=== PATIENT | male | born 1940 | race Caucasian/White ===

== ENCOUNTER → 2017-09-15 07:39 | Outpatient (CLI) | payer MEDICARE, SELFPAY ==
[2017-09-15 09:03] LABS: Hemoglobin A1C% w Est Avg Glu 8.9 % (4.0-6.0)
== END ==
PROVIDERS: PCP Internal Medicine; Visit Provider Internal Medicine
DX: E11.9 Type 2 diabetes mellitus without complications (principal)
CPT/HCPCS: 36415; 83036

== ENCOUNTER → 2017-09-29 10:28 | Outpatient (CLI) | payer MEDICARE, SELFPAY ==
[2017-10-02 12:39] LABS: Creatine Kinase 389 U/L (55-170)
== END ==
PROVIDERS: Family Provider Internal Medicine; PCP Internal Medicine; Visit Provider Internal Medicine Cardiovascular Disease
DX: R74.8 Abnormal levels of other serum enzymes (principal)
CPT/HCPCS: 36415; 82550; 82565

== ENCOUNTER → 2017-10-10 07:06 | Outpatient (CLI) | payer MEDICARE, SELFPAY ==
[2017-10-12 21:51] LABS: Aldolase 3.4 U/L (< 8.2)
== END ==
PROVIDERS: PCP Internal Medicine; Visit Provider Internal Medicine Cardiovascular Disease
DX: R74.8 Abnormal levels of other serum enzymes (principal)
CPT/HCPCS: 36415; 82085

== ENCOUNTER → 2018-02-14 09:01 | Outpatient (CLI) | payer MEDICARE, SELFPAY ==
[2018-02-14 10:05] LABS: Hemoglobin A1C% w Est Avg Glu 9.1 % (4.0-6.0)
[2018-02-14 10:16] LABS: Aspartate Aminotransferase 35 IU/L (17-59); Cholesterol 122 mg/dL (140-199); HDL Cholesterol 43 mg/dL (40-60); LDL Cholesterol Calculated 61 mg/dL (<100); Triglycerides 92 mg/dL (35-150)
== END ==
PROVIDERS: Family Provider Internal Medicine; PCP Internal Medicine; Visit Provider Internal Medicine
DX: E11.9 Type 2 diabetes mellitus without complications (principal); I10 Essential (primary) hypertension; E78.00 Pure hypercholesterolemia, unspecified
CPT/HCPCS: 36415; 80061; 83036; 83880; 84450

== ENCOUNTER → 2018-03-05 08:00 | Outpatient (CLI) | payer MEDICARE, SELFPAY ==
[2018-03-05 09:22] LABS: Alanine Aminotransferase 34 IU/L (21-72); Albumin 4.3 g/dL (3.5-5.0); Albumin Globulin Ratio 1.6 (1.0-2.8); Alkaline Phosphatase 65 U/L (38-126); Aspartate Aminotransferase 33 IU/L (17-59); BUN Creatinine Ratio 14.4 (6-22); Bilirubin Total 0.5 mg/dL (0.2-1.3); Blood Urea Nitrogen 13 mg/dL (9-20); Calcium 9.4 mg/dL (8.4-10.2); Carbon Dioxide 31 mmol/L (22-32); Chloride 95 mmol/L (98-107); Cholesterol 111 mg/dL (140-199); Estimated Glomerular Filt Rate > 60.0 mL/min (>60); Globulin 2.7 g/dL (1.7-4.1); Glucose 133 mg/dL (80-110); HDL Cholesterol 54 mg/dL (40-60); HEMOLYSIS < 15 (0-50); LDL Cholesterol Calculated 42 mg/dL (<100); Potassium 4.7 mmol/L (3.4-5.1); Sodium 137 mmol/L (137-145); Triglycerides 75 mg/dL (35-150)
== END ==
PROVIDERS: Family Provider Internal Medicine; PCP Internal Medicine; Visit Provider Internal Medicine Cardiovascular Disease
DX: E78.5 Hyperlipidemia, unspecified (principal)
CPT/HCPCS: 36415; 80053; 80061

== ENCOUNTER → 2018-03-14 12:07 | Outpatient (CLI) | payer MEDICARE, SELFPAY ==
[2018-03-14 13:06] LABS: Creatine Kinase 340 U/L (55-170)
[2018-03-16 14:07] LABS: Aldolase 4.4 U/L (< 8.2)
== END ==
PROVIDERS: Family Provider Internal Medicine; PCP Internal Medicine; Visit Provider Internal Medicine Cardiovascular Disease
DX: E78.5 Hyperlipidemia, unspecified (principal)
CPT/HCPCS: 36415; 82085; 82550

== ENCOUNTER → 2018-11-22 07:25 | Outpatient (CLI) | payer MEDICARE, SELFPAY ==
[2018-11-22 08:25] LABS: BUN Creatinine Ratio 14.5 (6-22); Blood Urea Nitrogen 16 mg/dL (9-20); Calcium 9.8 mg/dL (8.4-10.2); Carbon Dioxide 30 mmol/L (22-32); Chloride 97 mmol/L (98-107); Cholesterol 108 mg/dL (140-199); Estimated Glomerular Filt Rate > 60.0 mL/min (>60); Glucose 125 mg/dL (80-110); HDL Cholesterol 47 mg/dL (40-60); HEMOLYSIS < 15 (0-50); LDL Cholesterol Calculated 42 mg/dL (<100); Sodium 135 mmol/L (137-145); Triglycerides 96 mg/dL (35-150)
== END ==
PROVIDERS: Family Provider Internal Medicine; PCP Internal Medicine; Visit Provider Internal Medicine Cardiovascular Disease
DX: R60.0 Localized edema (principal); E78.5 Hyperlipidemia, unspecified
CPT/HCPCS: 36415; 80048; 80061

== ENCOUNTER → 2018-12-17 07:43 | Outpatient (CLI) | payer MEDICARE, SELFPAY ==
--- NOTE | 2018-12-17 | DI.ECHO.S_ITS ---
[facility] +---------+ : : [address] : : : : [id number] : : : : Phone: [phone]+ Echocardiogram Report + + :Name: RK ERNANDEZ Study Date: 12/17/2018 Height: 70 in : :[facility] Weight: 249 lb : : Gender: Male BSA: 2.3 m2 : :: 1940 Age: 78 yrs BP: 142/64 mmHg: :Reason For Study: Edema : : Performed By: Monika Stack : :Referring: ANTHONY CERVANTES : + + Interpretation Summary The left ventricle is mildly dilated. This is increased compared to the previous study. The ejection fraction is estimated to be 25-30%. Left ventricular function has mildly worsened compared to the previous exam. In comparison to previous study, worsening wall motion abnormalities in the anterolateral wall. Diastolic parameters suggest a pseudonormalization pattern, consistent with probable elevated filling pressures. The right ventricle is grossly normal size. Right ventricular systolic function is at the lower limits of normal. An annuloplasty ring is noted in the mitral position. There is mild to moderate mitral regurgitation. Compared to the prior echo study, there has been an increase in the severity of mitral regurgitation. There is mild tricuspid regurgitation. The right ventricular systolic pressure is estimated to be at least 33 mmHg based on an estimated right atrial pressure of 3 mm Hg. The ascending aorta is mildly enlarged. No significant change in ascending aorta diameter. Procedure: A two-dimensional transthoracic echocardiogram with color flow and Doppler was performed. The study quality was technically adequate. Comparison is made with the echocardiogram of 03-30-15. The patient was in normal sinus rhythm during the exam. The patient had frequent PACs during the exam. Left Ventricle: The left ventricle is mildly dilated. This is increased compared to the previous study. There is no thrombus. The ejection fraction is estimated to be 25-30%. Left ventricular function has mildly worsened compared to the previous exam. There is moderate to severe global hypokinesis of the left ventricle. In comparison to previous study, worsening wall motion abnormalities in the anterolateral wall. Diastolic parameters suggest a pseudonormalization pattern, consistent with probable elevated filling pressures. Right Ventricle: The right ventricle is grossly normal size. Right ventricular systolic function is at the lower limits of normal. Atria: The left atrium is severely dilated. The left atrium has remained unchanged in size since the prior echo exam. The right atrium grossly appears normal in size. The interatrial septum is intact with no evidence for an atrial septal defect. Mitral Valve: The mitral valve leaflets appear mildly thickened, but open well. An annuloplasty ring is noted in the mitral position. The posterior mitral leaflet is thickened and fixed consistent with prior mitral repair surgery. No significant mitral valve stenosis. There is mild to moderate mitral regurgitation. Compared to the prior echo study, there has been an increase in the severity of mitral regurgitation. Aortic Valve: The aortic valve is trileaflet. The aortic valve opens well. There is mild aortic valve sclerosis. There is no aortic valve stenosis. There is trace aortic regurgitation. Tricuspid Valve: The tricuspid valve leaflets are thin and pliable. There is mild tricuspid regurgitation. The right ventricular systolic pressure is estimated to be at least 33 mmHg based on an estimated right atrial pressure of 3 mm Hg. Pulmonic Valve: The pulmonic valve is normal in structure and function. There is trace pulmonic regurgitation. Great Vessels: The aortic root is mildly dilated. The aortic arch is mildly enlarged. The ascending aorta is mildly enlarged. The IVC is of normal diameter and collapses greater than 50% with a sniff. This suggests a low right atrial pressure of 3 mm Hg. Pericardium/ Pleura There is no pericardial effusion. There is no pleural effusion. MMode/2D Measurements & Calculations LVIDd: 6.1 cm Ao root diam: 4.4 cm LVIDs: 5.5 cm Aortic Jxn: 3.0 cm FS: 11.1 % asc Aorta Diam: 3.7 cm EPSS: 2.4 cm Ao Arch Diam (Prox Trans): 3.5 cm IVSd: 0.90 cm LVPWd: 1.00 cm LV roy. diameter/BSA (cm/m^2): 2.7 LV sys. diameter/BSA (cm/m^2): 2.4 LA dimension: 5.6 cm RA long axis: 5.9 cm LA A2 area: 37.8 cm2 RA area: 22.6 cm2 LA A4 area: 29.3 cm2 RA vol: 73.6 ml LA length (vol): 6.0 cm RA : 32.1 ml/m2 LA vol: 158.3 ml IVC diam: 1.9 cm LA vol index: 69.1 ml/m2 RVDd major: 6.2 cm RVD1 (basal): 3.7 cm RVD2 (mid): 2.4 cm Doppler Measurements & Calculations Ao V2 max: 133.9 cm/sec MV E max win: 145.0 cm/sec Ao V2 mean: 91.9 cm/sec MV A max win: 116.1 cm/sec Ao max P.2 mmHg MV E/A: 1.2 Ao mean P.9 mmHg Med Peak E' Win: 2.5 cm/sec Ao V2 VTI: 33.6 cm E/E' med: 57.4 Lat Peak E' Win: 7.9 cm/sec E/E' lat: 18.4 E/e' average: 37.9 MV dec time: 0.25 sec MV P1/2t: 76.7 msec TR max win: 275.5 cm/sec MV P1/2t max win: 145.0 cm/sec TR max P.4 mmHg MVA(P1/2t): 2.9 cm2 PA V2 max: 57.9 cm/sec PA V2 mean: 34.1 cm/sec PA mean P.59 mmHg PA Accel Time: 0.12 sec Reading Physician:12:37 PM
== END ==
PROVIDERS: PCP Internal Medicine; Visit Provider Internal Medicine Cardiovascular Disease
DX: R60.0 Localized edema (principal); I51.7 Cardiomegaly; I34.0 Nonrheumatic mitral (valve) insufficiency; I37.1 Nonrheumatic pulmonary valve insufficiency
CPT/HCPCS: 93306

== ENCOUNTER → 2019-01-29 13:48 | Outpatient (CLI) | payer MEDICARE, SELFPAY ==
--- NOTE | 2019-01-29 14:49 | P.PCN_ITS ---
Cardiac Stress Test Report Referral & Results Date Patient Seen: 01/29/19 Time Patient Seen: 14:30 Requesting provider: Timothy Hinton Indication: CAD, A-fib Rest ECG: Atrial fibrillation Procedure Note: Today following both written and verbal informed consent the patient was exercised on the first stage of a standard Edgardo protocol patient for a total of 3 minutes 52 seconds achieving a maximum heart rate of 120 maximum systolic blood pressure of 146. We had to pause progression of the protocol due to markedly reduced exercise capacity and heart rate interference from patient's beta-martir. This performance is approximately 4.6 METs. Exercise was terminated at this point because of fatigue, shortness of breath. Patient was also given Cardiolite through a previously started Hep-Lock IV by the nuclear security officer approximately 1 minute prior to the cessation of exercise. Markedly reduced exercise capacity. No change in rhythm during the exam. Minimal ST deviations in multiple leads. Impression: Intermediate probability for ischemia. Will await perfusion imaging. Please note: Actual ECG tracings can be found in the PACS system.
--- NOTE | 2019-01-30 15:51 | DI.NM.S_ITS ---
DATE OF SERVICE: 01/29/2019 PROCEDURE PERFORMED: Exercise treadmill stress and rest myocardial perfusion imaging study with gating to assess ejection fraction and regional wall motion. ORDERING PROVIDER: Timothy Hinton MD INDICATIONS: The patient is a 78-year-old male status post previous myocardial infarction and mitral valve repair who now presents with worsening lower extremity edema and an abnormal ECG. CARDIAC STRESS: The patient was able to exercise for only 3 minutes 52 seconds on a standard Edgardo protocol suggesting moderate-severely reduced exercise capacity with an EVANGELINA of +35%. He achieved a maximum heart rate of 120 bpm (85% of his predicted maximum) and had a normal blood pressure response. His resting ECG shows a nonspecific intraventricular conduction delay with associated ST- segment abnormalities but these remained unchanged with stress. He had occasional PACs at rest and with stress but no complex ectopy. He denied any chest discomfort. At 2 minutes 59 seconds of exercise, at heart rate of 118 bpm, 24.6 mCi of technetium-99 Myoview was injected, and the patient was imaged 15 minutes later using a gated SPECT acquisition protocol. The patient returned the following day and was reinjected with an additional 25.1 mCi of technetium-99 Myoview and was imaged 30 minutes later, again using a gated SPECT acquisition protocol. FINDINGS: 1. Raw Data: There is marginal image quality with mild motion noted on both the stress and resting images which could introduce artifact. The lung/heart ratio is normal at 0.31 and the TID ratio was normal at 1.03. 2. Quantitative Gated SPECT: Post stress ejection fraction is estimated at 46% with global hypokinesis without any clear focality. Specifically, the mid-to- distal anterior wall and apex appear to have similar contractility as the other segments. The resting images show an ejection fraction of 46% with a similar contraction pattern. The left ventricle is moderate-severely enlarged with a resting end-diastolic volume of 247 mL. 3. Myocardial Perfusion Imaging: Post stress supine images show a fairly normal perfusion pattern with the exception of a mild defect in the very distal apical segments, more notably in the distal inferior wall and inferoapex but the anterior wall and anteroapex appear to have fairly normal perfusion. The prone images show a similar perfusion pattern, again with a mild defect in the apex and more notable in the inferoapex. The resting images show an identical perfusion pattern without any clear areas of improvement. IMPRESSION: 1. Abnormal myocardial perfusion study. 2. Relatively small fixed mild perfusion defect in the distal inferoapex and slightly involving the apex itself. This would be consistent with a previous small nontransmural infarction. The anterior wall and anteroapex appear to have normal perfusion. There is no evidence for any significant myocardial ischemia. 3. Moderately reduced left ventricular systolic function in a global fashion without any obvious focal wall motion abnormality but left ventricular volumes are significantly increased. 4. Veysgnrt-ar-dvlotknm reduced exercise capacity but without any angina or significant ECG changes of ischemia. Frequent premature atrial contractions (PACs) are noted at rest and with stress but no complex ectopy. 5. This study is compared to the previous myocardial perfusion study at [facility] on 04/21/2015. The previous [id number]-[id number] anterior reversible defect is no longer evident. Left ventricular volumes and ejection fraction are grossly similar to the previous study. The patient was able to exercise for 5 minutes 6 seconds on the previous exam suggesting some decline in functional capacity. Praful Sawant - CAM/heidi/ab doc#: [id number]/job#: [id number] dd: 01/30/2019 12:52:00 dt: 01/30/2019 15:30:00 DICTATING MD/COPIES TO: Jake Dorsey MD; Timothy Hinton MD; Zaheer Baig MD COPIES MNE: GRETCHEN WEIR; TATIANA
== END ==
PROVIDERS: Family Provider Internal Medicine; PCP Internal Medicine; Visit Provider Internal Medicine Cardiovascular Disease
DX: R94.31 Abnormal electrocardiogram [ECG] [EKG] (principal); I25.119 Atherosclerotic heart disease of native coronary artery with unspecified angina pectoris; I48.91 Unspecified atrial fibrillation; I25.2 Old myocardial infarction; R60.0 Localized edema; Z95.2 Presence of prosthetic heart valve
CPT/HCPCS: 78452; 93016; 93017; 93018; A9502

== ENCOUNTER 2019-02-20 12:46 | Day surgery (SDC) | payer MEDICARE, SELFPAY ==
[2019-02-20] MEDS: SODIUM CHLORIDE 0.9% 1,000 ML 42 ML IV (13:04)
[2019-02-20 13:05] VITALS: BP 121/67; PULSE 68; RESP 18; TEMP 36.3; O2SAT 100; BMI 31.5
--- NOTE | 2019-02-20 14:12 | PM.HP.1 ---
History of Present Illness History of Present Illness Date Patient Seen: 02/20/19 Time Patient Seen: 14:13 Chief complaint: [id number] Narrative: History of adenomatous colon polyps Patient History Medical History (Updated 02/20/19 @ 14:14 by Jr Roy MD) FH: mitral valve repair (Acute) Family & Social History Social History: household members spouse Meds Home Medications and Allergies Home Medications Medication Instructions Recorded Confirmed Type Lantus U-100 Insulin 20 u SQ BID #0 12/13/16 02/20/19 History clopidogrel [Plavix] 75 mg PO QDAY #0 12/13/16 02/20/19 History insulin lispro [Humalog U-100 10 u SQ DAILY #0 12/13/16 02/20/19 History Insulin] metformin [Glucophage XR] 1,000 mg PO BID #0 12/13/16 02/20/19 History metoprolol succinate [Toprol XL] mg PO QDAY #0 12/13/16 History telmisartan [Micardis] 40 mg PO QDAY #0 12/13/16 02/20/19 History nitroglycerin [Nitrostat] 0.4 mg SUBLINGUAL Q5M PRN 02/20/19 02/20/19 History Allergies Allergy/AdvReac Type Severity Reaction Status Date / Time Qqcyenc-Kvh-Vzo Reductase AdvReac Intermediate lower body Unverified 02/19/19 13:15 Inhibitor muscle pain [[id number]-ERF REDUCTASE INHIBITOR] Exam Vital Signs (past 8 hours): - 02/20/19 13:05 Temperature 97.4 F L Pulse Rate 68 Respiratory Rate 18 Blood Pressure 121/67 Pulse Oximetry 100 Oxygen Delivery Method Room Air Narrative Exam Narrative: Oropharynx free of lesions Chest clear to auscultation percussion Cardiac exam reveals no S3 or murmur Assessment & Plan Assessment & Plan narrative: Need for screening colonoscopy. Using Plavix for history of cardiac stents. Now off Plavix this for 5 days. Risks, benefits, alternatives have been explained.
--- NOTE | 2019-02-20 14:14 | PM.OP.ENDO ---
Operative Date/Time/Diagnoses Date of procedure: 02/20/19 Time of procedure: 14:15 Pre-op diagnosis: See indication and findings Procedure & Clinicians Study performed: Colonoscopy Same procedure as scheduled: Yes Indications: History of adenomatous colon polyps Surgeon: Jr Roy Procedure Notes Procedure in detail: After informed consent was obtained the patient was placed in left lateral decubitus position. Video colonoscope was introduced the rectum slowly advanced to cecum/just at ICV. On slow withdrawal mucosa was carefully examined. The scope was removed. The patient tolerated procedure well. Blood loss none Complications none Sedation Total sedation time 32 minutes Versed 8 mg fentanyl 150 micro g IV titration Findings 1. Extensive left and sigmoid diverticulosis 2. Extensive the tortuosity of the colon. 3. Otherwise negative colonoscopy When can go back on his Plavix. I do not think he will need follow-up colonoscopy due to his age.
[2019-02-20] MEDS: MIDAZOLAM 5 MG/5 ML VIAL IV (14:42)
[2019-02-20] MEDS: fentaNYL 250 MCG/5 ML INJ IV (14:42)
[2019-02-20 14:49] VITALS: BP 122/49; PULSE 62; RESP 10; TEMP 36.6; O2SAT 98
[2019-02-20 14:58] VITALS: BP 107/53; PULSE 64; RESP 11; O2SAT 98
[2019-02-20 15:02] VITALS: BP 120/66; PULSE 65; RESP 15; TEMP 37; O2SAT 98
[2019-02-20 15:10] VITALS: BP 115/62; PULSE 62; RESP 16; TEMP 36.5; O2SAT 98
== END 2019-02-20 15:20 | disposition home or self-care (01) ==
PROVIDERS: PCP Internal Medicine; Visit Provider Internal Medicine Gastroenterology
PROC: 0DJD8ZZ Inspection of Lower Intestinal Tract, Via Natural or Artificial Opening Endoscopic (ICD-10-PCS; CPT 45378; principal; 2019-02-20 14:00)
DX: Z86.010 Personal history of colon polyps (principal); K57.30 Diverticulosis of large intestine without perforation or abscess without bleeding; E11.9 Type 2 diabetes mellitus without complications; Z79.4 Long term (current) use of insulin; I10 Essential (primary) hypertension
CPT/HCPCS: G0105; J2250; J3010

== ENCOUNTER → 2019-03-06 15:59 | Outpatient (ROUT) | payer MEDICARE, SELFPAY ==
[2019-03-06 16:20] LABS: Add Manual Diff / Slide Review NO; Basophils Absolute Auto 0 /uL (0-100); Basophils Percent Auto 0.6 % (0-2); Eosinophils Absolute Auto 400 /uL (0-450); Eosinophils Percent Auto 8.9 % (2-4); Hematocrit 35.5 % (41-53); Hemoglobin 12.1 g/dL (13.5-17.5); Lymphocytes Absolute Auto 1000 /uL (1100-4500); Lymphocytes Percent Auto 23.1 % (25-40); Mean Corpuscular HGB Conc 33.9 % (30-36); Mean Corpuscular Hemoglobin 29.9 PG (26-34); Monocytes Absolute Auto 600 /uL (0-900); Monocytes Percent Auto 13.2 % (3-14); Neutrophils Absolute Auto 2400 /uL (1500-7000); Neutrophils Percent Auto 54.2 % (50-75); Platelet Count 222 X10^3/uL (150-400); Red Blood Cell Count 4.04 X10^6/uL (4.5-5.9); Red Cell Distribution Width 14.1 % (11.6-14.8); White Blood Cell Count 4.4 X10^3/uL (4.5-11.0)
[2019-03-06 16:26] LABS: Hemoglobin A1C% w Est Avg Glu 8.7 % (4.0-6.0)
[2019-03-06 16:27] LABS: Alanine Aminotransferase 20 IU/L (<50); Albumin 4.3 g/dL (3.5-5.0); Albumin Globulin Ratio 1.7 (1.0-2.8); Alkaline Phosphatase 76 U/L (38-126); Aspartate Aminotransferase 33 IU/L (17-59); BUN Creatinine Ratio 14.5 (6-22); Bilirubin Total 0.6 mg/dL (0.2-1.3); Blood Urea Nitrogen 16 mg/dL (9-20); Calcium 9.7 mg/dL (8.4-10.2); Carbon Dioxide 30 mmol/L (22-32); Chloride 96 mmol/L (98-107); Cholesterol 129 mg/dL (140-199); Estimated Glomerular Filt Rate > 60.0 mL/min (>60); Globulin 2.6 g/dL (1.7-4.1); Glucose 204 mg/dL (80-110); HDL Cholesterol 48 mg/dL (40-60); HEMOLYSIS < 15 (0-50); LDL Cholesterol Calculated 51 mg/dL (<100); Potassium 4.6 mmol/L (3.4-5.1); Sodium 136 mmol/L (137-145); Total Protein 6.9 g/dL (6.3-8.2); Triglycerides 152 mg/dL (35-150)
== END ==
PROVIDERS: PCP Internal Medicine; Visit Provider Internal Medicine
DX: E11.9 Type 2 diabetes mellitus without complications (principal); E78.2 Mixed hyperlipidemia; I25.10 Atherosclerotic heart disease of native coronary artery without angina pectoris
CPT/HCPCS: 80053; 80061; 83036; 85025

== ENCOUNTER → 2019-08-22 08:03 | Outpatient (CLI) | payer MEDICARE, SELFPAY ==
[2019-08-22 11:01] LABS: Hemoglobin A1C% w Est Avg Glu 9.3 % (4.0-6.0)
[2019-08-22 11:31] LABS: BUN Creatinine Ratio 15.7 (6-22); Blood Urea Nitrogen 19 mg/dL (9-20); Calcium 9.6 mg/dL (8.4-10.2); Carbon Dioxide 28 mmol/L (22-32); Chloride 95 mmol/L (98-107); Glucose 239 mg/dL (80-110); HEMOLYSIS < 15 (0-50); Magnesium 1.7 mg/dL (1.6-2.3); Potassium 4.7 mmol/L (3.4-5.1); Sodium 132 mmol/L (137-145)
== END ==
PROVIDERS: PCP Internal Medicine; Referring Provider Internal Medicine; Visit Provider Internal Medicine
DX: E11.9 Type 2 diabetes mellitus without complications (principal)
CPT/HCPCS: 36415; 80048; 83036; 83735

== ENCOUNTER 2019-12-01 19:40 | Emergency (ER) | payer MEDICARE, SELFPAY ==
[2019-12-01] VITALS (13 sets, daily range): BP systolic 129–157; BP diastolic 59–88; PULSE 69–131; RESP 6–22; TEMP 36.7; O2SAT 97–100; BMI 33.7
[2019-12-01 20:07] LABS: Add Manual Diff / Slide Review NO; Basophils Absolute Auto 0 /uL (0-100); Basophils Percent Auto 0.5 % (0-2); Eosinophils Absolute Auto 500 /uL (0-450); Hematocrit 33.9 % (41-53); Hemoglobin 11.4 g/dL (13.5-17.5); Lymphocytes Absolute Auto 1500 /uL (1100-4500); Lymphocytes Percent Auto 26.7 % (25-40); Mean Corpuscular HGB Conc 33.6 % (30-36); Mean Corpuscular Volume 86.1 fL (80-100); Monocytes Absolute Auto 900 /uL (0-900); Monocytes Percent Auto 15.1 % (3-14); Neutrophils Absolute Auto 2800 /uL (1500-7000); Neutrophils Percent Auto 48.7 % (50-75); Platelet Count 216 X10^3/uL (150-400); Red Blood Cell Count 3.94 X10^6/uL (4.5-5.9); Red Cell Distribution Width 13.5 % (11.6-14.8); White Blood Cell Count 5.7 X10^3/uL (4.5-11.0)
[2019-12-01] MEDS: SODIUM CHLORIDE 0.9% 1,000 ML 150 ML IV (20:11)
[2019-12-01 20:13] LABS: INR 1.4 (0.9-1.3); Prothrombin Time 16.7 SECONDS (10.1-12.7)
[2019-12-01 20:16] LABS: PTT Partial Thromboplastin Tim 40 SECONDS (26.4-36.2)
[2019-12-01] MEDS: propofoL 200 MG/20 ML VIAL 40 MG IV (20:16)
[2019-12-01 20:19] LABS: BUN Creatinine Ratio 17.5 (6-22); Blood Urea Nitrogen 22 mg/dL (9-20); Carbon Dioxide 26 mmol/L (22-32); Chloride 97 mmol/L (98-107); Creatine Kinase 385 U/L (55-170); Estimated Glomerular Filt Rate 55.4 mL/min (>60); Glucose 230 mg/dL (80-110); HEMOLYSIS 24 (0-50); Magnesium 1.9 mg/dL (1.6-2.3); Potassium 3.9 mmol/L (3.4-5.1); Sodium 133 mmol/L (137-145)
[2019-12-01 20:29] LABS: Troponin I 0.017 ng/mL (0.01-0.034)
--- NOTE | 2019-12-01 20:40 | ED_ITS ---
HPI - Arrhythmia/Palpitations General Chief Complaint: Arrhythmia/Palpitations Stated Complaint: states tachy Time Seen by Provider: 12/01/19 19:45 Source: patient Mode of arrival: Family Vehicle Limitations: no limitations History of Present Illness HPI narrative: 78-year-old male never smoker with history of AFib, ablation, on Eliquis, diabetes presents with his in the chief complaint of a recurrence of his AFib. States it started roughly 30 minutes prior to his arrival and associated with some shortness of breath and pressure behind his right shoulder blade. He denies any nausea or vomiting. He denies missing any doses of his anticoagulation. He has been cardioverted on prior occasions and seemed to respond well to propofol 40 mg IV. He denies any change in his medications or diet. MD complaint: rapid heart beat and heart racing Onset (ago): minute(s) Duration: constant Severity: moderate Context: occurred during rest Arrhythmia history: atrial fibrillation Associated symptoms: chest pain Treatments prior to arrival: vagal maneuvers Related Data Home Medications Medication Instructions Recorded Confirmed Lantus U-100 Insulin 20 u SQ BID #0 12/13/16 02/20/19 clopidogrel [Plavix] 75 mg PO QDAY #0 12/13/16 02/20/19 insulin lispro [Humalog U-100 10 u SQ DAILY #0 12/13/16 02/20/19 Insulin] metformin [Glucophage XR] 1,000 mg PO BID #0 12/13/16 02/20/19 metoprolol succinate [Toprol XL] mg PO QDAY #0 12/13/16 telmisartan [Micardis] 40 mg PO QDAY #0 12/13/16 02/20/19 nitroglycerin [Nitrostat] 0.4 mg SUBLINGUAL Q5M PRN 02/20/19 02/20/19 Allergies Allergy/AdvReac Type Severity Reaction Status Date / Time Vicyihd-Jkh-Uow Reductase AdvReac Intermediate lower body Verified 12/01/19 19:59 Inhibitor muscle pain [UZDFBWO-IXQ-TUX REDUCTASE INHIBITOR] Review of Systems Constitutional Constitutional: Denies chills, Denies fatigue, Denies fever(s), Denies frequent falls, Denies lethargy and Denies weakness Eyes Eyes: Denies change in vision, Denies eye discharge, Denies irritation and Denies loss of vision ENT Ears, Nose, Mouth, and Throat: Denies change in voice, Denies dizziness, Denies neck pain, Denies sore throat and Denies throat swelling Cardiovascular Cardiovascular: Reports chest pain, Reports irregular heart rhythm, Denies lightheadedness, Reports palpitations, Denies dyspnea, Denies dyspnea on exertion and Denies orthopnea Respiratory Respiratory: Denies cough, Denies dyspnea, Denies dyspnea on exertion and Denies wheezing Gastrointestinal Gastrointestinal: Denies abdominal pain, Denies change in bowel habits, Denies diarrhea, Denies nausea and Denies vomiting Musculoskeletal Musculoskeletal: Denies neck pain and Denies numbness Integumentary/Breasts Skin/Breast: Denies pruritus, Denies erythema, Denies rash and Denies wounds Neurologic Neurologic: Denies behavioral changes, Denies confusion, Denies dizziness, Denies frequent falls, Denies loss of vision, Denies numbness and Denies weakness Psychiatric Psychiatric: Denies anxiety, Denies behavioral changes, Denies confusion, Denies depression, Denies homicidal ideation and Denies suicidal ideation Endocrine Endocrine: Denies fatigue, Denies flushing and Reports palpitations Hematologic/Lymphatic Hematologic/Lymphatic: Denies easy bruising Allergic/Immunologic Allergic/Immunologic: Denies urticaria, Denies throat swelling and Denies whe ezing Patient History Medical History FH: mitral valve repair (Acute) Social History household members: spouse Smoking Status: Never smoker Smoking Status: Never smoker alcohol intake frequency: holidays/special occasions only Substance Use Type: does not use Exam Narrative Exam Narrative: GENERAL: [78] year old patient appears stated age. Well- nourished, well-developed patient, in mild distress. HEAD: Atraumatic. Normocephalic. EYES: Pupils equal round and reactive. Extraocular motions intact. No scleral icterus. No injection or drainage. ENT: Nose without bleeding, purulent drainage. Throat without erythema, tonsillar hypertrophy or exudate. Airway patent. NECK: Trachea midline. Non tender CARDIOVASCULAR: Rapid and irregular without murmurs, gallops, or rubs. RESPIRATORY: Clear to auscultation. Breath sounds equal bilaterally. No wheezes, rales, or rhonchi. GASTROINTESTINAL: Abdomen soft, non-tender, nondistended. EXTREMITIES: No edema or joint tenderness. BACK: Nontender without deformity or crepitance. No flank tenderness. NEURO: AOx3. SKIN: No rash or erythema of visible areas Initial Vital Signs Initial Vital Signs: Vital Signs Temperature 98.0 F 12/01/19 19:53 Pulse Rate 131 H 12/01/19 19:53 Respiratory Rate 22 12/01/19 19:53 Blood Pressure 133/77 12/01/19 19:53 Pulse Oximetry 99 12/01/19 19:53 Procedures Cardioversion Consent Signed: Yes Indication: Rapid atrial fibrillation Stability: Stable Number of attempts (shocks): 1 Joules used: 150 Cardiac rhythm post-cardioversion: Paced with PACs Procedural Sedation Consent signed: Yes Time out performed: Yes Indication: cardioversion ASA Class: II Mallampati Airway Classification: Class III Preparation: hall monitor applied, pulse oximeter, capnometry used, supplemental O2 applied, suction/airway equipment at bedside and IV secured IV Propofol dose (mg): 40 Intraservice time/total sedation time (min): 10 ED Sedation Level: Moderate (Concious) Patient Tolerated Procedure: Well Complications: none Course Orders Ordered: ED Orders 12/01/19 19:49 EKG-12 Lead Stat 12/01/19 20:00 Basic Metabolic Panel Stat Complete Blood Count AUTO DIFF Stat Magnesium Stat Partial Thromboplastin Time Stat Prothrombin Time INR Stat Thyroid Stimulating Hormone Stat Troponin & CK Cardiac Panel Stat 12/01/19 20:19 EKG-12 Lead Routine Discontinued Medications Sodium Chloride (Normal Saline 0.9%) 1,000 mls @ 150 mls/hr IV CONT JUAN C Last Infusion: 12/01/19 22:38 Dose: 150 mls/hr Documented by: Admin: 12/01/19 20:11 Dose: 150 mls/hr Documented by: TALIA Propofol (Diprivan) 40 mg IV NOW ONE Stop: 12/01/19 20:07 Last Admin: 12/01/19 20:16 Dose: 40 mg Documented by: TALIA Vital Signs Vital signs: Vital Signs - 8 hr 12/01/19 19:53 12/01/19 20:16 12/01/19 20:21 Temperature 98.0 F 98.0 F Pulse Rate 131 H 128 H 73 Respiratory Rate 22 16 16 Blood Pressure 133/77 Blood Pressure [Left Arm] 136/88 145/73 H Pulse Oximetry 99 99 98 12/01/19 20:36 12/01/19 20:40 12/01/19 20:46 Temperature Pulse Rate 74 74 73 Respiratory Rate 16 19 19 Blood Pressure 156/67 H 139/84 Blood Pressure [Left Arm] Pulse Oximetry 98 97 98 12/01/19 20:51 12/01/19 20:56 12/01/19 21:00 Temperature Pulse Rate 72 72 71 Respiratory Rate 14 16 17 Blood Pressure 157/67 H 135/62 147/65 H Blood Pressure [Left Arm] Pulse Oximetry 99 97 99 12/01/19 21:05 12/01/19 21:10 12/01/19 21:15 Temperature Pulse Rate 71 71 70 Respiratory Rate 10 L 18 12 Blood Pressure 129/72 139/59 L 156/70 H Blood Pressure [Left Arm] Pulse Oximetry 98 98 100 12/01/19 21:20 Temperature Pulse Rate 69 Respiratory Rate 6 L Blood Pressure 138/72 Blood Pressure [Left Arm] Pulse Oximetry 100 MDM - Arrhythmia/Palpitations Lab Data Result diagrams: 12/01/19 20:00 12/01/19 20:00 Labs: Lab Results 12/01/19 12/01/19 12/01/19 Range/Units 20:00 20:00 20:00 WBC 5.7 (4.5-11.0) X10^3/uL RBC 3.94 L (4.5-5.9) X10^6/uL Hgb 11.4 L (13.5-17.5) g/dL Hct 33.9 L (41-53) % MCV 86.1 (80-100) fL MCH 29.0 (26-34) PG MCHC 33.6 (30-36) % RDW 13.5 (11.6-14.8) % Plt Count 216 (150-400) X10^3/uL Neut % (Auto) 48.7 L (50-75) % Lymph % (Auto) 26.7 (25-40) % [place] % (Auto) 15.1 H (3-14) % Eos % (Auto) 9.0 H (2-4) % Baso % (Auto) 0.5 (0-2) % Neut # (Auto) 2800 (5281-9386) /uL Lymph # (Auto) 1500 (4891-8511) /uL [place] # (Auto) 900 (0-900) /uL Eos # (Auto) 500 H (0-450) /uL Baso # (Auto) 0 (0-100) /uL PT 16.7 H (10.1-12.7) SECONDS INR 1.4 H (0.9-1.3) APTT 40 H (26.4-36.2) SECONDS Sodium 133 L (137-145) mmol/L Potassium 3.9 (3.4-5.1) mmol/L Chloride 97 L (98-107) mmol/L Carbon Dioxide 26 (22-32) mmol/L BUN 22 H (9-20) mg/dL Creatinine 1.26 H (0.66-1.25) mg/dL Estimated GFR 55.4 L (>60) mL/min BUN/Creatinine Ratio 17.5 (6-22) Glucose 230 H (80-110) mg/dL Calcium 10.0 (8.4-10.2) mg/dL Magnesium 1.9 (1.6-2.3) mg/dL Total Creatine Kinase 385 H (55-170) U/L CK-MB (CK-2) 4.98 H (<2.37) ng/mL CK-MB (CK-2) Rel Index 1.3 L (1.5-5.0) % Troponin I 0.017 (0.01-0.034) ng/mL TSH (0.47-4.68) uIU/mL 12/01/19 Range/Units 20:00 WBC (4.5-11.0) X10^3/uL RBC (4.5-5.9) X10^6/uL Hgb (13.5-17.5) g/dL Hct (41-53) % MCV (80-100) fL MCH (26-34) PG MCHC (30-36) % RDW (11.6-14.8) % Plt Count (150-400) X10^3/uL Neut % (Auto) (50-75) % Lymph % (Auto) (25-40) % [place] % (Auto) (3-14) % Eos % (Auto) (2-4) % Baso % (Auto) (0-2) % Neut # (Auto) (5874-7135) /uL Lymph # (Auto) (3202-7990) /uL [place] # (Auto) (0-900) /uL Eos # (Auto) (0-450) /uL Baso # (Auto) (0-100) /uL PT (10.1-12.7) SECONDS INR (0.9-1.3) APTT (26.4-36.2) SECONDS Sodium (137-145) mmol/L Potassium (3.4-5.1) mmol/L Chloride (98-107) mmol/L Carbon Dioxide (22-32) mmol/L BUN (9-20) mg/dL Creatinine (0.66-1.25) mg/dL Estimated GFR (>60) mL/min BUN/Creatinine Ratio (6-22) Glucose (80-110) mg/dL Calcium (8.4-10.2) mg/dL Magnesium (1.6-2.3) mg/dL Total Creatine Kinase (55-170) U/L CK-MB (CK-2) (<2.37) ng/mL CK-MB (CK-2) Rel Index (1.5-5.0) % Troponin I (0.01-0.034) ng/mL TSH 1.17 (0.47-4.68) uIU/mL ECG Data Interpretation: Rapid Atrial Fib 120s-130s. No ST segmental elevation or depression Discharge Plan Departure Patient Disposition: Home Clinical Impression: Atrial fibrillation Discharge Date/Time: 12/01/19 21:39 Instructions: DI for Atrial Fibrillation Activity Restrictions/Additional Instructions: *You have been diagnosed with [ rapid atrial fibrillation with procedural sedation and cardioversion] *What to do: *Take medications as directed *Follow up with your primary care provider in 2-3 days, call for an appointment. Let them know you were seen in the Emergency Department and that we ask that you be seen in follow up *Return to ER if you should have any new, worsening or concerning symptoms * Have a better night! Prescriptions: No Action insulin lispro [Humalog U-100 Insulin] 100 UNIT/1 ML solution 10 u SQ DAILY Qty: 0 RF: 0 Lantus U-100 Insulin 100 UNIT/1 ML solution 20 u SQ BID Qty: 0 RF: 0 telmisartan [Micardis] 40 MG tablet 40 mg PO QDAY Qty: 0 RF: 0 metformin [Glucophage XR] 500 MG tablet extended release 24 hr 1,000 mg PO BID Qty: 0 RF: 0 clopidogrel [Plavix] 75 MG tablet 75 mg PO QDAY Qty: 0 RF: 0 metoprolol succinate [Toprol XL] 50 MG tablet extended release 24 hr PO QDAY Qty: 0 RF: 0 nitroglycerin [Nitrostat] 0.4 mg Tablet, Sublingual 0.4 mg SUBLINGUAL Q5M PRN (Reason: Chest Pain) RF: 0 Referrals: Zaheer Baig MD [Primary Care Provider] -
[2019-12-01 20:44] LABS: CKMB % Relative Index 1.3 % (1.5-5.0); Creatine Kinase MB 4.98 ng/mL (<2.37)
[2019-12-01 21:13] LABS: Thyroid Stimulating Hormone 1.17 uIU/mL (0.47-4.68)
== END 2019-12-01 21:39 | disposition home or self-care (01) ==
PROVIDERS: Emergency Provider Emergency Medicine; PCP Internal Medicine; Referring Provider Internal Medicine Cardiovascular Disease
DX: I48.91 Unspecified atrial fibrillation (principal)
CPT/HCPCS: 36415; 80048; 82550; 82553; 83735; 84443; 84484; 85025; 85610; 85730; 92960; 93005; 96361; 96374; 99152; 99285; 99291; J2704

== ENCOUNTER → 2019-12-23 10:37 | Outpatient (CLI) | payer MEDICARE, SELFPAY ==
[2019-12-24 19:56] LABS: COVID19 Sendout Not Detected (Not Detect)
== END ==
PROVIDERS: PCP Internal Medicine; Visit Provider Physician Assistant
DX: Z11.59 Encounter for screening for other viral diseases (principal)
CPT/HCPCS: 87635

== ENCOUNTER → 2019-12-26 10:43 | Outpatient (CLI) | payer MEDICARE, SELFPAY ==
--- NOTE | 2020-01-01 10:32 | PM.PFT.1 ---
Pulmonary Function Test Referral & Results Date Patient Seen: 12/26/19 Requesting provider: Timothy Hinton Results: The spirometry demonstrates an FVC of 4.52 L which is 110% of predicted. The FEV1 was measured at 3.23 L which is 111% of predicted. The FEV1/FVC ratio was 71 which is 99% of predicted. Following the administration of bronchodilator there was no appreciable change to above normal numbers. Lung volumes show an SVC of 4.37 L which is 98% of predicted. The diffusing capacity was measured at 22.25 which is 68% of predicted. No hemoglobin value was provided, so no correction for potential anemia could be made, if appropriate. The maximum voluntary ventilation was normal Interpretation: This study demonstrates normal spirometry and mild reduction in diffusing capacity as above
== END ==
PROVIDERS: PCP Internal Medicine; Referring Provider Internal Medicine Cardiovascular Disease; Visit Provider Internal Medicine Cardiovascular Disease
DX: R06.02 Shortness of breath (principal)
CPT/HCPCS: 94060; 94726; 94729

== ENCOUNTER → 2019-12-27 07:44 | Outpatient (CLI) | payer MEDICARE, SELFPAY | PROVIDERS: PCP Internal Medicine; Referring Provider Internal Medicine Cardiovascular Disease; Visit Provider Internal Medicine Cardiovascular Disease | DX: I08.1 Rheumatic disorders of both mitral and tricuspid valves (principal); I77.810 Thoracic aortic ectasia; I28.8 Other diseases of pulmonary vessels; I25.5 Ischemic cardiomyopathy; Z95.0 Presence of cardiac pacemaker; Z98.890 Other specified postprocedural states | CPT/HCPCS: 93306 ==

== ENCOUNTER → 2020-01-13 08:59 | Outpatient (CLI) | payer MEDICARE, SELFPAY ==
[2020-01-13 09:28] LABS: Alanine Aminotransferase 31 IU/L (<50); Albumin 4.3 g/dL (3.5-5.0); Albumin Globulin Ratio 1.3 (1.0-2.8); Alkaline Phosphatase 75 U/L (38-126); Aspartate Aminotransferase 46 IU/L (17-59); BUN Creatinine Ratio 12.3 (6-22); Bilirubin Total 0.5 mg/dL (0.2-1.3); Blood Urea Nitrogen 16 mg/dL (9-20); Calcium 9.3 mg/dL (8.4-10.2); Carbon Dioxide 29 mmol/L (22-32); Chloride 96 mmol/L (98-107); Estimated Glomerular Filt Rate 53.3 mL/min (>60); Globulin 3.2 g/dL (1.7-4.1); Glucose 294 mg/dL (80-110); HEMOLYSIS < 15 (0-50); Potassium 5.3 mmol/L (3.4-5.1); Sodium 132 mmol/L (137-145); Total Protein 7.5 g/dL (6.3-8.2)
[2020-01-13 10:49] LABS: TSH w/ Reflex to FT4 2.53 uIU/mL (0.47-4.68)
== END ==
PROVIDERS: PCP Internal Medicine; Referring Provider Internal Medicine Cardiovascular Disease; Visit Provider Internal Medicine Cardiovascular Disease
DX: Z51.81 Encounter for therapeutic drug level monitoring (principal); Z79.899 Other long term (current) drug therapy
CPT/HCPCS: 36415; 80053; 84443

== ENCOUNTER → 2020-01-23 15:22 | Outpatient (ROUT) | payer MEDICARE, SELFPAY ==
[2020-01-23 15:46] LABS: Aspartate Aminotransferase 44 IU/L (17-59); Blood Urea Nitrogen 14 mg/dL (9-20); Calcium 9.7 mg/dL (8.4-10.2); Carbon Dioxide 27 mmol/L (22-32); Chloride 95 mmol/L (98-107); Cholesterol 119 mg/dL (140-199); Estimated Glomerular Filt Rate 54.7 mL/min (>60); Glucose 199 mg/dL (80-110); HDL Cholesterol 52 mg/dL (40-60); HEMOLYSIS < 15 (0-50); LDL Cholesterol Calculated 38 mg/dL (<100); Potassium 4.7 mmol/L (3.4-5.1); Sodium 133 mmol/L (137-145); Triglycerides 147 mg/dL (35-150)
== END ==
PROVIDERS: PCP Internal Medicine; Visit Provider Internal Medicine
DX: I10 Essential (primary) hypertension (principal); E78.2 Mixed hyperlipidemia
CPT/HCPCS: 80048; 80061; 84450

== ENCOUNTER → 2020-02-13 10:11 | Outpatient (CLI) | payer MEDICARE, SELFPAY ==
[2020-02-13 13:13] LABS: BUN Creatinine Ratio 15.7 (6-22); Blood Urea Nitrogen 21 mg/dL (9-20); Carbon Dioxide 30 mmol/L (22-32); Chloride 96 mmol/L (98-107); Cholesterol 117 mg/dL (140-199); Estimated Glomerular Filt Rate 51.4 mL/min (>60); Glucose 172 mg/dL (80-110); HDL Cholesterol 53 mg/dL (40-60); HEMOLYSIS < 15 (0-50); LDL Cholesterol Calculated 42 mg/dL (<100); Potassium 5.3 mmol/L (3.4-5.1); Sodium 133 mmol/L (137-145); Triglycerides 111 mg/dL (35-150)
== END ==
PROVIDERS: PCP Internal Medicine; Referring Provider Internal Medicine Cardiovascular Disease; Visit Provider Internal Medicine Cardiovascular Disease
DX: I25.5 Ischemic cardiomyopathy (principal); E78.5 Hyperlipidemia, unspecified
CPT/HCPCS: 36415; 80048; 80061

== ENCOUNTER → 2020-02-21 09:32 | Outpatient (CLI) | payer MEDICARE, SELFPAY ==
[2020-02-21 11:05] LABS: BUN Creatinine Ratio 15.3 (6-22); Blood Urea Nitrogen 19 mg/dL (9-20); Calcium 9.4 mg/dL (8.4-10.2); Carbon Dioxide 32 mmol/L (22-32); Chloride 97 mmol/L (98-107); Estimated Glomerular Filt Rate 56.2 mL/min (>60); Glucose 233 mg/dL (80-110); HEMOLYSIS < 15 (0-50); Potassium 4.7 mmol/L (3.4-5.1); Sodium 134 mmol/L (137-145)
== END ==
PROVIDERS: PCP Internal Medicine; Referring Provider Internal Medicine Cardiovascular Disease; Visit Provider Internal Medicine Cardiovascular Disease
DX: I25.5 Ischemic cardiomyopathy (principal)
CPT/HCPCS: 36415; 80048

== ENCOUNTER → 2020-05-11 12:14 | Outpatient (CLI) | payer MEDICARE, SELFPAY ==
--- NOTE | 2020-05-11 | DI.RAD.S_ITS ---
PROCEDURE: XR CHEST 2V INDICATIONS: Z79.899 lomg term drug use TECHNIQUE: 2 views of the chest were acquired. COMPARISON: [facility], , CHEST 1 VIEW, 07/28/2017, 22:10. FINDINGS: Surgical changes and devices: Cardiac pacemaking device and dual chamber leads in normal position, cardiac valve annulus noted, prior sternotomy.. Lungs and pleura: Lungs are clear. No pleural effusions or pneumothorax. Mediastinum: Mediastinal contours are normal. Heart size is normal. Bones and chest wall: No suspicious bony abnormalities. Soft tissues appear unremarkable. IMPRESSION: No acute disease, no pulmonary fibrosis found. Postoperative changes as discussed. Dictated by: Rogelio Carl M.D. on 05/11/2020 at 13:46 Approved by: Rogelio Carl M.D. on 05/11/2020 at 13:46
[2020-05-11 14:50] LABS: Alanine Aminotransferase 35 IU/L (<50); Albumin 4.7 g/dL (3.5-5.0); Albumin Globulin Ratio 1.6 (1.0-2.8); Alkaline Phosphatase 65 U/L (38-126); Aspartate Aminotransferase 45 IU/L (17-59); BUN Creatinine Ratio 12.3 (6-22); Bilirubin Total 0.4 mg/dL (0.2-1.3); Blood Urea Nitrogen 19 mg/dL (9-20); Carbon Dioxide 28 mmol/L (22-32); Chloride 98 mmol/L (98-107); Estimated Glomerular Filt Rate 43.5 mL/min (>60); Globulin 2.9 g/dL (1.7-4.1); Glucose 174 mg/dL (80-110); HEMOLYSIS < 15 (0-50); Potassium 4.2 mmol/L (3.4-5.1); Sodium 134 mmol/L (137-145); Total Protein 7.6 g/dL (6.3-8.2)
[2020-05-11 15:18] LABS: Thyroid Stimulating Hormone 1.62 uIU/mL (0.47-4.68)
== END ==
PROVIDERS: PCP Internal Medicine; Referring Provider Internal Medicine Cardiovascular Disease; Visit Provider Internal Medicine Cardiovascular Disease
DX: I25.5 Ischemic cardiomyopathy (principal); I48.0 Paroxysmal atrial fibrillation; E78.5 Hyperlipidemia, unspecified; Z79.899 Other long term (current) drug therapy; Z95.0 Presence of cardiac pacemaker
CPT/HCPCS: 36415; 71046; 80053; 84443

== ENCOUNTER → 2020-06-04 09:24 | Outpatient (CLI) | payer MEDICARE, SELFPAY ==
[2020-06-04 10:42] LABS: BUN Creatinine Ratio 14.9 (6-22); Blood Urea Nitrogen 18 mg/dL (9-20); Calcium 9.7 mg/dL (8.4-10.2); Carbon Dioxide 28 mmol/L (22-32); Chloride 96 mmol/L (98-107); Estimated Glomerular Filt Rate 57.8 mL/min (>60); Glucose 314 mg/dL (80-110); HEMOLYSIS < 15 (0-50); Sodium 131 mmol/L (137-145)
== END ==
PROVIDERS: PCP Internal Medicine; Referring Provider Internal Medicine Cardiovascular Disease; Visit Provider Internal Medicine Cardiovascular Disease
DX: I25.5 Ischemic cardiomyopathy (principal)
CPT/HCPCS: 36415; 80048

== ENCOUNTER → 2020-08-15 10:19 | Outpatient (CLI) | payer MEDICARE, SELFPAY ==
[2020-08-15 11:35] LABS: Alanine Aminotransferase 26 IU/L (<50); Albumin 4.3 g/dL (3.5-5.0); Albumin Globulin Ratio 1.6 (1.0-2.8); Alkaline Phosphatase 71 U/L (38-126); Aspartate Aminotransferase 39 IU/L (17-59); BUN Creatinine Ratio 16.4 (6-22); Bilirubin Total 0.5 mg/dL (0.2-1.3); Blood Urea Nitrogen 27 mg/dL (9-20); Calcium 9.9 mg/dL (8.4-10.2); Carbon Dioxide 25 mmol/L (22-32); Chloride 96 mmol/L (98-107); Cholesterol 105 mg/dL (140-199); Estimated Glomerular Filt Rate 40.4 mL/min (>60); Globulin 2.7 g/dL (1.7-4.1); Glucose 228 mg/dL (80-110); HDL Cholesterol 47 mg/dL (40-60); HEMOLYSIS < 15 (0-50); LDL Cholesterol Calculated 36 mg/dL (<100); Sodium 129 mmol/L (137-145); Triglycerides 109 mg/dL (35-150)
[2020-08-15 12:04] LABS: Thyroid Stimulating Hormone 1.44 uIU/mL (0.47-4.68)
[2020-08-15 12:49] LABS: Potassium 6.4 mmol/L (3.4-5.1)
== END ==
PROVIDERS: PCP Internal Medicine; Referring Provider Internal Medicine Cardiovascular Disease; Visit Provider Internal Medicine Cardiovascular Disease
DX: I25.5 Ischemic cardiomyopathy (principal); E78.5 Hyperlipidemia, unspecified; Z79.899 Other long term (current) drug therapy
CPT/HCPCS: 36415; 80053; 80061; 84443

== ENCOUNTER → 2020-08-17 09:58 | Outpatient (CLI) | payer MEDICARE, SELFPAY ==
[2020-08-17 11:05] LABS: Alanine Aminotransferase 26 IU/L (<50); Albumin 4.2 g/dL (3.5-5.0); Albumin Globulin Ratio 1.4 (1.0-2.8); Alkaline Phosphatase 66 U/L (38-126); Aspartate Aminotransferase 43 IU/L (17-59); BUN Creatinine Ratio 14.8 (6-22); Bilirubin Total 0.5 mg/dL (0.2-1.3); Blood Urea Nitrogen 28 mg/dL (9-20); Carbon Dioxide 24 mmol/L (22-32); Chloride 97 mmol/L (98-107); Cholesterol 104 mg/dL (140-199); Estimated Glomerular Filt Rate 34.6 mL/min (>60); Glucose 341 mg/dL (80-110); HDL Cholesterol 43 mg/dL (40-60); HEMOLYSIS < 15 (0-50); LDL Cholesterol Calculated 43 mg/dL (<100); Sodium 129 mmol/L (137-145); Total Protein 7.2 g/dL (6.3-8.2); Triglycerides 88 mg/dL (35-150)
[2020-08-17 11:06] LABS: Potassium 5.7 mmol/L (3.4-5.1)
[2020-08-17 13:06] LABS: Thyroid Stimulating Hormone 1.61 uIU/mL (0.47-4.68)
== END ==
PROVIDERS: PCP Internal Medicine; Referring Provider Specialist; Visit Provider Specialist
DX: E87.5 Hyperkalemia (principal); Z79.899 Other long term (current) drug therapy; E78.5 Hyperlipidemia, unspecified
CPT/HCPCS: 36415; 80053; 80061; 84443

== ENCOUNTER → 2020-08-24 09:24 | Outpatient (CLI) | payer MEDICARE, SELFPAY ==
[2020-08-24 11:09] LABS: BUN Creatinine Ratio 17.5 (6-22); Blood Urea Nitrogen 33 mg/dL (9-20); Calcium 9.7 mg/dL (8.4-10.2); Carbon Dioxide 24 mmol/L (22-32); Chloride 101 mmol/L (98-107); Estimated Glomerular Filt Rate 34.6 mL/min (>60); Glucose 253 mg/dL (80-110); HEMOLYSIS < 15 (0-50); Sodium 133 mmol/L (137-145)
== END ==
PROVIDERS: PCP Internal Medicine; Referring Provider Internal Medicine Cardiovascular Disease; Visit Provider Internal Medicine Cardiovascular Disease
DX: E87.5 Hyperkalemia (principal)
CPT/HCPCS: 36415; 80048

== ENCOUNTER → 2020-09-10 14:37 | Outpatient (ROUT) | payer MEDICARE, SELFPAY ==
[2020-09-10 15:13] LABS: Add Manual Diff / Slide Review NO; Basophils Absolute Auto 0 /uL (0-100); Basophils Percent Auto 0.6 % (0-2); Eosinophils Absolute Auto 400 /uL (0-450); Eosinophils Percent Auto 6.6 % (2-4); Hematocrit 30.9 % (41-53); Hemoglobin 10.4 g/dL (13.5-17.5); Lymphocytes Absolute Auto 1100 /uL (1100-4500); Lymphocytes Percent Auto 16.2 % (25-40); Mean Corpuscular HGB Conc 33.6 % (30-36); Mean Corpuscular Hemoglobin 29.8 PG (26-34); Mean Corpuscular Volume 88.7 fL (80-100); Monocytes Absolute Auto 800 /uL (0-900); Monocytes Percent Auto 11.9 % (3-14); Neutrophils Absolute Auto 4200 /uL (1500-7000); Neutrophils Percent Auto 64.7 % (50-75); Platelet Count 254 X10^3/uL (150-400); Red Blood Cell Count 3.49 X10^6/uL (4.5-5.9); Red Cell Distribution Width 14.6 % (11.6-14.8); White Blood Cell Count 6.5 X10^3/uL (4.5-11.0)
[2020-09-10 19:09] LABS: BUN Creatinine Ratio 19.1 (6-22); Blood Urea Nitrogen 22 mg/dL (9-20); Calcium 10.1 mg/dL (8.4-10.2); Carbon Dioxide 24 mmol/L (22-32); Chloride 98 mmol/L (98-107); Estimated Glomerular Filt Rate > 60.0 mL/min (>60); Glucose 221 mg/dL (80-110); HEMOLYSIS < 15 (0-50); Phosphorous 3.6 mg/dL (2.3-3.7); Potassium 5.2 mmol/L (3.4-5.1); Sodium 133 mmol/L (137-145)
[2020-09-10 21:47] LABS: Vitamin D 25 Hydroxy (D3) 92.7 ng/mL (30.0-100.0)
[2020-09-11 08:05] LABS: Parathyroid Hormone Int 22 pg/mL (15-65)
== END ==
PROVIDERS: PCP Internal Medicine; Visit Provider Internal Medicine
DX: N18.30 Chronic kidney disease, stage 3 unspecified (principal)
CPT/HCPCS: 80048; 82306; 83970; 84100; 85025

== ENCOUNTER → 2020-09-29 09:24 | Outpatient (CLI) | payer MEDICARE, SELFPAY ==
[2020-09-29 10:07] LABS: Add Manual Diff / Slide Review NO; Basophils Absolute Auto 0 /uL (0-100); Basophils Percent Auto 0.4 % (0-2); Eosinophils Absolute Auto 500 /uL (0-450); Eosinophils Percent Auto 8.6 % (2-4); Hematocrit 30.9 % (41-53); Hemoglobin 10.4 g/dL (13.5-17.5); Lymphocytes Absolute Auto 1200 /uL (1100-4500); Mean Corpuscular HGB Conc 33.7 % (30-36); Mean Corpuscular Hemoglobin 30.2 PG (26-34); Mean Corpuscular Volume 89.5 fL (80-100); Monocytes Absolute Auto 800 /uL (0-900); Monocytes Percent Auto 12.6 % (3-14); Neutrophils Absolute Auto 3700 /uL (1500-7000); Neutrophils Percent Auto 59.4 % (50-75); Platelet Count 239 X10^3/uL (150-400); Red Blood Cell Count 3.46 X10^6/uL (4.5-5.9); Red Cell Distribution Width 13.8 % (11.6-14.8); White Blood Cell Count 6.3 X10^3/uL (4.5-11.0)
[2020-09-29 10:36] LABS: HEMOLYSIS < 15 (0-50); Iron 57 ug/dL (49-181)
[2020-09-29 10:47] LABS: Percent Iron Saturation 17 % (20-50); Total Iron Binding Capacity 345 ug/dL (261-462); Transferrin 269 mg/dL (206-381)
[2020-09-29 11:14] LABS: Ferritin 18 ng/mL (18-464)
[2020-09-29 11:27] LABS: Vitamin B12 724 pg/mL (239-931)
== END ==
PROVIDERS: PCP Internal Medicine; Referring Provider Internal Medicine; Visit Provider Internal Medicine
DX: N18.30 Chronic kidney disease, stage 3 unspecified (principal)
CPT/HCPCS: 36415; 82607; 82728; 83540; 83550; 85025

== ENCOUNTER → 2020-10-13 09:16 | Outpatient (CLI) | payer MEDICARE, SELFPAY ==
[2020-10-13 10:31] LABS: Hematocrit 30.5 % (41-53); Hemoglobin 10.3 g/dL (13.5-17.5); Mean Corpuscular HGB Conc 33.8 % (30-36); Mean Corpuscular Hemoglobin 29.9 PG (26-34); Mean Corpuscular Volume 88.4 fL (80-100); Platelet Count 259 X10^3/uL (150-400); Red Blood Cell Count 3.45 X10^6/uL (4.5-5.9); Red Cell Distribution Width 13.7 % (11.6-14.8); White Blood Cell Count 6.5 X10^3/uL (4.5-11.0)
[2020-10-13 10:59] LABS: Creatinine Urine Random 53.3 mg/dL; Protein (Total) Urine Random 17 mg/dL (0-12); Protein Creatinine Ratio Urine 0.31 GRAM/24H
[2020-10-13 11:05] LABS: BUN Creatinine Ratio 15.3 (6-22); Blood Urea Nitrogen 19 mg/dL (9-20); Calcium 9.6 mg/dL (8.4-10.2); Carbon Dioxide 26 mmol/L (22-32); Chloride 97 mmol/L (98-107); Estimated Glomerular Filt Rate 56.2 mL/min (>60); Glucose 277 mg/dL (80-110); HEMOLYSIS < 15 (0-50); Potassium 4.7 mmol/L (3.4-5.1); Sodium 130 mmol/L (137-145)
== END ==
PROVIDERS: PCP Internal Medicine; Referring Provider Student in an Organized Health Care Education/Training Program; Visit Provider Student in an Organized Health Care Education/Training Program
DX: R80.9 Proteinuria, unspecified (principal); D70.9 Neutropenia, unspecified; D63.1 Anemia in chronic kidney disease; N05.9 Unspecified nephritic syndrome with unspecified morphologic changes
CPT/HCPCS: 36415; 80048; 82570; 84156; 85027

== ENCOUNTER → 2020-10-27 10:33 | Outpatient (CLI) | payer MEDICARE, SELFPAY ==
--- NOTE | 2020-10-27 10:34 | DI.US.S_ITS ---
PROCEDURE: US RENAL COMPLETE INDICATIONS: Chronic kidney disease, stage 2 (mild) TECHNIQUE: Real-time scanning was performed of the kidneys and bladder, with image documentation. COMPARISON: None. FINDINGS: Kidneys: Kidneys are normal in size. Right kidney measures 11.1 cm long; left kidney measures 11.6 cm long. Right renal cortical thickness is 2.2 cm; left renal cortical thickness is 2.3 cm. Renal cortical echotexture is normal. No hydronephrosis or nephrolithiasis. No suspicious solid mass lesions. Bladder: Pre-void bladder volume is 540 mL. Post-void residual is 175 mL. Pre-void images demonstrate no intraluminal masses or stones. On pre-void images, bilateral ureteral jets are noted with color Doppler interrogation. (Of note, ureteral jets may not be detectable in up to 25% of cases due to insufficient differences in specific gravity between ureteral and bladder urine). Miscellaneous: No free pelvic fluid. IMPRESSION: Normal appearance of the kidneys. Dictated by: Manuel Nelson [facility] Interpreted: Rogelio Carl MD on 10/27/2020 at 12:49 Transcribed by: ALFREDO on 10/27/2020 at 12:50 Approved by: Rogelio Carl M.D. on 10/27/2020 at 15:36
== END ==
PROVIDERS: PCP Internal Medicine; Referring Provider Student in an Organized Health Care Education/Training Program; Visit Provider Student in an Organized Health Care Education/Training Program
DX: N18.2 Chronic kidney disease, stage 2 (mild) (principal)
CPT/HCPCS: 76770

== ENCOUNTER → 2020-11-19 09:37 | Outpatient (CLI) | payer MEDICARE, SELFPAY ==
--- NOTE | 2020-11-19 09:42 | DI.RAD.S_ITS ---
PROCEDURE: XR CHEST 2V INDICATIONS: myositis, muscle pain TECHNIQUE: 2 views of the chest were acquired. COMPARISON: [facility], , XR CHEST 2V, 05/11/2020, 13:24. [facility], , CHEST 1 VIEW, 07/28/2017, 22:10. FINDINGS: Surgical changes and devices: Left pacemaker with right atrial lead, a coronary sinus lead, and right ventricular AICD lead. Aortic valve replacement. Lungs and pleura: Lungs are clear. No pleural effusions or pneumothorax. Mediastinum: Mediastinal contours are normal. Heart size appears unchanged. Bones and chest wall: No suspicious bony abnormalities. Soft tissues appear unremarkable. IMPRESSION: No acute cardiopulmonary abnormality identified. If clinically indicated consider MRI (myocardium can be evaluated with MRI) or CT of the chest with IV contrast for further evaluation. Dictated by: Shayan Mendoza M.D. on 11/19/2020 at 10:58 Approved by: Shayan Mendoza M.D. on 11/19/2020 at 11:01
[2020-11-19 11:13] LABS: Alanine Aminotransferase 23 IU/L (<50); Albumin 3.9 g/dL (3.5-5.0); Albumin Globulin Ratio 1.3 (1.0-2.8); Alkaline Phosphatase 62 U/L (38-126); Aspartate Aminotransferase 34 IU/L (17-59); BUN Creatinine Ratio 18.6 (6-22); Bilirubin Total 0.5 mg/dL (0.2-1.3); Blood Urea Nitrogen 27 mg/dL (9-20); Calcium 9.3 mg/dL (8.4-10.2); Carbon Dioxide 31 mmol/L (22-32); Chloride 94 mmol/L (98-107); Estimated Glomerular Filt Rate 46.9 mL/min (>60); Globulin 2.9 g/dL (1.7-4.1); Glucose 241 mg/dL (80-110); HEMOLYSIS < 15 (0-50); Potassium 4.4 mmol/L (3.4-5.1); Sodium 131 mmol/L (137-145); Total Protein 6.8 g/dL (6.3-8.2)
--- NOTE | 2020-12-28 19:41 | ED.GENADULT ---
HPI - General Adult History of Present Illness HPI narrative: 80-year-old gentleman with history of hypertension, hyperlipidemia, type 2 diabetes with significant peripheral neuropathy, coronary artery disease currently on Plavix and recurrent radicular low back pain presents with pain in the left MCP joint. He has known thick callus on the dorsum of the joint and in the past has had arthritis in the same area in responded nicely to steroid and anesthetic injections. He is wondering if her repeat injection might help with the increased pain that he has experienced in that area over the last 2-3 days. He notes no fevers, cough, chills, abdominal pain, palpitations, dyspnea. Back pain has continued to worsen to the point that he is consistently using a cane. He has had to recent steroid epidural injections that were helpful for a brief period time each and alleviating the pain. He has not noticed any skin changes to the lower extremity but does note that he recently stubbed his great toe and dislodged most of the toenail which she later removed completely with pliers. He notes that he has almost no sensation to the feet and this was not painful where as the MCP joint now is beginning to become quite painful. Related Data Home Medications Medication Instructions Recorded Confirmed clopidogrel 75 mg tablet (Plavix) 75 mg PO QDAY #0 12/13/16 02/20/19 insulin glargine 100 unit/mL 20 u SQ BID #0 12/13/16 02/20/19 subcutaneous solution (Lantus U-100 Insulin) insulin lispro 100 unit/mL 10 u SQ DAILY #0 12/13/16 02/20/19 subcutaneous solution (Humalog U-100 Insulin) metformin 500 mg tablet,extended 1,000 mg PO BID #0 12/13/16 02/20/19 release 24 hr (Glucophage XR) metoprolol succinate 50 mg mg PO QDAY #0 12/13/16 tablet,extended release 24 hr (Toprol XL) telmisartan 40 mg tablet (Micardis) 40 mg PO QDAY #0 12/13/16 02/20/19 nitroglycerin 0.4 mg sublingual 0.4 mg SUBLINGUAL Q5M PRN 02/20/19 02/20/19 tablet (Nitrostat) Previous Rx's Medication Instructions Recorded doxycycline hyclate 100 mg capsule 100 mg PO BID #20 cap 12/28/20 oxycodone-acetaminophen 5 mg-325 1 tab PO Q6H PRN #45 tab 12/28/20 mg tablet sulfamethoxazole 800 1 tab PO BID #20 tab 12/28/20 mg-trimethoprim 160 mg tablet (Bactrim DS) Allergies Allergy/AdvReac Type Severity Reaction Status Date / Time Cotyrim-Ieu-Sje Reductase AdvReac Intermediate lower body Verified 12/28/20 19:30 Inhibitor muscle pain [ZGCQOFA-FBA-FTL REDUCTASE INHIBITOR] Review of Systems Review of Systems Narrative: Remainder of complete review of systems is otherwise unremarkable except for that included in the HPI. Patient History Medical History (Updated 12/29/20 @ 04:56 by Fiona Dos Santos MD) Coronary artery disease Diabetes mellitus Diabetic foot infection FH: mitral valve repair Hypercholesterolemia Hypertension Paroxysmal atrial fibrillation Peripheral neuropathy Social History household members: spouse Smoking Status: Never smoker Smoking Status: Never smoker alcohol intake frequency: holidays/special occasions only Substance Use Type: does not use Exam Narrative Exam Narrative: General: Healthy appearing, in no acute distress. Able to give a complete and coherent history. Well-nourished well-developed HEENT: Moist mucous membranes, normal sclera with reactive pupils, Neck: No JVD, supple Respiratory: Lungs are clear to auscultation, no wheezing no rales no rhonchi. Full and symmetrical air movement Cardiac: Regular rate and rhythm no murmurs no bruits Abdomen: Soft, nontender, good bowel tones, no flank pain Skin: Warm and dry, multiple bruises in various stages of healing with small superficial scratches over exposed extremities Neurologic: Grossly neurologically intact with no obvious asymmetries or abnormalities. Dense stocking distribution peripheral neuropathy Extremities: Left lower extremity slightly more edematous than the right. He has a 1 cm wound on the anterior ortiz shallow with surrounding erythema but no abscess collection or drainage. Significant onychomycosis or missing nails for lower extremities. The MCP joint on the left is significantly swollen with the that callus that appears to have underlying infection and developing lymph and did it could spread over the dorsum of the left foot. He has no inguinal adenopathy. Psych: Cooperative, appropriate insight and affect Course Orders Ordered: Discontinued Medications Bupivacaine HCl (Bupivacaine 0.5% (Pf) Vial) 30 ml INJ INTRA-OP ONE Stop: 12/28/20 19:43 Triamcinolone (Triamcinolone 40 Mg/Ml Vial) 40 mg IM NOW ONE Stop: 12/28/20 19:42 Medical Decision Making Lab Data Lab results narrative: White count of 11.5, hemoglobin 10.7, hematocrit 32.1, platelets 233, neutrophil percentage 84.3 Lactic acid of 1.4 Result diagrams: 11/19/20 09:53 Labs: Lab Results 11/19/20 Range/Units 09:53 Sodium 131 L (137-145) mmol/L Potassium 4.4 (3.4-5.1) mmol/L Chloride 94 L (98-107) mmol/L Carbon Dioxide 31 (22-32) mmol/L BUN 27 H (9-20) mg/dL Creatinine 1.45 H (0.66-1.25) mg/dL Estimated GFR 46.9 L (>60) mL/min BUN/Creatinine Ratio 18.6 (6-22) Glucose 241 H (80-110) mg/dL Calcium 9.3 (8.4-10.2) mg/dL Total Bilirubin 0.5 (0.2-1.3) mg/dL AST 34 (17-59) IU/L ALT 23 (<50) IU/L Alkaline Phosphatase 62 (38-126) U/L Total Protein 6.8 (6.3-8.2) g/dL Albumin 3.9 (3.5-5.0) g/dL Globulin 2.9 (1.7-4.1) g/dL Albumin/Globulin Ratio 1.3 (1.0-2.8) Imaging Data X-ray foot: Radiologist's Impression: FINDINGS: Hammertoe deformities of the 2nd, 3rd, 4th, and 5th digits. No acute fracture. No destructive lytic osseous lesion identified. Arteriosclerotic calcifications in the foot. No radiopaque foreign body in the soft tissues. No obvious soft tissue ulcer identified. IMPRESSION: No plain radiographic evidence of osteomyelitis. MRI with contrast recommended if there is increased concern. Dictated by: Jeyson Perales M.D. on 12/28/2020 at 20:48 MDM Narrative Medical decision making narrative: 80-year-old gentleman with type 2 diabetes, dense peripheral stocking distribution neuropathy with increasing pain in his left MCP joint. Increasing erythema surrounding thick callus with concern for underlying infection with developing lymphangitis spread. He is given 2 g of ceftriaxone in the emergency department. No evidence of sepsis her underlying osteomyelitis. 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 Cox in 3 weeks. She is contacted this evening and agrees to schedule him into her clinic tomorrow. Agrees with plan for oral Septra and doxycycline as well as pain control. He likely will need to have the wound debrided and follow-up with wound care. At this time he is safe for home discharge Discharge Plan Discharge Plan Patient Disposition: Home Discharge Med Rec/Prescriptions Prescriptions: No Action insulin lispro [Humalog U-100 Insulin] 100 UNIT/1 ML solution 10 u SQ DAILY Qty: 0 RF: 0 Lantus U-100 Insulin 100 UNIT/1 ML solution 20 u SQ BID Qty: 0 RF: 0 telmisartan [Micardis] 40 MG tablet 40 mg PO QDAY Qty: 0 RF: 0 metformin [Glucophage XR] 500 MG tablet extended release 24 hr 1,000 mg PO BID Qty: 0 RF: 0 clopidogrel [Plavix] 75 MG tablet 75 mg PO QDAY Qty: 0 RF: 0 metoprolol succinate [Toprol XL] 50 MG tablet extended release 24 hr PO QDAY Qty: 0 RF: 0 nitroglycerin [Nitrostat] 0.4 mg Tablet, Sublingual 0.4 mg SUBLINGUAL Q5M PRN (Reason: Chest Pain) RF: 0 sulfamethoxazole-trimethoprim [Bactrim DS] 800-160 mg tablet 1 tab PO BID Qty: 20 RF: 0 doxycycline hyclate 100 mg capsule 100 mg PO BID Qty: 20 RF: 0 oxycodone-acetaminophen 5-325 mg tablet 1 tab PO Q6H PRN (Reason: pain) Qty: 45 RF: 0 Visit Report/Discharge Packet Referrals: Zaheer Baig MD [Primary Care Provider] - Discharge Data Primary Care Provider: Zaheer Baig V Attending Provider: Timothy Hinton
== END ==
PROVIDERS: PCP Internal Medicine; Referring Provider Internal Medicine Cardiovascular Disease; Visit Provider Internal Medicine Cardiovascular Disease
DX: I25.10 Atherosclerotic heart disease of native coronary artery without angina pectoris (principal); M60.9 Myositis, unspecified; Z95.2 Presence of prosthetic heart valve; Z95.810 Presence of automatic (implantable) cardiac defibrillator
CPT/HCPCS: 36415; 71046; 80053

== ENCOUNTER 2020-12-28 18:58 | Emergency (ER) | payer MEDICARE, SELFPAY ==
[2020-12-28] VITALS (7 sets, daily range): BP systolic 143–162; BP diastolic 64–81; PULSE 77–83; RESP 15; TEMP 36.3; O2SAT 84–99
--- NOTE | 2020-12-28 19:56 | DI.RAD.S_ITS ---
PROCEDURE: XR FOOT RT MIN 3V INDICATIONS: infection R metatarsal TECHNIQUE: Three views of the foot were acquired. COMPARISON: None. FINDINGS: Hammertoe deformities of the 2nd, 3rd, 4th, and 5th digits. No acute fracture. No destructive lytic osseous lesion identified. Arteriosclerotic calcifications in the foot. No radiopaque foreign body in the soft tissues. No obvious soft tissue ulcer identified. IMPRESSION: No plain radiographic evidence of osteomyelitis. MRI with contrast recommended if there is increased concern. Dictated by: Jeyson Perales M.D. on 12/28/2020 at 20:48 Approved by: Jeyson Perales M.D. on 12/28/2020 at 20:49
[2020-12-28 20:10] LABS: Add Manual Diff / Slide Review NO; Basophils Absolute Auto 100 /uL (0-100); Basophils Percent Auto 0.5 % (0-2); Eosinophils Absolute Auto 300 /uL (0-450); Eosinophils Percent Auto 2.7 % (2-4); Hematocrit 32.1 % (41-53); Hemoglobin 10.7 g/dL (13.5-17.5); Lymphocytes Absolute Auto 500 /uL (1100-4500); Lymphocytes Percent Auto 4.6 % (25-40); Mean Corpuscular HGB Conc 33.3 % (30-36); Mean Corpuscular Hemoglobin 28.6 PG (26-34); Mean Corpuscular Volume 85.9 fL (80-100); Monocytes Absolute Auto 900 /uL (0-900); Monocytes Percent Auto 7.9 % (3-14); Neutrophils Absolute Auto 9700 /uL (1500-7000); Neutrophils Percent Auto 84.3 % (50-75); Platelet Count 233 X10^3/uL (150-400); Red Blood Cell Count 3.74 X10^6/uL (4.5-5.9); Red Cell Distribution Width 13.6 % (11.6-14.8); White Blood Cell Count 11.5 X10^3/uL (4.5-11.0)
[2020-12-28 20:15] LABS: Lactate (Lactic Acid) 1.4 mmol/L (0.7-2.1)
[2020-12-28 20:16] LABS: Alanine Aminotransferase 22 IU/L (<50); Albumin 4.7 g/dL (3.5-5.0); Albumin Globulin Ratio 1.5 (1.0-2.8); Alkaline Phosphatase 84 U/L (38-126); Aspartate Aminotransferase 33 IU/L (17-59); Bilirubin Total 0.4 mg/dL (0.2-1.3); Blood Urea Nitrogen 19 mg/dL (9-20); Calcium 9.9 mg/dL (8.4-10.2); Carbon Dioxide 28 mmol/L (22-32); Chloride 96 mmol/L (98-107); Estimated Glomerular Filt Rate 58.8 mL/min (>60); Globulin 3.2 g/dL (1.7-4.1); Glucose 189 mg/dL (80-110); HEMOLYSIS < 15 (0-50); Sodium 133 mmol/L (137-145); Total Protein 7.9 g/dL (6.3-8.2)
[2020-12-28] MEDS: cefTRIAXone 2,000 MG in SODIUM CHLORIDE 0.9% 100 ML 200 ML IV (20:19)
[2020-12-28 21:02] LABS: COVID19 - ADMIT (NP swab/PCR) Negative (Negative)
[2020-12-28] MEDS: metroNIDAZOLE 500 MG/100 ML PIGGYBACK 100 MG IV (21:03)
--- NOTE | 2020-12-29 05:09 | ED_ITS ---
HPI - Extremity Problem General Chief complaint: Extremity Problem,Nontraumatic Stated complaint: LEFT FOOT BAD TOES Time Seen by Provider: 12/28/20 19:34 Source: patient Mode of arrival: Ambulatory Limitations: no limitations History of Present Illness HPI Narrative: 80-year-old gentleman with a history of hypertension, hyperlipidemia, type 2 diabetes with significant peripheral neuropathy, coronary artery disease currently on Plavix and recurrent radicular low back pain presents with pain in the left MCP joint. He has known thick callus on the plantar surface of the joint and in the past this had arthritis in the same area that responded nicely to steroid and anesthetic injections. Over the last 2-3 days he has had significantly increasing pain in that area that is unable to be controlled with methods at home and is wondering if repeat injection into the joint might be helpful. Notes no fevers, cough, chills, abdominal pain, palpitations, dyspnea. He does note that recently his back pain has continued to worsen to the point that he is consistently using a cane despite to prior steroid epidural injections. He does not describe skin changes to the lower extremity but notes that he recently stubbed his great toe and dislodged most the toenail which he later removed with pliers. He also notes that he has almost in no sensation to the feet and toenail removal was not painful where as the MCP joint pain is rated at 9/10 currently. Related Data Home Medications Medication Instructions Recorded Confirmed clopidogrel 75 mg tablet (Plavix) 75 mg PO QDAY #0 12/13/16 02/20/19 insulin glargine 100 unit/mL 20 u SQ BID #0 12/13/16 02/20/19 subcutaneous solution (Lantus U-100 Insulin) insulin lispro 100 unit/mL 10 u SQ DAILY #0 12/13/16 02/20/19 subcutaneous solution (Humalog U-100 Insulin) metformin 500 mg tablet,extended 1,000 mg PO BID #0 12/13/16 02/20/19 release 24 hr (Glucophage XR) metoprolol succinate 50 mg mg PO QDAY #0 12/13/16 tablet,extended release 24 hr (Toprol XL) telmisartan 40 mg tablet (Micardis) 40 mg PO QDAY #0 12/13/16 02/20/19 nitroglycerin 0.4 mg sublingual 0.4 mg SUBLINGUAL Q5M PRN 02/20/19 02/20/19 tablet (Nitrostat) Previous Rx's Medication Instructions Recorded doxycycline hyclate 100 mg capsule 100 mg PO BID #20 cap 12/28/20 oxycodone-acetaminophen 5 mg-325 1 tab PO Q6H PRN #45 tab 12/28/20 mg tablet sulfamethoxazole 800 1 tab PO BID #20 tab 12/28/20 mg-trimethoprim 160 mg tablet (Bactrim DS) Allergies Allergy/AdvReac Type Severity Reaction Status Date / Time Vbzofjp-Yua-Scj Reductase AdvReac Intermediate lower body Verified 12/28/20 19:30 Inhibitor muscle pain [DEOXZLU-BPH-TTO REDUCTASE INHIBITOR] Review of Systems Review of Systems Narrative: Remainder of complete review of systems is otherwise unremarkable except for that included in the HPI. Patient History Medical History Coronary artery disease Diabetes mellitus Diabetic foot infection FH: mitral valve repair Hypercholesterolemia Hypertension Paroxysmal atrial fibrillation Peripheral neuropathy Social History household members: spouse Smoking Status: Never smoker Smoking Status: Never smoker alcohol intake frequency: holidays/special occasions only Substance Use Type: does not use Exam Narrative Exam Narrative: General: Healthy appearing, in no acute distress. Able to give a complete and coherent history. Well-nourished well-developed HEENT: Moist mucous membranes, normal sclera with reactive pupils, Neck: No JVD, supple Respiratory: Lungs are clear to auscultation, no wheezing no rales no rhonchi. Full and symmetrical air movement Cardiac: Regular rate and rhythm no murmurs no bruits Abdomen: Soft, nontender, good bowel tones, no flank pain Skin: Warm and dry, no rashes, toenails are all either absent or with significant onychomycosis Neurologic: Grossly neurologically intact with no obvious asymmetries or abnormalities. Dense stocking distribution neuropathy. Extremities: Left lower extremity with swelling and erythema over the plantar surface of the MCP joint. Thick callus with as suspected purulence underneath the callus. There is lymphangitic spread from that area extending over the jeremy sum of the foot. Left lower extremity has 2+ edema right has 1+. There is a 1 cm area of irritation on the left anterior ortiz with 3 cm of surrounding cellulitis without abscess formation or drainage. Psych: Cooperative, appropriate insight and affect Initial Vital Signs Initial Vital Signs: Vital Signs Temperature 97.4 F L 12/28/20 19:25 Pulse Rate 79 12/28/20 19:25 Respiratory Rate 15 12/28/20 19:25 Blood Pressure 162/72 H 12/28/20 19:25 Pulse Oximetry 95 12/28/20 19:25 Course Orders Ordered: Discontinued Medications Ceftriaxone Sodium 2,000 mg/ (Sodium Chloride) 100 mls @ 200 mls/hr IV NOW ONE Stop: 12/28/20 20:03 Last Infusion: 12/28/20 21:03 Dose: 0 mls/hr Documented by: Admin: 12/28/20 20:19 Dose: 200 mls/hr Documented by: AWILDA Metronidazole (Flagyl) 500 mg in 100 mls @ 100 mls/hr IV NOW ONE Stop: 12/28/20 21:01 Last Infusion: 12/28/20 22:12 Dose: 0 mls/hr Documented by: Admin: 12/28/20 21:03 Dose: 100 mls/hr Documented by: AWILDA Vital Signs Vital signs: Vital Signs - 8 hr 12/28/20 21:30 12/28/20 22:00 12/28/20 22:08 Pulse Rate 81 80 83 Blood Pressure 143/64 H Pulse Oximetry 98 99 97 MDM - Extremity (Nontraumatic) Lab Data Result diagrams: 12/28/20 19:48 12/28/20 19:48 Labs: Lab Results 12/28/20 12/28/20 12/28/20 Range/Units 19:48 19:48 19:48 WBC 11.5 H (4.5-11.0) X10^3/uL RBC 3.74 L (4.5-5.9) X10^6/uL Hgb 10.7 L (13.5-17.5) g/dL Hct 32.1 L (41-53) % MCV 85.9 (80-100) fL MCH 28.6 (26-34) PG MCHC 33.3 (30-36) % RDW 13.6 (11.6-14.8) % Plt Count 233 (150-400) X10^3/uL Neut % (Auto) 84.3 H (50-75) % Lymph % (Auto) 4.6 L (25-40) % Garrard % (Auto) 7.9 (3-14) % Eos % (Auto) 2.7 (2-4) % Baso % (Auto) 0.5 (0-2) % Neut # (Auto) 9700 H (6041-3455) /uL Lymph # (Auto) 500 L (1480-9111) /uL Garrard # (Auto) 900 (0-900) /uL Eos # (Auto) 300 (0-450) /uL Baso # (Auto) 100 (0-100) /uL Sodium 133 L (137-145) mmol/L Potassium 4.0 (3.4-5.1) mmol/L Chloride 96 L (98-107) mmol/L Carbon Dioxide 28 (22-32) mmol/L BUN 19 (9-20) mg/dL Creatinine 1.19 (0.66-1.25) mg/dL Estimated GFR 58.8 L (>60) mL/min BUN/Creatinine Ratio 16.0 (6-22) Glucose 189 H (80-110) mg/dL Lactate (0.7-2.1) mmol/L Calcium 9.9 (8.4-10.2) mg/dL Total Bilirubin 0.4 (0.2-1.3) mg/dL AST 33 (17-59) IU/L ALT 22 (<50) IU/L Alkaline Phosphatase 84 (38-126) U/L Total Protein 7.9 (6.3-8.2) g/dL Albumin 4.7 (3.5-5.0) g/dL Globulin 3.2 (1.7-4.1) g/dL Albumin/Globulin Ratio 1.5 (1.0-2.8) SARS-CoV-2 (PCR) Negative (Negative) 12/28/20 Range/Units 19:48 WBC (4.5-11.0) X10^3/uL RBC (4.5-5.9) X10^6/uL Hgb (13.5-17.5) g/dL Hct (41-53) % MCV (80-100) fL MCH (26-34) PG MCHC (30-36) % RDW (11.6-14.8) % Plt Count (150-400) X10^3/uL Neut % (Auto) (50-75) % Lymph % (Auto) (25-40) % Garrard % (Auto) (3-14) % Eos % (Auto) (2-4) % Baso % (Auto) (0-2) % Neut # (Auto) (6692-0402) /uL Lymph # (Auto) (8520-9651) /uL Garrard # (Auto) (0-900) /uL Eos # (Auto) (0-450) /uL Baso # (Auto) (0-100) /uL Sodium (137-145) mmol/L Potassium (3.4-5.1) mmol/L Chloride (98-107) mmol/L Carbon Dioxide (22-32) mmol/L BUN (9-20) mg/dL Creatinine (0.66-1.25) mg/dL Estimated GFR (>60) mL/min BUN/Creatinine Ratio (6-22) Glucose (80-110) mg/dL Lactate 1.4 (0.7-2.1) mmol/L Calcium (8.4-10.2) mg/dL Total Bilirubin (0.2-1.3) mg/dL AST (17-59) IU/L ALT (<50) IU/L Alkaline Phosphatase (38-126) U/L Total Protein (6.3-8.2) g/dL Albumin (3.5-5.0) g/dL Globulin (1.7-4.1) g/dL Albumin/Globulin Ratio (1.0-2.8) SARS-CoV-2 (PCR) (Negative) MDM Narrative Medical decision making narrative: 80-year-old gentleman with type 2 diabetes stents peripheral neuropathy increasing pain in the left MCP joint with i nfection at that location with lymphangitic spread spreading up the dorsum foot. In the emergency department he is given 2 g of IV ceftriaxone. Labs do not indicate any evidence of sepsis in x-rays do not suggest osteomyelitis. Dr. Cox, podiatry is contacted. She will call the patient tomorrow and anticipate seeing him in clinic tomorrow with debridement of the wound and anticipated follow-up with wound care to be arranged. Patient will be discharged home with doxycycline and Septra along with pain management. Questions are answered and at this time he is from discharge Discharge Plan Departure Patient Disposition: Home Clinical Impression: Diabetic foot infection Instructions: DI for Cellulitis -- Adult Activity Restrictions/Additional Instructions: While I would much rather be your daughter than your doctor, I'm so glad that you came in tonight. That large callus on your left foot has gotten infected and needs to be debrided. In the emergency department you were given IV ceftriaxone and IV Flagyl. I am going to send you home with prescriptions for doxycycline and Bactrim. You will need to complete both of these prescriptions for the infection. In the ER, there was no sign of systemic infection (sepsis) and the x-ray did not suggest that you are developing any infection in the bone. I spoke with Dr. Cox, her office will contact you tomorrow for an mandy ointment tomorrow or the following day. You likely are going to need to follow- up with the wound care clinic as well to make sure that this heals completely. Keeping the foot elevated will help with healing and swelling. When you go in to Dr. Cox's office, please take all of the orthotics that you have with you so that the 2 of you can figure out the best way to unload that area of your foot. You can use 1-2 Percocet every 6 hours for pain. Make sure that you are taking a stool softener to avoid constipation from this. All prescriptions were electronically transmitted to [facility] this evening. If things are not improving, you have questions about your blood sugar or other concerns, you know how to reach me:) Prescriptions: New sulfamethoxazole-trimethoprim [Bactrim DS] 800-160 mg tablet 1 tab PO BID Qty: 20 RF: 0 doxycycline hyclate 100 mg capsule 100 mg PO BID Qty: 20 RF: 0 oxycodone-acetaminophen 5-325 mg tablet 1 tab PO Q6H PRN (Reason: pain) Qty: 45 RF: 0 No Action insulin lispro [Humalog U-100 Insulin] 100 UNIT/1 ML solution 10 u SQ DAILY Qty: 0 RF: 0 Lantus U-100 Insulin 100 UNIT/1 ML solution 20 u SQ BID Qty: 0 RF: 0 telmisartan [Micardis] 40 MG tablet 40 mg PO QDAY Qty: 0 RF: 0 metformin [Glucophage XR] 500 MG tablet extended release 24 hr 1,000 mg PO BID Qty: 0 RF: 0 clopidogrel [Plavix] 75 MG tablet 75 mg PO QDAY Qty: 0 RF: 0 metoprolol succinate [Toprol XL] 50 MG tablet extended release 24 hr PO QDAY Qty: 0 RF: 0 nitroglycerin [Nitrostat] 0.4 mg Tablet, Sublingual 0.4 mg SUBLINGUAL Q5M PRN (Reason: Chest Pain) RF: 0 Referrals: Zaheer Baig MD [Primary Care Provider] -
== END 2020-12-28 22:13 | disposition home or self-care (01) ==
PROVIDERS: Emergency Provider Emergency Medicine; PCP Internal Medicine
DX: L03.116 Cellulitis of left lower limb (principal); E11.40 Type 2 diabetes mellitus with diabetic neuropathy, unspecified; Z79.4 Long term (current) use of insulin
CPT/HCPCS: 36415; 73630; 80053; 83605; 85025; 87040; 87635; 96365; 96367; 99284; C9803; J0696

== ENCOUNTER 2021-01-27 15:13 | Emergency (ER) | payer MEDICARE, SELFPAY ==
[2021-01-27] VITALS (9 sets, daily range): BP systolic 138–153; BP diastolic 63–72; PULSE 66–71; RESP 18–20; TEMP 37.1; O2SAT 97–100
--- NOTE | 2021-01-27 15:39 | DI.RAD.S_ITS ---
PROCEDURE: XR FOOT LT MIN 3V INDICATIONS: infection, concern for osteo, sent by podiatry TECHNIQUE: 3 views of the foot were acquired. COMPARISON: [facility], CR, XR FOOT RT MIN 3V, 12/28/2020, 20:33. FINDINGS: Bones: No fractures or dislocations. No suspicious bony lesions. Soft tissues: No tibiotalar joint effusion. Achilles tendon appears normal. Vasculature has atherosclerotic calcifications. IMPRESSION: No radiographic evidence of osteomyelitis. No change compared to prior x-ray on 12/28/2020. Dictated by: Micah Cano M.D. on 01/27/2021 at 16:26 Approved by: Micah Cano M.D. on 01/27/2021 at 16:27
[2021-01-27 15:52] LABS: Add Manual Diff / Slide Review NO; Basophils Absolute Auto 100 /uL (0-100); Basophils Percent Auto 0.7 % (0-2); Eosinophils Absolute Auto 500 /uL (0-450); Eosinophils Percent Auto 6.3 % (2-4); Hematocrit 30.9 % (41-53); Hemoglobin 10.4 g/dL (13.5-17.5); Lymphocytes Absolute Auto 1000 /uL (1100-4500); Lymphocytes Percent Auto 13.4 % (25-40); Mean Corpuscular HGB Conc 33.5 % (30-36); Mean Corpuscular Hemoglobin 28.4 PG (26-34); Mean Corpuscular Volume 84.6 fL (80-100); Monocytes Absolute Auto 800 /uL (0-900); Neutrophils Absolute Auto 5300 /uL (1500-7000); Neutrophils Percent Auto 69.6 % (50-75); Platelet Count 255 X10^3/uL (150-400); Red Blood Cell Count 3.65 X10^6/uL (4.5-5.9); Red Cell Distribution Width 14.7 % (11.6-14.8); White Blood Cell Count 7.7 X10^3/uL (4.5-11.0)
[2021-01-27 16:03] LABS: Alanine Aminotransferase 22 IU/L (<50); Albumin 4.5 g/dL (3.5-5.0); Albumin Globulin Ratio 1.5 (1.0-2.8); Alkaline Phosphatase 97 U/L (38-126); Aspartate Aminotransferase 31 IU/L (17-59); Bilirubin Total 0.3 mg/dL (0.2-1.3); Blood Urea Nitrogen 25 mg/dL (9-20); C-Reactive Protein Quant 0.6 mg/dL (<1.0); Calcium 9.7 mg/dL (8.4-10.2); Carbon Dioxide 27 mmol/L (22-32); Chloride 99 mmol/L (98-107); Estimated Glomerular Filt Rate 58.8 mL/min (>60); Globulin 3.1 g/dL (1.7-4.1); Glucose 205 mg/dL (80-110); HEMOLYSIS < 15 (0-50); Magnesium 1.9 mg/dL (1.6-2.3); Potassium 4.4 mmol/L (3.4-5.1); Sodium 134 mmol/L (137-145); Total Protein 7.6 g/dL (6.3-8.2)
--- NOTE | 2021-01-27 16:13 | PC.NURSE ---
IV placed by disc recordist.)
[2021-01-27 16:15] LABS: Erythrocyte Sedimentation Rate 37 MM/HR (0-15)
--- NOTE | 2021-01-27 16:29 | PC.NURSE ---
Patient c/o wound on left foot big toe x 5 months per patient. Left foot/ankle pitting edema 2+ with redness, swelling and wound discharge. Patient under the care of Dr. 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 Last seen by Dr. Cox earlier today, sent to ER for further evaluation. Patient states wound started 5 months ago when he removed a callus from his left foot big toe. Patient compliant with daily hygiene and wound care.
[2021-01-27 17:19] LABS: COVID19 - ADMIT (NP swab/PCR) Negative (Negative)
--- NOTE | 2021-01-27 17:47 | ED_ITS ---
HPI - Skin/Abscess/Foreign Bdy General Chief complaint: Skin/Abscess/Foreign Body Stated complaint: lt foot infection Time Seen by Provider: 01/27/21 15:39 Source: patient Mode of arrival: Ambulatory History of Present Illness HPI narrative: 80-year-old male nonsmoker history of hypertension, hyperlipidemia, type 2 diabetes with significant peripheral neuropathy, coronary artery disease currently on Plavix and recurrent radicular low back pain presents at the request of his supervisor cytogenetic laboratory for evaluation of a recurrence of redness, warmth and pain on the dorsum of his left foot and concern for recurrence of infection. Few weeks ago he was seen and evaluated here and started on Rocephin and Flagyl and was discharged on 10 days each of Bactrim and doxycycline. He states that he had a significant improvement in his symptoms and those antibiotics were stopped about 10 days ago. He was doing fine well for about 5 days and then on Monday started developing pain and redness on the dorsum of his foot again. His symptoms have slowly progressed to today. He saw his supervisor cytogenetic laboratory who sent him here after evaluation. He denies any drainage or significant swelling. He denies any pain in his ankle, knee or hip. He has no systemic symptoms such as dizziness, weakness or lightheadedness. He has no nausea or vomiting nor fever or chills. Related Data Home Medications Medication Instructions Recorded Confirmed clopidogrel 75 mg tablet (Plavix) 75 mg PO QDAY #0 12/13/16 02/20/19 insulin glargine 100 unit/mL 20 u SQ BID #0 12/13/16 02/20/19 subcutaneous solution (Lantus U-100 Insulin) insulin lispro 100 unit/mL 10 u SQ DAILY #0 12/13/16 02/20/19 subcutaneous solution (Humalog U-100 Insulin) metformin 500 mg tablet,extended 1,000 mg PO BID #0 12/13/16 02/20/19 release 24 hr (Glucophage XR) metoprolol succinate 50 mg mg PO QDAY #0 12/13/16 tablet,extended release 24 hr (Toprol XL) telmisartan 40 mg tablet (Micardis) 40 mg PO QDAY #0 12/13/16 02/20/19 nitroglycerin 0.4 mg sublingual 0.4 mg SUBLINGUAL Q5M PRN 02/20/19 02/20/19 tablet (Nitrostat) Previous Rx's Medication Instructions Recorded doxycycline hyclate 100 mg capsule 100 mg PO BID #20 cap 12/28/20 oxycodone-acetaminophen 5 mg-325 1 tab PO Q6H PRN #45 tab 12/28/20 mg tablet sulfamethoxazole 800 1 tab PO BID #20 tab 12/28/20 mg-trimethoprim 160 mg tablet (Bactrim DS) doxycycline hyclate 100 mg tablet 100 mg PO BID #20 tab 01/27/21 sulfamethoxazole 800 1 tab PO BID 10 Days #20 tab 01/27/21 mg-trimethoprim 160 mg tablet (Bactrim DS) Allergies Allergy/AdvReac Type Severity Reaction Status Date / Time [id number] Reductase AdvReac Intermediate lower body Verified 12/28/20 19:30 Inhibitor muscle pain [[id number] REDUCTASE INHIBITOR] Review of Systems Review of Systems Narrative: GENERAL: See HP HEENT: Denies sinus pain, ear pain, sore throat, difficulty swallowing, dizziness. RESPIRATORY: Denies dyspnea, cough, wheezing, hemoptysis, sputum. CARDIOVASCULAR: Denies chest pain, palpitations, orthopnea, edema, GASTROINTESTINAL: Denies nausea, vomiting, abdominal pain, diarrhea, constipation, melena. : Denies dysuria, frequency, incontinence, hematuria, urinary retention. MUSCULOSKELETAL: See HPI SKIN: See HPI NEUROLOGIC: Denies weakness, headache, numbness, change in speech, confusion, seizures, incoordination. PSYCHIATRIC: No concerning psychosocial issues. 12 point review of systems is negative except for those stated above Patient History Medical History Coronary artery disease Diabetes mellitus Diabetic foot infection FH: mitral valve repair Hypercholesterolemia Hypertension Paroxysmal atrial fibrillation Peripheral neuropathy Social History household members: spouse Smoking Status: Never smoker Smoking Status: Never smoker alcohol intake frequency: holidays/special occasions only Substance Use Type: does not use Exam Narrative Exam Narrative: GENERAL: [80] year old patient appears stated age. Well- developed patient, in no obvious distress HEAD: Atraumatic. Normocephalic. EYES: Pupils equal round and reactive. Extraocular motions intact. No scleral icterus. No injection or drainage. ENT: Nose without bleeding, purulent drainage. Throat without erythema, tonsillar hypertrophy or exudate. Airway patent. NECK: Trachea midline. Non tender CARDIOVASCULAR: Regular rate and rhythm without murmurs, gallops, or rubs. RESPIRATORY: Clear to auscultation. Breath sounds equal bilaterally. No wheezes, rales, or rhonchi. GASTROINTESTINAL: Abdomen soft, non-tender, nondistended. EXTREMITIES: Erythema and warmth on dorsum of foot overlying 2nd 3rd and 4th m etatarsals. There is a dry, healing scab in the center. No induration or fluctuance is noted. There is no lymphangitis. Lower extremities have 1+ pitting edema bilaterally, there is a small amount of erythema on the left medial ankle, again without fluctuance or induration. BACK: Nontender without deformity or crepitance. No flank tenderness. NEURO: AOx3. SKIN: No rash or erythema of visible areas Initial Vital Signs Initial Vital Signs: Vital Signs Temperature 98.8 F 01/27/21 15:16 Pulse Rate 70 01/27/21 15:16 Respiratory Rate 18 01/27/21 15:16 Blood Pressure 146/67 H 01/27/21 15:16 Pulse Oximetry 98 01/27/21 15:16 Course Orders Ordered: ED Orders 01/27/21 15:30 C-Reactive Protein Quant Stat Complete Blood Count AUTO DIFF Stat Comprehensive Metabolic Panel Stat Erythrocyte Sedimentation Rate Stat Magnesium Stat 01/27/21 15:39 XR foot LT min 3V Stat 01/27/21 16:05 Blood Culture Stat 01/27/21 16:09 COVID19 - ADMIT ([employer] swab/PCR) Stat Vital Signs Vital signs: Vital Signs - 8 hr 01/27/21 15:16 01/27/21 15:49 01/27/21 15:50 Temperature 98.8 F Pulse Rate 70 68 68 Respiratory Rate 18 Blood Pressure 146/67 H 143/65 H Pulse Oximetry 98 100 99 01/27/21 16:00 Temperature Pulse Rate 71 Respiratory Rate Blood Pressure 141/66 H Pulse Oximetry 97 MDM - Skin/Abscess/Foreign Bdy Lab Data Result diagrams: 01/27/21 15:30 01/27/21 15:30 Labs: Lab Results 01/27/21 01/27/21 01/27/21 Range/Units 15:30 15:30 16:09 WBC 7.7 (4.5-11.0) X10^3/uL RBC 3.65 L (4.5-5.9) X10^6/uL Hgb 10.4 L (13.5-17.5) g/dL Hct 30.9 L (41-53) % MCV 84.6 (80-100) fL MCH 28.4 (26-34) PG MCHC 33.5 (30-36) % RDW 14.7 (11.6-14.8) % Plt Count 255 (150-400) X10^3/uL Neut % (Auto) 69.6 (50-75) % Lymph % (Auto) 13.4 L (25-40) % Traverse % (Auto) 10.0 (3-14) % Eos % (Auto) 6.3 H (2-4) % Baso % (Auto) 0.7 (0-2) % Neut # (Auto) 5300 (1799-7717) /uL Lymph # (Auto) 1000 L (7622-2849) /uL Traverse # (Auto) 800 (0-900) /uL Eos # (Auto) 500 H (0-450) /uL Baso # (Auto) 100 (0-100) /uL ESR 37 H (0-15) MM/HR Sodium 134 L (137-145) mmol/L Potassium 4.4 (3.4-5.1) mmol/L Chloride 99 (98-107) mmol/L Carbon Dioxide 27 (22-32) mmol/L BUN 25 H (9-20) mg/dL Creatinine 1.19 (0.66-1.25) mg/dL Estimated GFR 58.8 L (>60) mL/min BUN/Creatinine Ratio 21.0 (6-22) Glucose 205 H (80-110) mg/dL Calcium 9.7 (8.4-10.2) mg/dL Magnesium 1.9 (1.6-2.3) mg/dL Total Bilirubin 0.3 (0.2-1.3) mg/dL AST 31 (17-59) IU/L ALT 22 (<50) IU/L Alkaline Phosphatase 97 (38-126) U/L C-Reactive Protein 0.6 (<1.0) mg/dL Total Protein 7.6 (6.3-8.2) g/dL Albumin 4.5 (3.5-5.0) g/dL Globulin 3.1 (1.7-4.1) g/dL Albumin/Globulin Ratio 1.5 (1.0-2.8) SARS-CoV-2 (PCR) Negative (Negative) Imaging Data Extremity x-ray #1: Radiologist's Impression: [address] [address] XRay Report Signed Patient: Praful Sawant MR#: [id number] : 1940 Acct:[id number] Age/Sex: 80 / M Date of Service: 01/27/21 Loc: ED Accession Number: [id number] ?? Procedure: XR foot LT min 3V Ordering Provider: Max Jordan D.O. PROCEDURE:? XR FOOT LT MIN 3V ? INDICATIONS:? infection, concern for osteo, sent by podiatry ? TECHNIQUE:? 3 views of the foot were acquired.? ? COMPARISON:? [facility], CR, XR FOOT RT MIN 3V, 12/28/2020, 20:33. ? FINDINGS:? ? Bones:? No fractures or dislocations.? No suspicious bony lesions.? ? Soft tissues:? No tibiotalar joint effusion.? Achilles tendon appears normal.? Vasculature has atherosclerotic calcifications. ? ? IMPRESSION:? No radiographic evidence of osteomyelitis.? No change compared to prior x-ray on 12/28/2020. ? ? Dictated by: Micah Cano M.D. on 01/27/2021 at 16:26 ? ? Approved by: Micah Cano M.D. on 01/27/2021 at 16:27 ? [facility] Narrative Medical decision making narrative: Patient presents with recurrence of cellulitic appearance of left foot. He has no systemic findings such as fever, chills nor nausea or vomiting. Labs are reassuring, imaging would suggest against the likelihood of osteomyelitis. Exam is relatively mild, improved over her last visit here. There is no fluctuance or induration or drainage. No need for IV antibiotics or admission at this point time. Extensive return precautions discussed and questions have been answered to his apparent satisfaction Discharge Plan Departure Patient Disposition: Home Clinical Impression: Diabetic infection of left foot Instructions: DI for Cellulitis -- Adult Activity Restrictions/Additional Instructions: *You have been diagnosed with [cellulitis left foot. You have a very reassuring physical exam, labs and x-ray. As we discussed *What to do: *Please continue to take your regular medications as directed. [x] New medication prescriptions sent to your pharmacy: [[facility] ] [ ] New medication written as a paper prescription [ ] No new medications given *Please follow up with your primary care provider in 2-3 days, call for an appointment. Let them know you were seen in the Emergency Department and that we ask that you be seen in follow up. We will electronically transmit a record of today's note if your PCP is in our system *If you do not have a primary care provider please contact the [facility] Resource line at [phone]. They will ask some questions about your medical history and help get you set up with a doctor in the community. As we discussed, we have sent a referral to wound care to help this move forward *Return to Emergency Department if you should have any new, worsening or concerning symptoms, such as [fever greater than 101 F, shaking chills, worsening pain, persistent vomiting or other bothersome symptoms] Prescriptions: New sulfamethoxazole-trimethoprim [Bactrim DS] 800-160 mg tablet 1 tab PO BID 10 Days Qty: 20 RF: 0 doxycycline hyclate 100 mg tablet 100 mg PO BID Qty: 20 RF: 0 No Action insulin lispro [Humalog U-100 Insulin] 100 UNIT/1 ML solution 10 u SQ DAILY Qty: 0 RF: 0 Lantus U-100 Insulin 100 UNIT/1 ML solution 20 u SQ BID Qty: 0 RF: 0 telmisartan [Micardis] 40 MG tablet 40 mg PO QDAY Qty: 0 RF: 0 metformin [Glucophage XR] 500 MG tablet extended release 24 hr 1,000 mg PO BID Qty: 0 RF: 0 clopidogrel [Plavix] 75 MG tablet 75 mg PO QDAY Qty: 0 RF: 0 metoprolol succinate [Toprol XL] 50 MG tablet extended release 24 hr PO QDAY Qty: 0 RF: 0 nitroglycerin [Nitrostat] 0.4 mg Tablet, Sublingual 0.4 mg SUBLINGUAL Q5M PRN (Reason: Chest Pain) RF: 0 sulfamethoxazole-trimethoprim [Bactrim DS] 800-160 mg tablet 1 tab PO BID Qty: 20 RF: 0 doxycycline hyclate 100 mg capsule 100 mg PO BID Qty: 20 RF: 0 oxycodone-acetaminophen 5-325 mg tablet 1 tab PO Q6H PRN (Reason: pain) Qty: 45 RF: 0 Referrals: Zaheer Baig MD [Primary Care Provider] - John Costello MD [Physician] -
== END 2021-01-27 18:27 | disposition home or self-care (01) ==
PROVIDERS: Emergency Provider Emergency Medicine; PCP Internal Medicine
DX: L03.116 Cellulitis of left lower limb (principal); E11.9 Type 2 diabetes mellitus without complications; Z20.822 Contact with and (suspected) exposure to COVID-19
CPT/HCPCS: 36415; 73630; 80053; 83735; 85025; 85651; 86140; 87040; 87635; 99284; C9803

== ENCOUNTER 2021-02-03 12:06 | Emergency (ER) | payer MEDICARE, SELFPAY ==
[2021-02-03 12:14] VITALS: BP 159/74; PULSE 70; RESP 17; O2SAT 100
--- NOTE | 2021-02-03 12:38 | DI.RAD.S_ITS ---
PROCEDURE: XR SHOULDER RT MIN 2V INDICATIONS: worsening shoulder pain, history of same TECHNIQUE: 3 views of the shoulder were acquired. COMPARISON: None. FINDINGS: Bones: No fractures or dislocations. Moderate acromioclavicular joint and glenohumeral joint osteoarthritic changes are seen. No suspicious bony lesions. Visualized ribs appear intact. Soft tissues: Well corticated calcification is seen in right shoulder soft tissue inferior to glenoid humeral joint which may represent a articular loose body. IMPRESSION: No shoulder fracture or dislocation. Moderate right shoulder joint osteoarthritis. Possible loose body versus posttraumatic dystrophic calcification in right shoulder soft tissue as above. Dictated by: Fredo Bailey M.D. on 02/03/2021 at 12:56 Approved by: Fredo Bailey M.D. on 02/03/2021 at 13:11
--- NOTE | 2021-02-03 12:42 | ED_ITS ---
HPI - Extremity Injury (Upper) <Mirna Hernández [facility] - Last Filed: 02/03/21 14:19> General Chief Complaint: Extremity Injury, Upper Stated Complaint: RT shoulder pain has skyrocketed last 10 hrs Time Seen by Provider: 02/03/21 12:12 Source: patient Mode of arrival: Ambulatory History of Present Illness HPI narrative: 80-year-old male, nonsmoker, history of hypertension, hyperlipidemia, type 2 diabetes with significant peripheral neuropathy, coronary artery disease currently on Plavix and recurrent radicular low back pain presents to the ED for worsening right shoulder pain that has been chronic in nature. 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 He reports 4 years ago he had a stem-cell treatment which improved his pain for 3 years, last year it started getting worse. Last night he woke up at 2:00 a.m. with worsening shoulder pain, similar to his previous, and he use ice packs every 2 hours which helped with his pain. He reports he took his last oxycodone today for it and it did not touch his pain. He is a patient of Dr. Banuelos, who reports his appointment isn't until February 18, and he is here for help with pain control. He reports that the pain starts at the anterior and posterior top of his humerus, and travels into his lateral bicep. He reports that he is not a surgical candidate due to his cardiac disease, and has been trying to get in to see Dr. Alves for pain management. Does not have any numbness or tingling, he denies any abdominal pain, history of gallstones or cholecystitis. Related Data Home Medications Medication Instructions Recorded Confirmed clopidogrel 75 mg tablet (Plavix) 75 mg PO QDAY #0 12/13/16 02/20/19 insulin glargine 100 unit/mL 20 u SQ BID #0 12/13/16 02/20/19 subcutaneous solution (Lantus U-100 Insulin) insulin lispro 100 unit/mL 10 u SQ DAILY #0 12/13/16 02/20/19 subcutaneous solution (Humalog U-100 Insulin) metformin 500 mg tablet,extended 1,000 mg PO BID #0 12/13/16 02/20/19 release 24 hr (Glucophage XR) metoprolol succinate 50 mg mg PO QDAY #0 12/13/16 tablet,extended release 24 hr (Toprol XL) telmisartan 40 mg tablet (Micardis) 40 mg PO QDAY #0 12/13/16 02/20/19 nitroglycerin 0.4 mg sublingual 0.4 mg SUBLINGUAL Q5M PRN 02/20/19 02/20/19 tablet (Nitrostat) Previous Rx's Medication Instructions Recorded doxycycline hyclate 100 mg capsule 100 mg PO BID #20 cap 12/28/20 oxycodone-acetaminophen 5 mg-325 1 tab PO Q6H PRN #45 tab 12/28/20 mg tablet sulfamethoxazole 800 1 tab PO BID #20 tab 12/28/20 mg-trimethoprim 160 mg tablet (Bactrim DS) doxycycline hyclate 100 mg tablet 100 mg PO BID #20 tab 01/27/21 sulfamethoxazole 800 1 tab PO BID 10 Days #20 tab 01/27/21 mg-trimethoprim 160 mg tablet (Bactrim DS) oxycodone-acetaminophen 5 mg-325 1 tab PO TID PRN #14 tab 02/03/21 mg tablet (Percocet) Allergies Allergy/AdvReac Type Severity Reaction Status Date / Time [id number] Reductase AdvReac Intermediate lower body Verified 02/03/21 12:19 Inhibitor muscle pain [[id number] REDUCTASE INHIBITOR] Review of Systems <DEEPAK Clements - Last Filed: 02/03/21 14:19> Review of Systems Narrative: General: denies fever, chills Head/Neck: denies headache, neck pain Eyes: denies visual changes, eye pain Cardio: denies chest pain, palpitations Respiratory: denies shortness of breath, cough GI: denies abdominal pain, nausea, vomiting, or diarrhea : denies dysuria, hematuria MSK: Endorses right shoulder pain with internal and external rotation of the forearm. He complains of some muscle weakness due to the pain. Skin: denies rash, itching Neuro: denies numbness, tingling Patient History <DEEPAK Clements - Last Filed: 02/03/21 14:19> Medical History Coronary artery disease Diabetes mellitus Diabetic foot infection FH: mitral valve repair Hypercholesterolemia Hypertension Paroxysmal atrial fibrillation Peripheral neuropathy Social History household members: spouse Smoking Status: Never smoker Smoking Status: Never smoker alcohol intake frequency: holidays/special occasions only Substance Use Type: does not use Exam <DEEPAK Clements - Last Filed: 02/03/21 14:19> Narrative Exam Narrative: Independently reviewed vitals signs and nursing notes. General: Awake, alert, nontoxic, no cardiorespiratory distress Head/Neck: Atraumatic, neck full range of motion Eyes: EOMI, conjunctiva normal Nose: nares patent, no rhinorrhea Mouth/Throat: moist mucus membranes, posterior pharynx normal, no oral lesions Cardio: Regular rate and rhythm, no peripheral edema, pacer visible, mediastinal scar visible. S1-S2 with warm extremities. Respiratory: respirations unlabored without wheezing, stridor, or rales. No retractions. GI: Abdomen soft, nontender MSK: Moves all extremities, neurovascularly intact, right shoulder pain elicited mostly with internal and external rotation, some medial pain from the anterior proximal humeral head into the biceps with flexion and from the posterior proximal humerus into the triceps with extension. Point tenderness present on anterior and posterior proximal humerus. CMS intact distally, radial pulse 2 +, skin is warm. Skin: Normal capillary refill, no rash Neuro: Normal speech and cognition, normal gait Initial Vital Signs Initial Vital Signs: Vital Signs Pulse Rate 70 02/03/21 12:14 Respiratory Rate 17 02/03/21 12:14 Blood Pressure 159/74 H 02/03/21 12:14 Pulse Oximetry 100 02/03/21 12:14 <Beatriz Moore DO - Last Filed: 02/03/21 19:57> Initial Vital Signs Initial Vital Signs: Vital Signs Pulse Rate 70 02/03/21 12:14 Respiratory Rate 17 02/03/21 12:14 Blood Pressure 159/74 H 02/03/21 12:14 Pulse Oximetry 100 02/03/21 12:14 Procedures <DEEPAK Clements - Last Filed: 02/03/21 14:19> Orthopedic Splinting/Casting Injury #1: Side: right Upper Extremity Injury Location: shoulder Upper Extremity Immobilizer: sling/shoulder immobilizer Post splinting neuro exam: intact Post splinting vascular exam: intact Placed by: Nursing Course <DEEPAK Clements - Last Filed: 02/03/21 14:19> Orders Ordered: ED Orders 02/03/21 12:38 XR shoulder RT min 2V Stat Discontinued Medications Oxycodone/Acetaminophen (Oxycodone/Acetaminophen 5/325 Tablet) 1 tab PO NOW ONE Stop: 02/03/21 13:12 Last Admin: 02/03/21 13:21 Dose: 1 tab Documented by: NIXON Vital Signs Vital signs: Vital Signs - 8 hr 02/03/21 12:14 Pulse Rate 70 Respiratory Rate 17 Blood Pressure 159/74 H Pulse Oximetry 100 <Beatriz Moore DO - Last Filed: 02/03/21 19:57> Orders Ordered: ED Orders 02/03/21 12:38 XR shoulder RT min 2V Stat Discontinued Medications Oxycodone/Acetaminophen (Oxycodone/Acetaminophen 5/325 Tablet) 1 tab PO NOW ONE Stop: 02/03/21 13:12 Last Admin: 02/03/21 13:21 Dose: 1 tab Documented by: NIXON Vital Signs Vital signs: Vital Signs - 8 hr 02/03/21 12:14 Pulse Rate 70 Respiratory Rate 17 Blood Pressure 159/74 H Pulse Oximetry 100 MDM - Extremity Injury (Upper) <DEEPAK Clements - Last Filed: 02/03/21 14:19> Imaging Data Rt shoulder: Radiologist's Impression: PROCEDURE:? XR SHOULDER RT MIN 2V ? INDICATIONS:? worsening shoulder pain, history of same ? TECHNIQUE:? 3 views of the shoulder were acquired.? ? COMPARISON:? None. ? FINDINGS:? ? Bones:? No fractures or dislocations.? Moderate acromioclavicular joint and glenohumeral joint osteoarthritic changes are seen.? No suspicious bony lesions.? Visualized ribs appear intact.? ? Soft tissues:? Well corticated calcification is seen in right shoulder soft tissue inferior to glenoid humeral joint which may represent a articular loose body. ? IMPRESSION:? No shoulder fracture or dislocation.? Moderate right shoulder joint osteoarthritis.? Possible loose body versus posttraumatic dystrophic calcification in right shoulder soft tissue as above.? ? ? Dictated by: Fredo Bailey M.D. on 02/03/2021 at 12:56 ? ? Approved by: Fredo Bailey M.D. on 02/03/2021 at 13:11 ? [facility] Narrative Medical decision making narrative: 80-year-old male, nonsmoker, history of hypertension, hyperlipidemia, type 2 diabetes with significant peripheral neuropathy, coronary artery disease currently on Plavix and recurrent radicular low back pain presents to the ED for worsening right shoulder pain that is most likely related to his osteoarthritis, and chronic shoulder pain. I spoke with Dr. Bailey of [facility] orth[facility] regarding potentially moving his appointment with Dr. Banuelos sooner, and he told me that patient is not a surgical candidate so he more-so needs a referral to pain management. Patient reports that he has an appointment scheduled in May with Dr. Alves. Patient was recommended to follow-up with his PCP for pain management in the meantime, also contacting Dr. Alves office to see if his appointment could be moved up, and lastly to contact [facility], and make an appointment further soonest available. His right shoulder radiograph showed moderate right shoulder joint osteoarthritis with possible loose body versus posttraumatic dystrophic calcification in soft tissue. He was fitted in a sling, and reports that helped with pain, he also received a Percocet while in the ED with improvement in his pain level. He was prescribed 1 week's worth of Percocet, and understands to follow up as stated as above. 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 Initial ddx to include but not limited to tendinopathy, impingement, rotator cuff tear, adhesive capsulitis is less likely, as patient has full range of motion. Patient is appropriate and amenable to discharge home. Vital signs are stable on repeat examination is unremarkable. Patient has been informed of results. Patient has been given strict return to ER precautions for any new or worsening symptoms. Patient understands to follow up closely with outpatient providers as instructed. Patient understands plan and agrees to discharge home. All questions and concerns answered at this time. Discharge Plan Departure Patient Disposition: Home Clinical Impression: Osteoarth NOS-shlder Qualifiers: Osteoarthritis type: primary Laterality: right Qualified Code(s): M19.011 - Primary osteoarthritis, right shoulder Instructions: DI for Osteoarthritis Activity Restrictions/Additional Instructions: *You have been diagnosed with right shoulder pain consistent with osteoarthritis and degenerative changes. Your radiology results are listed below. It was nice to meet you today, please follow-up with Dr. Alves and the [facility] and get the soonest appointment available scheduled. Also, make an appointment with Dr. Baig this week, so he can manage her pain until you can be seen by Dr. Alves or at the pain clinic. I wrote your prescription for Percocet, do not take any additional Tylenol with this. Unfortunately, you can take anti-inflammatories which are the primary treatment for this, but long-term and not being a surgical candidate makes you a good candidate for a pain pump potentially, and you will need a long-term pain provider so it will be good to establish this now. *What to do: *Please continue to take your regular medications as directed. [x] New medication prescriptions sent to your pharmacy: [ [facility] [place]] [ ] New medication written as a paper prescription [ ] No new medications given *Please follow up with your primary care provider in 2-3 days, call for an appointment. Let them know you were seen in the Emergency Department and that we ask that you be seen in follow up. We will electronically transmit a record of today's note if your PCP is in our system *If you do not have a primary care provider please contact the [facility] Resource line at [phone]. They will ask some questions about your medical history and help get you set up with a doctor in the community. *Return to Emergency Department if you should have any new, worsening or concerning symptoms, such as [fever greater than 101F, chills, worsening pain, persistent vomiting or other bothersome symptoms] PROCEDURE:? XR SHOULDER RT MIN 2V ? INDICATIONS:? worsening shoulder pain, history of same ? TECHNIQUE:? 3 views of the shoulder were acquired.? ? COMPARISON:? None. ? FINDINGS:? ? Bones:? No fractures or dislocations.? Moderate acromioclavicular joint and glenohumeral joint osteoarthritic changes are seen.? No suspicious bony lesions.? Visualized ribs appear intact.? ? Soft tissues:? Well corticated calcification is seen in right shoulder soft tissue inferior to glenoid humeral joint which may represent a articular loose body. ? IMPRESSION:? No shoulder fracture or dislocation.? Moderate right shoulder joint osteoarthritis.? Possible loose body versus posttraumatic dystrophic calcification in right shoulder soft tissue as above.? ? ? Dictated by: Fredo Bailey M.D. on 02/03/2021 at 12:56 ? ? Approved by: Fredo Bailey M.D. on 02/03/2021 at 13:11 ? Prescriptions: New oxycodone-acetaminophen [Percocet] 5-325 mg tablet 1 tab PO TID PRN (Reason: pain) Qty: 14 RF: 0 No Action insulin lispro [Humalog U-100 Insulin] 100 UNIT/1 ML solution 10 u SQ DAILY Qty: 0 RF: 0 Lantus U-100 Insulin 100 UNIT/1 ML solution 20 u SQ BID Qty: 0 RF: 0 telmisartan [Micardis] 40 MG tablet 40 mg PO QDAY Qty: 0 RF: 0 metformin [Glucophage XR] 500 MG tablet extended release 24 hr 1,000 mg PO BID Qty: 0 RF: 0 clopidogrel [Plavix] 75 MG tablet 75 mg PO QDAY Qty: 0 RF: 0 metoprolol succinate [Toprol XL] 50 MG tablet extended release 24 hr PO QDAY Qty: 0 RF: 0 nitroglycerin [Nitrostat] 0.4 mg Tablet, Sublingual 0.4 mg SUBLINGUAL Q5M PRN (Reason: Chest Pain) RF: 0 sulfamethoxazole-trimethoprim [Bactrim DS] 800-160 mg tablet 1 tab PO BID Qty: 20 RF: 0 doxycycline hyclate 100 mg capsule 100 mg PO BID Qty: 20 RF: 0 oxycodone-acetaminophen 5-325 mg tablet 1 tab PO Q6H PRN (Reason: pain) Qty: 45 RF: 0 sulfamethoxazole-trimethoprim [Bactrim DS] 800-160 mg tablet 1 tab PO BID 10 Days Qty: 20 RF: 0 doxycycline hyclate 100 mg tablet 100 mg PO BID Qty: 20 RF: 0 Referrals: [facility] [Provider Group] - As soon as possible Jake Alves DO [Physician] - As soon as possible (for your chronic Rt shoulder pain) Zaheer Baig MD [Primary Care Provider] - As soon as possible (for pain management until you can see Dr. Alves or [facility]) <Beatriz Moore DO - Last Filed: 02/03/21 19:57> Cosign ED Attending Tanjaature Attestation: I was immediately available in the department for consultation. Documentation has been reviewed. I agree with assessment and plan.
[2021-02-03] MEDS: OXYCODONE/ACETAMINOPHEN 5/325 TABLET 1 TAB PO (13:21)
== END 2021-02-03 14:02 | disposition home or self-care (01) ==
PROVIDERS: Emergency Provider Nurse Practitioner Critical Care Medicine; PCP Internal Medicine
DX: M25.511 Pain in right shoulder (principal); M19.011 Primary osteoarthritis, right shoulder
CPT/HCPCS: 73030; 99283

== ENCOUNTER → 2021-02-11 08:19 | Outpatient (CLI) | payer MEDICARE, SELFPAY ==
[2021-02-11 10:05] LABS: Alanine Aminotransferase 21 IU/L (<50); Albumin 4.2 g/dL (3.5-5.0); Albumin Globulin Ratio 1.4 (1.0-2.8); Alkaline Phosphatase 92 U/L (38-126); Aspartate Aminotransferase 36 IU/L (17-59); BUN Creatinine Ratio 14.9 (6-22); Bilirubin Total 0.5 mg/dL (0.2-1.3); Blood Urea Nitrogen 20 mg/dL (9-20); Calcium 9.5 mg/dL (8.4-10.2); Carbon Dioxide 25 mmol/L (22-32); Chloride 98 mmol/L (98-107); Estimated Glomerular Filt Rate 51.3 mL/min (>60); Globulin 3.1 g/dL (1.7-4.1); Glucose 252 mg/dL (80-110); HEMOLYSIS < 15 (0-50); Potassium 5.2 mmol/L (3.4-5.1); Sodium 132 mmol/L (137-145); Total Protein 7.3 g/dL (6.3-8.2)
[2021-02-11 11:10] LABS: Thyroid Stimulating Hormone 2.13 uIU/mL (0.47-4.68)
== END ==
PROVIDERS: PCP Internal Medicine; Referring Provider Internal Medicine Cardiovascular Disease; Visit Provider Internal Medicine Cardiovascular Disease
DX: Z79.899 Other long term (current) drug therapy (principal)
CPT/HCPCS: 36415; 80053; 84443

== ENCOUNTER → 2021-02-16 14:59 | Outpatient (CLI) | payer MEDICARE, SELFPAY | PROVIDERS: PCP Internal Medicine; Referring Provider Emergency Medicine; Visit Provider Family Medicine | DX: E11.621 Type 2 diabetes mellitus with foot ulcer (principal); L97.522 Non-pressure chronic ulcer of other part of left foot with fat layer exposed; L97.511 Non-pressure chronic ulcer of other part of right foot limited to breakdown of skin; E11.49 Type 2 diabetes mellitus with other diabetic neurological complication | CPT/HCPCS: 11042; 87070; 87075; 87077; 87186; 87205; 93922; 97597; 99204; 99214 ==

== ENCOUNTER → 2021-02-23 08:39 | Outpatient (CLI) | payer MEDICARE, SELFPAY | PROVIDERS: PCP Internal Medicine; Referring Provider Internal Medicine; Visit Provider Family Medicine | DX: E11.621 Type 2 diabetes mellitus with foot ulcer (principal); L97.522 Non-pressure chronic ulcer of other part of left foot with fat layer exposed; L97.511 Non-pressure chronic ulcer of other part of right foot limited to breakdown of skin; E11.49 Type 2 diabetes mellitus with other diabetic neurological complication; B96.29 Other Escherichia coli [E. coli] as the cause of diseases classified elsewhere; B95.2 Enterococcus as the cause of diseases classified elsewhere; L08.9 Local infection of the skin and subcutaneous tissue, unspecified | CPT/HCPCS: 11042; 87070; 87077; 87186; 87205; 99213 ==

== ENCOUNTER → 2021-03-02 09:33 | Outpatient (CLI) | payer MEDICARE, SELFPAY | PROVIDERS: PCP Internal Medicine; Referring Provider Internal Medicine; Visit Provider Family Medicine | DX: E11.621 Type 2 diabetes mellitus with foot ulcer (principal); L97.522 Non-pressure chronic ulcer of other part of left foot with fat layer exposed; L97.511 Non-pressure chronic ulcer of other part of right foot limited to breakdown of skin; L97.521 Non-pressure chronic ulcer of other part of left foot limited to breakdown of skin; L84 Corns and callosities; L08.9 Local infection of the skin and subcutaneous tissue, unspecified | CPT/HCPCS: 11042; 73630; 87070; 87077; 87147; 87186; 87205; 97597; 99214 ==

== ENCOUNTER → 2021-03-02 10:40 | Outpatient (CLI) | payer MEDICARE, SELFPAY ==
--- NOTE | 2021-03-02 | DI.RAD.S_ITS ---
PROCEDURE: XR FOOT LT MIN 3V INDICATIONS: Type 2 diabetes mellitus with foot ulcer TECHNIQUE: 3 views of the foot were acquired. COMPARISON: , CR, XR FOOT LT MIN 3V, 01/27/2021, 15:55. FINDINGS: Bones: No fractures or dislocations. Bipartite medial hallux sesamoid. No suspicious bony lesions to suggest osteomyelitis. Small plantar calcaneal enthesophyte. Soft tissues: No tibiotalar joint effusion. Vascular calcifications are seen. Gauze material is seen overlying the 1st distal phalanx. IMPRESSION: No significant abnormality. Dictated by: Cristhian Reynolds M.D. on 03/02/2021 at 11:35 Approved by: Cristhian Reynolds M.D. on 03/02/2021 at 11:40
== END ==
PROVIDERS: PCP Internal Medicine; Referring Provider Family Medicine; Visit Provider Family Medicine
DX: E11.621 Type 2 diabetes mellitus with foot ulcer (principal); L97.522 Non-pressure chronic ulcer of other part of left foot with fat layer exposed
CPT/HCPCS: 73630

== ENCOUNTER → 2021-03-03 10:44 | Outpatient (CLI) | payer MEDICARE, SELFPAY ==
[2021-03-03 11:33] LABS: COVID19 -Nasal RAPID Negative (Negative)
== END ==
PROVIDERS: PCP Internal Medicine; Referring Provider Internal Medicine; Visit Provider Internal Medicine
DX: Z20.822 Contact with and (suspected) exposure to COVID-19 (principal)
CPT/HCPCS: 87635; C9803

== ENCOUNTER → 2021-03-04 10:40 | Outpatient (CLI) | payer MEDICARE, SELFPAY ==
--- NOTE | 2021-03-12 16:27 | PM.PFT.1 ---
Pulmonary Function Test Referral & Results Date Patient Seen: 03/04/21 Requesting provider: Timothy Hinton Results: The spirometry demonstrates an FVC of 4.47 L which is 111% of predicted. The FEV1 was measured at 3.22 L which is 112% of predicted. The FEV1/FVC ratio was 72 which is 101% of predicted. Following the administration of bronchodilator there was a 16% improvement in FEF 25-75% Lung volumes show an SVC of 4.19 L which is 95% of predicted. The diffusing capacity was measured at 19.33 which is 59% of predicted. No hemoglobin value was provided, so no correction for potential anemia could be made, if appropriate. 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 There has been a slight decline in diffusing capacity however.
== END ==
PROVIDERS: PCP Internal Medicine; Referring Provider Internal Medicine Cardiovascular Disease; Visit Provider Internal Medicine Cardiovascular Disease
DX: R06.02 Shortness of breath (principal); J98.8 Other specified respiratory disorders
CPT/HCPCS: 94060; 94726; 94729

== ENCOUNTER → 2021-03-09 08:41 | Outpatient (CLI) | payer MEDICARE, SELFPAY | PROVIDERS: PCP Internal Medicine; Referring Provider Internal Medicine; Visit Provider Family Medicine | DX: E11.621 Type 2 diabetes mellitus with foot ulcer (principal); L97.522 Non-pressure chronic ulcer of other part of left foot with fat layer exposed; L97.512 Non-pressure chronic ulcer of other part of right foot with fat layer exposed; L97.521 Non-pressure chronic ulcer of other part of left foot limited to breakdown of skin; E11.49 Type 2 diabetes mellitus with other diabetic neurological complication; L08.9 Local infection of the skin and subcutaneous tissue, unspecified | CPT/HCPCS: 11042; 97597; 99214 ==

== ENCOUNTER → 2021-03-10 11:55 | Outpatient (CLI) | payer MEDICARE, SELFPAY ==
[2021-03-10 13:43] LABS: BUN Creatinine Ratio 14.5 (6-22); Blood Urea Nitrogen 18 mg/dL (9-20); Estimated Glomerular Filt Rate 56.1 mL/min (>60)
== END ==
PROVIDERS: PCP Internal Medicine; Referring Provider Family Medicine; Visit Provider Family Medicine
DX: E11.621 Type 2 diabetes mellitus with foot ulcer (principal); L97.522 Non-pressure chronic ulcer of other part of left foot with fat layer exposed
CPT/HCPCS: 36415; 82565; 84520

== ENCOUNTER → 2021-03-12 12:44 | Outpatient (CLI) | payer MEDICARE, SELFPAY ==
--- NOTE | 2021-03-12 | DI.CT.S_ITS ---
PROCEDURE: CT LE LT W CON INDICATIONS: Type 2 diabetes mellitus with foot ulcer TECHNIQUE: After the administration of intravenous contrast, 3 mm axial sections acquired of the left foot , with coronal and sagittal reformats. COMPARISON: [facility], CR, XR FOOT LT MIN 3V, 03/02/2021, 11:14. FINDINGS: Image quality: Excellent. Bones: Alignment of left foot is anatomic. There is no acute left foot fracture or dislocation. [id number] osteoarthritic changes are noted throughout left ankle and foot. Old injury involving dorsal aspect of 1st distal phalangeal base is seen with well corticated bony fragment. No cortical destruction of bony erosion is seen in left foot. Small plantar calcaneal enthesophyte is seen. No suspicious intraosseous lesion. Soft tissues: Dorsal soft tissue swelling and edema over the metatarsal bones are seen. Ulceration involving soft tissue along plantar and medial aspect of 1st distal phalanx is seen. Mild adjacent skin thickening and subcutaneous fat stranding is noted. No discrete drainable abscess collection is noted. Vascular calcifications are noted throughout left ankle and foot. Plantar fascia is grossly intact. Achilles tendon is intact. No full-thickness ankle or foot tendon rupture. IMPRESSION: 1. Ulceration over plantar and medial aspect of great toe distally with mild adjacent cellulitis. Dorsal soft tissue swelling and edema. No discrete drainable abscess collection is seen. No enhancing soft tissue mass. 2. Osteoarthritic changes throughout left foot and ankle. No acute fracture or dislocation. No CT evidence of osteomyelitis. 3. No full-thickness tendon rupture. Extensive vascular calcifications in left ankle and foot. Dictated by: Fredo Bailey M.D. on 03/12/2021 at 13:42 Approved by: Fredo Bailey M.D. on 03/12/2021 at 14:05
== END ==
PROVIDERS: PCP Internal Medicine; Referring Provider Family Medicine; Visit Provider Family Medicine
DX: E11.621 Type 2 diabetes mellitus with foot ulcer (principal); L97.522 Non-pressure chronic ulcer of other part of left foot with fat layer exposed
CPT/HCPCS: 73701; Q9967

== ENCOUNTER → 2021-03-16 08:38 | Outpatient (CLI) | payer MEDICARE, SELFPAY | PROVIDERS: PCP Internal Medicine; Referring Provider Internal Medicine; Visit Provider Family Medicine | DX: E11.621 Type 2 diabetes mellitus with foot ulcer (principal); L97.522 Non-pressure chronic ulcer of other part of left foot with fat layer exposed; L97.512 Non-pressure chronic ulcer of other part of right foot with fat layer exposed; L97.521 Non-pressure chronic ulcer of other part of left foot limited to breakdown of skin; E11.49 Type 2 diabetes mellitus with other diabetic neurological complication; L08.9 Local infection of the skin and subcutaneous tissue, unspecified | CPT/HCPCS: 11042; 87070; 87075; 87077; 87147; 87186; 87205; 99213 ==

== ENCOUNTER → 2021-03-17 11:24 | Outpatient (CLI) | payer MEDICARE, SELFPAY ==
[2021-03-17 12:30] LABS: Hematocrit 29.8 % (41-53); Hemoglobin 9.8 g/dL (13.5-17.5)
[2021-03-17 13:24] LABS: BUN Creatinine Ratio 24.5 (6-22); Blood Urea Nitrogen 26 mg/dL (9-20); Calcium 9.9 mg/dL (8.4-10.2); Carbon Dioxide 27 mmol/L (22-32); Chloride 97 mmol/L (98-107); Estimated Glomerular Filt Rate > 60.0 mL/min (>60); Glucose 249 mg/dL (80-110); HEMOLYSIS 23 (0-50); Potassium 5.2 mmol/L (3.4-5.1); Sodium 133 mmol/L (137-145)
[2021-03-17 16:56] LABS: Appearance Urine UA CLEAR; Bilirubin Urine UA NEGATIVE (NEGATIVE); Color Urine UA YELLOW; Glucose Urine UA 1+ g/dL (Negative); Ketones Urine UA NEGATIVE (NEGATIVE); Leukocyte Esterase Urine UA NEGATIVE (NEGATIVE); Nitrite Urine UA NEGATIVE (Negative); Occult Blood Urine UA NEGATIVE (Negative); Protein Urine UA TRACE (Negative); Urobilinogen Urine UA 0.2 E.U./dL (0.2)
[2021-03-17 17:14] LABS: Bacteria Urine None Seen; Culture Indicated Urine Cult Not Indicated; RBC Urine None Seen (0-5/HPF); WBC Urine 1-5/HPF (0-5/HPF)
[2021-03-17 17:19] LABS: Creatinine Urine Random 57.5 mg/dL; Protein (Total) Urine Random 28 mg/dL (0-12); Protein Creatinine Ratio Urine 0.48 GRAM/24H
[2021-03-18 08:30] LABS: Parathyroid Hormone Int 20 pg/mL (15-65)
== END ==
PROVIDERS: PCP Internal Medicine; Referring Provider Student in an Organized Health Care Education/Training Program; Visit Provider Student in an Organized Health Care Education/Training Program
DX: N05.9 Unspecified nephritic syndrome with unspecified morphologic changes (principal); N30.00 Acute cystitis without hematuria; R80.9 Proteinuria, unspecified; D64.9 Anemia, unspecified; N25.81 Secondary hyperparathyroidism of renal origin
CPT/HCPCS: 36415; 80048; 81001; 82570; 83970; 84156; 85014; 85018

== ENCOUNTER → 2021-03-24 08:31 | Outpatient (CLI) | payer MEDICARE, SELFPAY | PROVIDERS: PCP Internal Medicine; Referring Provider Internal Medicine; Visit Provider Family Medicine | DX: E11.621 Type 2 diabetes mellitus with foot ulcer (principal); L97.522 Non-pressure chronic ulcer of other part of left foot with fat layer exposed; L97.512 Non-pressure chronic ulcer of other part of right foot with fat layer exposed; E11.49 Type 2 diabetes mellitus with other diabetic neurological complication; L08.9 Local infection of the skin and subcutaneous tissue, unspecified; B95.61 Methicillin susceptible Staphylococcus aureus infection as the cause of diseases classified elsewhere; E87.5 Hyperkalemia | CPT/HCPCS: 11042; 99213; 99214 ==

== ENCOUNTER → 2021-03-29 09:00 | Outpatient (CLI) | payer MEDICARE, SELFPAY ==
[2021-03-29 09:59] LABS: Add Manual Diff / Slide Review NO; Basophils Absolute Auto 0 /uL (0-100); Basophils Percent Auto 0.6 % (0-2); Eosinophils Absolute Auto 200 /uL (0-450); Eosinophils Percent Auto 4.9 % (2-4); Hematocrit 28.6 % (41-53); Hemoglobin 9.6 g/dL (13.5-17.5); Lymphocytes Absolute Auto 1100 /uL (1100-4500); Lymphocytes Percent Auto 22.4 % (25-40); Mean Corpuscular HGB Conc 33.4 % (30-36); Mean Corpuscular Volume 80.8 fL (80-100); Monocytes Absolute Auto 700 /uL (0-900); Monocytes Percent Auto 14.4 % (3-14); Neutrophils Absolute Auto 2800 /uL (1500-7000); Neutrophils Percent Auto 57.7 % (50-75); Platelet Count 254 X10^3/uL (150-400); Red Blood Cell Count 3.55 X10^6/uL (4.5-5.9); Red Cell Distribution Width 15.9 % (11.6-14.8); White Blood Cell Count 4.8 X10^3/uL (4.5-11.0)
[2021-03-29 10:30] LABS: Blood Urea Nitrogen 19 mg/dL (9-20); C-Reactive Protein Quant < 0.5 mg/dL (<1.0); Calcium 9.5 mg/dL (8.4-10.2); Carbon Dioxide 23 mmol/L (22-32); Chloride 93 mmol/L (98-107); Estimated Glomerular Filt Rate 42.4 mL/min (>60); Glucose 229 mg/dL (80-110); HEMOLYSIS < 15 (0-50); Sodium 127 mmol/L (137-145)
[2021-03-29 10:46] LABS: Erythrocyte Sedimentation Rate 35 MM/HR (0-15)
== END ==
PROVIDERS: PCP Internal Medicine; Referring Provider Family Medicine; Visit Provider Family Medicine
DX: L08.9 Local infection of the skin and subcutaneous tissue, unspecified (principal)
CPT/HCPCS: 36415; 80048; 85025; 85651; 86140

== ENCOUNTER → 2021-03-29 09:28 | Outpatient (CLI) | payer MEDICARE, SELFPAY | PROVIDERS: PCP Internal Medicine; Referring Provider Internal Medicine; Visit Provider Family Medicine | DX: E11.621 Type 2 diabetes mellitus with foot ulcer (principal); L97.522 Non-pressure chronic ulcer of other part of left foot with fat layer exposed; L97.512 Non-pressure chronic ulcer of other part of right foot with fat layer exposed; E11.49 Type 2 diabetes mellitus with other diabetic neurological complication; L08.9 Local infection of the skin and subcutaneous tissue, unspecified; B95.61 Methicillin susceptible Staphylococcus aureus infection as the cause of diseases classified elsewhere; Z79.2 Long term (current) use of antibiotics; E87.1 Hypo-osmolality and hyponatremia; D64.9 Anemia, unspecified | CPT/HCPCS: 11042; 36415; 80048; 85025; 85651; 86140; 99214 ==

== ENCOUNTER → 2021-03-30 10:12 | Outpatient (CLI) | payer MEDICARE, SELFPAY | PROVIDERS: PCP Internal Medicine; Referring Provider Internal Medicine; Visit Provider Family Medicine | DX: E11.621 Type 2 diabetes mellitus with foot ulcer (principal); L97.522 Non-pressure chronic ulcer of other part of left foot with fat layer exposed; L97.512 Non-pressure chronic ulcer of other part of right foot with fat layer exposed; L84 Corns and callosities | CPT/HCPCS: 29445 ==

== ENCOUNTER → 2021-04-01 08:25 | Outpatient (CLI) | payer MEDICARE, SELFPAY | PROVIDERS: PCP Internal Medicine; Referring Provider Internal Medicine; Visit Provider Family Medicine | DX: E11.622 Type 2 diabetes mellitus with other skin ulcer (principal); L97.522 Non-pressure chronic ulcer of other part of left foot with fat layer exposed; L97.512 Non-pressure chronic ulcer of other part of right foot with fat layer exposed; R60.0 Localized edema; L84 Corns and callosities | CPT/HCPCS: 29445 ==

== ENCOUNTER → 2021-04-07 09:27 | Outpatient (CLI) | payer MEDICARE, SELFPAY | PROVIDERS: PCP Internal Medicine; Referring Provider Internal Medicine; Visit Provider Family Medicine | DX: E11.621 Type 2 diabetes mellitus with foot ulcer (principal); L97.522 Non-pressure chronic ulcer of other part of left foot with fat layer exposed; L97.512 Non-pressure chronic ulcer of other part of right foot with fat layer exposed; E11.49 Type 2 diabetes mellitus with other diabetic neurological complication; D64.9 Anemia, unspecified | CPT/HCPCS: 11042; 99214 ==

== ENCOUNTER → 2021-04-08 13:49 | Outpatient (CLI) | payer MEDICARE, SELFPAY | PROVIDERS: PCP Internal Medicine; Referring Provider Internal Medicine; Visit Provider Family Medicine | DX: E11.621 Type 2 diabetes mellitus with foot ulcer (principal); L97.522 Non-pressure chronic ulcer of other part of left foot with fat layer exposed; L97.512 Non-pressure chronic ulcer of other part of right foot with fat layer exposed; L97.521 Non-pressure chronic ulcer of other part of left foot limited to breakdown of skin | CPT/HCPCS: 99214 ==

== ENCOUNTER → 2021-04-09 15:08 | Outpatient (CLI) | payer MEDICARE, SELFPAY ==
[2021-04-09 15:53] LABS: Add Manual Diff / Slide Review NO; Basophils Absolute Auto 0 /uL (0-100); Basophils Percent Auto 0.4 % (0-2); Eosinophils Absolute Auto 300 /uL (0-450); Eosinophils Percent Auto 5.9 % (2-4); Hematocrit 28.2 % (41-53); Hemoglobin 9.3 g/dL (13.5-17.5); Lymphocytes Absolute Auto 1100 /uL (1100-4500); Lymphocytes Percent Auto 18.7 % (25-40); Mean Corpuscular HGB Conc 33.1 % (30-36); Mean Corpuscular Hemoglobin 27.2 PG (26-34); Mean Corpuscular Volume 82.2 fL (80-100); Monocytes Absolute Auto 700 /uL (0-900); Monocytes Percent Auto 11.4 % (3-14); Neutrophils Absolute Auto 3800 /uL (1500-7000); Neutrophils Percent Auto 63.6 % (50-75); Platelet Count 268 X10^3/uL (150-400); Red Blood Cell Count 3.43 X10^6/uL (4.5-5.9); Red Cell Distribution Width 16.1 % (11.6-14.8); White Blood Cell Count 5.9 X10^3/uL (4.5-11.0)
[2021-04-09 16:17] LABS: Alanine Aminotransferase 25 IU/L (<50); Albumin 4.3 g/dL (3.5-5.0); Albumin Globulin Ratio 1.7 (1.0-2.8); Alkaline Phosphatase 78 U/L (38-126); Aspartate Aminotransferase 33 IU/L (17-59); BUN Creatinine Ratio 13.3 (6-22); Bilirubin Total 0.2 mg/dL (0.2-1.3); Blood Urea Nitrogen 20 mg/dL (9-20); Calcium 9.9 mg/dL (8.4-10.2); Carbon Dioxide 28 mmol/L (22-32); Chloride 98 mmol/L (98-107); Globulin 2.6 g/dL (1.7-4.1); Glucose 321 mg/dL (80-110); HEMOLYSIS < 15 (0-50); Potassium 4.7 mmol/L (3.4-5.1); Sodium 133 mmol/L (137-145); Total Protein 6.9 g/dL (6.3-8.2)
[2021-04-09 16:49] LABS: Ferritin 30 ng/mL (18-464)
[2021-04-09 18:35] LABS: Iron 31 ug/dL (49-181)
[2021-04-09 18:44] LABS: Percent Iron Saturation 9 % (20-50); Total Iron Binding Capacity 332 ug/dL (261-462)
== END ==
PROVIDERS: PCP Internal Medicine; Referring Provider Family Medicine; Visit Provider Family Medicine
DX: D64.9 Anemia, unspecified (principal)
CPT/HCPCS: 36415; 80053; 82728; 83540; 83550; 85025; 85045

== ENCOUNTER → 2021-04-14 13:56 | Outpatient (CLI) | payer MEDICARE, SELFPAY | PROVIDERS: PCP Internal Medicine; Referring Provider Internal Medicine; Visit Provider Family Medicine | DX: E11.621 Type 2 diabetes mellitus with foot ulcer (principal); L97.522 Non-pressure chronic ulcer of other part of left foot with fat layer exposed; E11.49 Type 2 diabetes mellitus with other diabetic neurological complication; L08.9 Local infection of the skin and subcutaneous tissue, unspecified; D50.9 Iron deficiency anemia, unspecified | CPT/HCPCS: 87070; 87075; 87077; 87147; 87186; 87205; 99214 ==

== ENCOUNTER → 2021-04-19 | Outpatient (CLI) | payer MEDICARE, SELFPAY | LOC: WC 09:54 | PROVIDERS: PCP Internal Medicine; Referring Provider Internal Medicine; Visit Provider Family Medicine | DX: E11.622 Type 2 diabetes mellitus with other skin ulcer (principal); L02.415 Cutaneous abscess of right lower limb; E11.42 Type 2 diabetes mellitus with diabetic polyneuropathy | CPT/HCPCS: 99211 ==

== ENCOUNTER → 2021-04-27 08:12 | Outpatient (CLI) | payer MEDICARE, SELFPAY | PROVIDERS: PCP Internal Medicine; Referring Provider Emergency Medicine; Visit Provider Family Medicine | DX: E11.621 Type 2 diabetes mellitus with foot ulcer (principal); L97.522 Non-pressure chronic ulcer of other part of left foot with fat layer exposed; E11.49 Type 2 diabetes mellitus with other diabetic neurological complication; D50.9 Iron deficiency anemia, unspecified; L08.9 Local infection of the skin and subcutaneous tissue, unspecified; B95.61 Methicillin susceptible Staphylococcus aureus infection as the cause of diseases classified elsewhere; B95.62 Methicillin resistant Staphylococcus aureus infection as the cause of diseases classified elsewhere | CPT/HCPCS: 11042; 87070; 87075; 87077; 87147; 87186; 87205; 99213; 99214 ==

== ENCOUNTER → 2021-05-04 08:51 | Outpatient (CLI) | payer MEDICARE, SELFPAY | PROVIDERS: PCP Internal Medicine; Referring Provider Internal Medicine; Visit Provider Family Medicine | DX: E11.621 Type 2 diabetes mellitus with foot ulcer (principal); L97.522 Non-pressure chronic ulcer of other part of left foot with fat layer exposed; E11.49 Type 2 diabetes mellitus with other diabetic neurological complication; D50.9 Iron deficiency anemia, unspecified | CPT/HCPCS: 11042 ==

== ENCOUNTER → 2021-05-11 10:10 | Outpatient (CLI) | payer MEDICARE, SELFPAY | PROVIDERS: PCP Internal Medicine; Referring Provider Internal Medicine; Visit Provider Family Medicine | DX: E11.621 Type 2 diabetes mellitus with foot ulcer (principal); L97.522 Non-pressure chronic ulcer of other part of left foot with fat layer exposed; E11.49 Type 2 diabetes mellitus with other diabetic neurological complication; D50.9 Iron deficiency anemia, unspecified | CPT/HCPCS: 29445 ==

== ENCOUNTER → 2021-05-18 09:04 | Outpatient (CLI) | payer MEDICARE, SELFPAY | PROVIDERS: PCP Internal Medicine; Referring Provider Internal Medicine; Visit Provider Family Medicine | DX: E11.621 Type 2 diabetes mellitus with foot ulcer (principal); L97.522 Non-pressure chronic ulcer of other part of left foot with fat layer exposed; E11.40 Type 2 diabetes mellitus with diabetic neuropathy, unspecified; D50.9 Iron deficiency anemia, unspecified | CPT/HCPCS: 29445 ==

== ENCOUNTER → 2021-05-25 08:54 | Outpatient (CLI) | payer MEDICARE, SELFPAY | PROVIDERS: PCP Internal Medicine; Referring Provider Internal Medicine; Visit Provider Family Medicine | DX: E11.621 Type 2 diabetes mellitus with foot ulcer (principal); L97.522 Non-pressure chronic ulcer of other part of left foot with fat layer exposed; E11.40 Type 2 diabetes mellitus with diabetic neuropathy, unspecified; Z79.01 Long term (current) use of anticoagulants | CPT/HCPCS: 29445; 99212 ==

== ENCOUNTER → 2021-06-01 09:05 | Outpatient (CLI) | payer MEDICARE, SELFPAY | PROVIDERS: PCP Internal Medicine; Referring Provider Internal Medicine; Visit Provider Family Medicine | DX: E11.621 Type 2 diabetes mellitus with foot ulcer (principal); L97.522 Non-pressure chronic ulcer of other part of left foot with fat layer exposed; E11.40 Type 2 diabetes mellitus with diabetic neuropathy, unspecified; Z79.01 Long term (current) use of anticoagulants | CPT/HCPCS: 29445 ==

== ENCOUNTER → 2021-06-07 09:40 | Outpatient (CLI) | payer MEDICARE, SELFPAY | PROVIDERS: PCP Internal Medicine; Referring Provider Internal Medicine; Visit Provider Family Medicine | DX: E11.621 Type 2 diabetes mellitus with foot ulcer (principal); L97.521 Non-pressure chronic ulcer of other part of left foot limited to breakdown of skin; E11.40 Type 2 diabetes mellitus with diabetic neuropathy, unspecified; Z79.4 Long term (current) use of insulin; Z79.84 Long term (current) use of oral hypoglycemic drugs; Z79.01 Long term (current) use of anticoagulants | CPT/HCPCS: 29445 ==

== ENCOUNTER → 2021-06-08 11:22 | Outpatient (CLI) | payer MEDICARE, SELFPAY | PROVIDERS: PCP Internal Medicine; Referring Provider Internal Medicine; Visit Provider Family Medicine | DX: Z46.89 Encounter for fitting and adjustment of other specified devices (principal); E11.621 Type 2 diabetes mellitus with foot ulcer; L97.521 Non-pressure chronic ulcer of other part of left foot limited to breakdown of skin; Z79.4 Long term (current) use of insulin; Z79.84 Long term (current) use of oral hypoglycemic drugs | CPT/HCPCS: 99212 ==

== ENCOUNTER → 2021-06-14 09:32 | Outpatient (CLI) | payer MEDICARE, SELFPAY | PROVIDERS: PCP Internal Medicine; Referring Provider Internal Medicine; Visit Provider Family Medicine | DX: Z09 Encounter for follow-up examination after completed treatment for conditions other than malignant neoplasm (principal); E11.40 Type 2 diabetes mellitus with diabetic neuropathy, unspecified; Z87.2 Personal history of diseases of the skin and subcutaneous tissue | CPT/HCPCS: 99212; 99213 ==

== ENCOUNTER → 2021-06-29 10:53 | Outpatient (CLI) | payer MEDICARE, SELFPAY ==
[2021-06-29 11:28] LABS: COVID19 -Nasal RAPID Negative (Negative)
== END ==
PROVIDERS: PCP Internal Medicine; Visit Provider Physical Medicine & Rehabilitation
DX: Z20.822 Contact with and (suspected) exposure to COVID-19 (principal)
CPT/HCPCS: 87635; C9803

== ENCOUNTER 2021-07-01 07:04 | Outpatient (CLI) | payer MEDICARE, SELFPAY ==
[2021-07-01] VITALS (10 sets, daily range): BP systolic 115–193; BP diastolic 60–87; PULSE 73–79; RESP 12–20; TEMP 36.3; O2SAT 93–100
--- NOTE | 2021-07-01 07:06 | DI.RAD.S_ITS ---
PROCEDURE: PAIN L/S TRANSFORAM INJECT ADRIENNE COMPARISON: None. INDICATIONS: SPONDYLOSIS FINDINGS: A single C-arm image demonstrates placement of a needle in the vicinity of the right L4 nerve root. IMPRESSION: C-arm imaging utilized for pain injection procedure by the referring interventional pain position. Dictated by: Neeraj Juárez M.D. on 07/01/2021 at 11:43 Approved by: Neeraj Juárez M.D. on 07/01/2021 at 11:45
--- NOTE | 2021-07-01 08:12 | PC.NURSE ---
Patient reports taking Pradaxa, baby ASA and Excedrin 06/30/[address] Alves made aware. Patient poor historian and difficult to determine actual medication administration days/times.
[2021-07-01] MEDS: IOPAMIDOL 15 ML VIAL 3 ML INJ (08:33)
[2021-07-01] MEDS: DEXAMETHASONE 10 MG/ML VIAL 20 MG INJ (08:34)
[2021-07-01] MEDS: BETAMETHASONE 30 MG/5 ML MDV 6 MG INJ (08:34)
[2021-07-01] MEDS: BUPIVACAINE 0.25% (PF) VIAL 2 ML INJ (08:34)
[2021-07-01] MEDS: MIDAZOLAM 5 MG/5 ML VIAL IV (08:35)
[2021-07-01] MEDS: fentaNYL 250 MCG/5 ML INJ 50 MCG IV (08:35)
--- NOTE | 2021-07-01 08:52 | PM.PROC.IR.1 ---
Date/Time/Diagnoses Date of procedure: 07/01/21 Time of procedure: 08:52 Pre-procedure diagnosis: 1. FORAMINAL STENOSIS WITH LE SYMPTOMS Procedure Notes Procedure: 1. FLUOROSCOPICALLY GUIDED CONTRAST CONTROLLED TRANSFORAMINAL EPIDURAL STEROID INJECTION - BILATERAL L4/5 TFESI Indications: Praful is referred by Dr. Baig for treatment of Foraminal Stenosis with bilateral LE Symptoms Physician: Jake Alves Total Fluoroscopy time (seconds): 37 Total sedation minutes: 23 Complications: none Procedure in detail & Post-procedure care: FINDINGS Foraminal Nerve Root Compression secondary to disc disease and facet hypertrophy DESCRIPTION OF PROCEDURE Following review of allergy and review of potential side effects and complications, including, but not necessarily limited to, infection, allergic reaction, local tissue breakdown, stroke, temporary or permanent nerve injury, paralysis, and possible , the patient indicated that the patient understood and agreed to proceed. An informed consent document was signed by the patient, witnessed by a nurse, and placed in the patient's chart. Additionally, other treatment options including medications, modalities, and physical therapy were reviewed with the patient. After review of previous anaesthesic history and IV conscious sedation the patient was deemed safe to proceed with today?s procedure with IV conscious sedation as ASA class II designation. Safety time-out was performed to confirm patient ID, procedure to be performed and site of procedure. IV sedation was accomplished with a combination of 2mg of Versed and 50mcg of Fentanyl was administered by the RN after DO order, titrated to patient comfort during the course of the procedure while the patient remained responsive to all verbal commands In the prone position following sterile prep and drape of the lumbar region, the right L4/5 posterior neuroforamen was identified fluoroscopically. The skin was anesthetized via a 25-gauge 1.5-inch needle with 1% lidocaine solution. At this point, a 25-gauge 3.5-inch spinal needle was atraumatically introduced and advanced under fluoroscopic guidance through the posterior right L4/5 neuroforamen to approximately the anterior aspect of the canal. Depth was confirmed on lateral view. Following negative aspiration, injection of approximately 1.5cc of Isovue 200 under live fluoroscopy in the AP view confirmed excellent flow along the nerve root, into the epidural space without vascular or intrathecal uptake observed Radiological data, including multiple fluoroscopic views of the lumbosacral spine, reveal a spinal needle at the right L4/5 posterior neuroforamen. Subsequent views show flow of contrast material flowing superiorly and inferiorly along the nerve root confirming epidural flow. Subsequently, a test dose of 1.5cc of 1% lidocaine solution was administered and patient was observed for two minutes for signs or symptoms of complications, including abdominal pain, shortness of breath, bilateral upper or lower extremity weakness, nausea and vomiting, prior to steroid injection. At this point, a total of 3cc or 20mg of dexamethasone and 6mg betamethasone was injected without incident. Attention was then refocused to the left L4/5 level where the identical procedure was replicated. The procedure tolerated the procedure well without signs or symptoms of complications prior to transfer to the recovery area continued monitoring without incident. The patient was then transferred to the recovery area where they were observed for an appropriate time after the injection. The patient reported a VAS score of 7 prior to the procedure and a post-procedure VAS of 0. POST OP INSTRUCTIONS The patient was provided a Pain Log to continue to record their response to the target-specific procedure prior to follow-up visit with their referring physician. Additionally, specific post-injection care instructions and a contact number to our office were provided if concerns arise regarding possible complications associated with the procedure are suspected.
== END 2021-07-01 09:00 | disposition home or self-care (01) ==
PROVIDERS: PCP Internal Medicine; Referring Provider Physical Medicine & Rehabilitation; Visit Provider Physical Medicine & Rehabilitation
DX: M48.061 Spinal stenosis, lumbar region without neurogenic claudication (principal); M51.16 Intervertebral disc disorders with radiculopathy, lumbar region
CPT/HCPCS: 64483; 99152; 99153; J0702; J1100; J2250; J3010

== ENCOUNTER 2021-07-01 21:55 | Emergency (ER) | payer MEDICARE, SELFPAY ==
[2021-07-01 22:00] VITALS: BP 136/77; PULSE 94; RESP 18; TEMP 36.9; O2SAT 98
--- NOTE | 2021-07-01 22:00 | DI.RAD.S_ITS ---
PROCEDURE: XR CHEST 1V INDICATIONS: chest pain TECHNIQUE: One view of the chest was acquired. COMPARISON: [facility], CR, XR CHEST 2V, 11/19/2020, 9:48. FINDINGS: Surgical changes and devices: Median sternotomy. Left-sided pacer. Lungs and pleura: Lungs are clear. No pleural effusions or pneumothorax. Mediastinum: Mediastinal contours appear normal. Heart size is normal. Bones and chest wall: No suspicious bony lesions. Overlying soft tissues appear unremarkable. IMPRESSION: No acute process. Dictated by: Praveen Huang M.D. on 07/01/2021 at 22:26 Approved by: Praveen Huang M.D. on 07/01/2021 at 22:27
[2021-07-01 22:13] LABS: Add Manual Diff / Slide Review NO; Basophils Absolute Auto 0 /uL (0-100); Basophils Percent Auto 0.3 % (0-2); Eosinophils Absolute Auto 0 /uL (0-450); Hematocrit 31.5 % (41-53); Hemoglobin 10.3 g/dL (13.5-17.5); Lymphocytes Absolute Auto 400 /uL (1100-4500); Lymphocytes Percent Auto 6.1 % (25-40); Mean Corpuscular HGB Conc 32.6 % (30-36); Mean Corpuscular Hemoglobin 28.2 PG (26-34); Mean Corpuscular Volume 86.4 fL (80-100); Monocytes Absolute Auto 100 /uL (0-900); Monocytes Percent Auto 1.1 % (3-14); Neutrophils Absolute Auto 6200 /uL (1500-7000); Neutrophils Percent Auto 92.5 % (50-75); Platelet Count 235 X10^3/uL (150-400); Red Blood Cell Count 3.65 X10^6/uL (4.5-5.9); White Blood Cell Count 6.7 X10^3/uL (4.5-11.0)
--- NOTE | 2021-07-01 22:16 | ED_ITS ---
HPI - Chest Pain <Santana De Souza, DO - Last Filed: 07/04/21 05:58> General Chief Complaint: Chest Pain Stated Complaint: Chest Pressure Time Seen by Provider: 07/01/21 21:59 Source: patient and EMS Mode of arrival: EMS Limitations: no limitations Limitations: no limitations History of Present Illness HPI narrative: Patient is a 80-year-old male. Has a pacemaker in place. Is on Eliquis. He states that his last dose was 8 o'clock last evening. Has a history of insulin- dependent diabetes. History of high blood pressure. States he has had heart attack in the past. Is here for evaluation of right-sided chest pressure. He states that the symptoms started a couple hours prior to arrival here in the ER. Not worse with palpation or movement or breathing. He did state this feels different than his prior heart attack pain. No fevers. No nausea vomiting. No shortness of breath. He did take 4 baby aspirin prior to arrival. He did go out to dinner last evening. He did not take his evening dose of insulin because he was having the chest discomfort. Related Data Home Medications Medication Instructions Recorded Confirmed insulin glargine 100 unit/mL 12 u SQ QAM #0 12/13/16 07/02/21 subcutaneous solution (Lantus U-100 Insulin) metformin 500 mg tablet,extended 2,000 mg PO BID #0 12/13/16 07/02/21 release 24 hr (Glucophage XR) metoprolol succinate 50 mg 20 mg PO BID #0 12/13/16 07/02/21 tablet,extended release 24 hr (Toprol XL) telmisartan 40 mg tablet (Micardis) 40 mg PO QDAY #0 12/13/16 07/02/21 furosemide 20 mg tablet (Lasix) 10 mg PO SEEINSTR 05/05/21 07/02/21 insulin lispro 100 unit/mL 1 sliding scale dose SUBCUT 05/05/21 07/02/21 subcutaneous half-unit pen USEASDIRECTD (Humalog Garcia KwikPen (U-100)) rosuvastatin 20 mg tablet (Crestor) 20 mg PO DAILY 05/05/21 07/02/21 amiodarone 200 mg tablet 200 mg PO DAILY 07/02/21 07/02/21 apixaban 5 mg tablet (Eliquis) 5 mg PO DAILY 07/02/21 07/02/21 aspirin 81 mg tablet 81 mg PO DAILY 07/02/21 07/02/21 Allergies Allergy/AdvReac Type Severity Reaction Status Date / Time [id number] Reductase AdvReac Intermediate lower body Verified 06/24/21 14:59 Inhibitor muscle pain [[id number] REDUCTASE INHIBITOR] <Prasanth Parada DO - Last Filed: 07/04/21 08:09> History of Present Illness HPI narrative: Patient is a 80-year-old male. Has a pacemaker in place. Is on Eliquis. He states that his last dose was 8 o'clock last evening. Has a history of insulin- dependent diabetes. History of high blood pressure. States he has had heart attack in the past. Is here for evaluation of right-sided chest pressure. He states that the symptoms started a couple hours prior to arrival here in the ER. Not worse with palpation or movement or breathing. He did state this feels different than his prior heart attack pain. No fevers. No nausea vomiting. No shortness of breath. He did take 4 baby aspirin prior to arrival. He did go out to dinner last evening. He did not take his evening dose of insulin because he was having the chest discomfort. Review of Systems <Santana De Souza DO - Last Filed: 07/04/21 05:58> Review of Systems ROS Unobtainable: All systems reviewed & are unremarkable except as noted in HPI and below Constitutional Constitutional: Denies fever(s) Cardiovascular Cardiovascular: Reports as per HPI and Reports system reviewed and no additional complaints, except as documented Respiratory Respiratory: Reports as per HPI and Reports system reviewed and no additional complaints, except as documented Gastrointestinal Gastrointestinal: Denies abdominal pain Musculoskeletal Musculoskeletal: Reports system reviewed and no additional complaints, except as documented Integumentary/Breasts Skin/Breast: Reports system reviewed and no additional complaints, except as documented Neurologic Neurologic: Reports system reviewed and no additional complaints, except as documented Hematologic/Lymphatic On Anticoagulants: Yes Allergic/Immunologic Allergic/Immunologic: Reports system reviewed and no additional complaints, except as documented Patient History <Santana De Souza DO - Last Filed: 07/04/21 05:58> Medical History Bilateral foot-drop Coronary artery disease Diabetes mellitus Diabetic foot infection FH: mitral valve repair Gait instability Herniated nucleus pulposus, L4-5 Hypercholesterolemia Hypertension Multilevel spinal stenosis Paroxysmal atrial fibrillation Peripheral neuropathy Surgical History (Updated 05/05/21 @ 09:53 by Shazia Cespedes LPN) H/O left knee surgery Family History (Updated 05/05/21 @ 09:54 by Shazia Cespedes LPN) Father Tubercular lesion of lung Mother Congestive heart failure Diabetes mellitus Social History household members: spouse Smoking Status: Never smoker Smoking Status: Never smoker alcohol intake frequency: holidays/special occasions only Substance Use Type: does not use Exam <DO Renee Bradshaw Last Filed: 07/04/21 05:58> Initial Vital Signs Initial Vital Signs: Vital Signs Temperature 98.5 F 07/01/21 22:00 Pulse Rate 94 H 07/01/21 22:00 Respiratory Rate 18 07/01/21 22:00 Blood Pressure 136/77 07/01/21 22:00 Pulse Oximetry 98 07/01/21 22:00 Const General: cooperative and comfortable HENMT Head: normal to inspection and normocephalic Eyes General: appearance normal, both eyes and all related structures Neck Neck: normal visual inspection Chest Chest: No crepitus and No tenderness Resp Effort & Inspection: normal respiratory effort Auscultation: clear to auscultation bilaterally Cardio Rate: regular rate Rhythm: regular rhythm GI Inspection: normal to inspection Palpation: soft and No tender Skin General: no rashes or lesions noted Neuro General: patient alert, patient awake, patient oriented x3 and moves all extremities Speech: speech normal Extrem General: edema Psych Appearance: grossly normal and well kempt <Prasanth Parada DO - Last Filed: 07/04/21 08:09> Initial Vital Signs Initial Vital Signs: Vital Signs Temperature 98.5 F 07/01/21 22:00 Pulse Rate 94 H 07/01/21 22:00 Respiratory Rate 18 07/01/21 22:00 Blood Pressure 136/77 07/01/21 22:00 Pulse Oximetry 98 07/01/21 22:00 Scores <DO Renee Bradshaw Last Filed: 07/04/21 05:58> GCS [place] coma scale eye opening: Spontaneous [place] coma scale verbal response: Orientated [place] coma scale motor response: Obey commands [place] coma scale total score: 15 <Prasanth C Karma, DO - Last Filed: 07/04/21 08:09> GCS [place] coma scale total score: 15 Course <Santana Ap DO - Last Filed: 07/04/21 05:58> Orders Ordered: ED Orders 07/04/21 00:23 PTT [Partial Thromboplastin Time] Stat 07/04/21 04:56 EKG-12 Lead Stat 07/04/21 04:58 Basic Metabolic Panel Stat Complete Blood Count AUTO DIFF Stat Partial Thromboplastin Time Stat Troponin I Stat Discontinued Medications Amiodarone HCl (Amiodarone 200 Mg Tablet) 200 mg PO NOW ONE Stop: 07/02/21 12:07 Last Admin: 07/02/21 12:17 Dose: 200 mg Documented by: PAPO Amiodarone HCl (Amiodarone 200 Mg Tablet) 200 mg PO DAILY [facility] Last Admin: 07/03/21 08:33 Dose: 200 mg Documented by: TAMIKO Aspirin (Aspirin 81 Mg Chew Tab) 324 mg PO DAILY [facility] Last Admin: 07/03/21 08:40 Dose: 324 mg Documented by: TAMIKO Atorvastatin Calcium (Atorvastatin 20 Mg Tablet) 20 mg PO BEDTIME [facility] Last Admin: 07/03/21 21:11 Dose: 20 mg Documented by: Admin: 07/02/21 21:33 Dose: 20 mg Documented by: Admin: 07/02/21 09:30 Dose: 20 mg Documented by: PAPO Dextrose (Dextrose 50 % In Water 25 Gm/50 Ml Syringe) 25 gm IV PRN PRN; Protocol PRN Reason: Hypoglycemia Dextrose (Dextrose 50 % In Water 25 Gm/50 Ml Syringe) 25 gm IV PRN PRN; Protocol PRN Reason: Hypoglycemia Dextrose (Dextrose 50 % In Water 25 Gm/50 Ml Syringe) 25 gm IV PRN PRN; Protocol PRN Reason: Hypoglycemia Heparin Sodium (Porcine) (Heparin 5,000 Unit/Ml Vial) 5,000 unit IV NOW ONE Stop: 07/02/21 01:56 Last Admin: 07/02/21 04:44 Dose: 5,000 unit Documented by: CURT Heparin Sodium/Dextrose (Heparin Drip) 25,000 unit in 500 mls @ 20 mls/hr IV CONT [facility]; Protocol Last Titration: 07/03/21 10:45 Dose: 900 units/hr, 18 mls/hr Documented by: Admin: 07/03/21 06:12 Dose: 900 units/hr, 18 mls/hr Documented by: Titration: 07/03/21 06:12 Dose: 900 units/hr, 18 mls/hr Documented by: Titration: 07/02/21 12:17 Dose: 900 units/hr, 18 mls/hr Documented by: Titration: 07/02/21 11:42 Dose: 0 units/hr, 0 mls/hr Documented by: Admin: 07/02/21 04:46 Dose: 1,000 units/hr, 20 mls/hr Documented by: CURT Insulin Glargine (Insulin Glargine 100 Unit/Ml 3ml Pen) 13 unit SUBCUT BEDTIME [facility] Last Admin: 07/03/21 21:14 Dose: 13 unit Documented by: GILMAR Cosigned by: KORTNEY Admin: 07/02/21 21:33 Dose: Not Given Documented by: Admin: 07/02/21 09:30 Dose: 13 unit Documented by: PAPO Cosigned by: SHIRA Insulin Human Lispro (Insulin Lispro 100 Unit/Ml 3ml Vial) 15 unit SUBCUT AC [facility] Insulin Human Lispro (Insulin Lispro 100 Unit/Ml 3ml Vial) 15 unit SUBCUT AC ONE Stop: 07/01/21 23:13 Last Admin: 07/01/21 23:17 Dose: 15 unit Documented by: ROBERT Cosigned by: CURT Insulin Human Lispro (Insulin Lispro 100 Unit/Ml 3ml Vial) 15 unit SUBCUT NOW ONE Stop: 07/02/21 00:48 Last Admin: 07/02/21 00:50 Dose: 15 unit Documented by: ROBERT Cosigned by: CURT Insulin Human Lispro (Insulin Lispro 100 Unit/Ml 3ml Vial) 0 unit SUBCUT Q6H [facility]; Protocol Last Admin: 07/03/21 05:00 Dose: 7 unit Documented by: MANUELA Cosigned by: SHITAL Admin: 07/02/21 23:13 Dose: 7 unit Documented by: ROBERT Cosigned by: DAREN Admin: 07/02/21 17:06 Dose: 7 unit Documented by: ROBERT Cosigned by: AWILDA Admin: 07/02/21 11:59 Dose: 8 unit Documented by: PAPO Dominguezigned by: HANSEL Insulin Human Lispro (Insulin Lispro 100 Unit/Ml 3ml Vial) 0 unit SUBCUT [facility]; Protocol Last Admin: 07/03/21 21:13 Dose: 2 unit Documented by: GILMAR Cosigned by: KORTNEY Admin: 07/03/21 17:04 Dose: 5 unit Documented by: GILMAR Cosigned by: KORTNEY Admin: 07/03/21 12:15 Dose: 7 unit Documented by: GILMAR Cosigned by: KORTNEY Admin: 07/03/21 08:33 Dose: 5 unit Documented by: TAMIKO Cosigned by: HANSEL Metoprolol Succinate (Metoprolol Er 25 Mg Tablet) 25 mg PO BID [facility] Last Admin: 07/03/21 21:12 Dose: 25 mg Documented by: Admin: 07/03/21 09:29 Dose: 25 mg Documented by: Admin: 07/02/21 21:33 Dose: 25 mg Documented by: Admin: 07/02/21 09:29 Dose: 25 mg Documented by: PAPO Morphine Sulfate (Morphine 4 Mg/Ml Inj) 4 mg IV NOW ONE Stop: 07/02/21 00:22 Last Admin: 07/02/21 00:28 Dose: 4 mg Documented by: ROBERT Nitroglycerin (Nitroglycerin 0.4 Mg Sl Tab) 0.4 mg SL [id number] PRN PRN Reason: Chest Pain Last Admin: 07/01/21 22:47 Dose: 0.4 mg Documented by: Admin: 07/01/21 22:37 Dose: 0.4 mg Documented by: Admin: 07/01/21 22:26 Dose: 0.4 mg Documented by: ROBERT Vital Signs Vital signs: Vital Signs - 8 hr 07/04/21 00:30 07/04/21 01:00 07/04/21 01:01 Pulse Rate 76 70 72 Respiratory Rate 17 25 H 31 H Blood Pressure 122/68 Pulse Oximetry 98 99 100 07/04/21 01:30 07/04/21 02:00 07/04/21 02:30 Pulse Rate 67 61 60 Respiratory Rate 18 36 H 22 Blood Pressure 136/61 Pulse Oximetry 100 95 97 07/04/21 03:00 07/04/21 03:30 07/04/21 04:00 Pulse Rate 61 60 60 Respiratory Rate 18 24 19 Blood Pressure 126/60 Pulse Oximetry 97 96 96 <Prasanth Parada, - Last Filed: 07/04/21 08:09> Orders Ordered: ED Orders 07/04/21 00:23 PTT [Partial Thromboplastin Time] Stat 07/04/21 04:56 EKG-12 Lead Stat 07/04/21 04:58 Basic Metabolic Panel Stat Complete Blood Count AUTO DIFF Stat Partial Thromboplastin Time Stat Troponin I Stat Discontinued Medications Amiodarone HCl (Amiodarone 200 Mg Tablet) 200 mg PO NOW ONE Stop: 07/02/21 12:07 Last Admin: 07/02/21 12:17 Dose: 200 mg Documented by: PAPO Amiodarone HCl (Amiodarone 200 Mg Tablet) 200 mg PO DAILY [facility] Last Admin: 07/03/21 08:33 Dose: 200 mg Documented by: TAMIKO Aspirin (Aspirin 81 Mg Chew Tab) 324 mg PO DAILY [facility] Last Admin: 07/03/21 08:40 Dose: 324 mg Documented by: TAMIKO Atorvastatin Calcium (Atorvastatin 20 Mg Tablet) 20 mg PO BEDTIME [facility] Last Admin: 07/03/21 21:11 Dose: 20 mg Documented by: Admin: 07/02/21 21:33 Dose: 20 mg Documented by: Admin: 07/02/21 09:30 Dose: 20 mg Documented by: PAPO Dextrose (Dextrose 50 % In Water 25 Gm/50 Ml Syringe) 25 gm IV PRN PRN; Protocol PRN Reason: Hypoglycemia Dextrose (Dextrose 50 % In Water 25 Gm/50 Ml Syringe) 25 gm IV PRN PRN; Prot ocol PRN Reason: Hypoglycemia Dextrose (Dextrose 50 % In Water 25 Gm/50 Ml Syringe) 25 gm IV PRN PRN; Protocol PRN Reason: Hypoglycemia Heparin Sodium (Porcine) (Heparin 5,000 Unit/Ml Vial) 5,000 unit IV NOW ONE Stop: 07/02/21 01:56 Last Admin: 07/02/21 04:44 Dose: 5,000 unit Documented by: CURT Heparin Sodium/Dextrose (Heparin Drip) 25,000 unit in 500 mls @ 20 mls/hr IV CONT JUAN C; Protocol Last Titration: 07/03/21 10:45 Dose: 900 units/hr, 18 mls/hr Documented by: Admin: 07/03/21 06:12 Dose: 900 units/hr, 18 mls/hr Documented by: Titration: 07/03/21 06:12 Dose: 900 units/hr, 18 mls/hr Documented by: Titration: 07/02/21 12:17 Dose: 900 units/hr, 18 mls/hr Documented by: Titration: 07/02/21 11:42 Dose: 0 units/hr, 0 mls/hr Documented by: Admin: 07/02/21 04:46 Dose: 1,000 units/hr, 20 mls/hr Documented by: CURT Insulin Glargine (Insulin Glargine 100 Unit/Ml 3ml Pen) 13 unit SUBCUT BEDTIME [facility] Last Admin: 07/03/21 21:14 Dose: 13 unit Documented by: GILMAR Cosigned by: KORTNEY Admin: 07/02/21 21:33 Dose: Not Given Documented by: Admin: 07/02/21 09:30 Dose: 13 unit Documented by: PAPO Cosigned by: SHIRA Insulin Human Lispro (Insulin Lispro 100 Unit/Ml 3ml Vial) 15 unit SUBCUT AC [facility] Insulin Human Lispro (Insulin Lispro 100 Unit/Ml 3ml Vial) 15 unit SUBCUT AC ONE Stop: 07/01/21 23:13 Last Admin: 07/01/21 23:17 Dose: 15 unit Documented by: ROBERT Cosigned by: CURT Insulin Human Lispro (Insulin Lispro 100 Unit/Ml 3ml Vial) 15 unit SUBCUT NOW ONE Stop: 07/02/21 00:48 Last Admin: 07/02/21 00:50 Dose: 15 unit Documented by: ROBERT Cosigned by: CURT Insulin Human Lispro (Insulin Lispro 100 Unit/Ml 3ml Vial) 0 unit SUBCUT Q6H [facility]; Protocol Last Admin: 07/03/21 05:00 Dose: 7 unit Documented by: MANUELA Cosigned by: SHITAL Admin: 07/02/21 23:13 Dose: 7 unit Documented by: ROBERT Cosigned by: DAREN Admin: 07/02/21 17:06 Dose: 7 unit Documented by: ROBERT Cosigned by: AWILDA Admin: 07/02/21 11:59 Dose: 8 unit Documented by: PAPO Cosigned by: HANSEL Insulin Human Lispro (Insulin Lispro 100 Unit/Ml 3ml Vial) 0 unit SUBCUT [facility]; Protocol Last Admin: 07/03/21 21:13 Dose: 2 unit Documented by: GILMAR Cosigned by: KORTNEY Admin: 07/03/21 17:04 Dose: 5 unit Documented by: GILMAR Cosigned by: KORTNEY Admin: 07/03/21 12:15 Dose: 7 unit Documented by: GILMAR Cosigned by: KORTNEY Admin: 07/03/21 08:33 Dose: 5 unit Documented by: TAMIKO Cosigned by: HANSEL Metoprolol Succinate (Metoprolol Er 25 Mg Tablet) 25 mg PO BID [facility] Last Admin: 07/03/21 21:12 Dose: 25 mg Documented by: Admin: 07/03/21 09:29 Dose: 25 mg Documented by: Admin: 07/02/21 21:33 Dose: 25 mg Documented by: Admin: 07/02/21 09:29 Dose: 25 mg Documented by: PAPO Morphine Sulfate (Morphine 4 Mg/Ml Inj) 4 mg IV NOW ONE Stop: 07/02/21 00:22 Last Admin: 07/02/21 00:28 Dose: 4 mg Documented by: ROBERT Nitroglycerin (Nitroglycerin 0.4 Mg Sl Tab) 0.4 mg SL [id number] PRN PRN Reason: Chest Pain Last Admin: 07/01/21 22:47 Dose: 0.4 mg Documented by: Admin: 07/01/21 22:37 Dose: 0.4 mg Documented by: Admin: 07/01/21 22:26 Dose: 0.4 mg Documented by: ROBERT Reevaluation(s) Reevaluation #1: Patient signed to myself by Dr. De Souza. This is an 80-year-old well with known coronary artery disease and prior [place], insulin-dependent diabetes hypertension dyslipidemia on Eliquis with a paced rhythm. He arrives with chest pain and hyperglycemia. Chest pain improved with morphine. Patient was started on heparin 12 hours after his Eliquis had last been administered. He has been chest pain-free overnight and his glucose improved to the 300 range in the into 80s with short-acting insulin. His troponin has continued to trend upwards into the positive range. CTA shows no PE, bilateral bronchopneumonia and cholelithiasis. At this time attempting to transfer they had called all local regional facilities without any bed availability. The [facility] hotline has been contacted. Plan for repeat PTT, BNP and troponin at 11:00 a.m. as patient did have some hyperkalemia on his initial labs. Patient was seen and independently evaluated by myself. Patient states his chest pain has been resolved since about 4:00 a.m. this morning he is feeling significantly better. Reviewed current findings today. And plan for his repeat labs at 11:00 a.m.. We have initiated clear liquid diet as unclear when he will be transferred. Time: 09:04 Reevaluation #2: Patient continues to be chest pain free. Reviewed labs, recommendations from Cardiology. That his troponin has been trending upwards. Also spoke with his family over the phone including his daughter in-law son at patient's request. Time: 17:00 Consultations Consultation #1: Dr. Flanagan, troponin continue to trend upwards to 24 from 3 she does recommend that we can continue Amiodarone. Would hold ARB second to elevated K that is improving but still elevated. Does recommend continued glucose control. No additional recommendations at this time from a cardiology standpoint continue heparin, beta-martir and statin. Time: 12:05 Vital Signs Vital signs: Vital Signs - 8 hr 07/04/21 00:30 07/04/21 01:00 07/04/21 01:01 Pulse Rate 76 70 72 Respiratory Rate 17 25 H 31 H Blood Pressure 122/68 Pulse Oximetry 98 99 100 07/04/21 01:30 07/04/21 02:00 07/04/21 02:30 Pulse Rate 67 61 60 Respiratory Rate 18 36 H 22 Blood Pressure 136/61 Pulse Oximetry 100 95 97 07/04/21 03:00 07/04/21 03:30 07/04/21 04:00 Pulse Rate 61 60 60 Respiratory Rate 18 24 19 Blood Pressure 126/60 Pulse Oximetry 97 96 96 MDM - Chest Pain <Santana De Souza, - Last Filed: 07/04/21 05:58> Lab Data Attestation: I reviewed the patient's lab results. Result diagrams: 07/04/21 04:58 07/04/21 04:58 Labs: Lab Results 07/01/21 07/01/21 07/01/21 Range/Units 22:03 22:03 22:03 WBC 6.7 (4.5-11.0) X10^3/uL RBC 3.65 L (4.5-5.9) X10^6/uL Hgb 10.3 L (13.5-17.5) g/dL Hct 31.5 L (41-53) % MCV 86.4 (80-100) fL MCH 28.2 (26-34) PG MCHC 32.6 (30-36) % RDW 17.0 H (11.6-14.8) % Plt Count 235 (150-400) X10^3/uL Neut % (Auto) 92.5 H (50-75) % Lymph % (Auto) 6.1 L (25-40) % Cochran % (Auto) 1.1 L (3-14) % Eos % (Auto) 0.0 L (2-4) % Baso % (Auto) 0.3 (0-2) % Neut # (Auto) 6200 (2279-5259) /uL Lymph # (Auto) 400 L (9921-7869) /uL Cochran # (Auto) 100 (0-900) /uL Eos # (Auto) 0 (0-450) /uL Baso # (Auto) 0 (0-100) /uL PT (10.1-12.7) SECONDS INR (0.9-1.3) APTT (26.4-36.2) SECONDS Sodium 130 L (137-145) mmol/L Potassium 5.4 H (3.4-5.1) mmol/L Chloride 97 L (98-107) mmol/L Carbon Dioxide 22 (22-32) mmol/L BUN 23 H (9-20) mg/dL Creatinine 1.14 (0.66-1.25) mg/dL Estimated GFR > 60.0 (>60) mL/min BUN/Creatinine Ratio 20.2 (6-22) Glucose 565 H* (80-110) mg/dL Calcium 9.8 (8.4-10.2) mg/dL Magnesium (1.6-2.3) mg/dL Total Bilirubin 0.6 (0.2-1.3) mg/dL AST 48 (17-59) IU/L ALT 28 (<50) IU/L Alkaline Phosphatase 101 (38-126) U/L Total Creatine Kinase 162 (55-170) U/L CK-MB (CK-2) 3.17 H (<2.37) ng/mL CK-MB (CK-2) Rel Index 2.0 (1.5-5.0) % Troponin I < 0.012 (0.01-0.034) ng/mL Total Protein 8.0 (6.3-8.2) g/dL Albumin 4.8 (3.5-5.0) g/dL Globulin 3.2 (1.7-4.1) g/dL Albumin/Globulin Ratio 1.5 (1.0-2.8) Lipase 76 (23-300) U/L SARS-CoV-2 (PCR) (Negative) 07/01/21 07/01/21 07/01/21 Range/Units 22:03 22:03 23:39 WBC (4.5-11.0) X10^3/uL RBC (4.5-5.9) X10^6/uL Hgb (13.5-17.5) g/dL Hct (41-53) % MCV (80-100) fL MCH (26-34) PG MCHC (30-36) % RDW (11.6-14.8) % Plt Count (150-400) X10^3/uL Neut % (Auto) (50-75) % Lymph % (Auto) (25-40) % Cochran % (Auto) (3-14) % Eos % (Auto) (2-4) % Baso % (Auto) (0-2) % Neut # (Auto) (2905-7762) /uL Lymph # (Auto) (7297-0979) /uL Cochran # (Auto) (0-900) /uL Eos # (Auto) (0-450) /uL Baso # (Auto) (0-100) /uL PT 11.9 (10.1-12.7) SECONDS INR 1.1 (0.9-1.3) APTT 36 (26.4-36.2) SECONDS Sodium (137-145) mmol/L Potassium (3.4-5.1) mmol/L Chloride (98-107) mmol/L Carbon Dioxide (22-32) mmol/L BUN (9-20) mg/dL Creatinine (0.66-1.25) mg/dL Estimated GFR (>60) mL/min BUN/Creatinine Ratio (6-22) Glucose (80-110) mg/dL Calcium (8.4-10.2) mg/dL Magnesium 1.8 (1.6-2.3) mg/dL Total Bilirubin (0.2-1.3) mg/dL AST (17-59) IU/L ALT (<50) IU/L Alkaline Phosphatase (38-126) U/L Total Creatine Kinase (55-170) U/L CK-MB (CK-2) (<2.37) ng/mL CK-MB (CK-2) Rel Index (1.5-5.0) % Troponin I (0.01-0.034) ng/mL Total Protein (6.3-8.2) g/dL Albumin (3.5-5.0) g/dL Globulin (1.7-4.1) g/dL Albumin/Globulin Ratio (1.0-2.8) Lipase (23-300) U/L SARS-CoV-2 (PCR) Negative (Negative) 07/02/21 07/02/21 07/02/21 Range/Units 01:00 04:05 11:05 WBC (4.5-11.0) X10^3/uL RBC (4.5-5.9) X10^6/uL Hgb (13.5-17.5) g/dL Hct (41-53) % MCV (80-100) fL MCH (26-34) PG MCHC (30-36) % RDW (11.6-14.8) % Plt Count (150-400) X10^3/uL Neut % (Auto) (50-75) % Lymph % (Auto) (25-40) % Cochran % (Auto) (3-14) % Eos % (Auto) (2-4) % Baso % (Auto) (0-2) % Neut # (Auto) (4490-3137) /uL Lymph # (Auto) (1503-5419) /uL Cochran # (Auto) (0-900) /uL Eos # (Auto) (0-450) /uL Baso # (Auto) (0-100) /uL PT (10.1-12.7) SECONDS INR (0.9-1.3) APTT 95 H* D (26.4-36.2) SECONDS Sodium (137-145) mmol/L Potassium (3.4-5.1) mmol/L Chloride (98-107) mmol/L Carbon Dioxide (22-32) mmol/L BUN (9-20) mg/dL Creatinine (0.66-1.25) mg/dL Estimated GFR (>60) mL/min BUN/Creatinine Ratio (6-22) Glucose (80-110) mg/dL Calcium (8.4-10.2) mg/dL Magnesium (1.6-2.3) mg/dL Total Bilirubin (0.2-1.3) mg/dL AST (17-59) IU/L ALT (<50) IU/L Alkaline Phosphatase (38-126) U/L Total Creatine Kinase 228 H (55-170) U/L CK-MB (CK-2) 9.71 H D (<2.37) ng/mL CK-MB (CK-2) Rel Index 4.3 (1.5-5.0) % Troponin I 0.087 H 3.350 H* (0.01-0.034) ng/mL Total Protein (6.3-8.2) g/dL Albumin (3.5-5.0) g/dL Globulin (1.7-4.1) g/dL Albumin/Globulin Ratio (1.0-2.8) Lipase (23-300) U/L SARS-CoV-2 (PCR) (Negative) 07/02/21 07/02/21 07/02/21 Range/Units 11:05 17:31 17:31 WBC (4.5-11.0) X10^3/uL RBC (4.5-5.9) X10^6/uL Hgb (13.5-17.5) g/dL Hct (41-53) % MCV (80-100) fL MCH (26-34) PG MCHC (30-36) % RDW (11.6-14.8) % Plt Count (150-400) X10^3/uL Neut % (Auto) (50-75) % Lymph % (Auto) (25-40) % Cochran % (Auto) (3-14) % Eos % (Auto) (2-4) % Baso % (Auto) (0-2) % Neut # (Auto) (7640-9606) /uL Lymph # (Auto) (4062-4359) /uL Cochran # (Auto) (0-900) /uL Eos # (Auto) (0-450) /uL Baso # (Auto) (0-100) /uL PT (10.1-12.7) SECONDS INR (0.9-1.3) APTT 64 H D (26.4-36.2) SECONDS Sodium 131 L 130 L (137-145) mmol/L Potassium 5.2 H 4.9 (3.4-5.1) mmol/L Chloride 98 98 (98-107) mmol/L Carbon Dioxide 25 27 (22-32) mmol/L BUN 27 H 27 H (9-20) mg/dL Creatinine 1.06 1.04 (0.66-1.25) mg/dL Estimated GFR > 60.0 > 60.0 (>60) mL/min BUN/Creatinine Ratio 25.5 H 26.0 H (6-22) Glucose 433 H D 336 H (80-110) mg/dL Calcium 9.6 9.5 (8.4-10.2) mg/dL Magnesium (1.6-2.3) mg/dL Total Bilirubin (0.2-1.3) mg/dL AST (17-59) IU/L ALT (<50) IU/L Alkaline Phosphatase (38-126) U/L Total Creatine Kinase (55-170) U/L CK-MB (CK-2) (<2.37) ng/mL CK-MB (CK-2) Rel Index (1.5-5.0) % Troponin I 21.400 H* (0.01-0.034) ng/mL Total Protein (6.3-8.2) g/dL Albumin (3.5-5.0) g/dL Globulin (1.7-4.1) g/dL Albumin/Globulin Ratio (1.0-2.8) Lipase (23-300) U/L SARS-CoV-2 (PCR) (Negative) 07/02/21 07/03/21 07/03/21 Range/Units 17:31 00:03 00:03 WBC (4.5-11.0) X10^3/uL RBC (4.5-5.9) X10^6/uL Hgb (13.5-17.5) g/dL Hct (41-53) % MCV (80-100) fL MCH (26-34) PG MCHC (30-36) % RDW (11.6-14.8) % Plt Count (150-400) X10^3/uL Neut % (Auto) (50-75) % Lymph % (Auto) (25-40) % Cochran % (Auto) (3-14) % Eos % (Auto) (2-4) % Baso % (Auto) (0-2) % Neut # (Auto) (5204-6702) /uL Lymph # (Auto) (3176-8686) /uL Cochran # (Auto) (0-900) /uL Eos # (Auto) (0-450) /uL Baso # (Auto) (0-100) /uL PT (10.1-12.7) SECONDS INR (0.9-1.3) APTT 60 H (26.4-36.2) SECONDS Sodium (137-145) mmol/L Potassium (3.4-5.1) mmol/L Chloride (98-107) mmol/L Carbon Dioxide (22-32) mmol/L BUN (9-20) mg/dL Creatinine (0.66-1.25) mg/dL Estimated GFR (>60) mL/min BUN/Creatinine Ratio (6-22) Glucose (80-110) mg/dL Calcium (8.4-10.2) mg/dL Magnesium (1.6-2.3) mg/dL Total Bilirubin (0.2-1.3) mg/dL AST (17-59) IU/L ALT (<50) IU/L Alkaline Phosphatase (38-126) U/L Total Creatine Kinase (55-170) U/L CK-MB (CK-2) (<2.37) ng/mL CK-MB (CK-2) Rel Index (1.5-5.0) % Troponin I 20.700 H* 15.100 H* (0.01-0.034) ng/mL Total Protein (6.3-8.2) g/dL Albumin (3.5-5.0) g/dL Globulin (1.7-4.1) g/dL Albumin/Globulin Ratio (1.0-2.8) Lipase (23-300) U/L SARS-CoV-2 (PCR) (Negative) 07/03/21 07/03/21 07/03/21 Range/Units 06:35 06:35 06:35 WBC 10.6 D (4.5-11.0) X10^3/uL RBC 3.35 L (4.5-5.9) X10^6/uL Hgb 9.4 L (13.5-17.5) g/dL Hct 27.9 L (41-53) % MCV 83.4 D (80-100) fL MCH 28.2 (26-34) PG MCHC 33.8 (30-36) % RDW 16.6 H (11.6-14.8) % Plt Count 228 (150-400) X10^3/uL Neut % (Auto) 85.3 H (50-75) % Lymph % (Auto) 6.7 L (25-40) % Cochran % (Auto) 8.0 (3-14) % Eos % (Auto) 0.0 L (2-4) % Baso % (Auto) 0.0 (0-2) % Neut # (Auto) 9000 H (8028-6302) /uL Lymph # (Auto) 700 L (6238-9123) /uL Cochran # (Auto) 800 (0-900) /uL Eos # (Auto) 0 (0-450) /uL Baso # (Auto) 0 (0-100) /uL PT (10.1-12.7) SECONDS INR (0.9-1.3) APTT 50 H D (26.4-36.2) SECONDS Sodium (137-145) mmol/L Potassium (3.4-5.1) mmol/L Chloride (98-107) mmol/L Carbon Dioxide (22-32) mmol/L BUN (9-20) mg/dL Creatinine (0.66-1.25) mg/dL Estimated GFR (>60) mL/min BUN/Creatinine Ratio (6-22) Glucose (80-110) mg/dL Calcium (8.4-10.2) mg/dL Magnesium (1.6-2.3) mg/dL Total Bilirubin (0.2-1.3) mg/dL AST (17-59) IU/L ALT (<50) IU/L Alkaline Phosphatase (38-126) U/L Total Creatine Kinase (55-170) U/L CK-MB (CK-2) (<2.37) ng/mL CK-MB (CK-2) Rel Index (1.5-5.0) % Troponin I 11.400 H* (0.01-0.034) ng/mL Total Protein (6.3-8.2) g/dL Albumin (3.5-5.0) g/dL Globulin (1.7-4.1) g/dL Albumin/Globulin Ratio (1.0-2.8) Lipase (23-300) U/L SARS-CoV-2 (PCR) (Negative) 07/03/21 07/03/21 07/03/21 Range/Units 06:35 12:35 18:30 WBC (4.5-11.0) X10^3/uL RBC (4.5-5.9) X10^6/uL Hgb (13.5-17.5) g/dL Hct (41-53) % MCV (80-100) fL MCH (26-34) PG MCHC (30-36) % RDW (11.6-14.8) % Plt Count (150-400) X10^3/uL Neut % (Auto) (50-75) % Lymph % (Auto) (25-40) % Cochran % (Auto) (3-14) % Eos % (Auto) (2-4) % Baso % (Auto) (0-2) % Neut # (Auto) (5741-5051) /uL Lymph # (Auto) (2920-1673) /uL Cochran # (Auto) (0-900) /uL Eos # (Auto) (0-450) /uL Baso # (Auto) (0-100) /uL PT (10.1-12.7) SECONDS INR (0.9-1.3) APTT 54 H 55 H (26.4-36.2) SECONDS Sodium 131 L (137-145) mmol/L Potassium 4.5 (3.4-5.1) mmol/L Chloride 101 (98-107) mmol/L Carbon Dioxide 25 (22-32) mmol/L BUN 28 H (9-20) mg/dL Creatinine 1.07 (0.66-1.25) mg/dL Estimated GFR > 60.0 (>60) mL/min BUN/Creatinine Ratio 26.2 H (6-22) Glucose 300 H (80-110) mg/dL Calcium 9.3 (8.4-10.2) mg/dL Magnesium (1.6-2.3) mg/dL Total Bilirubin (0.2-1.3) mg/dL AST (17-59) IU/L ALT (<50) IU/L Alkaline Phosphatase (38-126) U/L Total Creatine Kinase (55-170) U/L CK-MB (CK-2) (<2.37) ng/mL CK-MB (CK-2) Rel Index (1.5-5.0) % Troponin I (0.01-0.034) ng/mL Total Protein (6.3-8.2) g/dL Albumin (3.5-5.0) g/dL Globulin (1.7-4.1) g/dL Albumin/Globulin Ratio (1.0-2.8) Lipase (23-300) U/L SARS-CoV-2 (PCR) (Negative) 07/04/21 07/04/21 07/04/21 Range/Units 00:23 04:58 04:58 WBC 8.5 (4.5-11.0) X10^3/uL RBC 3.66 L (4.5-5.9) X10^6/uL Hgb 10.2 L (13.5-17.5) g/dL Hct 30.6 L (41-53) % MCV 83.6 (80-100) fL MCH 27.9 (26-34) PG MCHC 33.4 (30-36) % RDW 16.6 H (11.6-14.8) % Plt Count 213 (150-400) X10^3/uL Neut % (Auto) 75.3 H (50-75) % Lymph % (Auto) 13.3 L (25-40) % Cochran % (Auto) 11.1 (3-14) % Eos % (Auto) 0.2 L (2-4) % Baso % (Auto) 0.1 (0-2) % Neut # (Auto) 6400 (3893-9945) /uL Lymph # (Auto) 1100 (4947-4108) /uL Cochran # (Auto) 900 (0-900) /uL Eos # (Auto) 0 (0-450) /uL Baso # (Auto) 0 (0-100) /uL PT (10.1-12.7) SECONDS INR (0.9-1.3) APTT 57 H 55 H (26.4-36.2) SECONDS Sodium (137-145) mmol/L Potassium (3.4-5.1) mmol/L Chloride (98-107) mmol/L Carbon Dioxide (22-32) mmol/L BUN (9-20) mg/dL Creatinine (0.66-1.25) mg/dL Estimated GFR (>60) mL/min BUN/Creatinine Ratio (6-22) Glucose (80-110) mg/dL Calcium (8.4-10.2) mg/dL Magnesium (1.6-2.3) mg/dL Total Bilirubin (0.2-1.3) mg/dL AST (17-59) IU/L ALT (<50) IU/L Alkaline Phosphatase (38-126) U/L Total Creatine Kinase (55-170) U/L CK-MB (CK-2) (<2.37) ng/mL CK-MB (CK-2) Rel Index (1.5-5.0) % Troponin I (0.01-0.034) ng/mL Total Protein (6.3-8.2) g/dL Albumin (3.5-5.0) g/dL Globulin (1.7-4.1) g/dL Albumin/Globulin Ratio (1.0-2.8) Lipase (23-300) U/L SARS-CoV-2 (PCR) (Negative) 07/04/21 Range/Units 04:58 WBC (4.5-11.0) X10^3/uL RBC (4.5-5.9) X10^6/uL Hgb (13.5-17.5) g/dL Hct (41-53) % MCV (80-100) fL MCH (26-34) PG MCHC (30-36) % RDW (11.6-14.8) % Plt Count (150-400) X10^3/uL Neut % (Auto) (50-75) % Lymph % (Auto) (25-40) % Cochran % (Auto) (3-14) % Eos % (Auto) (2-4) % Baso % (Auto) (0-2) % Neut # (Auto) (3646-5153) /uL Lymph # (Auto) (7860-9834) /uL Cochran # (Auto) (0-900) /uL Eos # (Auto) (0-450) /uL Baso # (Auto) (0-100) /uL PT (10.1-12.7) SECONDS INR (0.9-1.3) APTT (26.4-36.2) SECONDS Sodium 133 L (137-145) mmol/L Potassium 4.3 (3.4-5.1) mmol/L Chloride 102 (98-107) mmol/L Carbon Dioxide 27 (22-32) mmol/L BUN 25 H (9-20) mg/dL Creatinine 1.01 (0.66-1.25) mg/dL Estimated GFR > 60.0 (>60) mL/min BUN/Creatinine Ratio 24.8 H (6-22) Glucose 274 H (80-110) mg/dL Calcium 9.2 (8.4-10.2) mg/dL Magnesium (1.6-2.3) mg/dL Total Bilirubin (0.2-1.3) mg/dL AST (17-59) IU/L ALT (<50) IU/L Alkaline Phosphatase (38-126) U/L Total Creatine Kinase (55-170) U/L CK-MB (CK-2) (<2.37) ng/mL CK-MB (CK-2) Rel Index (1.5-5.0) % Troponin I 5.970 H* (0.01-0.034) ng/mL Total Protein (6.3-8.2) g/dL Albumin (3.5-5.0) g/dL Globulin (1.7-4.1) g/dL Albumin/Globulin Ratio (1.0-2.8) Lipase (23-300) U/L SARS-CoV-2 (PCR) (Negative) Point of Care Testing Glucose POC 248 Imaging Data Chest x-ray: Radiologist's Impression: [address] [address] XRay Report Signed Patient: Praful Ernandez MR#: [id number] : 1940 Acct:[id number] Age/Sex: 80 / M Date of Service: 07/01/21 Loc: ED Accession Number: [id number] ?? Procedure: XR chest 1V Ordering Provider: Santana De Souza D.O. PROCEDURE:? XR CHEST 1V ? INDICATIONS:? chest pain ? TECHNIQUE:? One view of the chest was acquired.? ? COMPARISON:? [facility], CR, XR CHEST 2V, 11/19/2020, 9:48. ? FINDINGS:? ? Surgical changes and devices:? Median sternotomy.? Left-sided pacer. ? Lungs and pleura:? Lungs are clear.? No pleural effusions or pneumothorax.? ? Mediastinum:? Mediastinal contours appear normal.? Heart size is normal.? ? Bones and chest wall:? No suspicious bony lesions.? Overlying soft tissues appear unremarkable.? ? IMPRESSION:? No acute process. ? ? Dictated by: Praveen Huang M.D. on 07/01/2021 at 22:26 ? ? Approved by: Praveen Huang M.D. on 07/01/2021 at 22:27?? CT scan - chest: Radiologist's Impression: [address] [address] [address] Scan Report Signed Patient: Praful Ernandez MR#: [id number] : 1940 Acct:[id number] Age/Sex: 80 / M Date of Service: 07/02/21 Loc: ED Accession Number: [id number] ?? Procedure: CT angio chest PE protocol Ordering Provider: Santana De Souza D.O. PROCEDURE:? CT ANGIO CHEST PE PROTOCOL ? INDICATIONS:? Chest pain, shortness of breath, tachycardia ? TECHNIQUE:? After the administration of intravenous contrast, 2 mm thick sections acquired from the pulmonary apices to the posterior costophrenic angles.? 3-dimensional maximum intensity projection (MIP) coronal and sagittal reformats were then acquired through the thorax.? For radiation dose reduction, the following was used:? automated exposure control, adjustment of mA and/or kV according to patient size.? ? COMPARISON:? None. ? FINDINGS:? Image quality:? Excellent.? ? Pulmonary arteries:? Pulmonary arteries are normal in size, and demonstrate no intraluminal filling defects to suggest central pulmonary embolism.? ? Lungs and pleura:? Moderate thickening of the segmental, subsegmental, and lobar airways of the bilateral upper and lower lobes as well as the right middle lobe.? There is moderate diffuse thickening of the interlobular septi is well as [place] low nodular pulmonary density. ? Mediastinum:? Heart size is normal, without pericardial effusion.? Severe calcification of the coronary vasculature.? No mediastinal or hilar adenopathy.? Thoracic aorta is normal in caliber and enhancement.? Esophagus is normal in caliber, without hiatal hernia.? ? Bones and chest wall:? No suspicious bony lesions.? Median sternotomy.? Ribs and thoracic spine appear intact throughout.? Thyroid gland is within normal limits.? No axillary or supraclavicular adenopathy.? ? Abdomen:? Visualized portions of the upper abdomen demonstrate multiple calculi within the gallbladder lumen.? No evidence of cholecystitis. ? IMPRESSION:? 1. No pulmonary embolus. 2. Moderate bilateral bronchopneumonia. 3. Cholelithiasis.? No evidence of cholecystitis. 4. Coronary artery disease.? ? ? Dictated by: Praveen Huang M.D. on 07/02/2021 at 0:58 ? ? Approved by: Praveen Huang M.D. on 07/02/2021 at 1:01? echo: Radiologist's Impression: [address] [address] Echocardiography Report Signed Patient: Praful Ernandez MR#: [id number] : 1940 Acct:[id number] Age/Sex: 80 / M Date of Service: 07/03/21 Loc: ED Accession Number: [id number] ?? Procedure: EC echo doppler complete Ordering Provider: Prasanth Parada D.O. ? [facility]? +---------+ : ? :? [address] ? : ? : : ? :? [place] ? : ? : : ? :? [address] ? : ? : : ? : ? Phone: [phone] : ? : [phone]? [phone]? +---------+ ? Echocardiogram Report + + :Name: PRAFUL ERNANDEZ ? ? ? Study Date: 07/03/2021 ? Height: 70 in? : :Hospital ? ? ReadingLocation: ? Weight: 205 lb : : ? Gender: Male ? BSA: 2.1 m2? ? : :: 1940? Age: 80 yrs? BP: 118/72 mmHg: :Reason For Study: NSTEMI ? : :Ordering Physician: KARMA,? : :PRASANTH ? Performed By: Sue Hylton? : :Referring: PRASANTH PARADA? : + + Interpretation Summary The left ventricle is moderately dilated. Left ventricular ejection fraction is estimated to be 25%. Left ventricular function has moderately worsened compared to the previous exam. There is moderate to severe global hypokinesis of the left ventricle. Diastolic function could not be accurately assessed due to confounding valvular disease. ? The right ventricle is borderline dilated. The right ventricular systolic pressure is estimated to be at least 50 mmHg based on an estimated right atrial pressure of 8 mm Hg. ? The left atrium is severely dilated. The right atrium is mildly dilated. ? An annuloplasty ring is noted in the mitral position. The mitral valve mean gradient is 5 mmHg. This is unchanged compared to the previous study. There is moderate to severe mitral regurgitation. Compared to the prior echo study, there has been an increase in the severity of mitral regurgitation. ? There is no other significant valvular heart disease. ? The aortic root is normal size. ? Procedure: ? A two-dimensional transthoracic echocardiogram with color flow and Doppler was performed. The study quality was technically adequate. Comparison is made with the echocardiogram of 04/29/2021. The patient has a paced rhythm. The heart rate ranged between 63-71 bpm during the study. Left Ventricle: ? The left ventricle is moderately dilated. The estimated left ventricular end diastolic volume is 198 ml. Left ventricular ejection fraction is estimated to be 25%. Left ventricular function has moderately worsened compared to the previous exam. There is moderate to severe global hypokinesis of the left ventricle. Diastolic function could not be accurately assessed due to confounding valvular disease. Right Ventricle: ? The right ventricle is borderline dilated. There is a pacemaker lead in the right ventricle. Right ventricular systolic function is at the lower limits of normal. Atria: ? The left atrium is severely dilated. The right atrium is mildly dilated. There is no Doppler evidence for an interatrial shunt. Mitral Valve: ? An annuloplasty ring is noted in the mitral position. The mitral valve mean gradient is 5 mmHg. This is unchanged compared to the previous study. There is moderate to severe mitral regurgitation. Compared to the prior echo study, there has been an increase in the severity of mitral regurgitation. Aortic Valve: ? The aortic valve is trileaflet. The aortic valve is mildly calcified. The aortic valve opens well. There is no aortic valve stenosis. There is trace aortic regurgitation. Tricuspid Valve: ? The tricuspid valve is normal. There is mild tricuspid regurgitation. The right ventricular systolic pressure is estimated to be at least 50 mmHg based on an estimated right atrial pressure of 8 mm Hg. Pulmonic Valve: ? The pulmonic valve is not well seen, but is grossly normal. There is trace pulmonic regurgitation. There is no other significant valvular heart disease. Great Vessels: ? The aortic root is normal size. The ascending aorta could not be visualized. The IVC is dilated (diameter is greater than 2.1 cm) yet it collapses greater than 50% with a sniff. This suggests a right atrial pressure of 8 mm Hg. Pericardium/ Pleura ? There is no pericardial effusion. There is no pleural effusion. ? MMode/2D Measurements & Calculations LVIDd: 6.7 cm? LVOT diam: 2.4 cm LVIDs: 5.9 cm? Ao root diam: 3.5 cm FS: 11.4 % ? Ao Arch Diam (Prox Trans): 2.2 cm EPSS: 2.4 cm IVSd: 0.98 cm LVPWd: 0.72 cm LV roy. diameter/BSA (cm/m^2): 3.2 LV sys. diameter/BSA (cm/m^2): 2.8 ? LA A2 area: 37.9 cm2 ? RA long axis: 6.2 cm LA A4 area: 27.4 cm2 ? RA area: 23.9 cm2 LA length (vol): 6.0 cm? RA vol: 78.1 ml LA vol: 147.7 ml ? RA : 37.0 ml/m2 LA vol index: 70.0 ml/m2 ? IVC diam: 2.1 cm ? RVD1 (basal): 4.7 cm RVD2 (mid): 3.5 cm TAPSE: 1.7 cm ? Doppler Measurements & Calculations Ao V2 max: 115.9 cm/sec ? LVOT Max Win: 70.5 cm/sec Ao V2 mean: 82.5 cm/sec ? LV V1 max P.0 mmHg Ao max P.4 mmHg ? LV V1 VTI: 14.1 cm Ao mean P.2 mmHg? ELLIE(I,D): 2.5 cm2 Ao V2 VTI: 25.1 cm? ELLIE(V,D): 2.7 cm2 ? sev ratio: 0.56 ? ELLIE indexed to BSA (cm^2/m^2): 1.2 ? MV E max win: 162.6 cm/sec? TR max win: 342.1 cm/sec MV A max win: 83.9 cm/sec ? TR max P.9 mmHg MV E/A: 1.9 Med Peak E' Win: 3.2 cm/sec E/E' med: 50.2 Lat Peak E' Win: 3.6 cm/sec E/E' lat: 45.1 E/e' average: 47.6 MV dec time: 0.25 sec MVA(VTI): 1.3 cm2 MR ERO: 0.40 cm2 ? MV V2 mean: 113.1 cm/sec? MR PISA: 6.2 cm2 MV mean P.1 mmHg? MR flow rate: 208.1 cm3/sec MV V2 VTI: 48.6 cm? MR PISA radius: 0.99 cm ? SV(LVOT): 63.8 ml ? Reading Physician:05:28 PM ECG Data Attestation: I personally reviewed and interpreted this ECG as follows: Interpretation: Ventricular paced Rate 95 QRS duration [address] depression in V5 V6 No ST elevations Repeat EKG Unchanged except for ST depression V4 V5 V6 Repeat EKG dated 07/03 at 0615 Ventricular paced Rate is [address] depressions that were noted in 3 AVF and V4,V5,V6 are resolved New T-wave inversions V2 V3 V4 Repeat EKG dated 07/03 1134 Paced rhythm Rate of 59 Unchanged from prior EKG Repeat EKG dated 07/04 0456 Paced Rate is 66 Unchanged from previous EKG MDM Narrative Medical decision making narrative: Patient initially arrived with right-sided chest discomfort. Had received aspirin prior to arrival. Patient was hyperglycemic but also states he did not take his insulin after eating dinner last night because he started having the chest discomfort. Patient was given 3 nitroglycerin without any change in his pain. His initial troponin was negative. Initial EKG shows ST depressions in V5 and V6. He does have a paced rhythm. Chest x-ray is unremarkable. Patient was also given insulin for his hyperglycemia and this improved. There is no signs of DKA. During his workup he had a change in his discomfort. He states that the chest pressure was moving more towards his right side chest wall. Was not radiating to his jaw or his back or his extremities. Was given morphine which did seem to improve his symptoms tremendously. Repeat EKG was performed which shows ST depressions in V4 and V5 and V6. CT scan of the chest shows no acute pathology. Repeat troponin ordered and does show elevation above 99th percentile but not above AMI cut off. I discussed the case with Dr. Levy on-call for patient's primary protein specialist. She recommended holding on heparin until 12 hours after his last dose of Eliquis which was apparently at 0800 hours last evening. Patient states that he takes his medication as directed and her that medication should be taken at 8 in the morning and 80 at night. Attempted to transfer patient. [facility], [facility], [facility], [facility], and [facility] systems are all full. A 3rd troponin ordered at this time patient is above AMI. Heparin was started will continue to attempt to find placement. Patient signed out to myself by Dr. De Souza. 07/02/2021. This is an 80-year-old male with known history of CAD with 6 cardiac stents and prior TX, paced rhythm who is normally on Eliquis. Patient had chest which did not have any evolving changes but does have elevating troponin. Patient appears to be and STEMI in the setting of a paced rhythm. Heparin was initiated based on recommendations from Cardiology and was noted to be started 12 hours after his last dose of El iquis. Patient is currently asymptomatic. He is chest pain-free after morphine. Glucose has been improving with short-acting and his long-acting insulin was started this morning with plan for sliding scale, statin beta- martir were also initiated. Patient was noted to have bronchopneumonia on CT imaging but is asymptomatic otherwise. The patient had some difficulty with glucose control this is been improving with Lantus and sliding scale. Repeat troponin is starting to trend down words. Patient has received statin, beta martir, amiodarone but Arb was held on recommendation of Cardiology secondary to mild hyperkalemia. Also spoke with patient's family. There was hope that patient would be transferred to telling him but they currently do not have any bed availability tonight, patient had had his prior cardiac stents placed there. Continuing to search for placement regionally. Patient signed out to Dr. De Souza while awaiting placement. Troponin is starting to trend down words. Patient is chest pain-free at this time. Dr De Souza overnight 07/02-07/03: I am aware of the patient. I did review the patient's past several hours. Troponin seems with peaked and is improving. He continues to be chest pain-free. Patient is on a insulin sliding scale though he does remain hyperglycemic. Is on heparin drip. Patient has been stable overnight. Morning labs were ordered to include troponin and CBC and chemistry. Also repeat his EKG. Continuing to observe patient until placement can be found with Cardiology. Care turned over to Dr. Parada to continue to observe until placement can be found. Dr De Souza overnight 07/03-07/04: Received turned over from Dr. Parada from [facility]. Reviewed chart up to this point. Had echocardiogram performed. It shows heart failure with an EF of 25% and global hypokinesis. Patient states that he is aware of history of heart failure. He thought that his ejection fraction was in the high 30s. Does appear to be worse today. He continues to be chest pain- free. EKGs have been unchanged for 24 hours. Remains on heparin drip. He remains on insulin sliding scale. Blood sugars have been improving but her still greater than 200. Troponin continues to decrease. Discussed the case with Cardiology and Internal Medicine at [facility] who agrees to accept patient to transport. Dr. Rios accepting. Patient is stable for tr leticia. <Prasanth Parada, DO - Last Filed: 07/04/21 08:09> Lab Data Labs: Lab Results 07/01/21 07/01/21 07/01/21 Range/Units 22:03 22:03 22:03 WBC 6.7 (4.5-11.0) X10^3/uL RBC 3.65 L (4.5-5.9) X10^6/uL Hgb 10.3 L (13.5-17.5) g/dL Hct 31.5 L (41-53) % MCV 86.4 (80-100) fL MCH 28.2 (26-34) PG MCHC 32.6 (30-36) % RDW 17.0 H (11.6-14.8) % Plt Count 235 (150-400) X10^3/uL Neut % (Auto) 92.5 H (50-75) % Lymph % (Auto) 6.1 L (25-40) % Cochran % (Auto) 1.1 L (3-14) % Eos % (Auto) 0.0 L (2-4) % Baso % (Auto) 0.3 (0-2) % Neut # (Auto) 6200 (6177-4288) /uL Lymph # (Auto) 400 L (8574-0890) /uL Cochran # (Auto) 100 (0-900) /uL Eos # (Auto) 0 (0-450) /uL Baso # (Auto) 0 (0-100) /uL PT (10.1-12.7) SECONDS INR (0.9-1.3) APTT (26.4-36.2) SECONDS Sodium 130 L (137-145) mmol/L Potassium 5.4 H (3.4-5.1) mmol/L Chloride 97 L (98-107) mmol/L Carbon Dioxide 22 (22-32) mmol/L BUN 23 H (9-20) mg/dL Creatinine 1.14 (0.66-1.25) mg/dL Estimated GFR > 60.0 (>60) mL/min BUN/Creatinine Ratio 20.2 (6-22) Glucose 565 H* (80-110) mg/dL Calcium 9.8 (8.4-10.2) mg/dL Magnesium (1.6-2.3) mg/dL Total Bilirubin 0.6 (0.2-1.3) mg/dL AST 48 (17-59) IU/L ALT 28 (<50) IU/L Alkaline Phosphatase 101 (38-126) U/L Total Creatine Kinase 162 (55-170) U/L CK-MB (CK-2) 3.17 H (<2.37) ng/mL CK-MB (CK-2) Rel Index 2.0 (1.5-5.0) % Troponin I < 0.012 (0.01-0.034) ng/mL Total Protein 8.0 (6.3-8.2) g/dL Albumin 4.8 (3.5-5.0) g/dL Globulin 3.2 (1.7-4.1) g/dL Albumin/Globulin Ratio 1.5 (1.0-2.8) Lipase 76 (23-300) U/L SARS-CoV-2 (PCR) (Negative) 07/01/21 07/01/21 07/01/21 Range/Units 22:03 22:03 23:39 WBC (4.5-11.0) X10^3/uL RBC (4.5-5.9) X10^6/uL Hgb (13.5-17.5) g/dL Hct (41-53) % MCV (80-100) fL MCH (26-34) PG MCHC (30-36) % RDW (11.6-14.8) % Plt Count (150-400) X10^3/uL Neut % (Auto) (50-75) % Lymph % (Auto) (25-40) % Cochran % (Auto) (3-14) % Eos % (Auto) (2-4) % Baso % (Auto) (0-2) % Neut # (Auto) (1031-6819) /uL Lymph # (Auto) (1621-9812) /uL [place]chran # (Auto) (0-900) /uL Eos # (Auto) (0-450) /uL Baso # (Auto) (0-100) /uL PT 11.9 (10.1-12.7) SECONDS INR 1.1 (0.9-1.3) APTT 36 (26.4-36.2) SECONDS Sodium (137-145) mmol/L Potassium (3.4-5.1) mmol/L Chloride (98-107) mmol/L Carbon Dioxide (22-32) mmol/L BUN (9-20) mg/dL Creatinine (0.66-1.25) mg/dL Estimated GFR (>60) mL/min BUN/Creatinine Ratio (6-22) Glucose (80-110) mg/dL Calcium (8.4-10.2) mg/dL Magnesium 1.8 (1.6-2.3) mg/dL Total Bilirubin (0.2-1.3) mg/dL AST (17-59) IU/L ALT (<50) IU/L Alkaline Phosphatase (38-126) U/L Total Creatine Kinase (55-170) U/L CK-MB (CK-2) (<2.37) ng/mL CK-MB (CK-2) Rel Index (1.5-5.0) % Troponin I (0.01-0.034) ng/mL Total Protein (6.3-8.2) g/dL Albumin (3.5-5.0) g/dL Globulin (1.7-4.1) g/dL Albumin/Globulin Ratio (1.0-2.8) Lipase (23-300) U/L SARS-CoV-2 (PCR) Negative (Negative) 07/02/21 07/02/21 07/02/21 Range/Units 01:00 04:05 11:05 WBC (4.5-11.0) X10^3/uL RBC (4.5-5.9) X10^6/uL Hgb (13.5-17.5) g/dL Hct (41-53) % MCV (80-100) fL MCH (26-34) PG MCHC (30-36) % RDW (11.6-14.8) % Plt Count (150-400) X10^3/uL Neut % (Auto) (50-75) % Lymph % (Auto) (25-40) % Cochran % (Auto) (3-14) % Eos % (Auto) (2-4) % Baso % (Auto) (0-2) % Neut # (Auto) (8953-0311) /uL Lymph # (Auto) (2430-6598) /uL Cochran # (Auto) (0-900) /uL Eos # (Auto) (0-450) /uL Baso # (Auto) (0-100) /uL PT (10.1-12.7) SECONDS INR (0.9-1.3) APTT 95 H* D (26.4-36.2) SECONDS Sodium (137-145) mmol/L Potassium (3.4-5.1) mmol/L Chloride (98-107) mmol/L Carbon Dioxide (22-32) mmol/L BUN (9-20) mg/dL Creatinine (0.66-1.25) mg/dL Estimated GFR (>60) mL/min BUN/Creatinine Ratio (6-22) Glucose (80-110) mg/dL Calcium (8.4-10.2) mg/dL Magnesium (1.6-2.3) mg/dL Total Bilirubin (0.2-1.3) mg/dL AST (17-59) IU/L ALT (<50) IU/L Alkaline Phosphatase (38-126) U/L Total Creatine Kinase 228 H (55-170) U/L CK-MB (CK-2) 9.71 H D (<2.37) ng/mL CK-MB (CK-2) Rel Index 4.3 (1.5-5.0) % Troponin I 0.087 H 3.350 H* (0.01-0.034) ng/mL Total Protein (6.3-8.2) g/dL Albumin (3.5-5.0) g/dL Globulin (1.7-4.1) g/dL Albumin/Globulin Ratio (1.0-2.8) Lipase (23-300) U/L SARS-CoV-2 (PCR) (Negative) 07/02/21 07/02/21 07/02/21 Range/Units 11:05 17:31 17:31 WBC (4.5-11.0) X10^3/uL RBC (4.5-5.9) X10^6/uL Hgb (13.5-17.5) g/dL Hct (41-53) % MCV (80-100) fL MCH (26-34) PG MCHC (30-36) % RDW (11.6-14.8) % Plt Count (150-400) X10^3/uL Neut % (Auto) (50-75) % Lymph % (Auto) (25-40) % Cochran % (Auto) (3-14) % Eos % (Auto) (2-4) % Baso % (Auto) (0-2) % Neut # (Auto) (2129-8621) /uL Lymph # (Auto) (3698-9575) /uL Cochran # (Auto) (0-900) /uL Eos # (Auto) (0-450) /uL Baso # (Auto) (0-100) /uL PT (10.1-12.7) SECONDS INR (0.9-1.3) APTT 64 H D (26.4-36.2) SECONDS Sodium 131 L 130 L (137-145) mmol/L Potassium 5.2 H 4.9 (3.4-5.1) mmol/L Chloride 98 98 (98-107) mmol/L Carbon Dioxide 25 27 (22-32) mmol/L BUN 27 H 27 H (9-20) mg/dL Creatinine 1.06 1.04 (0.66-1.25) mg/dL Estimated GFR > 60.0 > 60.0 (>60) mL/min BUN/Creatinine Ratio 25.5 H 26.0 H (6-22) Glucose 433 H D 336 H (80-110) mg/dL Calcium 9.6 9.5 (8.4-10.2) mg/dL Magnesium (1.6-2.3) mg/dL Total Bilirubin (0.2-1.3) mg/dL AST (17-59) IU/L ALT (<50) IU/L Alkaline Phosphatase (38-126) U/L Total Creatine Kinase (55-170) U/L CK-MB (CK-2) (<2.37) ng/mL CK-MB (CK-2) Rel Index (1.5-5.0) % Troponin I 21.400 H* (0.01-0.034) ng/mL Total Protein (6.3-8.2) g/dL Albumin (3.5-5.0) g/dL Globulin (1.7-4.1) g/dL Albumin/Globulin Ratio (1.0-2.8) Lipase (23-300) U/L SARS-CoV-2 (PCR) (Negative) 07/02/21 07/03/21 07/03/21 Range/Units 17:31 00:03 00:03 WBC (4.5-11.0) X10^3/uL RBC (4.5-5.9) X10^6/uL Hgb (13.5-17.5) g/dL Hct (41-53) % MCV (80-100) fL MCH (26-34) PG MCHC (30-36) % RDW (11.6-14.8) % Plt Count (150-400) X10^3/uL Neut % (Auto) (50-75) % Lymph % (Auto) (25-40) % Cochran % (Auto) (3-14) % Eos % (Auto) (2-4) % Baso % (Auto) (0-2) % Neut # (Auto) (0487-8063) /uL Lymph # (Auto) (4493-5315) /uL Cochran # (Auto) (0-900) /uL Eos # (Auto) (0-450) /uL Baso # (Auto) (0-100) /uL PT (10.1-12.7) SECONDS INR (0.9-1.3) APTT 60 H (26.4-36.2) SECONDS Sodium (137-145) mmol/L Potassium (3.4-5.1) mmol/L Chloride (98-107) mmol/L Carbon Dioxide (22-32) mmol/L BUN (9-20) mg/dL Creatinine (0.66-1.25) mg/dL Estimated GFR (>60) mL/min BUN/Creatinine Ratio (6-22) Glucose (80-110) mg/dL Calcium (8.4-10.2) mg/dL Magnesium (1.6-2.3) mg/dL Total Bilirubin (0.2-1.3) mg/dL AST (17-59) IU/L ALT (<50) IU/L Alkaline Phosphatase (38-126) U/L Total Creatine Kinase (55-170) U/L CK-MB (CK-2) (<2.37) ng/mL CK-MB (CK-2) Rel Index (1.5-5.0) % Troponin I 20.700 H* 15.100 H* (0.01-0.034) ng/mL Total Protein (6.3-8.2) g/dL Albumin (3.5-5.0) g/dL Globulin (1.7-4.1) g/dL Albumin/Globulin Ratio (1.0-2.8) Lipase (23-300) U/L SARS-CoV-2 (PCR) (Negative) 07/03/21 07/03/21 07/03/21 Range/Units 06:35 06:35 06:35 WBC 10.6 D (4.5-11.0) X10^3/uL RBC 3.35 L (4.5-5.9) X10^6/uL Hgb 9.4 L (13.5-17.5) g/dL Hct 27.9 L (41-53) % MCV 83.4 D (80-100) fL MCH 28.2 (26-34) PG MCHC 33.8 (30-36) % RDW 16.6 H (11.6-14.8) % Plt Count 228 (150-400) X10^3/uL Neut % (Auto) 85.3 H (50-75) % Lymph % (Auto) 6.7 L (25-40) % Cochran % (Auto) 8.0 (3-14) % Eos % (Auto) 0.0 L (2-4) % Baso % (Auto) 0.0 (0-2) % Neut # (Auto) 9000 H (8316-6279) /uL Lymph # (Auto) 700 L (3154-2135) /uL Cochran # (Auto) 800 (0-900) /uL Eos # (Auto) 0 (0-450) /uL Baso # (Auto) 0 (0-100) /uL PT (10.1-12.7) SECONDS INR (0.9-1.3) APTT 50 H D (26.4-36.2) SECONDS Sodium (137-145) mmol/L Potassium (3.4-5.1) mmol/L Chloride (98-107) mmol/L Carbon Dioxide (22-32) mmol/L BUN (9-20) mg/dL Creatinine (0.66-1.25) mg/dL Estimated GFR (>60) mL/min BUN/Creatinine Ratio (6-22) Glucose (80-110) mg/dL Calcium (8.4-10.2) mg/dL Magnesium (1.6-2.3) mg/dL Total Bilirubin (0.2-1.3) mg/dL AST (17-59) IU/L ALT (<50) IU/L Alkaline Phosphatase (38-126) U/L Total Creatine Kinase (55-170) U/L CK-MB (CK-2) (<2.37) ng/mL CK-MB (CK-2) Rel Index (1.5-5.0) % Troponin I 11.400 H* (0.01-0.034) ng/mL Total Protein (6.3-8.2) g/dL Albumin (3.5-5.0) g/dL Globulin (1.7-4.1) g/dL Albumin/Globulin Ratio (1.0-2.8) Lipase (23-300) U/L SARS-CoV-2 (PCR) (Negative) 07/03/21 07/03/21 07/03/21 Range/Units 06:35 12:35 18:30 WBC (4.5-11.0) X10^3/uL RBC (4.5-5.9) X10^6/uL Hgb (13.5-17.5) g/dL Hct (41-53) % MCV (80-100) fL MCH (26-34) PG MCHC (30-36) % RDW (11.6-14.8) % Plt Count (150-400) X10^3/uL Neut % (Auto) (50-75) % Lymph % (Auto) (25-40) % Cochran % (Auto) (3-14) % Eos % (Auto) (2-4) % Baso % (Auto) (0-2) % Neut # (Auto) (5551-2968) /uL Lymph # (Auto) (8572-8001) /uL Cochran # (Auto) (0-900) /uL Eos # (Auto) (0-450) /uL Baso # (Auto) (0-100) /uL PT (10.1-12.7) SECONDS INR (0.9-1.3) APTT 54 H 55 H (26.4-36.2) SECONDS Sodium 131 L (137-145) mmol/L Potassium 4.5 (3.4-5.1) mmol/L Chloride 101 (98-107) mmol/L Carbon Dioxide 25 (22-32) mmol/L BUN 28 H (9-20) mg/dL Creatinine 1.07 (0.66-1.25) mg/dL Estimated GFR > 60.0 (>60) mL/min BUN/Creatinine Ratio 26.2 H (6-22) Glucose 300 H (80-110) mg/dL Calcium 9.3 (8.4-10.2) mg/dL Magnesium (1.6-2.3) mg/dL Total Bilirubin (0.2-1.3) mg/dL AST (17-59) IU/L ALT (<50) IU/L Alkaline Phosphatase (38-126) U/L Total Creatine Kinase (55-170) U/L CK-MB (CK-2) (<2.37) ng/mL CK-MB (CK-2) Rel Index (1.5-5.0) % Troponin I (0.01-0.034) ng/mL Total Protein (6.3-8.2) g/dL Albumin (3.5-5.0) g/dL Globulin (1.7-4.1) g/dL Albumin/Globulin Ratio (1.0-2.8) Lipase (23-300) U/L SARS-CoV-2 (PCR) (Negative) 07/04/21 07/04/21 07/04/21 Range/Units 00:23 04:58 04:58 WBC 8.5 (4.5-11.0) X10^3/uL RBC 3.66 L (4.5-5.9) X10^6/uL Hgb 10.2 L (13.5-17.5) g/dL Hct 30.6 L (41-53) % MCV 83.6 (80-100) fL MCH 27.9 (26-34) PG MCHC 33.4 (30-36) % RDW 16.6 H (11.6-14.8) % Plt Count 213 (150-400) X10^3/uL Neut % (Auto) 75.3 H (50-75) % Lymph % (Auto) 13.3 L (25-40) % Cochran % (Auto) 11.1 (3-14) % Eos % (Auto) 0.2 L (2-4) % Baso % (Auto) 0.1 (0-2) % Neut # (Auto) 6400 (1161-0691) /uL Lymph # (Auto) 1100 (2122-8817) /uL Cochran # (Auto) 900 (0-900) /uL Eos # (Auto) 0 (0-450) /uL Baso # (Auto) 0 (0-100) /uL PT (10.1-12.7) SECONDS INR (0.9-1.3) APTT 57 H 55 H (26.4-36.2) SECONDS Sodium (137-145) mmol/L Potassium (3.4-5.1) mmol/L Chloride (98-107) mmol/L Carbon Dioxide (22-32) mmol/L BUN (9-20) mg/dL Creatinine (0.66-1.25) mg/dL Estimated GFR (>60) mL/min BUN/Creatinine Ratio (6-22) Glucose (80-110) mg/dL Calcium (8.4-10.2) mg/dL Magnesium (1.6-2.3) mg/dL Total Bilirubin (0.2-1.3) mg/dL AST (17-59) IU/L ALT (<50) IU/L Alkaline Phosphatase (38-126) U/L Total Creatine Kinase (55-170) U/L CK-MB (CK-2) (<2.37) ng/mL CK-MB (CK-2) Rel Index (1.5-5.0) % Troponin I (0.01-0.034) ng/mL Total Protein (6.3-8.2) g/dL Albumin (3.5-5.0) g/dL Globulin (1.7-4.1) g/dL Albumin/Globulin Ratio (1.0-2.8) Lipase (23-300) U/L SARS-CoV-2 (PCR) (Negative) 07/04/21 Range/Units 04:58 WBC (4.5-11.0) X10^3/uL RBC (4.5-5.9) X10^6/uL Hgb (13.5-17.5) g/dL Hct (41-53) % MCV (80-100) fL MCH (26-34) PG MCHC (30-36) % RDW (11.6-14.8) % Plt Count (150-400) X10^3/uL Neut % (Auto) (50-75) % Lymph % (Auto) (25-40) % Cochran % (Auto) (3-14) % Eos % (Auto) (2-4) % Baso % (Auto) (0-2) % Neut # (Auto) (4709-2601) /uL Lymph # (Auto) (6070-7121) /uL Cochran # (Auto) (0-900) /uL Eos # (Auto) (0-450) /uL Baso # (Auto) (0-100) /uL PT (10.1-12.7) SECONDS INR (0.9-1.3) APTT (26.4-36.2) SECONDS Sodium 133 L (137-145) mmol/L Potassium 4.3 (3.4-5.1) mmol/L Chloride 102 (98-107) mmol/L Carbon Dioxide 27 (22-32) mmol/L BUN 25 H (9-20) mg/dL Creatinine 1.01 (0.66-1.25) mg/dL Estimated GFR > 60.0 (>60) mL/min BUN/Creatinine Ratio 24.8 H (6-22) Glucose 274 H (80-110) mg/dL Calcium 9.2 (8.4-10.2) mg/dL Magnesium (1.6-2.3) mg/dL Total Bilirubin (0.2-1.3) mg/dL AST (17-59) IU/L ALT (<50) IU/L Alkaline Phosphatase (38-126) U/L Total Creatine Kinase (55-170) U/L CK-MB (CK-2) (<2.37) ng/mL CK-MB (CK-2) Rel Index (1.5-5.0) % Troponin I 5.970 H* (0.01-0.034) ng/mL Total Protein (6.3-8.2) g/dL Albumin (3.5-5.0) g/dL Globulin (1.7-4.1) g/dL Albumin/Globulin Ratio (1.0-2.8) Lipase (23-300) U/L SARS-CoV-2 (PCR) (Negative) Point of Care Testing Glucose POC 248 MDM Narrative Medical decision making narrative: Patient initially arrived with right-sided chest discomfort. Had received aspi rin prior to arrival. Patient was hyperglycemic but also states he did not take his insulin after eating dinner last night because he started having the chest discomfort. Patient was given 3 nitroglycerin without any change in his pain. His initial troponin was negative. Initial EKG shows ST depressions in V5 and V6. He does have a paced rhythm. Chest x-ray is unremarkable. Patient was also given insulin for his hyperglycemia and this improved. There is no signs of DKA. During his workup he had a change in his discomfort. He states that the chest pressure was moving more towards his right side chest wall. Was not radiating to his jaw or his back or his extremities. Was given morphine which did seem to improve his symptoms tremendously. Repeat EKG was performed which shows ST depressions in V4 and V5 and V6. CT scan of the chest shows no acute pathology. Repeat troponin ordered and does show elevation above 99th percentile but not above AMI cut off. I discussed the case with Dr. Levy on-call for patient's primary protein specialist. She recommended holding on heparin until 12 hours after his last dose of Eliquis which was apparently at 0800 hours last evening. Patient states that he takes his medication as directed and her that medication should be taken at 8 in the morning and 80 at night. Attempted to transfer patient. [facility], [facility], [facility], [facility], and [facility] systems are all full. A 3rd troponin ordered at this time patient is above AMI. Heparin was started will continue to attempt to find placement. Patient signed out to myself by Dr. De Souza. 07/02/2021. This is an 80-year-old male with known history of CAD with 6 cardiac stents and prior TX, paced rhythm who is normally on Eliquis. Patient had chest which did not have any evolving changes but does have elevating troponin. Patient appears to be and STEMI in the setting of a paced rhythm. Heparin was initiated based on recommendations from Cardiology and was noted to be started 12 hours after his last dose of Eliquis. Patient is currently asymptomatic. He is chest pain-free after morphine. Glucose has been improving with short-acting and his long-acting insulin was started this morning with plan for sliding scale, statin beta- martir were also initiated. Patient was noted to have bronchopneumonia on CT imaging but is asymptomatic otherwise. The patient had some difficulty with glucose control this is been improving with Lantus and sliding scale. Repeat troponin is starting to trend down words. Patient has received statin, beta martir, amiodarone but Arb was held on recommendation of Cardiology secondary to mild hyperkalemia. Also spoke with patient's family. There was hope that patient would be transferred to telling him but they currently do not have any bed availability tonight, patient had had his prior cardiac stents placed there. Continuing to search for placement regionally. Patient signed out to Dr. De Souza while awaiting placement. Troponin is starting to trend down words. Patient is chest pain-free at this time. Dr De Souza overnight 07/02-07/03: I am aware of the patient. I did review the patient's past several hours. Troponin seems with peaked and is improving. He continues to be chest pain-free. Patient is on a insulin sliding scale though he does remain hyperglycemic. Is on heparin drip. Patient has been stable overnight. Morning labs were ordered to include troponin and CBC and chemistry. Also repeat his EKG. Continuing to observe patient until placement can be found with Cardiology. Care turned over to Dr. Parada to continue to observe until placement can be found. Dr. Parada 07/03/21: Received turnover from Dr. De Souza from overnight shift. Chart reviewed. Plan for echo today. Patient continues med heparin and appropriate medications continues to be chest pain-free. EKG was repeated and is unchanged from EKG overnight. Attempted to find placement regionally with no luck so far. Patient's troponin is trending down words. Echo was obtained and shows EF 25% with global hypokinesis slightly worse than past. Patient has been updated he continues to feel comfortable. Glucose is been improved in the 200 range but not completely normalized. Dr De Souza overnight 07/03-07/04: Received turned over from Dr. Parada from dayshift. Reviewed chart up to this point. Had echocardiogram performed. It shows heart failure with an EF of 25% and global hypokinesis. Patient states that he is aware of history of heart failure. He thought that his ejection fraction was in the high 30s. Does appear to be worse today. He continues to be chest pain- free. EKGs have been unchanged for 24 hours. Remains on heparin drip. He remains on insulin sliding scale. Blood sugars have been improving but her still greater than 200. Troponin continues to decrease. Discussed the case with Cardiology and Internal Medicine at [facility] who agrees to accept patient to transport. Dr. Rios accepting. Patient is stable for transfer. Critical Care Time <Santana De Souza, - Last Filed: 07/04/21 05:58> Critical Care Time Critical Care Time: Yes Total Critical Care Time: 40 Attestation: The high probability of a clinically significant, sudden or life threatening deterioration of the [cardiovascular system(s) required my full and direct attention, intervention and personal management. The aggregate critical care time was [40] minutes. This time is in addition to time spent performing reported procedures but includes the following: [x] Data Review and interpretation x[] Patient assessment and monitoring of vital signs [x] Documentation [x] Medication orders and management Discharge Plan Departure Patient Disposition: [facility] Clinical Impression: Non-ST elevation TX (NSTEMI), Hyperglycemia, Hyperkalemia, Bronchopneumonia Prescriptions: No Action Lantus U-100 Insulin 100 UNIT/1 ML solution 12 u SQ QAM Qty: 0 0RF telmisartan [Micardis] 40 MG tablet 40 mg PO QDAY Qty: 0 0RF metformin [Glucophage XR] 500 MG tablet extended release 24 hr 2,000 mg PO BID Qty: 0 0RF metoprolol succinate [Toprol XL] 50 MG tablet extended release 24 hr 20 mg PO BID Qty: 0 0RF amiodarone 200 mg Tablet 200 mg PO DAILY 0RF Eliquis 5 mg Tablet 5 mg PO DAILY 0RF aspirin 81 mg Tablet 81 mg PO DAILY 0RF rosuvastatin [Crestor] 20 mg tablet 20 mg PO DAILY 0RF furosemide [Lasix] 20 mg tablet 10 mg PO SEEINSTR 0RF Label Comments: Monday and Monday insulin lispro [Humalog Garcia KwikPen U-100] 100 unit/mL insulin pen, half- unit 1 sliding scale dose SUBCUT USEASDIRECTD 0RF Referrals: Zaheer Baig MD [Primary Care Provider] -
[2021-07-01 22:20] LABS: INR 1.1 (0.9-1.3); Prothrombin Time 11.9 SECONDS (10.1-12.7)
[2021-07-01 22:23] LABS: PTT Partial Thromboplastin Tim 36 SECONDS (26.4-36.2)
[2021-07-01 22:25] LABS: Alanine Aminotransferase 28 IU/L (<50); Albumin 4.8 g/dL (3.5-5.0); Albumin Globulin Ratio 1.5 (1.0-2.8); Alkaline Phosphatase 101 U/L (38-126); Aspartate Aminotransferase 48 IU/L (17-59); BUN Creatinine Ratio 20.2 (6-22); Bilirubin Total 0.6 mg/dL (0.2-1.3); Blood Urea Nitrogen 23 mg/dL (9-20); Calcium 9.8 mg/dL (8.4-10.2); Carbon Dioxide 22 mmol/L (22-32); Chloride 97 mmol/L (98-107); Creatine Kinase 162 U/L (55-170); Estimated Glomerular Filt Rate > 60.0 mL/min (>60); Globulin 3.2 g/dL (1.7-4.1); HEMOLYSIS < 15 (0-50); Lipase 76 U/L (23-300); Sodium 130 mmol/L (137-145)
[2021-07-01 22:26] VITALS: BP 136/77; PULSE 92
[2021-07-01 22:26] LABS: Magnesium 1.8 mg/dL (1.6-2.3)
[2021-07-01] MEDS: NITROGLYCERIN 0.4 MG SL TAB SL ×3 (22:26→22:47)
[2021-07-01 22:37] VITALS: BP 136/77; PULSE 90
[2021-07-01 22:37] LABS: Troponin I < 0.012 ng/mL (0.01-0.034)
[2021-07-01 22:38] LABS: Potassium 5.4 mmol/L (3.4-5.1)
[2021-07-01 22:40] LABS: Creatine Kinase MB 3.17 ng/mL (<2.37); Glucose 565 mg/dL (80-110)
[2021-07-01 22:47] VITALS: PULSE 90
[2021-07-01] MEDS: INSULIN LISPRO 100 UNIT/ML 3ML VIAL 15 UNIT SUBCUT (23:17)
[2021-07-02] VITALS (55 sets, daily range): BP systolic 102–146; BP diastolic 60–83; PULSE 61–102; RESP 11–32; O2SAT 90–99
[2021-07-02 00:03] LABS: COVID19 -Nasal RAPID Negative (Negative)
--- NOTE | 2021-07-02 00:22 | DI.CT.S_ITS ---
PROCEDURE: CT ANGIO CHEST PE PROTOCOL INDICATIONS: Chest pain, shortness of breath, tachycardia TECHNIQUE: After the administration of intravenous contrast, 2 mm thick sections acquired from the pulmonary apices to the posterior costophrenic angles. 3-dimensional maximum intensity projection (MIP) coronal and sagittal reformats were then acquired through the thorax. For radiation dose reduction, the following was used: automated exposure control, adjustment of mA and/or kV according to patient size. COMPARISON: None. FINDINGS: Image quality: Excellent. Pulmonary arteries: Pulmonary arteries are normal in size, and demonstrate no intraluminal filling defects to suggest central pulmonary embolism. Lungs and pleura: Moderate thickening of the segmental, subsegmental, and lobar airways of the bilateral upper and lower lobes as well as the right middle lobe. There is moderate diffuse thickening of the interlobular septi is well as Gabriela low nodular pulmonary density. Mediastinum: Heart size is normal, without pericardial effusion. Severe calcification of the coronary vasculature. No mediastinal or hilar adenopathy. Thoracic aorta is normal in caliber and enhancement. Esophagus is normal in caliber, without hiatal hernia. Bones and chest wall: No suspicious bony lesions. Median sternotomy. Ribs and thoracic spine appear intact throughout. Thyroid gland is within normal limits. No axillary or supraclavicular adenopathy. Abdomen: Visualized portions of the upper abdomen demonstrate multiple calculi within the gallbladder lumen. No evidence of cholecystitis. IMPRESSION: 1. No pulmonary embolus. 2. Moderate bilateral bronchopneumonia. 3. Cholelithiasis. No evidence of cholecystitis. 4. Coronary artery disease. Dictated by: Praveen Huang M.D. on 07/02/2021 at 0:58 Approved by: Praveen Huang M.D. on 07/02/2021 at 1:01
[2021-07-02] MEDS: MORPHINE 4 MG/ML INJ IV (00:28)
[2021-07-02] MEDS: INSULIN LISPRO 100 UNIT/ML 3ML VIAL 15 UNIT SUBCUT (00:50)
[2021-07-02 01:35] LABS: Troponin I 0.087 ng/mL (0.01-0.034)
--- NOTE | 2021-07-02 02:08 | PC.NURSE ---
He stated he takes his medications as directed,eliquis twice a day,8 am and 1999.
[2021-07-02 04:20] LABS: Creatine Kinase 228 U/L (55-170)
[2021-07-02 04:35] LABS: CKMB % Relative Index 4.3 % (1.5-5.0); Creatine Kinase MB 9.71 ng/mL (<2.37)
[2021-07-02] MEDS: HEPARIN 5,000 UNIT/ML VIAL 5000 UNIT IV (04:44)
[2021-07-02] MEDS: HEPARIN DRIP 25,000 UNIT/500 ML IV.SOLN 20 UNIT IV (04:46)
--- NOTE | 2021-07-02 04:52 | PC.NURSE ---
After noting troponin level,DR De Souza ordered to start heparin gtt,initially it was to be started 12 hours after last dose of home eliquis.
[2021-07-02] MEDS: METOPROLOL ER 25 MG TABLET PO ×2 (09:29→21:33)
[2021-07-02] MEDS: INSULIN GLARGINE 100 UNIT/ML 3ML PEN 13 UNIT SUBCUT (09:30)
[2021-07-02] MEDS: ATORVASTATIN 20 MG TABLET PO ×2 (09:30→21:33)
--- NOTE | 2021-07-02 10:07 | PC.NURSE ---
I placed a calls regarding transfer of this patient. Called [facility] 9:26am and affirmed his placement on waiting list for transfers and updated his transferring diagnosis. Called [facility] 9:30am and affirmed his placement on wait list for transfers updated his transferring diagnosis. Called [facility] in [place] at 9:56am and affirmed his placement on wait list for transfers updated his transferring diagnosis.
[2021-07-02 11:40] LABS: BUN Creatinine Ratio 25.5 (6-22); Blood Urea Nitrogen 27 mg/dL (9-20); Calcium 9.6 mg/dL (8.4-10.2); Carbon Dioxide 25 mmol/L (22-32); Chloride 98 mmol/L (98-107); Estimated Glomerular Filt Rate > 60.0 mL/min (>60); Glucose 433 mg/dL (80-110); HEMOLYSIS < 15 (0-50); Potassium 5.2 mmol/L (3.4-5.1); Sodium 131 mmol/L (137-145)
[2021-07-02 11:47] LABS: PTT Partial Thromboplastin Tim 95 SECONDS (26.4-36.2)
[2021-07-02] MEDS: INSULIN LISPRO 100 UNIT/ML 3ML VIAL SUBCUT ×3 (11:59→23:13)
[2021-07-02] MEDS: AMIODARONE 200 MG TABLET PO (12:17)
[2021-07-02 17:54] LABS: PTT Partial Thromboplastin Tim 64 SECONDS (26.4-36.2)
[2021-07-02 17:56] LABS: Blood Urea Nitrogen 27 mg/dL (9-20); Calcium 9.5 mg/dL (8.4-10.2); Carbon Dioxide 27 mmol/L (22-32); Chloride 98 mmol/L (98-107); Estimated Glomerular Filt Rate > 60.0 mL/min (>60); Glucose 336 mg/dL (80-110); HEMOLYSIS < 15 (0-50); Potassium 4.9 mmol/L (3.4-5.1); Sodium 130 mmol/L (137-145)
[2021-07-03] VITALS (58 sets, daily range): BP systolic 109–130; BP diastolic 57–80; PULSE 60–80; RESP 10–28; TEMP 37; O2SAT 92–100
[2021-07-03 00:21] LABS: PTT Partial Thromboplastin Tim 60 SECONDS (26.4-36.2)
[2021-07-03] MEDS: INSULIN LISPRO 100 UNIT/ML 3ML VIAL SUBCUT ×5 (05:00→21:13)
[2021-07-03] MEDS: HEPARIN DRIP 25,000 UNIT/500 ML IV.SOLN 18 UNIT IV (06:12)
--- NOTE | 2021-07-03 06:57 | DI.ECHO.S_ITS ---
[facility] +---------+ : : [address] : : : : [id number] : : : : Phone: [phone] Echocardiogram Report + + :Name: RK ERNANDEZ Study Date: 07/03/2021 Height: 70 in : :[facility] ReadingLocation: Weight: 205 lb : : Gender: Male BSA: 2.1 m2 : :: 1940 Age: 80 yrs BP: 118/72 mmHg: :Reason For Study: NSTEMI : :Ordering Physician: KARMA, : :PRASANTH Performed By: Sue Hylton : :Referring: PRASANTH PARADA : + + Interpretation Summary The left ventricle is moderately dilated. Left ventricular ejection fraction is estimated to be 25%. Left ventricular function has moderately worsened compared to the previous exam. There is moderate to severe global hypokinesis of the left ventricle. Diastolic function could not be accurately assessed due to confounding valvular disease. The right ventricle is borderline dilated. The right ventricular systolic pressure is estimated to be at least 50 mmHg based on an estimated right atrial pressure of 8 mm Hg. The left atrium is severely dilated. The right atrium is mildly dilated. An annuloplasty ring is noted in the mitral position. The mitral valve mean gradient is 5 mmHg. This is unchanged compared to the previous study. There is moderate to severe mitral regurgitation. Compared to the prior echo study, there has been an increase in the severity of mitral regurgitation. There is no other significant valvular heart disease. The aortic root is normal size. Procedure: A two-dimensional transthoracic echocardiogram with color flow and Doppler was performed. The study quality was technically adequate. Comparison is made with the echocardiogram of 04/29/2021. The patient has a paced rhythm. The heart rate ranged between 63-71 bpm during the study. Left Ventricle: The left ventricle is moderately dilated. The estimated left ventricular end diastolic volume is 198 ml. Left ventricular ejection fraction is estimated to be 25%. Left ventricular function has moderately worsened compared to the previous exam. There is moderate to severe global hypokinesis of the left ventricle. Diastolic function could not be accurately assessed due to confounding valvular disease. Right Ventricle: The right ventricle is borderline dilated. There is a pacemaker lead in the right ventricle. Right ventricular systolic function is at the lower limits of normal. Atria: The left atrium is severely dilated. The right atrium is mildly dilated. There is no Doppler evidence for an interatrial shunt. Mitral Valve: An annuloplasty ring is noted in the mitral position. The mitral valve mean gradient is 5 mmHg. This is unchanged compared to the previous study. There is moderate to severe mitral regurgitation. Compared to the prior echo study, there has been an increase in the severity of mitral regurgitation. Aortic Valve: The aortic valve is trileaflet. The aortic valve is mildly calcified. The aortic valve opens well. There is no aortic valve stenosis. There is trace aortic regurgitation. Tricuspid Valve: The tricuspid valve is normal. There is mild tricuspid regurgitation. The right ventricular systolic pressure is estimated to be at least 50 mmHg based on an estimated right atrial pressure of 8 mm Hg. Pulmonic Valve: The pulmonic valve is not well seen, but is grossly normal. There is trace pulmonic regurgitation. There is no other significant valvular heart disease. Great Vessels: The aortic root is normal size. The ascending aorta could not be visualized. The IVC is dilated (diameter is greater than 2.1 cm) yet it collapses greater than 50% with a sniff. This suggests a right atrial pressure of 8 mm Hg. Pericardium/ Pleura There is no pericardial effusion. There is no pleural effusion. MMode/2D Measurements & Calculations LVIDd: 6.7 cm LVOT diam: 2.4 cm LVIDs: 5.9 cm Ao root diam: 3.5 cm FS: 11.4 % Ao Arch Diam (Prox Trans): 2.2 cm EPSS: 2.4 cm IVSd: 0.98 cm LVPWd: 0.72 cm LV roy. diameter/BSA (cm/m^2): 3.2 LV sys. diameter/BSA (cm/m^2): 2.8 LA A2 area: 37.9 cm2 RA long axis: 6.2 cm LA A4 area: 27.4 cm2 RA area: 23.9 cm2 LA length (vol): 6.0 cm RA vol: 78.1 ml LA vol: 147.7 ml RA : 37.0 ml/m2 LA vol index: 70.0 ml/m2 IVC diam: 2.1 cm RVD1 (basal): 4.7 cm RVD2 (mid): 3.5 cm TAPSE: 1.7 cm Doppler Measurements & Calculations Ao V2 max: 115.9 cm/sec LVOT Max Win: 70.5 cm/sec Ao V2 mean: 82.5 cm/sec LV V1 max P.0 mmHg Ao max P.4 mmHg LV V1 VTI: 14.1 cm Ao mean P.2 mmHg ELLIE(I,D): 2.5 cm2 Ao V2 VTI: 25.1 cm ELLIE(V,D): 2.7 cm2 sev ratio: 0.56 ELLIE indexed to BSA (cm^2/m^2): 1.2 MV E max win: 162.6 cm/sec TR max win: 342.1 cm/sec MV A max win: 83.9 cm/sec TR max P.9 mmHg MV E/A: 1.9 Med Peak E' Win: 3.2 cm/sec E/E' med: 50.2 Lat Peak E' Win: 3.6 cm/sec E/E' lat: 45.1 E/e' average: 47.6 MV dec time: 0.25 sec MVA(VTI): 1.3 cm2 MR ERO: 0.40 cm2 MV V2 mean: 113.1 cm/sec MR PISA: 6.2 cm2 MV mean P.1 mmHg MR flow rate: 208.1 cm3/sec MV V2 VTI: 48.6 cm MR PISA radius: 0.99 cm SV(LVOT): 63.8 ml Reading Physician:05:28 PM
[2021-07-03 07:06] LABS: PTT Partial Thromboplastin Tim 50 SECONDS (26.4-36.2)
[2021-07-03 07:08] LABS: BUN Creatinine Ratio 26.2 (6-22); Blood Urea Nitrogen 28 mg/dL (9-20); Calcium 9.3 mg/dL (8.4-10.2); Carbon Dioxide 25 mmol/L (22-32); Chloride 101 mmol/L (98-107); Estimated Glomerular Filt Rate > 60.0 mL/min (>60); Glucose 300 mg/dL (80-110); HEMOLYSIS < 15 (0-50); Potassium 4.5 mmol/L (3.4-5.1); Sodium 131 mmol/L (137-145)
[2021-07-03 07:19] LABS: Add Manual Diff / Slide Review NO; Basophils Absolute Auto 0 /uL (0-100); Eosinophils Absolute Auto 0 /uL (0-450); Hematocrit 27.9 % (41-53); Hemoglobin 9.4 g/dL (13.5-17.5); Lymphocytes Absolute Auto 700 /uL (1100-4500); Lymphocytes Percent Auto 6.7 % (25-40); Mean Corpuscular HGB Conc 33.8 % (30-36); Mean Corpuscular Hemoglobin 28.2 PG (26-34); Mean Corpuscular Volume 83.4 fL (80-100); Monocytes Absolute Auto 800 /uL (0-900); Neutrophils Absolute Auto 9000 /uL (1500-7000); Neutrophils Percent Auto 85.3 % (50-75); Platelet Count 228 X10^3/uL (150-400); Red Blood Cell Count 3.35 X10^6/uL (4.5-5.9); Red Cell Distribution Width 16.6 % (11.6-14.8); White Blood Cell Count 10.6 X10^3/uL (4.5-11.0)
[2021-07-03] MEDS: AMIODARONE 200 MG TABLET PO (08:33)
[2021-07-03] MEDS: ASPIRIN 81 MG CHEW TAB 324 MG PO (08:40)
[2021-07-03] MEDS: METOPROLOL ER 25 MG TABLET PO ×2 (09:29→21:12)
--- NOTE | 2021-07-03 09:51 | PC.NURSE ---
ambulatory with steady gate, using walker
--- NOTE | 2021-07-03 10:08 | PC.NURSE ---
Patient ambulated with walker 200 feet. Patient assisted in giving shower. All bed linens were changed. All gown was changed. Patient performed oral care after shower.
--- NOTE | 2021-07-03 10:48 | PC.NURSE ---
changed heparin drip bag 25,000 units in 500 ml running at 18 ml/hr for rate of 900 units/hr next ptt due 1230
[2021-07-03 12:57] LABS: PTT Partial Thromboplastin Tim 54 SECONDS (26.4-36.2)
[2021-07-03 18:46] LABS: PTT Partial Thromboplastin Tim 55 SECONDS (26.4-36.2)
[2021-07-03] MEDS: ATORVASTATIN 20 MG TABLET PO (21:11)
[2021-07-03] MEDS: INSULIN GLARGINE 100 UNIT/ML 3ML PEN 13 UNIT SUBCUT (21:14)
[2021-07-04] VITALS (10 sets, daily range): BP systolic 121–136; BP diastolic 58–68; PULSE 60–76; RESP 13–36; O2SAT 95–100
[2021-07-04 00:42] LABS: PTT Partial Thromboplastin Tim 57 SECONDS (26.4-36.2)
--- NOTE | 2021-07-04 01:26 | PC.NURSE ---
bandage removed from wound to the left forearm, skin tear noted, pt states he hit the door prior to coming to the ED, area appears to be healing well, bandaid applied
--- NOTE | 2021-07-04 03:30 | PC.NURSE ---
pt resting quietly resp even and unlabored
[2021-07-04 05:07] LABS: Add Manual Diff / Slide Review NO; Basophils Absolute Auto 0 /uL (0-100); Basophils Percent Auto 0.1 % (0-2); Eosinophils Absolute Auto 0 /uL (0-450); Eosinophils Percent Auto 0.2 % (2-4); Hematocrit 30.6 % (41-53); Hemoglobin 10.2 g/dL (13.5-17.5); Lymphocytes Absolute Auto 1100 /uL (1100-4500); Lymphocytes Percent Auto 13.3 % (25-40); Mean Corpuscular HGB Conc 33.4 % (30-36); Mean Corpuscular Hemoglobin 27.9 PG (26-34); Mean Corpuscular Volume 83.6 fL (80-100); Monocytes Absolute Auto 900 /uL (0-900); Monocytes Percent Auto 11.1 % (3-14); Neutrophils Absolute Auto 6400 /uL (1500-7000); Neutrophils Percent Auto 75.3 % (50-75); Platelet Count 213 X10^3/uL (150-400); Red Blood Cell Count 3.66 X10^6/uL (4.5-5.9); Red Cell Distribution Width 16.6 % (11.6-14.8); White Blood Cell Count 8.5 X10^3/uL (4.5-11.0)
[2021-07-04 05:16] LABS: PTT Partial Thromboplastin Tim 55 SECONDS (26.4-36.2)
[2021-07-04 05:18] LABS: BUN Creatinine Ratio 24.8 (6-22); Blood Urea Nitrogen 25 mg/dL (9-20); Calcium 9.2 mg/dL (8.4-10.2); Carbon Dioxide 27 mmol/L (22-32); Chloride 102 mmol/L (98-107); Estimated Glomerular Filt Rate > 60.0 mL/min (>60); Glucose 274 mg/dL (80-110); HEMOLYSIS < 15 (0-50); Potassium 4.3 mmol/L (3.4-5.1); Sodium 133 mmol/L (137-145)
== END 2021-07-04 06:36 | disposition short-term general hospital (02) ==
PROVIDERS: Emergency Medicine; Emergency Provider Emergency Medicine; PCP Internal Medicine
DX: I21.4 Non-ST elevation (NSTEMI) myocardial infarction (principal); E11.65 Type 2 diabetes mellitus with hyperglycemia; J18.0 Bronchopneumonia, unspecified organism; E87.5 Hyperkalemia; Z79.84 Long term (current) use of oral hypoglycemic drugs; Z79.4 Long term (current) use of insulin; Z20.822 Contact with and (suspected) exposure to COVID-19; M48.061 Spinal stenosis, lumbar region without neurogenic claudication; M51.16 Intervertebral disc disorders with radiculopathy, lumbar region
CPT/HCPCS: 36415; 64483; 71045; 71275; 80048; 80053; 82550; 82553; 82962; 83690; 83735; 84484; 85025; 85610; 85730; 87635; 93005; 93306; 96365; 96366; 96372; 96375; 96376; 99152; 99153; 99285; 99291; C9803; J0702; J1100; J1644; J1815; J2250; J2270; J3010; Q9967

== ENCOUNTER → 2021-07-08 15:50 | Outpatient (CLI) | payer MEDICARE, SELFPAY | PROVIDERS: PCP Internal Medicine; Referring Provider Internal Medicine; Visit Provider Family Medicine | DX: E11.621 Type 2 diabetes mellitus with foot ulcer (principal); L97.522 Non-pressure chronic ulcer of other part of left foot with fat layer exposed; L08.9 Local infection of the skin and subcutaneous tissue, unspecified; E11.40 Type 2 diabetes mellitus with diabetic neuropathy, unspecified; Z79.01 Long term (current) use of anticoagulants; Z79.4 Long term (current) use of insulin; Z79.84 Long term (current) use of oral hypoglycemic drugs | CPT/HCPCS: 11042; 87070; 87075; 87077; 87147; 87186; 87205; 99214 ==

== ENCOUNTER → 2021-07-09 10:32 | Outpatient (CLI) | payer MEDICARE, SELFPAY ==
[2021-07-09 12:22] LABS: Alanine Aminotransferase 22 IU/L (<50); Albumin Globulin Ratio 1.4 (1.0-2.8); Alkaline Phosphatase 97 U/L (38-126); Aspartate Aminotransferase 25 IU/L (17-59); BUN Creatinine Ratio 19.7 (6-22); Bilirubin Total 0.5 mg/dL (0.2-1.3); Blood Urea Nitrogen 24 mg/dL (9-20); Calcium 9.7 mg/dL (8.4-10.2); Carbon Dioxide 26 mmol/L (22-32); Chloride 98 mmol/L (98-107); Estimated Glomerular Filt Rate 57.2 mL/min (>60); Globulin 2.8 g/dL (1.7-4.1); Glucose 457 mg/dL (80-110); HEMOLYSIS < 15 (0-50); Potassium 5.2 mmol/L (3.4-5.1); Sodium 128 mmol/L (137-145); Total Protein 6.8 g/dL (6.3-8.2)
[2021-07-09 12:45] LABS: Reticulocyte Count, Percent 2.3 % (0.9-2.6)
[2021-07-09 12:49] LABS: Thyroid Stimulating Hormone 0.887 uIU/mL (0.47-4.68)
== END ==
PROVIDERS: PCP Internal Medicine; Referring Provider Internal Medicine Cardiovascular Disease; Visit Provider Internal Medicine Cardiovascular Disease
DX: Z79.899 Other long term (current) drug therapy (principal); D50.8 Other iron deficiency anemias; I48.0 Paroxysmal atrial fibrillation
CPT/HCPCS: 36415; 80053; 84443; 85045

== ENCOUNTER → 2021-07-13 15:14 | Outpatient (CLI) | payer MEDICARE, SELFPAY | PROVIDERS: PCP Internal Medicine; Referring Provider Internal Medicine; Visit Provider Family Medicine | DX: E11.621 Type 2 diabetes mellitus with foot ulcer (principal); L97.522 Non-pressure chronic ulcer of other part of left foot with fat layer exposed; E11.40 Type 2 diabetes mellitus with diabetic neuropathy, unspecified; Z79.01 Long term (current) use of anticoagulants | CPT/HCPCS: 11042 ==

== ENCOUNTER → 2021-07-20 08:36 | Outpatient (CLI) | payer MEDICARE, SELFPAY | PROVIDERS: PCP Internal Medicine; Referring Provider Internal Medicine; Visit Provider Family Medicine | DX: E11.621 Type 2 diabetes mellitus with foot ulcer (principal); L97.522 Non-pressure chronic ulcer of other part of left foot with fat layer exposed; E11.40 Type 2 diabetes mellitus with diabetic neuropathy, unspecified; Z79.01 Long term (current) use of anticoagulants; Z79.4 Long term (current) use of insulin; Z79.84 Long term (current) use of oral hypoglycemic drugs | CPT/HCPCS: 11042 ==

== ENCOUNTER → 2021-07-27 08:57 | Outpatient (CLI) | payer MEDICARE, SELFPAY | PROVIDERS: PCP Internal Medicine; Referring Provider Internal Medicine; Visit Provider Family Medicine | DX: E11.621 Type 2 diabetes mellitus with foot ulcer (principal); L97.522 Non-pressure chronic ulcer of other part of left foot with fat layer exposed; E11.40 Type 2 diabetes mellitus with diabetic neuropathy, unspecified; Z79.01 Long term (current) use of anticoagulants; Z79.4 Long term (current) use of insulin; Z79.84 Long term (current) use of oral hypoglycemic drugs | CPT/HCPCS: 11042 ==

== ENCOUNTER → 2021-08-02 10:48 | Outpatient (CLI) | payer MEDICARE, SELFPAY ==
[2021-08-02 12:02] LABS: Blood Urea Nitrogen 20 mg/dL (9-20); Calcium 9.3 mg/dL (8.4-10.2); Carbon Dioxide 24 mmol/L (22-32); Chloride 94 mmol/L (98-107); Estimated Glomerular Filt Rate > 60.0 mL/min (>60); Glucose 314 mg/dL (80-110); HEMOLYSIS < 15 (0-50); Potassium 5.2 mmol/L (3.4-5.1); Sodium 127 mmol/L (137-145)
== END ==
PROVIDERS: PCP Internal Medicine; Referring Provider Internal Medicine Cardiovascular Disease; Visit Provider Internal Medicine Cardiovascular Disease
DX: I50.22 Chronic systolic (congestive) heart failure (principal)
CPT/HCPCS: 36415; 80048

== ENCOUNTER → 2021-08-04 08:31 | Outpatient (CLI) | payer MEDICARE, SELFPAY | PROVIDERS: PCP Internal Medicine; Referring Provider Internal Medicine; Visit Provider Family Medicine | DX: E11.621 Type 2 diabetes mellitus with foot ulcer (principal); L97.522 Non-pressure chronic ulcer of other part of left foot with fat layer exposed; E11.40 Type 2 diabetes mellitus with diabetic neuropathy, unspecified; Z79.01 Long term (current) use of anticoagulants; Z79.4 Long term (current) use of insulin; Z79.84 Long term (current) use of oral hypoglycemic drugs | CPT/HCPCS: 11042; 99213 ==

== ENCOUNTER → 2021-08-09 09:55 | Outpatient (CLI) | payer MEDICARE, SELFPAY | PROVIDERS: PCP Internal Medicine; Referring Provider Internal Medicine; Visit Provider Family Medicine | DX: E11.621 Type 2 diabetes mellitus with foot ulcer (principal); L97.522 Non-pressure chronic ulcer of other part of left foot with fat layer exposed | CPT/HCPCS: 99213 ==

== ENCOUNTER → 2021-08-12 08:47 | Outpatient (CLI) | payer MEDICARE, SELFPAY | PROVIDERS: PCP Internal Medicine; Referring Provider Internal Medicine; Visit Provider Family Medicine | DX: E11.628 Type 2 diabetes mellitus with other skin complications (principal); E11.51 Type 2 diabetes mellitus with diabetic peripheral angiopathy without gangrene | CPT/HCPCS: 29445; 99212 ==

== ENCOUNTER → 2021-08-19 08:46 | Outpatient (CLI) | payer MEDICARE, SELFPAY | PROVIDERS: PCP Internal Medicine; Referring Provider Internal Medicine; Visit Provider Family Medicine | DX: E11.621 Type 2 diabetes mellitus with foot ulcer (principal); L97.522 Non-pressure chronic ulcer of other part of left foot with fat layer exposed; E11.40 Type 2 diabetes mellitus with diabetic neuropathy, unspecified; Z79.01 Long term (current) use of anticoagulants; Z79.4 Long term (current) use of insulin; Z79.84 Long term (current) use of oral hypoglycemic drugs | CPT/HCPCS: 29445 ==

== ENCOUNTER → 2021-08-26 09:16 | Outpatient (CLI) | payer MEDICARE, SELFPAY | PROVIDERS: PCP Internal Medicine; Referring Provider Internal Medicine; Visit Provider Family Medicine | DX: E11.621 Type 2 diabetes mellitus with foot ulcer (principal); L97.522 Non-pressure chronic ulcer of other part of left foot with fat layer exposed; L08.9 Local infection of the skin and subcutaneous tissue, unspecified; E11.40 Type 2 diabetes mellitus with diabetic neuropathy, unspecified; Z79.01 Long term (current) use of anticoagulants | CPT/HCPCS: 87070; 87075; 87077; 87147; 87186; 87205; 97597; 99213 ==

== ENCOUNTER → 2021-09-02 11:49 | Outpatient (CLI) | payer MEDICARE, SELFPAY | PROVIDERS: PCP Internal Medicine; Referring Provider Internal Medicine; Visit Provider Family Medicine | DX: Z09 Encounter for follow-up examination after completed treatment for conditions other than malignant neoplasm (principal); E11.40 Type 2 diabetes mellitus with diabetic neuropathy, unspecified; Z86.31 Personal history of diabetic foot ulcer; Z79.4 Long term (current) use of insulin; Z79.84 Long term (current) use of oral hypoglycemic drugs | CPT/HCPCS: 99212; 99213 ==

== ENCOUNTER 2021-09-28 13:48 | Outpatient (CLI) | payer MEDICARE, SELFPAY ==
[2021-09-28] VITALS (8 sets, daily range): BP systolic 96–127; BP diastolic 54–81; PULSE 79–84; RESP 15–20; TEMP 37; O2SAT 94–100
--- NOTE | 2021-09-28 13:49 | DI.RAD.S_ITS ---
PROCEDURE: PAIN L INTERLAMINAR/CAUDAL INJ INDICATIONS: SPONDYLOSIS COMPARISON: [facility], XA, PAIN L/S TRANSFORAM INJECT ADRIENNE, 07/01/2021, 9:27. FINDINGS: Fluoroscopic spot filming was performed to verify placement of a spinal needle at the L4-L5 level, as labeled on the films. Appropriate location of the needle tip was confirmed by injection of iodinated contrast. IMPRESSION: Intraprocedural examination within normal limits. Dictated by: Sukhjinder Turner M.D. on 09/28/2021 at 14:46 Approved by: Sukhjinder Turner M.D. on 09/28/2021 at 14:46
[2021-09-28 14:20] LABS: COVID19 -Nasal RAPID Negative (Negative)
[2021-09-28] MEDS: MIDAZOLAM 2 MG/2 ML VIAL IV (14:52)
[2021-09-28] MEDS: IOPAMIDOL 15 ML VIAL 3 ML INJ (14:55)
[2021-09-28] MEDS: BETAMETHASONE 30 MG/5 ML MDV 6 MG INJ (14:55)
[2021-09-28] MEDS: DEXAMETHASONE 10 MG/ML VIAL 20 MG INJ (14:55)
[2021-09-28] MEDS: BUPIVACAINE 0.25% (PF) VIAL 2 ML INJ (14:55)
--- NOTE | 2021-09-28 15:06 | P.PCN_ITS ---
Date/Time/Diagnoses Date of procedure: 09/28/21 Time of procedure: 15:06 Pre-procedure diagnosis: 1. HNP WITH RADICULAR FEATURES, 2. MULTILEVEL CENTRAL STENOSIS, Post-procedure diagnosis: same Procedure Notes Procedure: 1. FLUOROSCOPICALLY GUIDED CONTRAST CONTROLLED INTERLAMINAR EPIDURAL STEROID INJECTION -L4/5 Indications: Praful is referred by Dr. Baig for treatment of Bilateral Foraminal Stenosis R>L LE symptoms. Physician: Jake Alves Total Fluoroscopy time (seconds): 5 Total sedation minutes: 7 Complications: none Procedure in detail & Post-procedure care: FINDINGS Multilevel Central Spinal Stenosis with Nerve Root Compression DESCRIPTION OF PROCEDURE Fluoroscopically guided, contrast-controlled L4/5 translaminar epidural steroid injection. Following review of allergy and review of potential side effects and complications, including, but not necessarily limited to, infection, allergic reaction, local tissue breakdown, temporary as well as permanent nerve injury, paralysis, stroke and possible , the patient indicated that the patient understood and agreed to proceed. An informed consent document was signed by the patient, witnessed by a nurse, and placed in the patient's chart. Additionally, other treatment options including modalities, medications, and physical therapy were reviewed with the patient. After review of previous anaesthesic history and IV conscious sedation the patient was deemed safe to proceed with today?s procedure with IV conscious sedation as ASA class II designation. Safety time-out was performed to confirm patient ID, procedure to be performed and site of procedure. IV sedation was accomplished with a combination of 1mg of Versed was administered by the RN after DO order, titrated to patient comfort during the course of the procedure while the patient remained responsive to all verbal commands In the prone position, following sterile prep and drape of the lumbar region, the L4/5 translaminar space was identified fluoroscopically. The skin was anesthetized via a 25-gauge, 1.5inch needle with 1% lidocaine solution. At this point, a 22-gauge short bevel spinal needle was atraumatically introduced and advanced under fluoroscopic guidance into the region of the L4/5 translaminar space. Depth was confirmed on lateral view. Radiological data, including multiple fluoroscopic views of the lumbar spine, reveal a spinal needle at the L4/5 translaminar space. Lateral views then show placement of the needle in the epidural space. Subsequent views show contrast material flowing superiorly and inferiorly in the epidural space. No vascular or intrathecal uptake is observed. At this point, using loss of resistance technique with saline and air, the epidural space was entered. This was confirmed following negative aspiration with injection of approximately 1.5cc of Isovue 200, showing excellent epidural flow without vascular or intrathecal uptake. At this point, 1cc of 1% lidocaine solution combined with 3cc or 20mg of dexamethasone and 6mg betamethasone was injected without incident. The patient tolerated the procedure well without signs or symptoms of complications prior to transfer to the recovery area continued monitoring without incident. The patient was then transferred to the recovery area where they were observed for an appropriate period of time after the injection. The patient reported a VAS score of 6 prior to the procedure and a post- procedure VAS of 0. POST OP INSTRUCTIONS The patient was provided a Pain Log to continue to record their response to the target-specific procedure prior to follow-up visit with their referring physician. Additionally, specific post-injection care instructions and a contact number to our office were provided if concerns arise regarding possible complications associated with the procedure are suspected.
== END 2021-09-28 15:25 | disposition home or self-care (01) ==
LOC: RAD 13:49
PROVIDERS: PCP Internal Medicine; Referring Provider Physical Medicine & Rehabilitation; Visit Provider Physical Medicine & Rehabilitation
DX: M51.26 Other intervertebral disc displacement, lumbar region (principal); M47.816 Spondylosis without myelopathy or radiculopathy, lumbar region; Z20.822 Contact with and (suspected) exposure to COVID-19
CPT/HCPCS: 62323; 87635; J0702; J1100; J2250

== ENCOUNTER → 2021-10-28 09:02 | Outpatient (CLI) | payer MEDICARE, SELFPAY ==
[2021-10-28 10:54] LABS: Alanine Aminotransferase 18 IU/L (<50); Albumin 3.9 g/dL (3.5-5.0); Albumin Globulin Ratio 1.4 (1.0-2.8); Alkaline Phosphatase 108 U/L (38-126); Aspartate Aminotransferase 26 IU/L (17-59); BUN Creatinine Ratio 18.1 (6-22); Bilirubin Total 0.5 mg/dL (0.2-1.3); Blood Urea Nitrogen 27 mg/dL (9-20); Calcium 9.2 mg/dL (8.4-10.2); Carbon Dioxide 24 mmol/L (22-32); Chloride 93 mmol/L (98-107); Cholesterol 132 mg/dL (140-199); Estimated Glomerular Filt Rate 47 mL/min (>60); Globulin 2.8 g/dL (1.7-4.1); Glucose 444 mg/dL (80-110); HDL Cholesterol 54 mg/dL (40-60); HEMOLYSIS < 15 (0-50); LDL Cholesterol Calculated 46 mg/dL (<100); Sodium 128 mmol/L (137-145); Total Protein 6.7 g/dL (6.3-8.2); Triglycerides 159 mg/dL (35-150)
[2021-10-28 11:16] LABS: Potassium 6.1 mmol/L (3.4-5.1)
[2021-10-28 11:25] LABS: Thyroid Stimulating Hormone 1.26 uIU/mL (0.47-4.68)
== END ==
PROVIDERS: PCP Internal Medicine; Referring Provider Internal Medicine Cardiovascular Disease; Visit Provider Internal Medicine Cardiovascular Disease
DX: E78.5 Hyperlipidemia, unspecified (principal)
CPT/HCPCS: 36415; 80053; 80061; 84443; 93010

== ENCOUNTER 2021-10-28 16:15 | Inpatient (IN) | payer MEDICARE, SELFPAY ==
[2021-10-28] VITALS (10 sets, daily range): BP systolic 114–135; BP diastolic 53–68; PULSE 58–74; RESP 13–31; TEMP 36.9; O2SAT 96–100; BMI 30.8
[2021-10-28 18:28] LABS: Add Manual Diff / Slide Review NO; Basophils Absolute Auto 0 /uL (0-100); Basophils Percent Auto 0.6 % (0-2); Eosinophils Absolute Auto 500 /uL (0-450); Eosinophils Percent Auto 7.4 % (2-4); Hematocrit 34.3 % (41-53); Hemoglobin 11.3 g/dL (13.5-17.5); Lymphocytes Absolute Auto 1100 /uL (1100-4500); Lymphocytes Percent Auto 17.6 % (25-40); Mean Corpuscular HGB Conc 32.9 % (30-36); Mean Corpuscular Hemoglobin 28.4 PG (26-34); Mean Corpuscular Volume 86.4 fL (80-100); Monocytes Absolute Auto 700 /uL (0-900); Monocytes Percent Auto 11.5 % (3-14); Neutrophils Absolute Auto 4000 /uL (1500-7000); Neutrophils Percent Auto 62.9 % (50-75); Platelet Count 343 X10^3/uL (150-400); Red Blood Cell Count 3.98 X10^6/uL (4.5-5.9); Red Cell Distribution Width 14.6 % (11.6-14.8); White Blood Cell Count 6.4 X10^3/uL (4.5-11.0)
[2021-10-28 18:30] LABS: Alanine Aminotransferase 20 IU/L (<50); Albumin 4.5 g/dL (3.5-5.0); Albumin Globulin Ratio 1.4 (1.0-2.8); Alkaline Phosphatase 112 U/L (38-126); Aspartate Aminotransferase 29 IU/L (17-59); BUN Creatinine Ratio 18.7 (6-22); Bilirubin Total 0.4 mg/dL (0.2-1.3); Blood Urea Nitrogen 29 mg/dL (9-20); Calcium 9.2 mg/dL (8.4-10.2); Carbon Dioxide 22 mmol/L (22-32); Chloride 93 mmol/L (98-107); Estimated Glomerular Filt Rate 45 mL/min (>60); Globulin 3.2 g/dL (1.7-4.1); HEMOLYSIS < 15 (0-50); Magnesium 1.7 mg/dL (1.6-2.3); Sodium 127 mmol/L (137-145); Total Protein 7.7 g/dL (6.3-8.2)
[2021-10-28 18:40] LABS: Potassium 5.6 mmol/L (3.4-5.1)
[2021-10-28 18:47] LABS: Glucose 617 mg/dL (80-110)
--- NOTE | 2021-10-28 19:14 | DI.RAD.S_ITS ---
PROCEDURE: XR CHEST 1V INDICATIONS: cough TECHNIQUE: One view of the chest was acquired. COMPARISON: [facility], CR, XR CHEST 1V, 07/01/2021, 22:03. FINDINGS: Surgical changes and devices: Left chest wall AICD and leads appear similar in position. Postsurgical changes are also redemonstrated in the mediastinum including a prosthetic aortic valve. Lungs and pleura: Lungs are clear without acute consolidation. No pleural effusions or pneumothorax. Mediastinum: Mediastinal contours are unchanged. Heart size is enlarged. Bones and chest wall: No suspicious bony lesions. Overlying soft tissues appear unremarkable. IMPRESSION: 1. No acute cardiopulmonary disease. Dictated by: Gaston Guido M.D. on 10/28/2021 at 19:51 Approved by: Gaston Guido M.D. on 10/28/2021 at 19:54
--- NOTE | 2021-10-28 19:15 | ED_ITS ---
HPI - Recheck/Abnormal Lab/Rx General Chief Complaint: Recheck/Abnormal Lab/Rx Stated Complaint: SENT BY , POTASSIUM IS HIGH Time Seen by Provider: 10/28/21 18:12 History of Present Illness HPI narrative: Patient here for abnormal labs. 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 Patient has history of diabetes. had symptoms of polyuria. Denies any fever chills nausea vomiting diarrhea. No cough cold congestion. Denies any new skin wounds other than a chronic left great toe wound that is being followed by Dr. Thibodeaux at the wound clinic here. Patient states no changes with that wound. No prior history of DKA. Patient is insulin dependent. Is on Eliquis for atrial fibrillation. Related Data Home Medications Medication Instructions Recorded Confirmed insulin glargine 100 unit/mL 14 u SQ QAM ##0 12/13/16 10/29/21 subcutaneous solution (Lantus U-100 Insulin) metoprolol succinate 50 mg 20 mg PO BID ##0 12/13/16 09/22/21 tablet,extended release 24 hr (Toprol XL) telmisartan 40 mg tablet (Micardis) 40 mg PO QDAY ##0 12/13/16 09/22/21 furosemide 20 mg tablet (Lasix) 10 mg PO SEEINSTR 05/05/21 09/22/21 insulin lispro 100 unit/mL 1 sliding scale dose SUBCUT 05/05/21 09/22/21 subcutaneous half-unit pen USEASDIRECTD (Humalog Garcia KwikPen (U-100)) rosuvastatin 20 mg tablet (Crestor) 20 mg PO DAILY 05/05/21 09/22/21 apixaban 5 mg tablet (Eliquis) 5 mg PO DAILY 07/02/21 09/22/21 aspirin 81 mg tablet 81 mg PO DAILY 07/02/21 09/22/21 ferrous sulfate 325 mg (65 mg 325 mg PO DAILY 08/05/21 09/22/21 iron) tablet (FeroSul) amiodarone 100 mg tablet 100 mg PO DAILY 09/22/21 09/22/21 Previous Rx's Medication Instructions Recorded metformin 500 mg tablet,extended 500 mg PO QID #360 tabs 08/16/21 release 24 hr Allergies Allergy/AdvReac Type Severity Reaction Status Date / Time [id number] Reductase AdvReac Intermediate lower body Verified 09/22/21 14:46 Inhibitor muscle pain [[id number] REDUCTASE INHIBITOR] Review of Systems Review of Systems Narrative: GENERAL: Denies chills, fatigue, malaise, fever, sweats. HEENT: Denies sinus pain, ear pain, sore throat RESPIRATORY: Denies dyspnea, cough CARDIOVASCULAR: Denies chest pain, palpitations GASTROINTESTINAL: Denies nausea, vomiting, abdominal pain : Denies dysuria, frequency, hematuria MUSCULOSKELETAL: denies muscle or bony pain SKIN: Denies rash, skin lesions NEUROLOGIC: Denies weakness, numbness ROS Unobtainable: All systems reviewed & are unremarkable except as noted in HPI and below Patient History Medical History Bilateral foot-drop Coronary artery disease Diabetes mellitus Diabetic foot infection FH: mitral valve repair Gait instability Herniated nucleus pulposus, L4-5 Hypercholesterolemia Hypertension Multilevel spinal stenosis Paroxysmal atrial fibrillation Peripheral neuropathy Toe ulcer due to secondary DM Surgical History H/O left knee surgery Family History Father Tubercular lesion of lung Mother Congestive heart failure Diabetes mellitus Social History household members: spouse Smoking Status: Never smoker alcohol intake: current Smoking Status: Never smoker alcohol intake frequency: holidays/special occasions only Substance Use Type: does not use Exam Narrative Exam Narrative: GENERAL: in no distress, not toxic not dyspneic HEAD: Normocephalic. EYES: Pupils equal round No scleral icterus. ENT: Mucous membranes moist. NECK: Trachea midline. CARDIOVASCULAR: Regular rate and rhythm without murmurs RESPIRATORY: Clear to auscultation. Breath sounds equal bilaterally. No wheezes, rales, or rhonchi. GASTROINTESTINAL: Abdomen soft, non-tender EXTREMITIES: No gross deformities. Left great toe No oozing. No foul odor. BACK: No flank tenderness. NEURO: AOx4. SKIN: Warm and dry PSYCH: Not anxious, is cooperative Initial Vital Signs Initial Vital Signs: Vital Signs Temperature 98.4 F 10/28/21 16:16 Pulse Rate 74 10/28/21 16:16 Respiratory Rate 16 10/28/21 16:16 Blood Pressure 114/53 L 10/28/21 16:16 Pulse Oximetry 99 10/28/21 16:16 Oxygen Delivery Method 10/28/21 16:16 Course Course Course Narrative: No new issues during course of stay Decision to Admit Date: 10/29/21 Decision to Admit time: 01:03 Orders Ordered: Discontinued Medications Amiodarone HCl (Amiodarone 200 Mg Tablet) 100 mg PO DAILY [facility] Last Admin: 10/29/21 10:06 Dose: 100 mg Documented By: LINA Apixaban (Apixaban 5 Mg Tablet) 5 mg PO DAILY [facility] [place] Last Admin: 10/29/21 10:08 Dose: 5 mg Documented By: LINA Aspirin (Aspirin Ec 81 Mg Tablet) 81 mg PO DAILY [facility] [place] Last Admin: 10/29/21 10:07 Dose: 81 mg Documented By: LINA Atorvastatin Calcium (Atorvastatin 20 Mg Tablet) 40 mg PO BEDTIME [facility] Dextrose (Dextrose 50 % In Water 25 Gm/50 Ml Syringe) 25 gm IV PRN PRN PRN Reason: Hypoglycemia Furosemide (Furosemide 20 Mg Tablet) 10 mg PO MoFr@0900 [facility] Sodium Chloride (Normal Saline 0.9%) 1,000 mls @ 1,000 mls/hr IV BOLUS ONE Stop: 10/28/21 20:44 Last Infusion: 10/28/21 22:00 Dose: 0 mls/hr Documented By: Admin: 10/28/21 19:54 Dose: 1,000 mls/hr Documented By: AT Sodium Chloride (Normal Saline 0.9%) 1,000 mls @ 100 mls/hr IV CONT [facility] Last Admin: 10/29/21 10:35 Dose: 100 mls/hr Documented By: Infusion: 10/29/21 10:35 Dose: 100 mls/hr Documented By: Admin: 10/29/21 01:56 Dose: 100 mls/hr Documented By: SONALI Insulin Glargine (Insulin Glargine 100 Unit/Ml 3ml Pen) 20 unit SUBCUT NOW ONE Stop: 10/29/21 00:53 Last Admin: 10/29/21 01:50 Dose: 20 unit Documented By: SONALI Co-signed By: FRANCHESKA Insulin Glargine (Insulin Glargine 100 Unit/Ml 3ml Pen) 20 unit SUBCUT BID [facility] [place] Last Admin: 10/29/21 10:00 Dose: Not Given Documented By: LINA Insulin Glargine (Insulin Glargine 100 Unit/Ml 3ml Pen) 20 unit SUBCUT DAILY [facility] [place] Last Admin: 10/29/21 10:20 Dose: 20 unit Documented By: LINA Co-signed By: YISEL Insulin Glargine (Insulin Glargine 100 Unit/Ml 3ml Pen) 10 unit SUBCUT NOW ONE Stop: 10/29/21 12:32 Insulin Human Lispro (Insulin Lispro 100 Unit/Ml 3ml Vial) 0 unit SUBCUT ACHS [facility]; Protocol Last Admin: 10/29/21 12:49 Dose: Not Given Documented By: Admin: 10/29/21 10:12 Dose: 100 unit Documented By: LINA Co-signed By: RAMONA Losartan Potassium (Losartan 50 Mg Tablet) 50 mg PO DAILY [facility] [place] Magnesium Chloride (Magnesium Chloride 64 Mg Tablet) 128 mg PO NOW ONE Stop: 10/29/21 11:01 Last Admin: 10/29/21 11:23 Dose: 128 mg Documented By: LINA Metoprolol Succinate (Metoprolol Er 25 Mg Tablet) 25 mg PO BID [facility] Reevaluation(s) Reevaluation #1: No new issues with patient. Blood sugar is trending downward. Patient in no distress. Resting comfortably Time: 01:03 Consultations Consultation #1: Spoke with hospitalist, Martina, will admit. Instructed to get of Lantus 20 units now. Start normal saline 100 mL/hour. Time: 01:03 Vital Signs Vital signs: Vital Signs - 8 hr 10/28/21 20:30 10/28/21 20:30 10/28/21 21:00 Pulse Rate 62 Respiratory Rate 14 Blood Pressure 125/63 130/68 Pulse Oximetry 98 10/28/21 21:00 10/28/21 21:30 10/28/21 21:30 Pulse Rate 64 64 Respiratory Rate 13 15 Blood Pressure 118/58 L Pulse Oximetry 98 97 10/28/21 22:00 10/28/21 22:00 10/28/21 22:30 Pulse Rate 58 L Respiratory Rate 14 Blood Pressure 130/62 135/63 Pulse Oximetry 97 10/28/21 22:30 10/28/21 23:00 10/28/21 23:00 Pulse Rate 68 62 Respiratory Rate 18 15 Blood Pressure 116/63 Pulse Oximetry 99 96 06/30/22 23:30 10/28/21 23:30 Pulse Rate 67 Respiratory Rate 14 Blood Pressure 125/62 Pulse Oximetry 96 MDM - Recheck/Abnormal Lab/Rx Differential Diagnosis Differential diagnosis: Likely other ( DKA/hyperglycemia/sepsis/UTI/pneumonia) Lab Data Result diagrams: 10/29/21 06:19 10/29/21 06:19 Labs: Lab Results 10/28/21 10/28/21 10/28/21 Range/Units 18:05 18:05 18:05 WBC 6.4 (4.5-11.0) X10^3/uL RBC 3.98 L (4.5-5.9) X10^6/uL Hgb 11.3 L (13.5-17.5) g/dL Hct 34.3 L (41-53) % MCV 86.4 (80-100) fL MCH 28.4 (26-34) PG MCHC 32.9 (30-36) % RDW 14.6 (11.6-14.8) % Plt Count 343 (150-400) X10^3/uL Neut % (Auto) 62.9 (50-75) % Lymph % (Auto) 17.6 L (25-40) % [place] % (Auto) 11.5 (3-14) % Eos % (Auto) 7.4 H (2-4) % Baso % (Auto) 0.6 (0-2) % Neut # (Auto) 4000 (1400-2572) /uL Lymph # (Auto) 1100 (0235-2418) /uL [place] # (Auto) 700 (0-900) /uL Eos # (Auto) 500 H (0-450) /uL Baso # (Auto) 0 (0-100) /uL PT 14.3 H (10.1-12.7) SECONDS INR 1.3 (0.9-1.3) APTT 41 H D (26.4-36.2) SECONDS VBG pH (7.33-7.43) VBG pCO2 (45-50) mmHg VBG pO2 (35-45) mmHg VBG HCO3 (23-28) mmol/L VBG Total CO2 (24-29) mmol/L VBG O2 Saturation (70-75) % VBG Base Excess (0-4) mmol/L Sodium 127 L (137-145) mmol/L Potassium 5.6 H (3.4-5.1) mmol/L Chloride 93 L (98-107) mmol/L Carbon Dioxide 22 (22-32) mmol/L BUN 29 H (9-20) mg/dL Creatinine 1.55 H (0.66-1.25) mg/dL Estimated GFR 45 L (>60) mL/min BUN/Creatinine Ratio 18.7 (6-22) Glucose 617 H* (80-110) mg/dL Hemoglobin A1c (4.0-6.0) % Lactate (0.7-2.1) mmol/L Calcium 9.2 (8.4-10.2) mg/dL Magnesium 1.7 (1.6-2.3) mg/dL Total Bilirubin 0.4 (0.2-1.3) mg/dL AST 29 (17-59) IU/L ALT 20 (<50) IU/L Alkaline Phosphatase 112 (38-126) U/L Total Protein 7.7 (6.3-8.2) g/dL Albumin 4.5 (3.5-5.0) g/dL Globulin 3.2 (1.7-4.1) g/dL Albumin/Globulin Ratio 1.4 (1.0-2.8) Procalcitonin (<0.5) ng/mL Urine Color Urine Appearance Urine pH (4.5-8.0) Ur Specific [place] (1.000-1.035) Urine Protein (Negative) Urine Glucose (UA) (Negative) g/dL Urine Ketones (NEGATIVE) Urine Occult Blood (Negative) Urine Nitrate (Negative) Urine Bilirubin (NEGATIVE) Urine Urobilinogen (0.2) E.U./dL Ur Leukocyte Esterase (NEGATIVE) Urine RBC (0-5/HPF) Urine WBC (0-5/HPF) Ur Squamous Epith Cells (0-5/HPF) Urine Bacteria (None) Ur Culture Indicated? Ketones (<0.27) mmol/L SARS-CoV-2 (PCR) (Negative) 10/28/21 10/28/21 10/28/21 Range/Units 18:05 18:05 18:05 WBC (4.5-11.0) X10^3/uL RBC (4.5-5.9) X10^6/uL Hgb (13.5-17.5) g/dL Hct (41-53) % MCV (80-100) fL MCH (26-34) PG MCHC (30-36) % RDW (11.6-14.8) % Plt Count (150-400) X10^3/uL Neut % (Auto) (50-75) % Lymph % (Auto) (25-40) % [place] % (Auto) (3-14) % Eos % (Auto) (2-4) % Baso % (Auto) (0-2) % Neut # (Auto) (3871-0097) /uL Lymph # (Auto) (0556-3434) /uL [place] # (Auto) (0-900) /uL Eos # (Auto) (0-450) /uL Baso # (Auto) (0-100) /uL PT (10.1-12.7) SECONDS INR (0.9-1.3) APTT (26.4-36.2) SECONDS VBG pH (7.33-7.43) VBG pCO2 (45-50) mmHg VBG pO2 (35-45) mmHg VBG HCO3 (23-28) mmol/L VBG Total CO2 (24-29) mmol/L VBG O2 Saturation (70-75) % VBG Base Excess (0-4) mmol/L Sodium (137-145) mmol/L Potassium (3.4-5.1) mmol/L Chloride (98-107) mmol/L Carbon Dioxide (22-32) mmol/L BUN (9-20) mg/dL Creatinine (0.66-1.25) mg/dL Estimated GFR (>60) mL/min BUN/Creatinine Ratio (6-22) Glucose (80-110) mg/dL Hemoglobin A1c (4.0-6.0) % Lactate 2.0 (0.7-2.1) mmol/L Calcium (8.4-10.2) mg/dL Magnesium (1.6-2.3) mg/dL Total Bilirubin (0.2-1.3) mg/dL AST (17-59) IU/L ALT (<50) IU/L Alkaline Phosphatase (38-126) U/L Total Protein (6.3-8.2) g/dL Albumin (3.5-5.0) g/dL Globulin (1.7-4.1) g/dL Albumin/Globulin Ratio (1.0-2.8) Procalcitonin 0.07 (<0.5) ng/mL Urine Color Urine Appearance Urine pH (4.5-8.0) Ur Specific [place] (1.000-1.035) Urine Protein (Negative) Urine Glucose (UA) (Negative) g/dL Urine Ketones (NEGATIVE) Urine Occult Blood (Negative) Urine Nitrate (Negative) Urine Bilirubin (NEGATIVE) Urine Urobilinogen (0.2) E.U./dL Ur Leukocyte Esterase (NEGATIVE) Urine RBC (0-5/HPF) Urine WBC (0-5/HPF) Ur Squamous Epith Cells (0-5/HPF) Urine Bacteria (None) Ur Culture Indicated? Ketones 0.20 (<0.27) mmol/L SARS-CoV-2 (PCR) (Negative) 10/28/21 10/28/21 10/28/21 Range/Units 18:05 19:26 19:28 WBC (4.5-11.0) X10^3/uL RBC (4.5-5.9) X10^6/uL Hgb (13.5-17.5) g/dL Hct (41-53) % MCV (80-100) fL MCH (26-34) PG MCHC (30-36) % RDW (11.6-14.8) % Plt Count (150-400) X10^3/uL Neut % (Auto) (50-75) % Lymph % (Auto) (25-40) % [place] % (Auto) (3-14) % Eos % (Auto) (2-4) % Baso % (Auto) (0-2) % Neut # (Auto) (8530-0575) /uL Lymph # (Auto) (5640-0849) /uL [place] # (Auto) (0-900) /uL Eos # (Auto) (0-450) /uL Baso # (Auto) (0-100) /uL PT (10.1-12.7) SECONDS INR (0.9-1.3) APTT (26.4-36.2) SECONDS VBG pH 7.39 (7.33-7.43) VBG pCO2 41.9 L (45-50) mmHg VBG pO2 40 (35-45) mmHg VBG HCO3 25 (23-28) mmol/L VBG Total CO2 27 (24-29) mmol/L VBG O2 Saturation 74 (70-75) % VBG Base Excess 0.0 (0-4) mmol/L Sodium (137-145) mmol/L Potassium (3.4-5.1) mmol/L Chloride (98-107) mmol/L Carbon Dioxide (22-32) mmol/L BUN (9-20) mg/dL Creatinine (0.66-1.25) mg/dL Estimated GFR (>60) mL/min BUN/Creatinine Ratio (6-22) Glucose (80-110) mg/dL Hemoglobin A1c 12.4 H (4.0-6.0) % Lactate (0.7-2.1) mmol/L Calcium (8.4-10.2) mg/dL Magnesium (1.6-2.3) mg/dL Total Bilirubin (0.2-1.3) mg/dL AST (17-59) IU/L ALT (<50) IU/L Alkaline Phosphatase (38-126) U/L Total Protein (6.3-8.2) g/dL Albumin (3.5-5.0) g/dL Globulin (1.7-4.1) g/dL Albumin/Globulin Ratio (1.0-2.8) Procalcitonin (<0.5) ng/mL Urine Color Urine Appearance Urine pH (4.5-8.0) Ur Specific [place] (1.000-1.035) Urine Protein (Negative) Urine Glucose (UA) (Negative) g/dL Urine Ketones (NEGATIVE) Urine Occult Blood (Negative) Urine Nitrate (Negative) Urine Bilirubin (NEGATIVE) Urine Urobilinogen (0.2) E.U./dL Ur Leukocyte Esterase (NEGATIVE) Urine RBC (0-5/HPF) Urine WBC (0-5/HPF) Ur Squamous Epith Cells (0-5/HPF) Urine Bacteria (None) Ur Culture Indicated? Ketones (<0.27) mmol/L SARS-CoV-2 (PCR) Negative (Negative) 10/28/21 10/28/21 Range/Units 20:00 21:37 WBC (4.5-11.0) X10^3/uL RBC (4.5-5.9) X10^6/uL Hgb (13.5-17.5) g/dL Hct (41-53) % MCV (80-100) fL MCH (26-34) PG MCHC (30-36) % RDW (11.6-14.8) % Plt Count (150-400) X10^3/uL Neut % (Auto) (50-75) % Lymph % (Auto) (25-40) % [place] % (Auto) (3-14) % Eos % (Auto) (2-4) % Baso % (Auto) (0-2) % Neut # (Auto) (4534-1280) /uL Lymph # (Auto) (9861-6670) /uL [place] # (Auto) (0-900) /uL Eos # (Auto) (0-450) /uL Baso # (Auto) (0-100) /uL PT (10.1-12.7) SECONDS INR (0.9-1.3) APTT (26.4-36.2) SECONDS VBG pH (7.33-7.43) VBG pCO2 (45-50) mmHg VBG pO2 (35-45) mmHg VBG HCO3 (23-28) mmol/L VBG Total CO2 (24-29) mmol/L VBG O2 Saturation (70-75) % VBG Base Excess (0-4) mmol/L Sodium 131 L (137-145) mmol/L Potassium 5.2 H (3.4-5.1) mmol/L Chloride 97 L (98-107) mmol/L Carbon Dioxide 24 (22-32) mmol/L BUN 27 H (9-20) mg/dL Creatinine 1.38 H (0.66-1.25) mg/dL Estimated GFR 52 L (>60) mL/min BUN/Creatinine Ratio 19.6 (6-22) Glucose 455 H D (80-110) mg/dL Hemoglobin A1c (4.0-6.0) % Lactate (0.7-2.1) mmol/L Calcium 8.8 (8.4-10.2) mg/dL Magnesium (1.6-2.3) mg/dL Total Bilirubin 0.4 (0.2-1.3) mg/dL AST 26 (17-59) IU/L ALT 18 (<50) IU/L Alkaline Phosphatase 97 (38-126) U/L Total Protein 6.8 (6.3-8.2) g/dL Albumin 3.9 (3.5-5.0) g/dL Globulin 2.9 (1.7-4.1) g/dL Albumin/Globulin Ratio 1.3 (1.0-2.8) Procalcitonin (<0.5) ng/mL Urine Color Yellow Urine Appearance Clear Urine pH 6.5 (4.5-8.0) Ur Specific [place] <=1.005 (1.000-1.035) Urine Protein Negative (Negative) Urine Glucose (UA) 3+ H (Negative) g/dL Urine Ketones Negative (NEGATIVE) Urine Occult Blood 2+ H (Negative) Urine Nitrate Negative (Negative) Urine Bilirubin Negative (NEGATIVE) Urine Urobilinogen 0.2 (0.2) E.U./dL Ur Leukocyte Esterase Negative (NEGATIVE) Urine RBC 1-5/hpf (0-5/HPF) Urine WBC None seen (0-5/HPF) Ur Squamous Epith Cells None seen (0-5/HPF) Urine Bacteria None seen (None) Ur Culture Indicated? Cult not indicated Ketones (<0.27) mmol/L SARS-CoV-2 (PCR) (Negative) Point of Care Testing Glucose POC 360 Imaging Data Chest x-ray: Radiologist's Impression: [address] [address] XRay Report Signed Patient: Praful Sawant MR#: [id number] : 1940 Acct:[id number] Age/Sex: 80 / M Date of Service: 10/28/21 Loc: ED Accession Number: [id number] ?? Procedure: XR chest 1V Ordering Provider: Yaya Alvarado MD PROCEDURE:? XR CHEST 1V ? INDICATIONS:? cough ? TECHNIQUE:? One view of the chest was acquired.? ? COMPARISON:? [facility], , XR CHEST 1V, 07/01/2021, 22:03. ? FINDINGS:? ? Surgical changes and devices:? Left chest wall AICD and leads appear similar in position. ?Postsurgical changes are also redemonstrated in the mediastinum including a prosthetic aortic valve.? ? Lungs and pleura:? Lungs are clear without acute consolidation.? No pleural effusions or pneumothorax.? ? Mediastinum:? Mediastinal contours are unchanged.? Heart size is enlarged. ? Bones and chest wall:? No suspicious bony lesions.? Overlying soft tissues appear unremarkable.? ? IMPRESSION:? ? 1. No acute cardiopulmonary disease.? ? ? Dictated by: Gaston Guido M.D. on 10/28/2021 at 19:51 ? ? Approved by: Gaston Guido M.D. on 10/28/2021 at 19:54 ? ECG Data Interpretation: Ventricular paced rhythm. Rate 65 MDM Narrative Medical decision making narrative: Appropriate for admission for evaluation of hyperglycemia. Hemoglobin A1c does read high. Patient not in DKA. Not requiring insulin drip. Reviewed with hospitalist. Patient agrees for admit Discharge Plan Departure Patient Disposition: Admitted as Observation Clinical Impression: Hyperkalemia, Hyperglycemia due to diabetes mellitus Admit Date/Time: 10/29/21 01:02 Admit Provider: Martina Harvey
[2021-10-28 19:36] LABS: HCO3 VBG 25 mmol/L (23-28); Oxygen Saturation VBG 74 % (70-75); PCO2 VBG 41.9 mmHg (45-50); PO2 VBG 40 mmHg (35-45); Total CO2 VBG 27 mmol/L (24-29); pH VBG 7.39 (7.33-7.43)
[2021-10-28 19:47] LABS: COVID19 -Nasal RAPID Negative (Negative)
[2021-10-28] MEDS: SODIUM CHLORIDE 0.9% 1,000 ML 1000 ML IV (19:54)
[2021-10-28 20:21] LABS: Appearance Urine UA CLEAR; Bilirubin Urine UA NEGATIVE (NEGATIVE); Color Urine UA YELLOW; Glucose Urine UA 3+ g/dL (Negative); Ketones Urine UA NEGATIVE (NEGATIVE); Leukocyte Esterase Urine UA NEGATIVE (NEGATIVE); Nitrite Urine UA NEGATIVE (Negative); Occult Blood Urine UA 2+ (Negative); Protein Urine UA NEGATIVE (Negative); Specific Gravity Urine UA <=1.005 (1.000-1.035); Urobilinogen Urine UA 0.2 E.U./dL (0.2); pH Urine UA 6.5 (4.5-8.0)
[2021-10-28 20:29] LABS: Bacteria Urine None Seen; Culture Indicated Urine Cult Not Indicated; RBC Urine 1-5/HPF (0-5/HPF); Squamous Epithelial Cell Urine None Seen (0-5/HPF); WBC Urine None Seen (0-5/HPF)
[2021-10-28 20:29] LABS: PTT Partial Thromboplastin Tim 41 SECONDS (26.4-36.2)
[2021-10-28 20:30] LABS: INR 1.3 (0.9-1.3); Prothrombin Time 14.3 SECONDS (10.1-12.7)
[2021-10-28 20:58] LABS: Procalcitonin 0.07 ng/mL (<0.5)
[2021-10-28 21:54] LABS: Alanine Aminotransferase 18 IU/L (<50); Albumin 3.9 g/dL (3.5-5.0); Albumin Globulin Ratio 1.3 (1.0-2.8); Alkaline Phosphatase 97 U/L (38-126); Aspartate Aminotransferase 26 IU/L (17-59); BUN Creatinine Ratio 19.6 (6-22); Bilirubin Total 0.4 mg/dL (0.2-1.3); Blood Urea Nitrogen 27 mg/dL (9-20); Calcium 8.8 mg/dL (8.4-10.2); Carbon Dioxide 24 mmol/L (22-32); Chloride 97 mmol/L (98-107); Estimated Glomerular Filt Rate 52 mL/min (>60); Globulin 2.9 g/dL (1.7-4.1); Glucose 455 mg/dL (80-110); HEMOLYSIS < 15 (0-50); Potassium 5.2 mmol/L (3.4-5.1); Sodium 131 mmol/L (137-145); Total Protein 6.8 g/dL (6.3-8.2)
[2021-10-28 23:55] LABS: Hemoglobin A1C% w Est Avg Glu 12.4 % (4.0-6.0)
[2021-10-29] VITALS (20 sets, daily range): BP systolic 98–137; BP diastolic 54–70; PULSE 65–91; RESP 12–25; TEMP 36.1–36.2; O2SAT 94–99; BMI 30.2
[2021-10-29] MEDS: INSULIN GLARGINE 100 UNIT/ML 3ML PEN 20 UNIT SUBCUT ×2 (01:50→10:20)
[2021-10-29] MEDS: SODIUM CHLORIDE 0.9% 1,000 ML 100 ML IV ×2 (01:56→10:35)
[2021-10-29 06:45] LABS: Add Manual Diff / Slide Review NO; Alanine Aminotransferase 17 IU/L (<50); Albumin 3.7 g/dL (3.5-5.0); Albumin Globulin Ratio 1.3 (1.0-2.8); Alkaline Phosphatase 86 U/L (38-126); Aspartate Aminotransferase 25 IU/L (17-59); BUN Creatinine Ratio 17.6 (6-22); Basophils Absolute Auto 0 /uL (0-100); Basophils Percent Auto 0.5 % (0-2); Bilirubin Total 0.5 mg/dL (0.2-1.3); Blood Urea Nitrogen 23 mg/dL (9-20); Calcium 8.8 mg/dL (8.4-10.2); Carbon Dioxide 26 mmol/L (22-32); Chloride 102 mmol/L (98-107); Eosinophils Absolute Auto 500 /uL (0-450); Estimated Glomerular Filt Rate 55 mL/min (>60); Globulin 2.9 g/dL (1.7-4.1); Glucose 277 mg/dL (80-110); HEMOLYSIS < 15 (0-50); Hematocrit 31.2 % (41-53); Hemoglobin 10.7 g/dL (13.5-17.5); Lymphocytes Absolute Auto 1000 /uL (1100-4500); Lymphocytes Percent Auto 18.1 % (25-40); Magnesium 1.6 mg/dL (1.6-2.3); Mean Corpuscular HGB Conc 34.2 % (30-36); Mean Corpuscular Hemoglobin 28.8 PG (26-34); Mean Corpuscular Volume 84.2 fL (80-100); Monocytes Absolute Auto 600 /uL (0-900); Monocytes Percent Auto 11.4 % (3-14); Neutrophils Absolute Auto 3200 /uL (1500-7000); Platelet Count 303 X10^3/uL (150-400); Potassium 4.8 mmol/L (3.4-5.1); Red Blood Cell Count 3.71 X10^6/uL (4.5-5.9); Red Cell Distribution Width 14.4 % (11.6-14.8); Sodium 134 mmol/L (137-145); Total Protein 6.6 g/dL (6.3-8.2); White Blood Cell Count 5.3 X10^3/uL (4.5-11.0)
[2021-10-29 06:54] LABS: NT-proBNP (BNP-Adult 18+) 6660 pg/mL (<450)
[2021-10-29] MEDS: AMIODARONE 200 MG TABLET 100 MG PO (10:06)
[2021-10-29] MEDS: ASPIRIN EC 81 MG TABLET PO (10:07)
[2021-10-29] MEDS: APIXABAN 5 MG TABLET PO (10:08)
[2021-10-29] MEDS: INSULIN LISPRO 100 UNIT/ML 3ML VIAL SUBCUT (10:12)
--- NOTE | 2021-10-29 10:56 | DIET.CONS ---
Dietary Consultation Note Admission Date: 10/29/2021 01:02 Assessment: 80y M admitted for elevated potassium (5.2) referred to nutrition for high A1c (12.4) on insulin therapy. Met c pt at bedside. Pt patient of Dr. Baig, has not yet seen him here at but has visit scheduled. Pt seeing Dr. Thibodeaux for wound care regarding big toe wound. It healed but when he purchased new shoes and started walking, it burst open again. Pt states he takes both basal and bolus insulin, cannot state what his routine is except that he has it written down, (1U per 15 points). Pt states finger sticks not an issue for him, he doesn't mind. Pt reports needing to benita his BG in the afternoon with bolus insulin. A1c 12.4 indicates this is not effective technique. Pt reports it has been many years since he experienced a hypogycemic episode. Discussed c pt he and Jovanni will likely need to adjust insulin routine to better manage BGs and encouraged pt to follow through with referral to [facility] as outpatient here at for nutrition assistance. Pt open to ONS Kaiden bid while hospitalized to support healing of toe wound. Ht: 177.8 cm Wt: 95.5 kg BMI: 30.2 Diet: 10/29/21 Breakfast Carbohydrate Consistent Diet Diet Modifications: ONS Kaiden bid Carbohydrate level: Small (2 CHO) Bedtime snack: Yes Nutrition Percent Meal Consumed 75% 10/29/21 09:20 Labs: RBC 3.71 X10^6/uL (4.5-5.9) L 10/29/21 06:19 Hgb 10.7 g/dL (13.5-17.5) L 10/29/21 06:19 Hct 31.2 % (41-53) L 10/29/21 06:19 Creatinine 1.31 mg/dL (0.66-1.25) H 10/29/21 06:19 Hemoglobin A1c 12.4 % (4.0-6.0) H 10/28/21 18:05 Lactate 2.0 mmol/L (0.7-2.1) 10/28/21 18:05 NT-Pro-B Natriuret Pep 6660 pg/mL (<450) H 10/29/21 06:19 Nutrition Diagnosis: altered nutrition related laboratory values (A1c) r/t endocrine dysfunction, ineffective insulin therapy routine aeb pt A1c 12.4, pt reports chasing BG with bolus insulin, pt with unhealing wound to big toe. Interventions: 1. [facility] insulin management visit c PCP. 2. [facility] OP DSME with Viridiana Kingston at . 3. [facility] ONS Kaiden to support wound healing and keeping BG while hospitalized in tight 140-180 range. Electronically Signed by: Gege Henriquez 10/29/21 10:[address] [facility] [address]
[2021-10-29] MEDS: MAGNESIUM CHLORIDE 64 MG TABLET 128 MG PO (11:23)
--- NOTE | 2021-10-29 11:46 | P.HP_ITS ---
History of Present Illness History of Present Illness Date Patient Seen: 10/29/21 Chief complaint: SENT BY , POTASSIUM IS HIGH Narrative: 80-year-old gentleman with coronary artery disease status post remote [place], status post pacemaker/AICD placement, diabetes mellitus type 2, insulin dependent, hypertension, hyperlipidemia, atrial fibrillation (paroxysmal) on chronic Eliquis anticoagulation, diabetic foot infection involving the left hallux, epidural steroid injection at L4/5 June of 2021, who was recently hospitalized 3 weeks ago at [facility] with ?foggy headedness and pressure ?. His [id number] who is an emergency department physician here recommended he be evaluated. While there, he was felt to have ongoing evidence of cardiac ischemia without W[place], and a stent was placed. He reports this is the 60 and he has received. He presented to our hospital yesterday for routine follow-up labs as he had an appointment scheduled for today's date with his manager army. He was contacted secondary to an elevated potassium level and referred to the emergency department for treatment. Labs revealed a sodium of 128, potassium 6.1, chloride 93, bicarb 24, BUN 27, creatinine 1.49, glucose of 444. Upon repeat CT in the emergency department sodium was 127, creatinine was 1.55, glucose was 617, and potassium was 5.6. With IV repletion, potassium trended down to 5.62 and glucose was down to 455 last evening. This morning, potassium normalized at 4.8, creatinine down to 1.31 (baseline 1.11), glucose is 277. Patient reports he is presently without complaints. Specifically he denies any chest pain, tightness, dizziness, nausea, vomiting, abdominal pain. He states he is still the urinal 5 times since arrival. He denies any weakness. Denies any other complaints. He states he likely for got to drink enough fluids in the past couple of days as he was walking all of the drama unfolding in [facility]. Patient History Medical History Bilateral foot-drop Coronary artery disease Diabetes mellitus Diabetic foot infection FH: mitral valve repair Gait instability Herniated nucleus pulposus, L4-5 Hypercholesterolemia Hypertension Multilevel spinal stenosis Paroxysmal atrial fibrillation Peripheral neuropathy Toe ulcer due to secondary DM Surgical History H/O left knee surgery Comment: Past medical history: Coronary artery disease status post remote [place] in the , status post stenting x6, status post pacemaker/AICD Diabetes mellitus type 2, insulin dependent the last 20 years Diabetic peripheral neuropathy new line chronic left hallux foot ulcer, followed outpatient by wound care Hypertension Hyperlipidemia Chronic back pain status post L4/L5 epidural injection July 20 Paroxysmal Atrial fibrillation on chronic Eliquis anticoagulation Family history: Brother type 1 diabetes and in his 30s secondary to his poor self-care Sister young secondary to [place] hemorrhage He reports a strong family history of diabetes, stroke, coronary disease Social history: Patient is lifelong nonsmoker. Drinks an occasional glass of wine. Lives with his locally. 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 Family & Social History Family History Father Tubercular lesion of lung Mother Congestive heart failure Diabetes mellitus Social History: household members spouse Safety & Behavioral: Feels Safe in Current Yes Environment Been Physically Hurt or No Threatened By a Person Tobacco & Substance use: Smoking Status Never smoker alcohol intake frequency holiday/special occasion Substance Use Type does not use Meds Home Medications and Allergies Home Medications Medication Instructions Recorded Confirmed Type insulin glargine 100 unit/mL 14 u SQ QAM ##0 12/13/16 10/29/21 History subcutaneous solution (Lantus U-100 Insulin) metoprolol succinate 50 mg 20 mg PO BID ##0 12/13/16 09/22/21 History tablet,extended release 24 hr (Toprol XL) telmisartan 40 mg tablet (Micardis) 40 mg PO QDAY ##0 12/13/16 09/22/21 History furosemide 20 mg tablet (Lasix) 10 mg PO SEEINSTR 05/05/21 09/22/21 History insulin lispro 100 unit/mL 1 sliding scale dose SUBCUT 05/05/21 09/22/21 History subcutaneous half-unit pen USEASDIRECTD (Humalog Garcia KwikPen (U-100)) rosuvastatin 20 mg tablet (Crestor) 20 mg PO DAILY 05/05/21 09/22/21 History apixaban 5 mg tablet (Eliquis) 5 mg PO DAILY 07/02/21 09/22/21 History aspirin 81 mg tablet 81 mg PO DAILY 07/02/21 09/22/21 History ferrous sulfate 325 mg (65 mg 325 mg PO DAILY 08/05/21 09/22/21 History iron) tablet (FeroSul) metformin 500 mg tablet,extended 500 mg PO QID #360 tabs 08/16/21 09/22/21 Rx release 24 hr amiodarone 100 mg tablet 100 mg PO DAILY 09/22/21 09/22/21 History Allergies Allergy/AdvReac Type Severity Reaction Status Date / Time [id number] Reductase AdvReac Intermediate lower body Verified 09/22/21 14:46 Inhibitor muscle pain [[id number] REDUCTASE INHIBITOR] Review of Systems Review of Systems Narrative: All other systems were reviewed negative Exam Vital Signs (past 8 hours): - 10/29/21 04:00 10/29/21 04:01 10/29/21 04:01 Temperature Pulse Rate 70 70 Respiratory Rate 16 18 Blood Pressure 116/60 Pulse Oximetry 94 97 Oxygen Flow Rate 10/29/21 04:30 10/29/21 04:30 10/29/21 05:00 Temperature Pulse Rate 67 Respiratory Rate 14 Blood Pressure 112/59 L 114/60 Pulse Oximetry 97 Oxygen Flow Rate 10/29/21 05:00 10/29/21 05:30 10/29/21 05:30 Temperature Pulse Rate 66 65 Respiratory Rate 12 12 Blood Pressure 110/55 L Pulse Oximetry 97 98 Oxygen Flow Rate 10/29/21 06:00 10/29/21 06:01 10/29/21 06:01 Temperature Pulse Rate 71 69 Respiratory Rate 15 15 Blood Pressure 118/70 Pulse Oximetry 97 98 Oxygen Flow Rate 10/29/21 06:30 10/29/21 06:30 10/29/21 08:40 Temperature 97.2 F L Pulse Rate 67 91 H Respiratory Rate 15 16 Blood Pressure 106/63 98/54 L Pulse Oximetry 96 97 Oxygen Flow Rate 0 Oxygen Delivery Method Room Air Oxygen Flow Rate 0 Narrative Exam Narrative: GEN: Very pleasant elderly male, Alert and oriented x3, no acute distress HEENT: Normocephalic, face symmetric, pupils equal round reactive to light, extraocular movements intact, sclerae anicteric, conjunctiva clear, nares patent, oropharynx reveals an intact soft and hard palate with moist mucous membranes, dentition is fair NECK: Supple, no lymphadenopathy, thyroid without enlargement or nodularity, carotids no bruits CHEST: Respiratory excursions symmetric, course in the lung bases, otherwise clear to auscultation bilaterally CV: Regular rate and rhythm, no murmurs, rubs, gallops, PMI nondisplaced ABD: Soft, nontender, nondistended, bowel sounds present in all 4 quadrants, no organomegaly or masses appreciated EXTR: Warm, well perfused, no clubbing/cyanosis/edema SKIN: Warm and dry, without rash NEURO: Alert and oriented x3, cranial nerves 2 through 12 are intact and symmetric bilaterally, motor strength 5/5 throughout, sensation intact throughout PSYCH: Mood and affect is within normal limits, judgment and insight are appropriate Objective Labs Result Diagrams: 10/29/21 06:19 10/29/21 06:19 Labs: Laboratory Results - last 24 hr 10/28/21 10/28/21 10/28/21 18:05 18:05 18:05 WBC 6.4 RBC 3.98 L Hgb 11.3 L Hct 34.3 L MCV 86.4 MCH 28.4 MCHC 32.9 RDW 14.6 Plt Count 343 Neut % (Auto) 62.9 Lymph % (Auto) 17.6 L [place] % (Auto) 11.5 Eos % (Auto) 7.4 H Baso % (Auto) 0.6 Neut # (Auto) 4000 Lymph # (Auto) 1100 [place] # (Auto) 700 Eos # (Auto) 500 H Baso # (Auto) 0 PT 14.3 H INR 1.3 APTT 41 H D VBG pH VBG pCO2 VBG pO2 VBG HCO3 VBG Total CO2 VBG O2 Saturation VBG Base Excess Sodium 127 L Potassium 5.6 H Chloride 93 L Carbon Dioxide 22 BUN 29 H Creatinine 1.55 H Estimated GFR 45 L BUN/Creatinine Ratio 18.7 Glucose 617 H* Hemoglobin A1c Lactate Calcium 9.2 Magnesium 1.7 Total Bilirubin 0.4 AST 29 ALT 20 Alkaline Phosphatase 112 NT-Pro-B Natriuret Pep Total Protein 7.7 Albumin 4.5 Globulin 3.2 Albumin/Globulin Ratio 1.4 Procalcitonin Urine Color Urine Appearance Urine pH Ur Specific [place] Urine Protein Urine Glucose (UA) Urine Ketones Urine Occult Blood Urine Nitrate Urine Bilirubin Urine Urobilinogen Ur Leukocyte Esterase Urine RBC Urine WBC Ur Squamous Epith Cells Urine Bacteria Ur Culture Indicated? Ketones SARS-CoV-2 (PCR) 06/30/22 06/30/22 06/30/22 18:05 18:05 18:05 WBC RBC Hgb Hct MCV MCH MCHC RDW Plt Count Neut % (Auto) Lymph % (Auto) [place] % (Auto) Eos % (Auto) Baso % (Auto) Neut # (Auto) Lymph # (Auto) [place] # (Auto) Eos # (Auto) Baso # (Auto) PT INR APTT VBG pH VBG pCO2 VBG pO2 VBG HCO3 VBG Total CO2 VBG O2 Saturation VBG Base Excess Sodium Potassium Chloride Carbon Dioxide BUN Creatinine Estimated GFR BUN/Creatinine Ratio Glucose Hemoglobin A1c Lactate 2.0 Calcium Magnesium Total Bilirubin AST ALT Alkaline Phosphatase NT-Pro-B Natriuret Pep Total Protein Albumin Globulin Albumin/Globulin Ratio Procalcitonin 0.07 Urine Color Urine Appearance Urine pH Ur Specific [place] Urine Protein Urine Glucose (UA) Urine Ketones Urine Occult Blood Urine Nitrate Urine Bilirubin Urine Urobilinogen Ur Leukocyte Esterase Urine RBC Urine WBC Ur Squamous Epith Cells Urine Bacteria Ur Culture Indicated? Ketones 0.20 SARS-CoV-2 (PCR) 10/28/21 10/28/21 10/28/21 18:05 19:26 19:28 WBC RBC Hgb Hct MCV MCH MCHC RDW Plt Count Neut % (Auto) Lymph % (Auto) [place] % (Auto) Eos % (Auto) Baso % (Auto) Neut # (Auto) Lymph # (Auto) [place] # (Auto) Eos # (Auto) Baso # (Auto) PT INR APTT VBG pH 7.39 VBG pCO2 41.9 L VBG pO2 40 VBG HCO3 25 VBG Total CO2 27 VBG O2 Saturation 74 VBG Base Excess 0.0 Sodium Potassium Chloride Carbon Dioxide BUN Creatinine Estimated GFR BUN/Creatinine Ratio Glucose Hemoglobin A1c 12.4 H Lactate Calcium Magnesium Total Bilirubin AST ALT Alkaline Phosphatase NT-Pro-B Natriuret Pep Total Protein Albumin Globulin Albumin/Globulin Ratio Procalcitonin Urine Color Urine Appearance Urine pH Ur Specific [place] Urine Protein Urine Glucose (UA) Urine Ketones Urine Occult Blood Urine Nitrate Urine Bilirubin Urine Urobilinogen Ur Leukocyte Esterase Urine RBC Urine WBC Ur Squamous Epith Cells Urine Bacteria Ur Culture Indicated? Ketones SARS-CoV-2 (PCR) Negative 10/28/21 10/28/21 10/29/21 20:00 21:37 06:19 WBC 5.3 RBC 3.71 L Hgb 10.7 L Hct 31.2 L MCV 84.2 MCH 28.8 MCHC 34.2 RDW 14.4 Plt Count 303 Neut % (Auto) 61.0 Lymph % (Auto) 18.1 L [place] % (Auto) 11.4 Eos % (Auto) 9.0 H Baso % (Auto) 0.5 Neut # (Auto) 3200 Lymph # (Auto) 1000 L [place] # (Auto) 600 Eos # (Auto) 500 H Baso # (Auto) 0 PT INR APTT VBG pH VBG pCO2 VBG pO2 VBG HCO3 VBG Total CO2 VBG O2 Saturation VBG Base Excess Sodium 131 L Potassium 5.2 H Chloride 97 L Carbon Dioxide 24 BUN 27 H Creatinine 1.38 H Estimated GFR 52 L BUN/Creatinine Ratio 19.6 Glucose 455 H D Hemoglobin A1c Lactate Calcium 8.8 Magnesium Total Bilirubin 0.4 AST 26 ALT 18 Alkaline Phosphatase 97 NT-Pro-B Natriuret Pep Total Protein 6.8 Albumin 3.9 Globulin 2.9 Albumin/Globulin Ratio 1.3 Procalcitonin Urine Color Yellow Urine Appearance Clear Urine pH 6.5 Ur Specific [place] <=1.005 Urine Protein Negative Urine Glucose (UA) 3+ H Urine Ketones Negative Urine Occult Blood 2+ H Urine Nitrate Negative Urine Bilirubin Negative Urine Urobilinogen 0.2 Ur Leukocyte Esterase Negative Urine RBC 1-5/hpf Urine WBC None seen Ur Squamous Epith Cells None seen Urine Bacteria None seen Ur Culture Indicated? Cult not indicated Ketones SARS-CoV-2 (PCR) 10/29/21 06:19 WBC RBC Hgb Hct MCV MCH MCHC RDW Plt Count Neut % (Auto) Lymph % (Auto) [place] % (Auto) Eos % (Auto) Baso % (Auto) Neut # (Auto) Lymph # (Auto) [place] # (Auto) Eos # (Auto) Baso # (Auto) PT INR APTT VBG pH VBG pCO2 VBG pO2 VBG HCO3 VBG Total CO2 VBG O2 Saturation VBG Base Excess Sodium 134 L Potassium 4.8 Chloride 102 Carbon Dioxide 26 BUN 23 H Creatinine 1.31 H Estimated GFR 55 L BUN/Creatinine Ratio 17.6 Glucose 277 H D Hemoglobin A1c Lactate Calcium 8.8 Magnesium 1.6 Total Bilirubin 0.5 AST 25 ALT 17 Alkaline Phosphatase 86 NT-Pro-B Natriuret Pep 6660 H Total Protein 6.6 Albumin 3.7 Globulin 2.9 Albumin/Globulin Ratio 1.3 Procalcitonin Urine Color Urine Appearance Urine pH Ur Specific [place] Urine Protein Urine Glucose (UA) Urine Ketones Urine Occult Blood Urine Nitrate Urine Bilirubin Urine Urobilinogen Ur Leukocyte Esterase Urine RBC Urine WBC Ur Squamous Epith Cells Urine Bacteria Ur Culture Indicated? Ketones SARS-CoV-2 (PCR) Assessment & Plan Assessment & Plan narrative: 1. YU Patient presented with mild hyponatremia at 127, Yu with a creatinine of 1.55. Etiology is likely hyperglycemia with some component of polyuria and poor oral intake in the days prior to admission. Has improved with IV hydration. He is taking adequate oral fluids. 2. Hyperkalemia All the meds have not yet been reconciled, it appears the patient takes chronic Micardis as well as furosemide. Meds were held on admission. With IV fluid hydration, creatinine has improved and potassium is now back to normal at 4.8. Will plan to hold furosemide losartan for the next several days. Patient is instructed to monitor his fluid intake. 3. Diabetes mellitus type 2, insulin dependent with hyperglycemia Blood sugar was 617 on admission. It is now down to 277. He is insulin dependent. Meds have not yet been reconciled but it does appear he takes Lantus in the morning (perhaps 14 units) along with sliding scale. Await medication reconciliation and will resume his usual insulin at discharge. 4. Paroxysmal atrial fibrillation on chronic Eliquis anticoagulation His sinus by exam today. His heart sounds are somewhat distant. Will continue his usual amiodarone, metoprolol, and Eliquis. 5. Hypertension Blood pressures are normotensive to very slightly low normal. As above, plan to hold his furosemide. What monitor blood pressures at home prior to taking his antihypertensive therapy. 6. Chronic left hallux diabetic foot ulcer Continue follow-up with wound care. 7. Hyperlipidemia Continue Crestor. 8. Prophylaxis Patient is on Eliquis 9. Disposition RN will ambulate the patient about the unit. As long as he is stable and remains asymptomatic, anticipate discharge home. Have encouraged him to call his manager army today to schedule follow-up appointment for early next week. Time Spent With Patient Critical Care time: I spent a total of [] minutes of critical care time on this patient's care today; this time is exclusive of procedural time.
--- NOTE | 2021-10-29 14:52 | PC.NURSE ---
Pt is A&Ox3, VSS, afebrile on RA. On telemetry this a.m. NSR with PVC's asymptomatic of respiraroty distress, denies c/o pain, dizziness, n/v. He is tolerating po diet well. He is ambualting with steady gait with cane. He is evaluated by MD and cleared for discharge home today. He verbalizes understanding of medications, activity and instructions. RN escorts patient to private vehicle where his car was parked for discharge home this afternoon at 1400.
--- NOTE | 2021-10-29 15:00 | PM.DS.1 ---
History of Present Illness History of Present Illness Chief complaint: SENT BY , POTASSIUM IS HIGH Narrative: 80-year-old gentleman with coronary artery disease status post remote DE, status post pacemaker/AICD placement, diabetes mellitus type 2, insulin dependent, hypertension, hyperlipidemia, atrial fibrillation (paroxysmal) on chronic Eliquis anticoagulation, diabetic foot infection involving the left hallux, epidural steroid injection at L4/5 June of 2021, who was recently hospitalized 3 weeks ago at [facility] with ?foggy headedness and pressure ?. His [id number] who is an emergency department physician here recommended he be evaluated. While there, he was felt to have ongoing evidence of cardiac ischemia without DE, and a stent was placed. He reports this is the 60 and he has received. He presented to our hospital yesterday for routine follow-up labs as he had an appointment scheduled for today's date with his freezing machine operator. He was contacted secondary to an elevated potassium level and referred to the emergency department for treatment. Labs revealed a sodium of 128, potassium 6.1, chloride 93, bicarb 24, BUN 27, creatinine 1.49, glucose of 444. Upon repeat CT in the emergency department sodium was 127, creatinine was 1.55, glucose was 617, and potassium was 5.6. With IV repletion, potassium trended down to 5.62 and glucose was down to 455 last evening. This morning, potassium normalized at 4.8, creatinine down to 1.31 (baseline 1.11), glucose is 277. Patient reports he is presently without complaints. Specifically he denies any chest pain, tightness, dizziness, nausea, vomiting, abdominal pain. He states he is still the urinal 5 times since arrival. He denies any weakness. Denies any other complaints. He states he likely for got to drink enough fluids in the past couple of days as he was walking all of the drama unfolding in [facility]. Discharge Providers Provider Date of admission: 10/29/21 01:02 Discharge Date: 10/29/21 Primary care physician: Zaheer Baig MD Consults: 10/29/21 03:26 Consult to Dietitian, Adult Routine Comment: Reason For Exam: BMI 30.8, Uncontrolled DM Discharge provider: Amelia Calhoun MD Summary Hospital Course Discharge Diagnosis: YU, improved Hyperkalemia, resolved Diabetes mellitus type 2, insulin dependent with hyperglycemia, improved Paroxysmal atrial fibrillation on chronic Eliquis anticoagulation Hypertension Chronic left hallux diabetic foot ulcer Hyperlipidemia Hospital Course: Patient was admitted to the hospital with hyperglycemia, hyperkalemia, and YU, but was asymptomatic. He was treated with fluids and insulin with improvement in his lab parameters. He did well overnight and was back to baseline at the time of discharge. He will follow up with his freezing machine operator next week and should have repeat laboratories done at that time. Exam Vital Signs (past 8 hours): - 10/29/21 08:40 10/29/21 12:00 10/29/21 08:00 Temperature 97.2 F L 97.0 F L Pulse Rate 91 H 65 Respiratory Rate 16 17 Blood Pressure 98/54 L 104/59 L Pulse Oximetry 97 99 99 Oxygen Delivery Method Room Air Oxygen Flow Rate 0 0 10/29/21 12:00 Temperature Pulse Rate Respiratory Rate Blood Pressure Pulse Oximetry 95 Oxygen Delivery Method Room Air Oxygen Flow Rate Oxygen Delivery Method Room Air Oxygen Flow Rate 0 Objective Labs Result Diagrams: 10/29/21 06:19 10/29/21 06:19 Labs: Laboratory Results - last 24 hr 10/28/21 10/28/21 10/28/21 18:05 18:05 18:05 WBC 6.4 RBC 3.98 L Hgb 11.3 L Hct 34.3 L MCV 86.4 MCH 28.4 MCHC 32.9 RDW 14.6 Plt Count 343 Neut % (Auto) 62.9 Lymph % (Auto) 17.6 L [place] % (Auto) 11.5 Eos % (Auto) 7.4 H Baso % (Auto) 0.6 Neut # (Auto) 4000 Lymph # (Auto) 1100 [place] # (Auto) 700 Eos # (Auto) 500 H Baso # (Auto) 0 PT 14.3 H INR 1.3 APTT 41 H D VBG pH VBG pCO2 VBG pO2 VBG HCO3 VBG Total CO2 VBG O2 Saturation VBG Base Excess Sodium 127 L Potassium 5.6 H Chloride 93 L Carbon Dioxide 22 BUN 29 H Creatinine 1.55 H Estimated GFR 45 L BUN/Creatinine Ratio 18.7 Glucose 617 H* Hemoglobin A1c Lactate Calcium 9.2 Magnesium 1.7 Total Bilirubin 0.4 AST 29 ALT 20 Alkaline Phosphatase 112 NT-Pro-B Natriuret Pep Total Protein 7.7 Albumin 4.5 Globulin 3.2 Albumin/Globulin Ratio 1.4 Procalcitonin Urine Color Urine Appearance Urine pH Ur Specific [place] Urine Protein Urine Glucose (UA) Urine Ketones Urine Occult Blood Urine Nitrate Urine Bilirubin Urine Urobilinogen Ur Leukocyte Esterase Urine RBC Urine WBC Ur Squamous Epith Cells Urine Bacteria Ur Culture Indicated? Ketones SARS-CoV-2 (PCR) 10/28/21 10/28/21 10/28/21 18:05 18:05 18:05 WBC RBC Hgb Hct MCV MCH MCHC RDW Plt Count Neut % (Auto) Lymph % (Auto) [place] % (Auto) Eos % (Auto) Baso % (Auto) Neut # (Auto) Lymph # (Auto) [place] # (Auto) Eos # (Auto) Baso # (Auto) PT INR APTT VBG pH VBG pCO2 VBG pO2 VBG HCO3 VBG Total CO2 VBG O2 Saturation VBG Base Excess Sodium Potassium Chloride Carbon Dioxide BUN Creatinine Estimated GFR BUN/Creatinine Ratio Glucose Hemoglobin A1c Lactate 2.0 Calcium Magnesium Total Bilirubin AST ALT Alkaline Phosphatase NT-Pro-B Natriuret Pep Total Protein Albumin Globulin Albumin/Globulin Ratio Procalcitonin 0.07 Urine Color Urine Appearance Urine pH Ur Specific [place] Urine Protein Urine Glucose (UA) Urine Ketones Urine Occult Blood Urine Nitrate Urine Bilirubin Urine Urobilinogen Ur Leukocyte Esterase Urine RBC Urine WBC Ur Squamous Epith Cells Urine Bacteria Ur Culture Indicated? Ketones 0.20 SARS-CoV-2 (PCR) 10/28/21 10/28/21 10/28/21 18:05 19:26 19:28 WBC RBC Hgb Hct MCV MCH MCHC RDW Plt Count Neut % (Auto) Lymph % (Auto) [place] % (Auto) Eos % (Auto) Baso % (Auto) Neut # (Auto) Lymph # (Auto) [place] # (Auto) Eos # (Auto) Baso # (Auto) PT INR APTT VBG pH 7.39 VBG pCO2 41.9 L VBG pO2 40 VBG HCO3 25 VBG Total CO2 27 VBG O2 Saturation 74 VBG Base Excess 0.0 Sodium Potassium Chloride Carbon Dioxide BUN Creatinine Estimated GFR BUN/Creatinine Ratio Glucose Hemoglobin A1c 12.4 H Lactate Calcium Magnesium Total Bilirubin AST ALT Alkaline Phosphatase NT-Pro-B Natriuret Pep Total Protein Albumin Globulin Albumin/Globulin Ratio Procalcitonin Urine Color Urine Appearance Urine pH Ur Specific [place] Urine Protein Urine Glucose (UA) Urine Ketones Urine Occult Blood Urine Nitrate Urine Bilirubin Urine Urobilinogen Ur Leukocyte Esterase Urine RBC Urine WBC Ur Squamous Epith Cells Urine Bacteria Ur Culture Indicated? Ketones SARS-CoV-2 (PCR) Negative 10/28/21 10/28/21 10/29/21 20:00 21:37 06:19 WBC 5.3 RBC 3.71 L Hgb 10.7 L Hct 31.2 L MCV 84.2 MCH 28.8 MCHC 34.2 RDW 14.4 Plt Count 303 Neut % (Auto) 61.0 Lymph % (Auto) 18.1 L [place] % (Auto) 11.4 Eos % (Auto) 9.0 H Baso % (Auto) 0.5 Neut # (Auto) 3200 Lymph # (Auto) 1000 L [place] # (Auto) 600 Eos # (Auto) 500 H Baso # (Auto) 0 PT INR APTT VBG pH VBG pCO2 VBG pO2 VBG HCO3 VBG Total CO2 VBG O2 Saturation VBG Base Excess Sodium 131 L Potassium 5.2 H Chloride 97 L Carbon Dioxide 24 BUN 27 H Creatinine 1.38 H Estimated GFR 52 L BUN/Creatinine Ratio 19.6 Glucose 455 H D Hemoglobin A1c Lactate Calcium 8.8 Magnesium Total Bilirubin 0.4 AST 26 ALT 18 Alkaline Phosphatase 97 NT-Pro-B Natriuret Pep Total Protein 6.8 Albumin 3.9 Globulin 2.9 Albumin/Globulin Ratio 1.3 Procalcitonin Urine Color Yellow Urine Appearance Clear Urine pH 6.5 Ur Specific [place] <=1.005 Urine Protein Negative Urine Glucose (UA) 3+ H Urine Ketones Negative Urine Occult Blood 2+ H Urine Nitrate Negative Urine Bilirubin Negative Urine Urobilinogen 0.2 Ur Leukocyte Esterase Negative Urine RBC 1-5/hpf Urine WBC None seen Ur Squamous Epith Cells None seen Urine Bacteria None seen Ur Culture Indicated? Cult not indicated Ketones SARS-CoV-2 (PCR) 10/29/21 06:19 WBC RBC Hgb Hct MCV MCH MCHC RDW Plt Count Neut % (Auto) Lymph % (Auto) [place] % (Auto) Eos % (Auto) Baso % (Auto) Neut # (Auto) Lymph # (Auto) [place] # (Auto) Eos # (Auto) Baso # (Auto) PT INR APTT VBG pH VBG pCO2 VBG pO2 VBG HCO3 VBG Total CO2 VBG O2 Saturation VBG Base Excess Sodium 134 L Potassium 4.8 Chloride 102 Carbon Dioxide 26 BUN 23 H Creatinine 1.31 H Estimated GFR 55 L BUN/Creatinine Ratio 17.6 Glucose 277 H D Hemoglobin A1c Lactate Calcium 8.8 Magnesium 1.6 Total Bilirubin 0.5 AST 25 ALT 17 Alkaline Phosphatase 86 NT-Pro-B Natriuret Pep 6660 H Total Protein 6.6 Albumin 3.7 Globulin 2.9 Albumin/Globulin Ratio 1.3 Procalcitonin Urine Color Urine Appearance Urine pH Ur Specific [place] Urine Protein Urine Glucose (UA) Urine Ketones Urine Occult Blood Urine Nitrate Urine Bilirubin Urine Urobilinogen Ur Leukocyte Esterase Urine RBC Urine WBC Ur Squamous Epith Cells Urine Bacteria Ur Culture Indicated? Ketones SARS-CoV-2 (PCR) PFSH Medical History Bilateral foot-drop Coronary artery disease Diabetes mellitus Diabetic foot infection FH: mitral valve repair Gait instability Herniated nucleus pulposus, L4-5 Hypercholesterolemia Hypertension Multilevel spinal stenosis Paroxysmal atrial fibrillation Peripheral neuropathy Toe ulcer due to secondary DM Surgical History H/O left knee surgery Family History Father Tubercular lesion of lung Mother Congestive heart failure Diabetes mellitus Social History household members: spouse Smoking Status: Never smoker alcohol intake: current Discharge Plan Discharge Plan Patient Disposition: Home Provider Discharge Comment: Hold furosemide, metformin, and telmisartan through Monday. Weigh yourself daily. If your weight goes up by more than 3# in 24 hours, please contact the alteration worker provider either for your PCP or your freezing machine operator. Monitor your fluid intake. Please check your blood pressure twice per day. If your blood pressure is less than 105 systolic, please hold your metoprolol. Monitor your blood sugars at least twice daily. Call your PCP for blood sugar above 400 Discharge orders & Medications Prescriptions: Continued insulin glargine [Lantus U-100 Insulin] 100 UNIT/1 ML solution 14 u SQ QAM Qty: 0 telmisartan [Micardis] 40 MG tablet 40 mg PO QDAY Qty: 0 metoprolol succinate [Toprol XL] 50 MG tablet extended release 24 hr 20 mg PO BID Qty: 0 metformin 500 mg tablet extended release 24 hr 500 mg PO QID Qty: 360 11RF Rx Instructions: With meals. Eliquis 5 mg Tablet 5 mg PO DAILY aspirin 81 mg Tablet 81 mg PO DAILY rosuvastatin [Crestor] 20 mg tablet 20 mg PO DAILY furosemide [Lasix] 20 mg tablet 10 mg PO SEEINSTR Label Comments: Monday and Monday insulin lispro [Humalog Garcia KwikPen U-100] 100 unit/mL insulin pen, half-unit 1 sliding scale dose SUBCUT USEASDIRECTD amiodarone 100 mg tablet 100 mg PO DAILY ferrous sulfate [FeroSul] 325 mg (65 mg iron) tablet 325 mg PO DAILY Label Comments: TAKE 1 TABLET BY MOUTH DAILY WITH BREAKFAST Medication counseling provided by Pharmacist: No Follow up/Referrals: Zaheer Baig MD [Primary Care Provider] - Diet/Activity/Treatments Diet: Carb-consistent/Diabetic Activity: As tolerated, use your cane Oxygen: N/A Discharge Data Primary Care Provider: Zaheer Baig V Attending Provider: Martina Harvey
== END 2021-10-29 14:00 | disposition home or self-care (01) | DRG 683 ==
LOC: ED 21:41 → AC 10-29 01:03
PROVIDERS: Emergency Medicine; Admitting Provider Nurse Practitioner Family; Emergency Provider Nurse Practitioner Family; PCP Internal Medicine; Referring Provider Internal Medicine Cardiovascular Disease; Visit Provider Nurse Practitioner Family
DX: N17.9 Acute kidney failure, unspecified (principal); E87.1 Hypo-osmolality and hyponatremia; E87.5 Hyperkalemia; E11.65 Type 2 diabetes mellitus with hyperglycemia; I48.0 Paroxysmal atrial fibrillation; I10 Essential (primary) hypertension; E78.5 Hyperlipidemia, unspecified; Z79.84 Long term (current) use of oral hypoglycemic drugs; Z79.01 Long term (current) use of anticoagulants; Z79.4 Long term (current) use of insulin; Z95.0 Presence of cardiac pacemaker; Z20.822 Contact with and (suspected) exposure to COVID-19
CPT/HCPCS: 36415; 71045; 80053; 80061; 81001; 82009; 82805; 82962; 83036; 83605; 83735; 83880; 84145; 84443; 85025; 85610; 85730; 87635; 93005; 96360; 96361; 96372; 99284; C9803; G0378; J1815

== ENCOUNTER → 2021-11-03 14:47 | Outpatient (CLI) | payer MEDICARE, SELFPAY ==
[2021-10-29 08:04] VITALS: BMI 30.2
== END ==
PROVIDERS: PCP Internal Medicine; Referring Provider Internal Medicine; Visit Provider Family Medicine
DX: E11.621 Type 2 diabetes mellitus with foot ulcer (principal); L97.521 Non-pressure chronic ulcer of other part of left foot limited to breakdown of skin; R60.0 Localized edema; E11.40 Type 2 diabetes mellitus with diabetic neuropathy, unspecified; Z79.01 Long term (current) use of anticoagulants; Z79.4 Long term (current) use of insulin; Z79.84 Long term (current) use of oral hypoglycemic drugs
CPT/HCPCS: 99213

== ENCOUNTER → 2021-11-24 14:54 | Outpatient (CLI) | payer MEDICARE, SELFPAY ==
[2021-10-29 08:04] VITALS: BMI 30.2
== END ==
PROVIDERS: PCP Internal Medicine; Referring Provider Internal Medicine; Visit Provider Family Medicine
DX: E11.621 Type 2 diabetes mellitus with foot ulcer (principal); L97.521 Non-pressure chronic ulcer of other part of left foot limited to breakdown of skin
CPT/HCPCS: 97602

== ENCOUNTER → 2021-12-01 12:02 | Outpatient (CLI) | payer MEDICARE, SELFPAY ==
[2021-10-29 08:04] VITALS: BMI 30.2
== END ==
PROVIDERS: PCP Internal Medicine; Referring Provider Internal Medicine; Visit Provider Family Medicine
DX: E11.621 Type 2 diabetes mellitus with foot ulcer (principal); L97.522 Non-pressure chronic ulcer of other part of left foot with fat layer exposed; E11.42 Type 2 diabetes mellitus with diabetic polyneuropathy
CPT/HCPCS: 11042; 99213

== ENCOUNTER → 2021-12-07 14:58 | Outpatient (CLI) | payer MEDICARE, SELFPAY ==
[2021-10-29 08:04] VITALS: BMI 30.2
== END ==
PROVIDERS: PCP Internal Medicine; Referring Provider Internal Medicine; Visit Provider Family Medicine
DX: E11.621 Type 2 diabetes mellitus with foot ulcer (principal); L97.522 Non-pressure chronic ulcer of other part of left foot with fat layer exposed; E11.42 Type 2 diabetes mellitus with diabetic polyneuropathy
CPT/HCPCS: 99212

== ENCOUNTER → 2021-12-15 09:20 | Outpatient (CLI) | payer MEDICARE, SELFPAY ==
[2021-10-29 08:04] VITALS: BMI 30.2
[2021-12-15 10:41] LABS: Add Manual Diff / Slide Review NO; Basophils Absolute Auto 0 /uL (0-100); Basophils Percent Auto 0.4 % (0-2); Eosinophils Absolute Auto 700 /uL (0-450); Eosinophils Percent Auto 12.8 % (2-4); Hematocrit 33.1 % (41-53); Hemoglobin 11.4 g/dL (13.5-17.5); Lymphocytes Absolute Auto 900 /uL (1100-4500); Lymphocytes Percent Auto 16.4 % (25-40); Mean Corpuscular HGB Conc 34.3 % (30-36); Mean Corpuscular Hemoglobin 29.1 PG (26-34); Mean Corpuscular Volume 84.8 fL (80-100); Monocytes Absolute Auto 600 /uL (0-900); Monocytes Percent Auto 10.2 % (3-14); Neutrophils Absolute Auto 3500 /uL (1500-7000); Neutrophils Percent Auto 60.2 % (50-75); Platelet Count 227 X10^3/uL (150-400); Red Blood Cell Count 3.91 X10^6/uL (4.5-5.9); White Blood Cell Count 5.8 X10^3/uL (4.5-11.0)
[2021-12-15 11:01] LABS: Alanine Aminotransferase 19 IU/L (<50); Albumin 4.2 g/dL (3.5-5.0); Albumin Globulin Ratio 1.5 (1.0-2.8); Alkaline Phosphatase 92 U/L (38-126); Aspartate Aminotransferase 27 IU/L (17-59); BUN Creatinine Ratio 18.6 (6-22); Bilirubin Total 0.6 mg/dL (0.2-1.3); Blood Urea Nitrogen 26 mg/dL (9-20); Calcium 9.2 mg/dL (8.4-10.2); Carbon Dioxide 24 mmol/L (22-32); Chloride 97 mmol/L (98-107); Estimated Glomerular Filt Rate 51 mL/min (>60); Globulin 2.8 g/dL (1.7-4.1); Glucose 365 mg/dL (80-110); HEMOLYSIS < 15 (0-50); Potassium 5.2 mmol/L (3.4-5.1); Sodium 131 mmol/L (137-145)
[2021-12-15 11:32] LABS: Thyroid Stimulating Hormone 1.08 uIU/mL (0.47-4.68)
== END ==
PROVIDERS: PCP Internal Medicine; Referring Provider Internal Medicine Cardiovascular Disease; Visit Provider Internal Medicine Cardiovascular Disease
DX: I50.22 Chronic systolic (congestive) heart failure (principal); Z79.899 Other long term (current) drug therapy; I25.5 Ischemic cardiomyopathy
CPT/HCPCS: 36415; 80053; 84443; 85025

== ENCOUNTER → 2021-12-16 13:31 | Outpatient (CLI) | payer MEDICARE, SELFPAY ==
[2021-10-29 08:04] VITALS: BMI 30.2
== END ==
PROVIDERS: PCP Internal Medicine; Referring Provider Internal Medicine; Visit Provider Family Medicine
DX: E11.621 Type 2 diabetes mellitus with foot ulcer (principal); L97.522 Non-pressure chronic ulcer of other part of left foot with fat layer exposed; E11.42 Type 2 diabetes mellitus with diabetic polyneuropathy
CPT/HCPCS: 11042

== ENCOUNTER → 2021-12-22 07:53 | Outpatient (CLI) | payer MEDICARE, SELFPAY ==
[2021-10-29 08:04] VITALS: BMI 30.2
[2021-12-22 08:53] LABS: COVID19 -Nasal RAPID Negative (Negative)
== END ==
PROVIDERS: PCP Internal Medicine; Referring Provider Internal Medicine; Visit Provider Internal Medicine
DX: Z20.822 Contact with and (suspected) exposure to COVID-19 (principal); I10 Essential (primary) hypertension
CPT/HCPCS: 87635; C9803

== ENCOUNTER → 2021-12-22 07:57 | Outpatient (CLI) | payer MEDICARE, SELFPAY ==
[2021-10-29 08:04] VITALS: BMI 30.2
--- NOTE | 2021-12-22 09:49 | DI.RAD.S_ITS ---
PROCEDURE: XR FOOT LT MIN 3V INDICATIONS: eval for osteomyelitis in left hallux distal phalanx, plantar medial TECHNIQUE: 3 views of the foot were acquired. COMPARISON: [facility], CR, XR FOOT LT MIN 3V, 03/02/2021, 11:14. [facility], CR, XR FOOT LT MIN 3V, 01/27/2021, 15:55. FINDINGS: Bones: No definite erosions. No acute fractures or dislocations. Scattered arthritic changes.. Plantar enthesopathy. Soft tissues: There is soft tissue swelling around the foot. Vascular calcifications. IMPRESSION: No definite erosions or acute radiographic abnormality. Consider MRI for increased sensitivity for osteomyelitis evaluation. Dictated by: Efrain Boles M.D. on 12/22/2021 at 13:39 Approved by: Efrain Boles M.D. on 12/22/2021 at 13:41
[2021-12-22 11:58] LABS: Add Manual Diff / Slide Review NO; Basophils Absolute Auto 0 /uL (0-100); Basophils Percent Auto 0.3 % (0-2); Eosinophils Absolute Auto 800 /uL (0-450); Eosinophils Percent Auto 9.9 % (2-4); Hematocrit 34.2 % (41-53); Hemoglobin 11.6 g/dL (13.5-17.5); Lymphocytes Absolute Auto 1200 /uL (1100-4500); Lymphocytes Percent Auto 15.3 % (25-40); Mean Corpuscular HGB Conc 33.8 % (30-36); Mean Corpuscular Volume 85.7 fL (80-100); Monocytes Absolute Auto 600 /uL (0-900); Monocytes Percent Auto 8.1 % (3-14); Neutrophils Absolute Auto 5100 /uL (1500-7000); Neutrophils Percent Auto 66.4 % (50-75); Platelet Count 202 X10^3/uL (150-400); Red Blood Cell Count 3.99 X10^6/uL (4.5-5.9); Red Cell Distribution Width 15.6 % (11.6-14.8); White Blood Cell Count 7.7 X10^3/uL (4.5-11.0)
[2021-12-22 12:04] LABS: Hemoglobin A1C% w Est Avg Glu 11.5 % (4.0-6.0)
[2021-12-22 12:13] LABS: Erythrocyte Sedimentation Rate 17 MM/HR (0-15)
[2021-12-22 12:20] LABS: Alanine Aminotransferase 19 IU/L (<50); Albumin 4.3 g/dL (3.5-5.0); Albumin Globulin Ratio 1.3 (1.0-2.8); Alkaline Phosphatase 107 U/L (38-126); Aspartate Aminotransferase 29 IU/L (17-59); BUN Creatinine Ratio 28.1 (6-22); Bilirubin Total 0.5 mg/dL (0.2-1.3); Blood Urea Nitrogen 43 mg/dL (9-20); C-Reactive Protein Quant < 0.5 mg/dL (<1.0); Calcium 9.2 mg/dL (8.4-10.2); Carbon Dioxide 27 mmol/L (22-32); Chloride 98 mmol/L (98-107); Estimated Glomerular Filt Rate 45 mL/min (>60); Globulin 3.2 g/dL (1.7-4.1); Glucose 404 mg/dL (80-110); HEMOLYSIS < 15 (0-50); Sodium 134 mmol/L (137-145); Total Protein 7.5 g/dL (6.3-8.2)
--- NOTE | 2021-12-24 08:24 | PM.PFT.1 ---
Pulmonary Function Test Referral & Results Date Patient Seen: 12/22/21 Requesting provider: Timothy Hinotn Results: The spirometry demonstrates an FVC of 4.20 L which is 105% of predicted. The FEV1 was measured at 3.01 L which is 106% of predicted. The FEV1/FVC ratio was 72 which is 100% of predicted. Following the administration of bronchodilator there was a 50% improvement in FEF 25-75%. Lung volumes show an SVC of 4.06 L which is 92% of predicted. The diffusing capacity was measured at 16.67 which is 51% of predicted. The maximum voluntary ventilation was slightly reduced Interpretation: This study demonstrates normal spirometry There is a moderate reduction diffusing capacity suggesting disease at the capillary alveolar level Compared to PFTs performed in March 2021, current study shows a slight decline in diffusing capacity otherwise spirometry was previously normal as it is on this study Clinical correlation suggested
== END ==
PROVIDERS: Family Medicine; PCP Internal Medicine; Referring Provider Internal Medicine Cardiovascular Disease; Visit Provider Internal Medicine Cardiovascular Disease
DX: E11.621 Type 2 diabetes mellitus with foot ulcer (principal); I10 Essential (primary) hypertension; Z79.899 Other long term (current) drug therapy; Z20.822 Contact with and (suspected) exposure to COVID-19
CPT/HCPCS: 36415; 73630; 80053; 83036; 85025; 85651; 86140; 87635; 94060; 94726; 94729; C9803

== ENCOUNTER → 2021-12-22 08:37 | Outpatient (CLI) | payer MEDICARE, SELFPAY ==
[2021-10-29 08:04] VITALS: BMI 30.2
== END ==
PROVIDERS: PCP Internal Medicine; Referring Provider Internal Medicine; Visit Provider Family Medicine
DX: E11.621 Type 2 diabetes mellitus with foot ulcer (principal); L97.522 Non-pressure chronic ulcer of other part of left foot with fat layer exposed; E11.42 Type 2 diabetes mellitus with diabetic polyneuropathy; L08.89 Other specified local infections of the skin and subcutaneous tissue; I10 Essential (primary) hypertension; Z20.822 Contact with and (suspected) exposure to COVID-19; Z79.899 Other long term (current) drug therapy
CPT/HCPCS: 11042; 36415; 73630; 80053; 83036; 85025; 85651; 86140; 87070; 87075; 87077; 87147; 87186; 87205; 87635; 94060; 94726; 94729; 99214; C9803

== ENCOUNTER → 2022-01-05 08:38 | Outpatient (CLI) | payer MEDICARE, SELFPAY ==
[2021-10-29 08:04] VITALS: BMI 30.2
== END ==
PROVIDERS: PCP Internal Medicine; Referring Provider Internal Medicine; Visit Provider Family Medicine
DX: E11.621 Type 2 diabetes mellitus with foot ulcer (principal); L97.522 Non-pressure chronic ulcer of other part of left foot with fat layer exposed; E11.40 Type 2 diabetes mellitus with diabetic neuropathy, unspecified; L08.89 Other specified local infections of the skin and subcutaneous tissue; B95.7 Other staphylococcus as the cause of diseases classified elsewhere
CPT/HCPCS: 11042; 99212; 99214

== ENCOUNTER → 2022-01-12 09:06 | Outpatient (CLI) | payer MEDICARE, SELFPAY ==
[2021-10-29 08:04] VITALS: BMI 30.2
== END ==
PROVIDERS: PCP Internal Medicine; Referring Provider Internal Medicine; Visit Provider Family Medicine
DX: E11.621 Type 2 diabetes mellitus with foot ulcer (principal); L97.522 Non-pressure chronic ulcer of other part of left foot with fat layer exposed; E11.42 Type 2 diabetes mellitus with diabetic polyneuropathy; L08.89 Other specified local infections of the skin and subcutaneous tissue; B95.7 Other staphylococcus as the cause of diseases classified elsewhere
CPT/HCPCS: 11042

== ENCOUNTER → 2022-01-19 09:26 | Outpatient (CLI) | payer MEDICARE, SELFPAY ==
[2021-10-29 08:04] VITALS: BMI 30.2
== END ==
PROVIDERS: PCP Internal Medicine; Referring Provider Emergency Medicine; Visit Provider Family Medicine
DX: E11.621 Type 2 diabetes mellitus with foot ulcer (principal); L97.522 Non-pressure chronic ulcer of other part of left foot with fat layer exposed; E11.42 Type 2 diabetes mellitus with diabetic polyneuropathy
CPT/HCPCS: 97597

== ENCOUNTER → 2022-01-26 11:14 | Outpatient (CLI) | payer MEDICARE, SELFPAY ==
[2021-10-29 08:04] VITALS: BMI 30.2
== END ==
PROVIDERS: PCP Internal Medicine; Referring Provider Internal Medicine; Visit Provider Family Medicine
DX: E11.621 Type 2 diabetes mellitus with foot ulcer (principal); L97.521 Non-pressure chronic ulcer of other part of left foot limited to breakdown of skin; E11.40 Type 2 diabetes mellitus with diabetic neuropathy, unspecified
CPT/HCPCS: 29445

== ENCOUNTER → 2022-02-02 09:09 | Outpatient (CLI) | payer MEDICARE, SELFPAY ==
[2021-10-29 08:04] VITALS: BMI 30.2
== END ==
PROVIDERS: PCP Internal Medicine; Referring Provider Emergency Medicine; Visit Provider Family Medicine
DX: E11.621 Type 2 diabetes mellitus with foot ulcer (principal); L97.522 Non-pressure chronic ulcer of other part of left foot with fat layer exposed; E11.42 Type 2 diabetes mellitus with diabetic polyneuropathy
CPT/HCPCS: 15275; Q4196

== ENCOUNTER → 2022-02-09 09:35 | Outpatient (CLI) | payer MEDICARE, SELFPAY ==
[2021-10-29 08:04] VITALS: BMI 30.2
== END ==
PROVIDERS: PCP Internal Medicine; Referring Provider Internal Medicine; Visit Provider Family Medicine
DX: E11.621 Type 2 diabetes mellitus with foot ulcer (principal); L97.522 Non-pressure chronic ulcer of other part of left foot with fat layer exposed; E11.42 Type 2 diabetes mellitus with diabetic polyneuropathy; Z79.01 Long term (current) use of anticoagulants
CPT/HCPCS: 99212; 99213

== ENCOUNTER → 2022-02-10 11:49 | Outpatient (CLI) | payer MEDICARE, SELFPAY ==
[2021-10-29 08:04] VITALS: BMI 30.2
== END ==
PROVIDERS: PCP Internal Medicine; Referring Provider Internal Medicine; Visit Provider Family Medicine
DX: E11.621 Type 2 diabetes mellitus with foot ulcer (principal); L97.522 Non-pressure chronic ulcer of other part of left foot with fat layer exposed
CPT/HCPCS: 29445

== ENCOUNTER → 2022-02-16 09:44 | Outpatient (CLI) | payer MEDICARE, SELFPAY ==
[2021-10-29 08:04] VITALS: BMI 30.2
== END ==
PROVIDERS: PCP Internal Medicine; Referring Provider Internal Medicine; Visit Provider Family Medicine
DX: E11.621 Type 2 diabetes mellitus with foot ulcer (principal); L97.522 Non-pressure chronic ulcer of other part of left foot with fat layer exposed; E11.40 Type 2 diabetes mellitus with diabetic neuropathy, unspecified
CPT/HCPCS: 15275; Q4195

== ENCOUNTER → 2022-02-23 09:04 | Outpatient (CLI) | payer MEDICARE, SELFPAY ==
[2021-10-29 08:04] VITALS: BMI 30.2
== END ==
PROVIDERS: PCP Internal Medicine; Referring Provider Emergency Medicine; Visit Provider Family Medicine
DX: E11.621 Type 2 diabetes mellitus with foot ulcer (principal); L97.522 Non-pressure chronic ulcer of other part of left foot with fat layer exposed; E11.42 Type 2 diabetes mellitus with diabetic polyneuropathy
CPT/HCPCS: 29445; 99212

== ENCOUNTER → 2022-03-01 13:34 | Outpatient (CLI) | payer MEDICARE, SELFPAY ==
[2021-10-29 08:04] VITALS: BMI 30.2
== END ==
PROVIDERS: PCP Internal Medicine; Referring Provider Emergency Medicine; Visit Provider Family Medicine
DX: E11.42 Type 2 diabetes mellitus with diabetic polyneuropathy (principal); Z86.31 Personal history of diabetic foot ulcer
CPT/HCPCS: 99212

== ENCOUNTER 2022-03-14 11:40 | Inpatient (IN) | payer MEDICARE, SELFPAY ==
[2021-10-29 08:04] VITALS: BMI 30.2
[2022-03-14] VITALS (25 sets, daily range): BP systolic 98–165; BP diastolic 56–77; PULSE 62–82; RESP 12–17; TEMP 36.2–37.1; O2SAT 95–100; BMI 28.5
--- NOTE | 2022-03-14 11:54 | DI.RAD.S_ITS ---
PROCEDURE: XR CHEST 1V INDICATIONS: suspected sepsis TECHNIQUE: One view of the chest was acquired. COMPARISON: [facility], CR, XR CHEST 1V, 10/28/2021, 19:19. FINDINGS: Surgical changes and devices: Median sternotomy. Left-sided pacer. Lungs and pleura: Lungs are clear. No pleural effusions or pneumothorax. Mediastinum: Mediastinal contours appear normal. Heart size is normal. Bones and chest wall: No suspicious bony lesions. Overlying soft tissues appear unremarkable. IMPRESSION: No acute process. Dictated by: Praveen Huang M.D. on 03/14/2022 at 12:08 Approved by: Praveen Huang M.D. on 03/14/2022 at 12:09
--- NOTE | 2022-03-14 11:58 | ED_ITS ---
HPI - Extremity Problem General Chief complaint: Extremity Problem,Nontraumatic Stated complaint: Infection in Rt Lower Leg Time Seen by Provider: 03/14/22 11:58 Source: patient and family Mode of arrival: Wheelchair Limitations: no limitations History of Present Illness HPI Narrative: This is a 81-year-old male with history of atrial fib on Eliquis, NSTEMI, 6 cardiac stents, mitral valve repair, diabetes, hypertension dyslipidemia with chronic wound on his left great toe that it heal but since reopened and presents today with warmth, erythema and swelling of his right lower extremity. Patient had a abrasion to his anterior ortiz about 2 weeks ago while would working he states since then he started developing redness, swelling particularly in the past 4 days with an area of fullness and swelling over the right fibular area. Patient states there has not been any active drainage. He states redness has b een streaking up his leg towards his knee. Been on doxycycline orally for the past 2 days for 4 doses total. He denies fevers or chills. He felt pain in his leg particularly when he puts it down. He denies chest pain or shortness of breath. No nausea or vomiting. No other GI or urinary symptoms. He has chronic decreased sensation in his lower extremity. Did not note that the wound has reappeared on his left great toe. He states he followed for wound care for about a year with that and that it is healed and he had been cleared. He is had cardiac stents, mitral valve repair and left knee replacement. He denies any antibiotic allergies and states he avoid statins. His primary care is Zaheer Baig. No tobacco, occasional alcohol, no illicit. Related Data Home Medications Medication Instructions Recorded Confirmed rosuvastatin 20 mg tablet (Crestor) 20 mg PO DAILY 05/05/21 03/14/22 apixaban 5 mg tablet (Eliquis) 2.5 mg PO BID 07/02/21 03/14/22 amiodarone 100 mg tablet 100 mg PO DAILY 09/22/21 03/14/22 nitroglycerin 0.4 mg sublingual 0.4 mg sublingual Q5-15M PRN chest 11/26/21 03/14/22 tablet pain metoprolol succinate 25 mg 37.5 mg PO BID 01/31/22 03/14/22 tablet,extended release 24 hr furosemide 20 mg tablet 10 mg PO 2XW 02/23/22 03/14/22 alpha lipoic acid 300 mg capsule 300 mg PO DAILY 03/14/22 03/14/22 ascorbic acid (vitamin C) 500 mg 500 mg PO DAILY 03/14/22 03/14/22 capsule aspirin 81 mg tablet,delayed 81 mg PO DAILY 03/14/22 03/14/22 release cholecalciferol (vitamin D3) 50 50 mcg PO BID 03/14/22 03/14/22 mcg (2,000 unit) capsule coenzyme P63-[id number] E 100 mg-100 1 cap PO DAILY 03/14/22 03/14/22 unit capsule docosahexaenoic acid (dha)-epa 120 1 cap PO DAILY 03/14/22 03/14/22 mg-180 mg capsule empagliflozin 10 mg tablet 10 mg PO DAILY 03/14/22 03/14/22 hawthorn 500 mg capsule 500 mg PO TID 03/14/22 03/14/22 insulin glargine 100 unit/mL 15 unit SUBCUT QAM 03/14/22 03/14/22 subcutaneous solution (Lantus U-100 Insulin) magnesium 250 mg tablet 250 mg PO BID 03/14/22 03/14/22 multivit with minerals-iron 18 1 tab PO DAILY 03/14/22 03/14/22 mg-folic ac 400 mcg-vit K 25 mcg tablet (Adults Multivitamin) sacubitril 24 mg-valsartan 26 mg 1 tab PO BID 03/14/22 03/14/22 tablet (Entresto) vitamin B complex 1 tab PO DAILY 03/14/22 03/14/22 Allergies Allergy/AdvReac Type Severity Reaction Status Date / Time [id number]-CII-AzA Reductase AdvReac Intermediate lower body Verified 03/14/22 11:54 Inhibitor muscle pain [[id number] REDUCTASE INHIBITOR] Review of Systems Review of Systems ROS Unobtainable: All systems reviewed & are unremarkable except as noted in HPI and below Patient History Medical History Advanced directives, counseling/discussion Bilateral foot-drop Chronic anticoagulation Coronary artery disease Diabetic foot infection DJD of right shoulder Essential hypertension FH: mitral valve repair Gait instability Herniated nucleus pulposus, L4-5 Hospital discharge follow-up Medicare annual wellness visit, initial Mixed hyperlipidemia Multilevel spinal stenosis Paroxysmal atrial fibrillation Peripheral neuropathy Stage 3a chronic kidney disease (CKD) Systolic CHF, chronic 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 Surgical History H/O left knee surgery Family History Father Tubercular lesion of lung Mother Congestive heart failure Diabetes mellitus Social History household members: spouse Smoking Status: Never smoker alcohol intake: current Smoking Status: Never smoker alcohol intake frequency: a few times a month Substance Use Type: does not use Exam Initial Vital Signs Initial Vital Signs: Vital Signs Temperature 98.1 F 03/14/22 11:45 Pulse Rate 70 03/14/22 11:45 Respiratory Rate 14 03/14/22 11:45 Blood Pressure 136/60 03/14/22 11:45 Pulse Oximetry 99 03/14/22 11:45 Oxygen Delivery Method 03/14/22 11:45 Procedures Abscess I/D I&D #1: Time of procedure: 14:36 Site: lower extremity Side (if applicable): right Sedation/analgesia: none Local Anesthetic: lidocaine 1% Amount of anesthesia used (mL): 5 Technique: needle aspiration and incised with #11 blade Amount of fluid expressed (mL): 1 Irrigation: Yes Packing used?: none Course Orders Ordered: ED Orders 03/14/22 11:54 XR chest 1V Stat EKG-12 Lead Stat 03/14/22 12:13 BNP [NT-proBNP (BNP-Adult 18+)] Stat COVID19 -Nasal RAPID/Pre-Proc Stat CRP [C-Reactive Protein Quant] Stat Complete Blood Count AUTO DIFF Stat Comprehensive Metabolic Panel Stat ESR [Erythrocyte Sedimentation Rate] Stat Lactate (Lactic Acid) Stat Lipase Stat Partial Thromboplastin Time Stat Procalcitonin Stat Prothrombin Time INR Stat Troponin & CK Cardiac Panel Stat 03/14/22 12:16 US periph venous low extrem rt Stat XR toe LT min 2V Stat 03/14/22 12:40 Blood Culture Stat 03/14/22 14:59 CT LE RT w con Stat 03/15/22 05:00 Complete Blood Count AUTO DIFF DAILY Comprehensive Metabolic Panel DAILY Hemoglobin A1C% w Est Avg Glu Routine Magnesium DAILY 03/16/22 05:00 Complete Blood Count AUTO DIFF DAILY Comprehensive Metabolic Panel DAILY Magnesium DAILY 03/17/22 05:00 Complete Blood Count AUTO DIFF DAILY Comprehensive Metabolic Panel DAILY Magnesium DAILY Acetaminophen (Acetaminophen 325 Mg Tablet) 650 mg PO Q6H PRN PRN Reason: Fever/Mild Pain (1-3) Last Admin: 03/14/22 18:53 Dose: 650 mg Documented By: IZZY Amiodarone HCl (Amiodarone 200 Mg Tablet) 100 mg PO DAILY [facility] Apixaban (Apixaban 5 Mg Tablet) 2.5 mg PO BID [facility] Atorvastatin Calcium (Atorvastatin 20 Mg Tablet) 40 mg PO BEDTIME [facility] Dextrose (Dextrose 50 % In Water 25 Gm/50 Ml Syringe) 25 gm IV PRN PRN PRN Reason: Hypoglycemia Cefepime HCl 2 gm/ Sodium (Chloride) 100 mls @ 200 mls/hr IV Q12H JUAN C Last Infusion: 03/14/22 17:45 Dose: 0 mls/hr Documented By: Admin: 03/14/22 17:11 Dose: 200 mls/hr Documented By: IZZY Sodium Chloride (Normal Saline 0.9%) 250 mls @ 21 mls/hr IV Q24H PRN PRN Reason: Flush Last Admin: 03/14/22 17:12 Dose: 21 mls/hr Documented By: IZZY Vancomycin HCl (Vancomycin) 1,250 mg in 250 mls @ 250 mls/hr IV Q18H [facility] Insulin Glargine (Insulin Glargine 100 Unit/Ml 3ml Pen) 15 unit SUBCUT 0800 [facility] Insulin Human Lispro (Insulin Lispro 100 Unit/Ml 3ml Vial) 0 unit SUBCUT ACHS [facility]; Protocol Last Admin: 03/14/22 18:17 Dose: 5 unit Documented By: IZZY Co-signed By: JASON Metoprolol Succinate (Metoprolol Er 25 Mg Tablet) 37.5 mg PO BID [facility] Naloxone HCl (Naloxone 0.4 Mg/Ml Vial) 0.2 mg IV Q2MIN PRN PRN Reason: Opiate Reversal Ondansetron HCl (Ondansetron 4 Mg/2 Ml Inj) 4 mg IV Q8HR PRN PRN Reason: Nausea And Vomiting Oxycodone HCl (Oxycodone Ir 5 Mg Tablet) 5 mg PO Q3H PRN PRN Reason: Pain, Moderate (4-6) Sodium Chloride (Sodium Chloride 0.9% Flush) 10 ml IV PRN PRN PRN Reason: Flush Sodium Chloride (Sodium Chloride 0.9% Flush) 10 ml IV BID [facility] Vancomycin HCl (Vancomycin Trough) 1 request [facility] 1830 [facility] Stop: 03/16/22 18:31 Discontinued Medications Vancomycin HCl/Dextrose (Vancomycin) 1,500 mg in 300 mls @ 200 mls/hr IV NOW ONE Stop: 03/14/22 13:45 Last Infusion: 03/14/22 14:38 Dose: 0 mls/hr Documented By: Admin: 03/14/22 12:58 Dose: 200 mls/hr Documented By: [facility] Lidocaine HCl (Lidocaine 2% Inj Sdv) 10 ml INJ INTRA-OP ONE Stop: 03/14/22 13:51 Last Admin: 03/14/22 14:05 Dose: 10 ml Documented By: RB Consultations Consultation #1: Dr. Malcolm, hosptalist, patient has abscess and cellulitis. Very small amount of purulent drainage. Spoke with hospitalist who accepts plan for CT lower extremity to rule out persistent fluid collection but patient accepted for admission. Asked for vancomycin/cefepime coverage. Vital Signs Vital signs: Vital Signs - 8 hr 03/14/22 11:45 03/14/22 11:47 03/14/22 11:47 Temperature 98.1 F Pulse Rate 70 70 Pulse Rate [Right Posterior Tibial] Respiratory Rate 14 Blood Pressure 136/60 136/60 Pulse Oximetry 99 97 Oxygen Delivery Method Room Air 03/14/22 12:00 03/14/22 12:00 03/14/22 12:15 Temperature Pulse Rate 65 67 Pulse Rate [Right Posterior Tibial] Respiratory Rate 14 Blood Pressure 116/58 L Pulse Oximetry 99 98 Oxygen Delivery Method Room Air 03/14/22 12:30 03/14/22 12:30 03/14/22 12:45 Temperature Pulse Rate 65 65 Pulse Rate [Right Posterior Tibial] Respiratory Rate Blood Pressure 119/57 L Pulse Oximetry 95 99 Oxygen Delivery Method 03/14/22 13:00 03/14/22 13:01 03/14/22 13:01 Temperature Pulse Rate 66 64 Pulse Rate [Right Posterior Tibial] Respiratory Rate Blood Pressure 121/58 L Pulse Oximetry 100 98 Oxygen Delivery Method 03/14/22 14:46 03/14/22 13:15 03/14/22 13:30 Temperature Pulse Rate 64 Pulse Rate [Right Posterior Tibial] 82 Respiratory Rate Blood Pressure 134/63 Pulse Oximetry 99 Oxygen Delivery Method 03/14/22 13:30 03/14/22 13:45 03/14/22 14:00 Temperature Pulse Rate 63 65 62 Pulse Rate [Right Posterior Tibial] Respiratory Rate 16 13 Blood Pressure Pulse Oximetry 98 99 97 Oxygen Delivery Method 03/14/22 14:01 03/14/22 14:01 03/14/22 14:15 Temperature Pulse Rate 62 63 Pulse Rate [Right Posterior Tibial] Respiratory Rate 14 17 Blood Pressure 110/71 Pulse Oximetry 99 99 Oxygen Delivery Method 03/14/22 14:30 03/14/22 14:31 03/14/22 14:31 Temperature Pulse Rate 63 62 Pulse Rate [Right Posterior Tibial] Respiratory Rate 16 15 Blood Pressure 165/77 H Pulse Oximetry 99 99 Oxygen Delivery Method 03/14/22 14:45 03/14/22 15:00 03/14/22 15:00 Temperature Pulse Rate 63 62 Pulse Rate [Right Posterior Tibial] Respiratory Rate 12 17 Blood Pressure 153/75 H Pulse Oximetry 99 98 Oxygen Delivery Method Room Air MDM - Extremity (Nontraumatic) Lab Data Result diagrams: 03/14/22 12:13 03/14/22 12:13 Labs: Lab Results 03/14/22 03/14/22 03/14/22 Range/Units 12:13 12:13 12:13 WBC 6.4 (4.5-11.0) X10^3/uL RBC 3.81 L (4.5-5.9) X10^6/uL Hgb 10.7 L (13.5-17.5) g/dL Hct 32.7 L (41-53) % MCV 85.9 (80-100) fL MCH 28.2 (26-34) PG MCHC 32.8 (30-36) % RDW 15.0 H (11.6-14.8) % Plt Count 254 (150-400) X10^3/uL Neut % (Auto) 70.4 (50-75) % Lymph % (Auto) 12.7 L (25-40) % Warren % (Auto) 12.0 (3-14) % Eos % (Auto) 4.6 H (2-4) % Baso % (Auto) 0.3 (0-2) % Neut # (Auto) 4500 (1674-2616) /uL Lymph # (Auto) 800 L (1554-0053) /uL Warren # (Auto) 800 (0-900) /uL Eos # (Auto) 300 (0-450) /uL Baso # (Auto) 0 (0-100) /uL ESR (0-15) MM/HR PT (10.1-12.7) SECONDS INR (0.9-1.3) APTT (26-36) SECONDS Sodium 132 L (137-145) mmol/L Potassium 4.5 (3.4-5.1) mmol/L Chloride 99 (98-107) mmol/L Carbon Dioxide 21 L (22-32) mmol/L BUN 27 H (9-20) mg/dL Creatinine 1.20 (0.66-1.25) mg/dL Estimated GFR > 60 (>60) mL/min BUN/Creatinine Ratio 22.5 H (6-22) Glucose 467 H (80-110) mg/dL Lactate 1.1 (0.7-2.1) mmol/L Calcium 9.0 (8.4-10.2) mg/dL Total Bilirubin 0.5 (0.2-1.3) mg/dL AST 19 (17-59) IU/L ALT 17 (<50) IU/L Alkaline Phosphatase 143 H (38-126) U/L Total Creatine Kinase (55-170) U/L CK-MB (CK-2) CK-MB (CK-2) Rel Index Troponin I (0.01-0.034) ng/mL C-Reactive Protein (<1.0) mg/dL NT-Pro-B Natriuret Pep (<450) pg/mL Total Protein 7.3 (6.3-8.2) g/dL Albumin 3.8 (3.5-5.0) g/dL Globulin 3.5 (1.7-4.1) g/dL Albumin/Globulin Ratio 1.1 (1.0-2.8) Lipase 86 (23-300) U/L Procalcitonin 0.13 (<0.5) ng/mL SARS-CoV-2 (PCR) (Negative) 03/14/22 03/14/22 03/14/22 Range/Units 12:13 12:13 12:13 WBC (4.5-11.0) X10^3/uL RBC (4.5-5.9) X10^6/uL Hgb (13.5-17.5) g/dL Hct (41-53) % MCV (80-100) fL MCH (26-34) PG MCHC (30-36) % RDW (11.6-14.8) % Plt Count (150-400) X10^3/uL Neut % (Auto) (50-75) % Lymph % (Auto) (25-40) % Warren % (Auto) (3-14) % Eos % (Auto) (2-4) % Baso % (Auto) (0-2) % Neut # (Auto) (6587-9713) /uL Lymph # (Auto) (2516-4224) /uL Warren # (Auto) (0-900) /uL Eos # (Auto) (0-450) /uL Baso # (Auto) (0-100) /uL ESR 52 H (0-15) MM/HR PT 12.2 (10.1-12.7) SECONDS INR 1.1 (0.9-1.3) APTT 32 (26-36) SECONDS Sodium (137-145) mmol/L Potassium (3.4-5.1) mmol/L Chloride (98-107) mmol/L Carbon Dioxide (22-32) mmol/L BUN (9-20) mg/dL Creatinine (0.66-1.25) mg/dL Estimated GFR (>60) mL/min BUN/Creatinine Ratio (6-22) Glucose (80-110) mg/dL Lactate (0.7-2.1) mmol/L Calcium (8.4-10.2) mg/dL Total Bilirubin (0.2-1.3) mg/dL AST (17-59) IU/L ALT (<50) IU/L Alkaline Phosphatase (38-126) U/L Total Creatine Kinase 72 (55-170) U/L CK-MB (CK-2) TNP CK-MB (CK-2) Rel Index TNP Troponin I < 0.012 (0.01-0.034) ng/mL C-Reactive Protein (<1.0) mg/dL NT-Pro-B Natriuret Pep 3850 H (<450) pg/mL Total Protein (6.3-8.2) g/dL Albumin (3.5-5.0) g/dL Globulin (1.7-4.1) g/dL Albumin/Globulin Ratio (1.0-2.8) Lipase (23-300) U/L Procalcitonin (<0.5) ng/mL SARS-CoV-2 (PCR) (Negative) 03/14/22 03/14/22 Range/Units 12:13 12:13 WBC (4.5-11.0) X10^3/uL RBC (4.5-5.9) X10^6/uL Hgb (13.5-17.5) g/dL Hct (41-53) % MCV (80-100) fL MCH (26-34) PG MCHC (30-36) % RDW (11.6-14.8) % Plt Count (150-400) X10^3/uL Neut % (Auto) (50-75) % Lymph % (Auto) (25-40) % Warren % (Auto) (3-14) % Eos % (Auto) (2-4) % Baso % (Auto) (0-2) % Neut # (Auto) (2750-9666) /uL Lymph # (Auto) (6343-4913) /uL Warren # (Auto) (0-900) /uL Eos # (Auto) (0-450) /uL Baso # (Auto) (0-100) /uL ESR (0-15) MM/HR PT (10.1-12.7) SECONDS INR (0.9-1.3) APTT (26-36) SECONDS Sodium (137-145) mmol/L Potassium (3.4-5.1) mmol/L Chloride (98-107) mmol/L Carbon Dioxide (22-32) mmol/L BUN (9-20) mg/dL Creatinine (0.66-1.25) mg/dL Estimated GFR (>60) mL/min BUN/Creatinine Ratio (6-22) Glucose (80-110) mg/dL Lactate (0.7-2.1) mmol/L Calcium (8.4-10.2) mg/dL Total Bilirubin (0.2-1.3) mg/dL AST (17-59) IU/L ALT (<50) IU/L Alkaline Phosphatase (38-126) U/L Total Creatine Kinase (55-170) U/L CK-MB (CK-2) CK-MB (CK-2) Rel Index Troponin I (0.01-0.034) ng/mL C-Reactive Protein 7.9 H (<1.0) mg/dL NT-Pro-B Natriuret Pep (<450) pg/mL Total Protein (6.3-8.2) g/dL Albumin (3.5-5.0) g/dL Globulin (1.7-4.1) g/dL Albumin/Globulin Ratio (1.0-2.8) Lipase (23-300) U/L Procalcitonin (<0.5) ng/mL SARS-CoV-2 (PCR) Negative (Negative) Imaging Data Extremity x-ray #1: Radiologist's Impression: [address] [address] XRay Report Signed Patient: Praful Sawant MR#: [id number] : 1940 Acct:[id number] Age/Sex: 81 / M Date of Service: 03/14/22 Loc: ED Accession Number: [id number] ?? Procedure: XR toe LT min 2V Ordering Provider: Melany Tabares D.O. PROCEDURE:? XR TOE LT MIN 2V ? INDICATIONS:? wound great toe ? TECHNIQUE:? 3 views of the 1st toe(s) acquired.? ? COMPARISON:? None. ? FINDINGS:? ? Bones:? No fractures or dislocations.? No suspicious bony lesions.? ? Soft tissues:? No suspicious soft tissue densities.? ? IMPRESSION:? No acute fracture. No osseous lesion. If symptoms and/or clinical suspicion for pathology persist, further assessment with repeat, or advanced imaging (e.g., CT, MRI, or bone scan) may be helpful for further assessment. ? ? Dictated by: Praveen Huang M.D. on 03/14/2022 at 12:52 ? ? Approved by: Praveen Huang M.D. on 03/14/2022 at 12:52?? US - DVT: Radiologist's Impression: Close Toe X-Ray (Signed) Praveen Huang - 03/14/22 Vascular Ultrasound (Signed) Praveen Huang - 03/14/22 Chest X-Ray (Signed) Praveen Huang - 03/14/22 Launch?[address] [address] Ultrasound Report Signed Patient: Praful Sawant MR#: [id number] : 1940 Acct:[id number] Age/Sex: 81 / M Date of Service: 03/14/22 Loc: ED Accession Number: [id number] ?? Procedure: US periph venous low extrem rt Ordering Provider: Melany Tabares D.O. PROCEDURE:? US PERIPH VENOUS LOW EXTREM RT ? INDICATIONS:? swelling, erythema, infection ? TECHNIQUE:? Real-time imaging, as well as color and pulse Doppler interrogation, were performed of the lower extremity deep veins from the inguinal ligament to the popliteal fossa.? ? COMPARISON:? None. ? FINDINGS:? The common femoral, femoral and popliteal veins are normally compressible, and free of intraluminal thrombus.? Color and pulse Doppler demonstrate normal phasic intraluminal flow.? There is normal augmentation response to distal compression maneuver. ? ? IMPRESSION:? No evidence of right lower extremity DVT. ? ? Dictated by: Praveen Huang M.D. on 03/14/2022 at 13:01 ? ? Approved by: Praveen Huang M.D. on 03/14/2022 at 13:01?? CT LE right: Radiologist's Impression: Close Lower Extremity CT (Signed) Fredo Bailey - 03/14/22 Vascular Ultrasound (Signed) Praveen Huang - 03/14/22 Toe X-Ray (Signed) Praveen Huang - 03/14/22 Chest X-Ray (Signed) Praveen Huang - 03/14/22 PFT Result 12/22/21 PFT Result 12/22/21 Foot X-Ray (Signed) Efrain Boles - 12/22/21 Telemetry Strips 10/29/21 Chest X-Ray (Signed) Gaston Guido - 10/28/21 Injection Lumbar, Sacrum (Signed) Sukhjinder Turner - 09/28/21 Echocardiogram Ultrasound (Signed) Oniel Joe - 07/03/21 Chest CTA (Signed) Praveen Huang - 07/02/21 Chest X-Ray (Signed) Praveen Huang - 07/01/21 LS Transforaminal Injection (Signed) Neeraj Juárez - 07/01/[address] (Signed) Fredo Bailey - 03/12/21 PFT Result 03/04/21 Foot X-Ray (Signed) Cristhian Reynolds - 03/02/21 Shoulder X-Ray (Signed) Fredo Bailey - 02/03/21 Foot X-Ray (Signed) Micah Cano - 01/27/21 Foot X-Ray (Signed) Jeyson Perales - 12/28/20 Chest X-Ray (Signed) Shayan Mendoza - 11/19/20 Renal Ultrasound (Signed) Rogelio Carl - 10/27/20 Chest X-Ray (Signed) Rogelio Carl - 05/11/20 Echocardiogram Ultrasound 12/27/19 PFT Result 12/26/19 Telemetry Strips 02/20/19 Radiology Report (Cancelled) Jake Dorsey - 01/30/19 Myocardial Perfusion Scan Nuc Med (Signed) Jake Dorsey - 01/30/19 Echocardiogram Ultrasound (Signed) Timothy Hinton - 12/17/18 Launch?[place] [address] CT Scan Report Signed Patient: Praful Sawant MR#: [id number] : 1940 Acct:[id number] Age/Sex: 81 / M Date of Service: 03/14/22 Loc: 90C-1 Accession Number: [id number] ?? Procedure: CT LE RT w con Ordering Provider: Melany Tabares D.O. PROCEDURE:? CT LE RT W CON ? INDICATIONS:? right leg infection ? TECHNIQUE:? After the administration of intravenous contrast, 3 mm axial sections acquired of the right lower leg, with coronal and sagittal reformats. ? ? COMPARISON:? [facility], CT, CT LE LT W CON, 03/12/2021, 12:54. ? FINDINGS:? Image quality:? Excellent.? ? Bones:? Dnhf-dw-[id number] tricompartmental osteoarthritic changes in right knee joint is seen most notably in medial femoral tibial compartment.? Jpzx-[id number] osteoarthritic changes also seen throughout visualized portion of right ankle and foot.? There is no acute fracture or dislocation.? No bony erosive changes, cortical disruption or periosteal reaction is seen to suggest osteomyelitis.? Well-defined plantar calcaneal enthesophyte is seen.? Small radiolucencies involving weight-bearing portion of talar dome concerning for small osteochondral injuries. ? Soft tissues:? There is no significant right knee joint effusion.? Significant soft tissue edema and swelling throughout right lower leg is seen extending to right ankle and foot.? No discrete drainable peripherally enhancing fluid collection is seen.? No intramuscular fluid collection or enhancing mass.? No gross full-thickness tendon rupture.? No abnormal soft tissue calcifications. ? IMPRESSION:? 1. Extensive cellulitis throughout right lower leg extending to right ankle and foot.? No discrete drainable abscess collection is seen.? No intramuscular mass or fluid collection. ? 2. Osteoarthritic changes in right knee, right ankle and foot joints.? No fracture or dislocation.? No CT evidence of osteomyelitis in right lower leg.? No suspicious bony lesions. ? ? Dictated by: Ferdo Bailey M.D. on 03/14/2022 at 15:35 ? ? Approved by: Fredo Bailey M.D. on 03/14/2022 at 15:40?? ECG Data Attestation EKG: I personally reviewed and interpreted this ECG as follows: Prior ECG tracings: available for review Interpretation: Ventricularly paced rhythm rate of 63 QRS of 122 QTC of 470. Ventricularly pace d rhythm patient has prior from 10/28/2021 with no acute changes. MDM Narrative Medical decision making narrative: This is a 81-year-old male with history of diabetic foot infections who has had several days of increasing redness and swelling of his right lower extremity after scraping his anterior ortiz about 2 weeks ago while would working. Patient states he developed a area of swelling particularly on the side which is fluctuant. I and D was performed small amount of purulent fluid was drained. Bedside ultrasound was performed prior to and there was some fluid present patient's abrasion is actually over the anterior ortiz area flexion was over the lateral tibial region. Ultrasound is negative for DVT. Patient has reoccurring toe infection on the opposite foot an x-ray was obtained as well although it does not appear infected currently. Patient was started on IV antibiotics and case was discussed with hospitalist for failing after 2 days of oral antibiotics as an outpatient with cellulitis of his right lower extremity. Spoke with hospitalist who accepts but does ask for CT of lower extremity to rule out persistent fluid collection this was obtained does not show large fluid collection, no osteomyelitic changes accepted by Dr. Malcolm and requested cefepime and vancomycin. Discharge Plan Departure Patient Disposition: Admitted As Inpatient Clinical Impression: Open toe wound, Cellulitis and abscess of right leg Admit Date/Time: 03/14/22 15:10 Admit Provider: Colby Malcolm
--- NOTE | 2022-03-14 12:16 | DI.US.S_ITS ---
PROCEDURE: US PERIPH VENOUS LOW EXTREM RT INDICATIONS: swelling, erythema, infection TECHNIQUE: Real-time imaging, as well as color and pulse Doppler interrogation, were performed of the lower extremity deep veins from the inguinal ligament to the popliteal fossa. COMPARISON: None. FINDINGS: The common femoral, femoral and popliteal veins are normally compressible, and free of intraluminal thrombus. Color and pulse Doppler demonstrate normal phasic intraluminal flow. There is normal augmentation response to distal compression maneuver. IMPRESSION: No evidence of right lower extremity DVT. Dictated by: Praveen Huang M.D. on 03/14/2022 at 13:01 Approved by: Praveen Huang M.D. on 03/14/2022 at 13:01
--- NOTE | 2022-03-14 12:16 | DI.RAD.S_ITS ---
PROCEDURE: XR TOE LT MIN 2V INDICATIONS: wound great toe TECHNIQUE: 3 views of the 1st toe(s) acquired. COMPARISON: None. FINDINGS: Bones: No fractures or dislocations. No suspicious bony lesions. Soft tissues: No suspicious soft tissue densities. IMPRESSION: No acute fracture. No osseous lesion. If symptoms and/or clinical suspicion for pathology persist, further assessment with repeat, or advanced imaging (e.g., CT, MRI, or bone scan) may be helpful for further assessment. Dictated by: Praveen Huang M.D. on 03/14/2022 at 12:52 Approved by: Praveen Huang M.D. on 03/14/2022 at 12:52
[2022-03-14 12:30] LABS: Add Manual Diff / Slide Review NO; Basophils Absolute Auto 0 /uL (0-100); Basophils Percent Auto 0.3 % (0-2); Eosinophils Absolute Auto 300 /uL (0-450); Eosinophils Percent Auto 4.6 % (2-4); Hematocrit 32.7 % (41-53); Hemoglobin 10.7 g/dL (13.5-17.5); Lymphocytes Absolute Auto 800 /uL (1100-4500); Lymphocytes Percent Auto 12.7 % (25-40); Mean Corpuscular HGB Conc 32.8 % (30-36); Mean Corpuscular Hemoglobin 28.2 PG (26-34); Mean Corpuscular Volume 85.9 fL (80-100); Monocytes Absolute Auto 800 /uL (0-900); Neutrophils Absolute Auto 4500 /uL (1500-7000); Neutrophils Percent Auto 70.4 % (50-75); Platelet Count 254 X10^3/uL (150-400); Red Blood Cell Count 3.81 X10^6/uL (4.5-5.9); White Blood Cell Count 6.4 X10^3/uL (4.5-11.0)
[2022-03-14 12:36] LABS: INR 1.1 (0.9-1.3); Prothrombin Time 12.2 SECONDS (10.1-12.7)
[2022-03-14 12:39] LABS: PTT Partial Thromboplastin Tim 32 SECONDS (26-36)
[2022-03-14 12:42] LABS: Alanine Aminotransferase 17 IU/L (<50); Albumin 3.8 g/dL (3.5-5.0); Albumin Globulin Ratio 1.1 (1.0-2.8); Alkaline Phosphatase 143 U/L (38-126); Aspartate Aminotransferase 19 IU/L (17-59); BUN Creatinine Ratio 22.5 (6-22); Bilirubin Total 0.5 mg/dL (0.2-1.3); Blood Urea Nitrogen 27 mg/dL (9-20); Carbon Dioxide 21 mmol/L (22-32); Chloride 99 mmol/L (98-107); Estimated Glomerular Filt Rate > 60 mL/min (>60); Globulin 3.5 g/dL (1.7-4.1); Glucose 467 mg/dL (80-110); HEMOLYSIS < 15 (0-50); Lipase 86 U/L (23-300); Potassium 4.5 mmol/L (3.4-5.1); Sodium 132 mmol/L (137-145); Total Protein 7.3 g/dL (6.3-8.2)
[2022-03-14 12:43] LABS: Creatine Kinase 72 U/L (55-170); Lactate (Lactic Acid) 1.1 mmol/L (0.7-2.1)
[2022-03-14 12:46] LABS: C-Reactive Protein Quant 7.9 mg/dL (<1.0)
[2022-03-14 12:47] LABS: COVID19 -Nasal RAPID Negative (Negative)
[2022-03-14 12:49] LABS: Erythrocyte Sedimentation Rate 52 MM/HR (0-15)
[2022-03-14 12:54] LABS: NT-proBNP (BNP-Adult 18+) 3850 pg/mL (<450); Troponin I < 0.012 ng/mL (0.01-0.034)
[2022-03-14 12:58] LABS: Procalcitonin 0.13 ng/mL (<0.5)
[2022-03-14] MEDS: VANCOMYCIN 1,500 MG/300 ML PIGGYBACK 200 MG IV (12:58)
[2022-03-14] MEDS: LIDOCAINE 2% INJ SDV 10 ML INJ (14:05)
--- NOTE | 2022-03-14 14:59 | DI.CT.S_ITS ---
PROCEDURE: CT LE RT W CON INDICATIONS: right leg infection TECHNIQUE: After the administration of intravenous contrast, 3 mm axial sections acquired of the right lower leg, with coronal and sagittal reformats. COMPARISON: [facility], CT, CT LE LT W CON, 03/12/2021, 12:54. FINDINGS: Image quality: Excellent. Bones: [id number] tricompartmental osteoarthritic changes in right knee joint is seen most notably in medial femoral tibial compartment. [id number] osteoarthritic changes also seen throughout visualized portion of right ankle and foot. There is no acute fracture or dislocation. No bony erosive changes, cortical disruption or periosteal reaction is seen to suggest osteomyelitis. Well-defined plantar calcaneal enthesophyte is seen. Small radiolucencies involving weight-bearing portion of talar dome concerning for small osteochondral injuries. Soft tissues: There is no significant right knee joint effusion. Significant soft tissue edema and swelling throughout right lower leg is seen extending to right ankle and foot. No discrete drainable peripherally enhancing fluid collection is seen. No intramuscular fluid collection or enhancing mass. No gross full-thickness tendon rupture. No abnormal soft tissue calcifications. IMPRESSION: 1. Extensive cellulitis throughout right lower leg extending to right ankle and foot. No discrete drainable abscess collection is seen. No intramuscular mass or fluid collection. 2. Osteoarthritic changes in right knee, right ankle and foot joints. No fracture or dislocation. No CT evidence of osteomyelitis in right lower leg. No suspicious bony lesions. Dictated by: Fredo Bailey M.D. on 03/14/2022 at 15:35 Approved by: Fredo Bailey M.D. on 03/14/2022 at 15:40
--- NOTE | 2022-03-14 16:40 | P.HP_ITS ---
History of Present Illness History of Present Illness Date Patient Seen: 03/14/22 Time Patient Seen: 16:40 Chief complaint: Infection in Rt Lower Leg Narrative: 80-year-old gentleman with coronary artery disease status post remote TX, status post pacemaker/AICD placement, prior mitral valve repair, diabetes mellitus type 2, insulin dependent, hypertension, hyperlipidemia, atrial fibrillation (paroxysmal) on chronic Eliquis anticoagulation, CKD stage III who presented with worsening redness of his R leg with fluid collection. Patient states he developed swelling and a fluctuant area on his R ortiz three days ago. He was given doxycycline to take starting two days ago but his swelling and redness continued to worsen. He rates the pain on his R leg 7-8/10 when he stands, but improves to 1-2 when he keeps it elevated. Pain is both sharp and achy, non-radiating and has been increasing over the past 3 days with the swelling. He denies fever, chills, chest pain, shortness of breath, nausea, vomiting, dysuria, urinary frequency, headache. He has a chronic wound on his left hallux than has also changed in appearance recently but no erythema or purulence from that. In the emergency room, he was mildly hypertensive but the remainder of his vital signs were unremarkable. Laboratory evaluation did not reveal significant leukocytosis. ESR was elevated at 52, CRP was 7.9, coagulation studies were unremarkable. His sodium was 132 but corrected to normal given his glucose of 467. COVID-19 testing was negative. I&D was performed in the emergency room by the ER provider, cultures were sent, and CT imaging showed no residual fluid collection but did show extensive cellulitis. 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 Surgical History H/O left knee surgery Family & Social History Family History Father Tubercular lesion of lung Mother Congestive heart failure Diabetes mellitus Social History: household members spouse Prior Living Arrangements House Safety & Behavioral: Feels Safe in Current Yes Environment Been Physically Hurt or No Threatened By a Person Tobacco & Substance use: Smoking Status Never smoker alcohol intake current alcohol intake frequency a few times a month Substance Use Type does not use Meds Home Medications and Allergies Home Medications Medication Instructions Recorded Confirmed Type rosuvastatin 20 mg tablet (Crestor) 20 mg PO DAILY 05/05/21 03/14/22 History apixaban 5 mg tablet (Eliquis) 2.5 mg PO BID 07/02/21 03/14/22 History amiodarone 100 mg tablet 100 mg PO DAILY 09/22/21 03/14/22 History nitroglycerin 0.4 mg sublingual 0.4 mg sublingual Q5-15M PRN chest 11/26/21 03/14/22 History tablet pain metoprolol succinate 25 mg 37.5 mg PO BID 01/31/22 03/14/22 History tablet,extended release 24 hr furosemide 20 mg tablet 10 mg PO 2XW 02/23/22 03/14/22 History alpha lipoic acid 300 mg capsule 300 mg PO DAILY 03/14/22 03/14/22 History ascorbic acid (vitamin C) 500 mg 500 mg PO DAILY 03/14/22 03/14/22 History capsule aspirin 81 mg tablet,delayed 81 mg PO DAILY 03/14/22 03/14/22 History release cholecalciferol (vitamin D3) 50 50 mcg PO BID 03/14/22 03/14/22 History mcg (2,000 unit) capsule coenzyme [id number] 100 mg-100 1 cap PO DAILY 03/14/22 03/14/22 History unit capsule docosahexaenoic acid (dha)-epa 120 1 cap PO DAILY 03/14/22 03/14/22 History mg-180 mg capsule empagliflozin 10 mg tablet 10 mg PO DAILY 03/14/22 03/14/22 History hawthorn 500 mg capsule 500 mg PO TID 03/14/22 03/14/22 History insulin glargine 100 unit/mL 15 unit SUBCUT QAM 03/14/22 03/14/22 History subcutaneous solution (Lantus U-100 Insulin) magnesium 250 mg tablet 250 mg PO BID 03/14/22 03/14/22 History multivit with minerals-iron 18 1 tab PO DAILY 03/14/22 03/14/22 History mg-folic ac 400 mcg-vit K 25 mcg tablet (Adults Multivitamin) sacubitril 24 mg-valsartan 26 mg 1 tab PO BID 03/14/22 03/14/22 History tablet (Entresto) vitamin B complex 1 tab PO DAILY 03/14/22 03/14/22 History Allergies Allergy/AdvReac Type Severity Reaction Status Date / Time [id number] Reductase AdvReac Intermediate lower body Verified 03/14/22 11:54 Inhibitor muscle pain [[id number] REDUCTASE INHIBITOR] Review of Systems Review of Systems Narrative: All other systems reviewed with the patient and are negative unless otherwise stated. Exam Vital Signs (past 8 hours): - 03/14/22 11:45 03/14/22 11:47 03/14/22 11:47 Temperature 98.1 F Pulse Rate 70 70 Pulse Rate [Right Posterior Tibial] Respiratory Rate 14 Blood Pressure 136/60 136/60 Pulse Oximetry 99 97 Oxygen Delivery Method Room Air 03/14/22 12:00 03/14/22 12:00 03/14/22 12:15 Temperature Pulse Rate 65 67 Pulse Rate [Right Posterior Tibial] Respiratory Rate 14 Blood Pressure 116/58 L Pulse Oximetry 99 98 Oxygen Delivery Method Room Air 03/14/22 12:30 03/14/22 12:30 03/14/22 12:45 Temperature Pulse Rate 65 65 Pulse Rate [Right Posterior Tibial] Respiratory Rate Blood Pressure 119/57 L Pulse Oximetry 95 99 Oxygen Delivery Method 03/14/22 13:00 03/14/22 13:01 03/14/22 13:01 Temperature Pulse Rate 66 64 Pulse Rate [Right Posterior Tibial] Respiratory Rate Blood Pressure 121/58 L Pulse Oximetry 100 98 Oxygen Delivery Method 03/14/22 14:46 03/14/22 13:15 03/14/22 13:30 Temperature Pulse Rate 64 Pulse Rate [Right Posterior Tibial] 82 Respiratory Rate Blood Pressure 134/63 Pulse Oximetry 99 Oxygen Delivery Method 03/14/22 13:30 03/14/22 13:45 03/14/22 14:00 Temperature Pulse Rate 63 65 62 Pulse Rate [Right Posterior Tibial] Respiratory Rate 16 13 Blood Pressure Pulse Oximetry 98 99 97 Oxygen Delivery Method 03/14/22 14:01 03/14/22 14:01 03/14/22 14:15 Temperature Pulse Rate 62 63 Pulse Rate [Right Posterior Tibial] Respiratory Rate 14 17 Blood Pressure 110/71 Pulse Oximetry 99 99 Oxygen Delivery Method 03/14/22 14:30 03/14/22 14:31 03/14/22 14:31 Temperature Pulse Rate 63 62 Pulse Rate [Right Posterior Tibial] Respiratory Rate 16 15 Blood Pressure 165/77 H Pulse Oximetry 99 99 Oxygen Delivery Method 03/14/22 14:45 03/14/22 15:00 03/14/22 15:00 Temperature Pulse Rate 63 62 Pulse Rate [Right Posterior Tibial] Respiratory Rate 12 17 Blood Pressure 153/75 H Pulse Oximetry 99 98 Oxygen Delivery Method Room Air Oxygen Delivery Method Room Air Narrative Exam Narrative: General:? Patient is well developed and well nourished, in no distress at this time. HEENT:? Normocephalic, atraumatic, extraocular muscles intact, oral pharynx is clear and mucous membranes are moist. Neck: supple and symmetric, trachea is midline, no cervical adenopathy. Negative for JVD Chest:? Normal AP diameter and contour without kyphoscoliosis, no tachypnea, equal chest rise bilaterally. Midline scar well healed. L chest ICD in place. Lungs:? CTA b/l no wheezing rhonchi or rales. Cardio:?RRR no m/r/g. Abdomen: S NT ND. No CVA tenderness. Musculoskeletal:? Muscle strength and tone are equal within normal limits, no deformity. Extremities: No edema or joint effusions. No cyanosis or clubbing. Skin:? Right leg with erythema and swelling, area demarcated, extends outward from area of I&D (R lateral ortiz) to ankle and mid ortiz. Scab anteriorly on R ortiz without erythema or induration. L hallux chronic superficial skin ulceration, no erythema or induration but has a black eschar Neuro:? Alert and orientated x3,? sensation diminished in bilateral lower extremities, no gross deficits noted of cranial nerves. Psych:? Patient has a well-kept appearance, appropriate affect, mental status attitude thought context and judgment are appropriate for age. Objective ECG Impression: V-paced rhythm as interpreted by me. Labs Result Diagrams: 03/14/22 12:13 03/14/22 12:13 Labs: Laboratory Results - last 24 hr 03/14/22 03/14/22 03/14/22 12:13 12:13 12:13 WBC 6.4 RBC 3.81 L Hgb 10.7 L Hct 32.7 L MCV 85.9 MCH 28.2 MCHC 32.8 RDW 15.0 H Plt Count 254 Neut % (Auto) 70.4 Lymph % (Auto) 12.7 L [place] % (Auto) 12.0 Eos % (Auto) 4.6 H Baso % (Auto) 0.3 Neut # (Auto) 4500 Lymph # (Auto) 800 L [place] # (Auto) 800 Eos # (Auto) 300 Baso # (Auto) 0 ESR PT INR APTT Sodium 132 L Potassium 4.5 Chloride 99 Carbon Dioxide 21 L BUN 27 H Creatinine 1.20 Estimated GFR > 60 BUN/Creatinine Ratio 22.5 H Glucose 467 H Lactate 1.1 Calcium 9.0 Total Bilirubin 0.5 AST 19 ALT 17 Alkaline Phosphatase 143 H Total Creatine Kinase CK-MB (CK-2) CK-MB (CK-2) Rel Index Troponin I C-Reactive Protein NT-Pro-B Natriuret Pep Total Protein 7.3 Albumin 3.8 Globulin 3.5 Albumin/Globulin Ratio 1.1 Lipase 86 Procalcitonin 0.13 SARS-CoV-2 (PCR) 03/14/22 03/14/22 03/14/22 12:13 12:13 12:13 WBC RBC Hgb Hct MCV MCH MCHC RDW Plt Count Neut % (Auto) Lymph % (Auto) [place] % (Auto) Eos % (Auto) Baso % (Auto) Neut # (Auto) Lymph # (Auto) [place] # (Auto) Eos # (Auto) Baso # (Auto) ESR 52 H PT 12.2 INR 1.1 APTT 32 Sodium Potassium Chloride Carbon Dioxide BUN Creatinine Estimated GFR BUN/Creatinine Ratio Glucose Lactate Calcium Total Bilirubin AST ALT Alkaline Phosphatase Total Creatine Kinase 72 CK-MB (CK-2) TNP CK-MB (CK-2) Rel Index TNP Troponin I < 0.012 C-Reactive Protein NT-Pro-B Natriuret Pep 3850 H Total Protein Albumin Globulin Albumin/Globulin Ratio Lipase Procalcitonin SARS-CoV-2 (PCR) 03/14/22 03/14/22 12:13 12:13 WBC RBC Hgb Hct MCV MCH MCHC RDW Plt Count Neut % (Auto) Lymph % (Auto) [place] % (Auto) Eos % (Auto) Baso % (Auto) Neut # (Auto) Lymph # (Auto) [place] # (Auto) Eos # (Auto) Baso # (Auto) ESR PT INR APTT Sodium Potassium Chloride Carbon Dioxide BUN Creatinine Estimated GFR BUN/Creatinine Ratio Glucose Lactate Calcium Total Bilirubin AST ALT Alkaline Phosphatase Total Creatine Kinase CK-MB (CK-2) CK-MB (CK-2) Rel Index Troponin I C-Reactive Protein 7.9 H NT-Pro-B Natriuret Pep Total Protein Albumin Globulin Albumin/Globulin Ratio Lipase Procalcitonin SARS-CoV-2 (PCR) Negative Assessment & Plan Assessment & Plan narrative: 80-year-old gentleman with coronary artery disease status post remote TX, status post pacemaker/AICD placement, prior mitral valve repair, diabetes mellitus type 2, insulin dependent, hypertension, hyperlipidemia, atrial fibrillation (paroxysmal) on chronic Eliquis anticoagulation, CKD stage III admitted with R leg cellulitis and abscess s/p I&D in the ER after failure of outpatient oral antibiotics. 1. R leg cellulitis and abscess - s/p I&D in the ER - given diabetes, continue cefepime and vanco, did not respond to outpatient doxycycline - follow up cultures from wound 2. L foot chronic diabetic foot ulcer - with eschar on exam, no wound care available in house, can follow up out patient as does not appear acutely infected. 3. chronic afib, rate controlled - continue home medications, amiodarone, eliquis 4. type 2 diabetes - continue home insulin 15 units AM (lantus), add sliding scale. Adjust as needed. A1c ordered. 5. CKD III - monitor creatinine, renally dose medications, appears near baseline with cr of 1.2 6. CAD - continue home medications 7. HTN / HLD - continue home medications, replace home rosuvastatin with formulary atorvastatin. PCP note states he is tolerant of rosuvastatin though has allergy reported to statins. 8. Chronic systolic heart failure - no acute exacerbation. Continue home beta martir and entresto. DVT: on apixaban Code: Full, surrogate is his I have utilized all available immediate resources to obtain, update, or review the patient's current medications. Dispo: admit inpatient given failure of outpatient antibiotics and expected stay beyond two midnights. COVID-19 COVID-19 status: Negative Time Spent With Patient Critical Care time: I spent a total of [] minutes of critical care time on this patient's care today; this time is exclusive of procedural time. Quality VTE Deep Vein Thrombosis/Pulmonary Embolism Present on Admission: No MIPS - Admit I confirm the patient?s Advance Care Plan is present, Code status is documented, Surrogate decision maker is in patient?s record [If Yes, STOP here]: Yes
[2022-03-14 17:06] LABS: Bacteria Urine None Seen; RBC Urine None Seen (0-5/HPF); WBC Urine None Seen (0-5/HPF)
[2022-03-14] MEDS: CEFEPIME 2 GM in SODIUM CHLORIDE 0.9% 100 ML IV (17:11)
[2022-03-14] MEDS: SODIUM CHLORIDE 0.9% 250 ML 21 ML IV (17:12)
--- NOTE | 2022-03-14 17:34 | PC.NURSE ---
Right leg cellulitis.
--- NOTE | 2022-03-14 17:35 | PC.NURSE ---
Bottom of left great toe, admission photo. Measuring approximately 2.75cm by 3cm. Area cleansed and washed with sterile normal saline. Nonadherent dressing and wrapped with gauze kerlex to secure.
[2022-03-14] MEDS: INSULIN LISPRO 100 UNIT/ML 3ML VIAL SUBCUT ×2 (18:17→20:13)
[2022-03-14] MEDS: ACETAMINOPHEN 325 MG TABLET 650 MG PO (18:53)
[2022-03-14] MEDS: ATORVASTATIN 20 MG TABLET 40 MG PO (20:12)
[2022-03-14] MEDS: METOPROLOL ER 25 MG TABLET 37.5 MG PO (20:12)
[2022-03-14] MEDS: APIXABAN 5 MG TABLET 2.5 MG PO (20:13)
[2022-03-14] MEDS: OXYCODONE IR 5 MG TABLET PO (20:17)
[2022-03-14] MEDS: SODIUM CHLORIDE 0.9% FLUSH 10 ML IV (22:53)
[2022-03-15] VITALS (12 sets, daily range): BP systolic 102–126; BP diastolic 26–88; PULSE 55–82; RESP 15–18; TEMP 36.2–36.7; O2SAT 94–99
[2022-03-15] MEDS: OXYCODONE IR 5 MG TABLET PO ×2 (03:29→09:45)
[2022-03-15] MEDS: CEFEPIME 2 GM in SODIUM CHLORIDE 0.9% 100 ML IV ×2 (03:57→15:31)
--- NOTE | 2022-03-15 04:29 | PC.NURSE ---
Pt is AxOx4, needs 1 person assistance and cooperative. VSS, pt c/o pain on RLE and requested PRN Oxy 5mg PO x2 with good effect. Pt's redness on RLE is still not exceeding the marked area. Pt is urinating well. Otherwise, no problem identified. Continue monitor.
[2022-03-15 06:17] LABS: Add Manual Diff / Slide Review NO; Basophils Absolute Auto 0 /uL (0-100); Basophils Percent Auto 0.3 % (0-2); Eosinophils Absolute Auto 400 /uL (0-450); Eosinophils Percent Auto 5.2 % (2-4); Hematocrit 33.7 % (41-53); Hemoglobin 11.1 g/dL (13.5-17.5); Lymphocytes Absolute Auto 800 /uL (1100-4500); Lymphocytes Percent Auto 10.8 % (25-40); Mean Corpuscular Volume 84.8 fL (80-100); Monocytes Absolute Auto 1000 /uL (0-900); Neutrophils Absolute Auto 5300 /uL (1500-7000); Neutrophils Percent Auto 70.7 % (50-75); Platelet Count 270 X10^3/uL (150-400); Red Blood Cell Count 3.97 X10^6/uL (4.5-5.9); White Blood Cell Count 7.5 X10^3/uL (4.5-11.0)
[2022-03-15 06:33] LABS: Alanine Aminotransferase 15 IU/L (<50); Albumin 3.6 g/dL (3.5-5.0); Alkaline Phosphatase 124 U/L (38-126); Aspartate Aminotransferase 19 IU/L (17-59); BUN Creatinine Ratio 17.1 (6-22); Bilirubin Total 0.6 mg/dL (0.2-1.3); Blood Urea Nitrogen 22 mg/dL (9-20); Calcium 8.9 mg/dL (8.4-10.2); Carbon Dioxide 23 mmol/L (22-32); Chloride 105 mmol/L (98-107); Estimated Glomerular Filt Rate 56 mL/min (>60); Globulin 3.6 g/dL (1.7-4.1); Glucose 116 mg/dL (80-110); HEMOLYSIS < 15 (0-50); Magnesium 1.9 mg/dL (1.6-2.3); Potassium 4.6 mmol/L (3.4-5.1); Sodium 137 mmol/L (137-145); Total Protein 7.2 g/dL (6.3-8.2)
[2022-03-15 06:35] LABS: Hemoglobin A1C% w Est Avg Glu 13.8 % (4.0-6.0)
[2022-03-15] MEDS: VANCOMYCIN 1,250 MG/250 ML PIGGYBACK 250 MG IV (08:04)
--- NOTE | 2022-03-15 08:20 | PM.PN.1 ---
Subjective Subjective Date Patient Seen: 03/15/22 Time Patient Seen: 10:00 Interval history: Patient had a good discussion with dietary today concerning his diabetes and A1c of 13%. His right leg cellulitis is improving and he said the redness is going down. Exam Vital Signs (past 8 hours): - 03/15/22 03:28 03/15/22 04:00 Temperature 97.1 F L Pulse Rate 55 L Respiratory Rate 15 Blood Pressure 102/56 L Pulse Oximetry 97 95 Oxygen Delivery Method Room Air Oxygen Flow Rate 0 0 Oxygen Delivery Method Room Air Oxygen Flow Rate 0 Narrative Exam Narrative: General:? Patient is well developed and well nourished, in no distress at this time. HEENT:? Normocephalic, atraumatic, extraocular muscles intact, oral pharynx is clear and mucous membranes are moist. Neck: supple and symmetric, trachea is midline, no cervical adenopathy. Negative for JVD Chest:? Normal AP diameter and contour without kyphoscoliosis, no tachypnea, equal chest rise bilaterally. Midline scar well healed. L chest ICD in place. Lungs:? CTA b/l no wheezing rhonchi or rales. Cardio:?RRR no m/r/g. Abdomen: S NT ND. No CVA tenderness. Musculoskeletal:? Muscle strength and tone are equal within normal limits, no deformity. Extremities: No edema or joint effusions. No cyanosis or clubbing. Skin:? Right leg with erythema and swelling now less than original area demarcated, extends outward from area of I&D (R lateral ortiz) to ankle and mid ortiz. Scab anteriorly on R ortiz without erythema or induration. L hallux chronic superficial skin ulceration, no erythema or induration but has a black eschar Neuro:? Alert and orientated x3,? sensation diminished in bilateral lower extremities, no gross deficits noted of cranial nerves. Psych:? Patient has a well-kept appearance, appropriate affect, mental status attitude thought context and judgment are appropriate for age. Objective Labs Result Diagrams: 03/15/22 06:07 03/15/22 06:07 Labs: Laboratory Results - last 24 hr 03/14/22 03/14/22 03/14/22 12:13 12:13 12:13 WBC 6.4 RBC 3.81 L Hgb 10.7 L Hct 32.7 L MCV 85.9 MCH 28.2 MCHC 32.8 RDW 15.0 H Plt Count 254 Neut % (Auto) 70.4 Lymph % (Auto) 12.7 L [place] % (Auto) 12.0 Eos % (Auto) 4.6 H Baso % (Auto) 0.3 Neut # (Auto) 4500 Lymph # (Auto) 800 L [place] # (Auto) 800 Eos # (Auto) 300 Baso # (Auto) 0 ESR PT INR APTT Sodium 132 L Potassium 4.5 Chloride 99 Carbon Dioxide 21 L BUN 27 H Creatinine 1.20 Estimated GFR > 60 BUN/Creatinine Ratio 22.5 H Glucose 467 H Hemoglobin A1c Lactate 1.1 Calcium 9.0 Magnesium Total Bilirubin 0.5 AST 19 ALT 17 Alkaline Phosphatase 143 H Total Creatine Kinase CK-MB (CK-2) CK-MB (CK-2) Rel Index Troponin I C-Reactive Protein NT-Pro-B Natriuret Pep Total Protein 7.3 Albumin 3.8 Globulin 3.5 Albumin/Globulin Ratio 1.1 Lipase 86 Procalcitonin 0.13 Urine RBC Urine WBC Urine Bacteria SARS-CoV-2 (PCR) 03/14/22 03/14/22 03/14/22 12:13 12:13 12:13 WBC RBC Hgb Hct MCV MCH MCHC RDW Plt Count Neut % (Auto) Lymph % (Auto) [place] % (Auto) Eos % (Auto) Baso % (Auto) Neut # (Auto) Lymph # (Auto) [place] # (Auto) Eos # (Auto) Baso # (Auto) ESR 52 H PT 12.2 INR 1.1 APTT 32 Sodium Potassium Chloride Carbon Dioxide BUN Creatinine Estimated GFR BUN/Creatinine Ratio Glucose Hemoglobin A1c Lactate Calcium Magnesium Total Bilirubin AST ALT Alkaline Phosphatase Total Creatine Kinase 72 CK-MB (CK-2) TNP CK-MB (CK-2) Rel Index TNP Troponin I < 0.012 C-Reactive Protein NT-Pro-B Natriuret Pep 3850 H Total Protein Albumin Globulin Albumin/Globulin Ratio Lipase Procalcitonin Urine RBC Urine WBC Urine Bacteria SARS-CoV-2 (PCR) 03/14/22 03/14/22 03/14/22 12:13 12:13 15:58 WBC RBC Hgb Hct MCV MCH MCHC RDW Plt Count Neut % (Auto) Lymph % (Auto) [place] % (Auto) Eos % (Auto) Baso % (Auto) Neut # (Auto) Lymph # (Auto) [place] # (Auto) Eos # (Auto) Baso # (Auto) ESR PT INR APTT Sodium Potassium Chloride Carbon Dioxide BUN Creatinine Estimated GFR BUN/Creatinine Ratio Glucose Hemoglobin A1c Lactate Calcium Magnesium Total Bilirubin AST ALT Alkaline Phosphatase Total Creatine Kinase CK-MB (CK-2) CK-MB (CK-2) Rel Index Troponin I C-Reactive Protein 7.9 H NT-Pro-B Natriuret Pep Total Protein Albumin Globulin Albumin/Globulin Ratio Lipase Procalcitonin Urine RBC None seen Urine WBC None seen Urine Bacteria None seen SARS-CoV-2 (PCR) Negative 03/15/22 03/15/22 03/15/22 06:07 06:07 06:07 WBC 7.5 RBC 3.97 L Hgb 11.1 L Hct 33.7 L MCV 84.8 MCH 28.0 MCHC 33.0 RDW 15.0 H Plt Count 270 Neut % (Auto) 70.7 Lymph % (Auto) 10.8 L [place] % (Auto) 13.0 Eos % (Auto) 5.2 H Baso % (Auto) 0.3 Neut # (Auto) 5300 Lymph # (Auto) 800 L [place] # (Auto) 1000 H Eos # (Auto) 400 Baso # (Auto) 0 ESR PT INR APTT Sodium 137 Potassium 4.6 Chloride 105 Carbon Dioxide 23 BUN 22 H Creatinine 1.29 H Estimated GFR 56 L BUN/Creatinine Ratio 17.1 Glucose 116 H D Hemoglobin A1c 13.8 H Lactate Calcium 8.9 Magnesium 1.9 Total Bilirubin 0.6 AST 19 ALT 15 Alkaline Phosphatase 124 Total Creatine Kinase CK-MB (CK-2) CK-MB (CK-2) Rel Index Troponin I C-Reactive Protein NT-Pro-B Natriuret Pep Total Protein 7.2 Albumin 3.6 Globulin 3.6 Albumin/Globulin Ratio 1.0 Lipase Procalcitonin Urine RBC Urine WBC Urine Bacteria SARS-CoV-2 (PCR) [facility] Medical History Advanced directives, counseling/discussion Bilateral foot-drop Chronic anticoagulation Coronary artery disease Diabetic foot infection DJD of right shoulder Essential hypertension FH: mitral valve repair Gait instability Herniated nucleus pulposus, L4-5 Hospital discharge follow-up Medicare annual wellness visit, initial Mixed hyperlipidemia Multilevel spinal stenosis Paroxysmal atrial fibrillation Peripheral neuropathy Stage 3a chronic kidney disease (CKD) Systolic CHF, chronic 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 Surgical History H/O left knee surgery Family History Father Tubercular lesion of lung Mother Congestive heart failure Diabetes mellitus Social History household members: spouse Smoking Status: Never smoker alcohol intake: current Assessment & Plan Assessment & Plan narrative: 80-year-old gentleman with coronary artery disease status post remote [place], status post pacemaker/AICD placement, prior mitral valve repair, diabetes mellitus type 2, insulin dependent, hypertension, hyperlipidemia, atrial fibrillation (paroxysmal) on chronic Eliquis anticoagulation, CKD stage III admitted with R leg cellulitis and abscess s/p I&D in the ER after failure of outpatient oral antibiotics. 1. R leg cellulitis and abscess - s/p I&D in the ER - given diabetes, continue cefepime and vanco, did not respond to outpatient doxycycline - wound cultures from 12/22 outpatient growing staph aureus - blood and urine cultures no growth 2. L foot chronic diabetic foot ulcer - with eschar on exam, no wound care available in house, can follow up outpatient as does not appear acutely infected. 3. chronic afib, rate controlled - continue home medications, amiodarone, eliquis 4. type 2 diabetes - continue home insulin 15 units AM (lantus), add sliding scale. Adjust as needed. A1c 13.8% - dietary consulted and determined that patient had incorrectly stopped his mealtime insulin, they will f/u with PCP Dr. Baig - patient aware now he was taking less insulin than he should, and will see his PCP soon to fix this 5. CKD III - monitor creatinine, renally dose medications, appears near baseline with cr of 1.2 6. CAD - continue home medications 7. HTN / HLD - continue home medications, replace home rosuvastatin with formulary atorvastatin. PCP note states he is tolerant of rosuvastatin though has allergy reported to statins. 8. Chronic systolic heart failure - no acute exacerbation. Continue home beta martir and entresto. DVT: on apixaban Code: Full, surrogate is his I have utilized all available immediate resources to obtain, update, or review the patient's current medications. Dispo: Home likely on 03/16. COVID-19 COVID-19 status: Negative Time Spent With Patient Critical Care time: I spent a total of [] minutes of critical care time on this patient's care today; this time is exclusive of procedural time. Quality VTE Deep Vein Thrombosis/Pulmonary Embolism Present on Admission: No
[2022-03-15] MEDS: APIXABAN 5 MG TABLET 2.5 MG PO ×2 (09:46→20:05)
[2022-03-15] MEDS: METOPROLOL ER 25 MG TABLET 37.5 MG PO ×2 (09:47→20:05)
[2022-03-15] MEDS: AMIODARONE 200 MG TABLET 100 MG PO (09:49)
[2022-03-15] MEDS: SODIUM CHLORIDE 0.9% FLUSH 10 ML IV ×2 (09:50→20:06)
[2022-03-15] MEDS: INSULIN GLARGINE 100 UNIT/ML 3ML PEN 15 UNIT SUBCUT (09:54)
--- NOTE | 2022-03-15 11:10 | DIET.CONS ---
Addendum entered by Gege Henriquez 03/15/22 11:40: DMSE referral requested for pt this morning, will call to schedule once referral processed. Original Note: Dietary Consultation Note Admission Date: 03/14/2022 15:10 Assessment: 81y M admitted for R leg abcess with cellulitis referred to nutrition for A1c 13.8. RD met with pt at bedside. Pt states he has been working with PCP Jovanni since summer to adjust DM medications. Pt with neuropathy, CKD and chronic wounds. States last visit he was told to stop meal time insulin, however, upon review of notes less than 1mo ago from PCP, pt instructed to decrease lantus to 18U and increase humalog based on BG readings, continue metformin 500mg QID and continue Jardiance 25mg/d. Pt reports this morning BG 115, at home FBGs run 140-150 range. Pt states A1c of 13.8 is a surprise for him, last he knew he was in 8 range, though chart review shows 12.4 --> 11.5 --> 13.8. Pt states he saw DM educator here 3 times then insurance stated he would not get more visits. Upon review, no notes in EMR regarding DM education visits though pt able to verbalize where their office is on campus. DM ed able to request more visits and pt gets series of annual visits with no out of pocket expense. Pt would greatly benefit from referral to DM ed for close monitoring of BGs until wounds heal and A1c in optimal range. Pt interested in CGM and would be great candidate considering high A1c with complications of neuropathy, chronic wounds, CKD and willingness to participate in care. Suspect some confusion regarding long vs. short acting and how to calculate meal time insulin. Ht: 177.8 cm Wt: 90.22 kg BMI: 28.5 Last BM: 03/14/22 (03/14/22 15:27) MNA: 12 Dionicio Score: 19 Diet: 03/14/22 Dinner Carbohydrate Consistent Diet Diet Modifications: Carbohydrate level: Large (4 CHO) Nutrition Percent Meal Consumed 50% 03/14/22 18:18 Labs: RBC 3.97 X10^6/uL (4.5-5.9) L 03/15/22 06:07 Hgb 11.1 g/dL (13.5-17.5) L 03/15/22 06:07 Hct 33.7 % (41-53) L 03/15/22 06:07 Creatinine 1.29 mg/dL (0.66-1.25) H 03/15/22 06:07 Hemoglobin A1c 13.8 % (4.0-6.0) H 03/15/22 06:07 Lactate 1.1 mmol/L (0.7-2.1) 03/14/22 12:13 NT-Pro-B Natriuret Pep 3850 pg/mL (<450) H 03/14/22 12:13 Nutrition Diagnosis: altered laboratory values (A1c) r/t endocrine dysfunction and medication management issues aeb A1c 13.8, pt admitted for R leg abcess and cellulitis, pt states he was told to stop meal time insulin though records show reccs to increase this med. Interventions: 1. RD to contact PCP for referral to DM education for closer monitoring and food, behavior and medication counselling. 2. Recc PCP check to see if pt candidate for CGM and [id number] expenses. EER: 45-60g CHO per meal Monitoring/Evaluations: BGs Electronically Signed by: Gege Henriquez 03/15/22 11:10 Clinical [address] [id number]
--- NOTE | 2022-03-15 14:09 | CM.DANOTE ---
Patient is an 81 yo male who was admitted on 03/14/22 for Infection in Leg. Pt has [facility] and [employer] for insurance and his PCP is Dr. Zaheer Baig. EMR was reviewed. Per MD, pt with hx of pacemaker placement, diabetes, and admitted for failed outpt oral abx for right leg cellullitis with abscess. SW met bedside with pt and explained role and pt confirms he lives in [place] with his spouse and both are retired and drive and independent at baseline with ADL's and pt does not typically use DME for ambulation. 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 Pt denies any hx of SNF or HH and preference is home via spouse POV when medically stable to d/c and confirms his redness and pain has significantly improved with IV-Abx. Pigs Feet Finisher met bedside with pt for additional diabetes education and pt presented with some knowledge and understanding and states he has been working with PCP for correct dosing that is helpful with insulin. Plan: SW to follow closely for cultures to return to confirm safe plan of home with family support and oral abx and r/o assisted IV-Abx and any additional discharge planning needs. ANTONELLA Barakat Discharge Planning/Care Management Advanced directive, confirm from FAMILY Start: 03/14/22 16:35 Freq: Q24H Status: Active Protocol: Document 03/14/22 17:18 CLP (Rec: 03/14/22 17:18 CLP [id number]) Advance Directive, confirm on record Time 17:18 Person contacted patient Copy received No CM Discharge Assessment Start: 03/15/22 14:07 Freq: Status: Active Protocol: Document 03/15/22 14:07 BF (Rec: 03/15/22 14:09 BF [id number]) Discharge Planning Assessment Assigned Gas Appliance Installer ANTONELLA Segovia DPOA/Assigned Designee Name spouse Ligia Contact Information [phone] Advance Directives? Yes Advance Directives on File No History Provided By Patient,Medical Record Has Patient been admitted in last 30 No days? Prior Living Arrangements House Household Members spouse Type of transporation used prior to Drives own vehicle admit Independent with ADL's Yes Is patient alert and oriented? Yes Caregiver for Another No Barriers to Discharge No Discharge Plan Home Transportation Arrangement spouse plans to provide transport home Referrals Initiated None needed Additional Comment pending cultures and likely oral abx at d/c Whiteboard Updated in Patient Room with Yes name and ext. # of Gas Appliance Installer Review Status In Process Please Provide Date Initial DC 03/15/22 Assessment Was Performed Next Review Type Continued Stay Review
[2022-03-15] MEDS: ACETAMINOPHEN 325 MG TABLET 650 MG PO (15:28)
[2022-03-15] MEDS: ATORVASTATIN 20 MG TABLET 40 MG PO (20:05)
[2022-03-15] MEDS: INSULIN LISPRO 100 UNIT/ML 3ML VIAL SUBCUT (20:06)
[2022-03-16] VITALS: O2SAT 96
[2022-03-16] MEDS: VANCOMYCIN 1,250 MG/250 ML PIGGYBACK 250 MG IV (00:29)
--- NOTE | 2022-03-16 03:26 | PC.NURSE ---
Pt is AxOx4, needs STA and cooperative. VSS, pt denies pain, no pain med requested all night. RLE redness has decreased in size and redness. Pt slept well all night. BG-197 so pt recieved 2 units of Lispro for that. No other changes. Continue monitor.
[2022-03-16 04:00] VITALS: BP 117/49; PULSE 72; RESP 18; TEMP 36.1; O2SAT 96; O2SAT 98
[2022-03-16] MEDS: CEFEPIME 2 GM in SODIUM CHLORIDE 0.9% 100 ML IV (04:55)
[2022-03-16 05:06] LABS: Alanine Aminotransferase 15 IU/L (<50); Albumin 3.5 g/dL (3.5-5.0); Albumin Globulin Ratio 0.9 (1.0-2.8); Alkaline Phosphatase 121 U/L (38-126); Aspartate Aminotransferase 21 IU/L (17-59); Bilirubin Total 0.5 mg/dL (0.2-1.3); Blood Urea Nitrogen 22 mg/dL (9-20); Carbon Dioxide 19 mmol/L (22-32); Chloride 105 mmol/L (98-107); Estimated Glomerular Filt Rate 60 mL/min (>60); Globulin 3.8 g/dL (1.7-4.1); Glucose 105 mg/dL (80-110); HEMOLYSIS < 15 (0-50); Potassium 4.8 mmol/L (3.4-5.1); Sodium 137 mmol/L (137-145); Total Protein 7.3 g/dL (6.3-8.2)
[2022-03-16 05:10] LABS: Add Manual Diff / Slide Review NO; Basophils Absolute Auto 0 /uL (0-100); Basophils Percent Auto 0.4 % (0-2); Eosinophils Absolute Auto 300 /uL (0-450); Hematocrit 34.1 % (41-53); Hemoglobin 11.4 g/dL (13.5-17.5); Lymphocytes Absolute Auto 900 /uL (1100-4500); Lymphocytes Percent Auto 13.2 % (25-40); Mean Corpuscular HGB Conc 33.4 % (30-36); Mean Corpuscular Hemoglobin 28.3 PG (26-34); Mean Corpuscular Volume 84.7 fL (80-100); Monocytes Absolute Auto 1200 /uL (0-900); Monocytes Percent Auto 17.7 % (3-14); Neutrophils Absolute Auto 4400 /uL (1500-7000); Neutrophils Percent Auto 63.7 % (50-75); Platelet Count 265 X10^3/uL (150-400); Red Blood Cell Count 4.03 X10^6/uL (4.5-5.9); Red Cell Distribution Width 14.9 % (11.6-14.8); White Blood Cell Count 6.9 X10^3/uL (4.5-11.0)
[2022-03-16 07:50] VITALS: O2SAT 96
[2022-03-16] MEDS: APIXABAN 5 MG TABLET 2.5 MG PO (08:01)
[2022-03-16] MEDS: AMIODARONE 200 MG TABLET 100 MG PO (08:01)
[2022-03-16] MEDS: METOPROLOL ER 25 MG TABLET 37.5 MG PO (08:04)
[2022-03-16] MEDS: SODIUM CHLORIDE 0.9% FLUSH 10 ML IV (08:05)
[2022-03-16] MEDS: INSULIN GLARGINE 100 UNIT/ML 3ML PEN 15 UNIT SUBCUT (08:11)
[2022-03-16 08:12] VITALS: BP 87/55; PULSE 74; RESP 18; TEMP 36.4; O2SAT 97
[2022-03-16 08:14] VITALS: BP 100/49
--- NOTE | 2022-03-16 09:00 | P.DS_ITS ---
History of Present Illness History of Present Illness Date Patient Seen: 03/16/22 Time Patient Seen: 08:00 Chief complaint: Infection in Rt Lower Leg Narrative: 80-year-old gentleman with coronary artery disease status post remote ID, status post pacemaker/AICD placement, prior mitral valve repair, diabetes mellitus type 2, insulin dependent, hypertension, hyperlipidemia, atrial fibrillation (paroxysmal) on chronic Eliquis anticoagulation, CKD stage III who presented with worsening redness of his R leg with fluid collection. Patient states he developed swelling and a fluctuant area on his R ortiz three days ago. He was given doxycycline to take starting two days ago but his swelling and redness continued to worsen. He rates the pain on his R leg 7-8/10 when he stands, but improves to 1-2 when he keeps it elevated. Pain is both sharp and achy, non-radiating and has been increasing over the past 3 days with the swelling. He denies fever, chills, chest pain, shortness of breath, nausea, vomiting, dysuria, urinary frequency, headache. He has a chronic wound on his left hallux than has also changed in appearance recently but no erythema or purulence from that. In the emergency room, he was mildly hypertensive but the remainder of his vital signs were unremarkable.? Laboratory evaluation did not reveal significant leukocytosis.? ESR was elevated at 52, CRP was 7.9, coagulation studies were unremarkable.? His sodium was 132 but corrected to normal given his glucose of 467.? COVID-19 testing was negative.? I&D was performed in the emergency room by the ER provider, cultures were sent, and CT imaging showed no residual fluid collection but did show extensive cellulitis.? He was admitted for further management of R leg abscess and cellulitis Discharge Providers Provider Date of admission: 03/14/22 15:10 Discharge Date: 03/16/22 Primary care physician: Zaheer Baig MD Consults: 03/15/22 08:23 Consult to Dietitian, Adult Routine Comment: Reason For Exam: A1c 13.8%!! Discharge provider: Socrates Correa, Summary Hospital Course Discharge Diagnosis: 1. R leg cellulitis and abscess ?- s/p I&D in the ER ?- given diabetes, continue cefepime and vanco, did not respond to outpatient doxycycline -received 3 days of IV abx and discharged on po linezolid for 3 additional days to complete 6 day course ?- wound cultures from 12/22 outpatient growing staph aureus ?- blood and urine cultures no growth ? 2. L foot chronic diabetic foot ulcer ?- with eschar on exam, no wound care available in house, can follow up outpatient as does not appear acutely infected. 3. chronic afib, rate controlled ?- continue home medications, amiodarone, eliquis 4. type 2 diabetes ?- continue home insulin 15 units AM (lantus), add sliding scale. Adjust as nee ded. A1c 13.8% ?- dietary consulted and determined that patient had incorrectly stopped his mealtime insulin, they will f/u with PCP Dr. Baig ?- patient aware now he was taking less insulin than he should, and will see his PCP soon to fix this 5. CKD III ?- monitor creatinine, renally dose medications, appears near baseline with cr of 1.2 6. CAD ?- continue home medications 7. HTN / HLD - continue home medications, replace home rosuvastatin with formulary atorvastatin. PCP note states he is tolerant of rosuvastatin though has allergy reported to statins. 8. Chronic systolic heart failure ?- no acute exacerbation. Continue home beta martir and entresto. Hospital Course: Admitted for abscess and cellulitis of right ortiz which failed outpatient doxycycline oral therapy. I&D performed in ED and started on IV vanc and cefepime. CT of leg showed no remaining abscess or nec fasc but cellulitis. Redness, swelling and pain improved and cultures grew nothing, so he was discharged on 3 more days of oral linezolid to complete 6 day course. Found to have A1c of 13.8% and dietary met with patient who had apparently not been taking his mealtime insulin over confusion with his PCP instructions. He will see PCP to straighten this out as well as see outpatient diabetes education. Time Spent with Patient Time spent: Greater than 30 minutes Exam Vital Signs (past 8 hours): - 03/16/22 04:00 03/16/22 04:00 03/16/22 08:12 Temperature 97.0 F L 97.5 F L Pulse Rate 72 74 Respiratory Rate 18 18 Blood Pressure 117/49 L 87/55 L Pulse Oximetry 98 96 97 Oxygen Delivery Method Room Air Oxygen Flow Rate 0 0 03/16/22 08:14 Temperature Pulse Rate Respiratory Rate Blood Pressure 100/49 L Pulse Oximetry Oxygen Delivery Method Oxygen Flow Rate Oxygen Delivery Method Room Air Oxygen Flow Rate 0 Narrative Exam Narrative: General:? Patient is well developed and well nourished, in no distress at this time. HEENT:? Normocephalic, atraumatic, extraocular muscles intact, oral pharynx is clear and mucous membranes are moist. Neck: supple and symmetric, trachea is midline, no cervical adenopathy. Negative for JVD Chest:? Normal AP diameter and contour without kyphoscoliosis, no tachypnea, equal chest rise bilaterally. Midline scar well healed. L chest ICD in place. Lungs:? CTA b/l no wheezing rhonchi or rales. Cardio:?RRR no m/r/g. Abdomen: S NT ND. No CVA tenderness. Musculoskeletal:? Muscle strength and tone are equal within normal limits, no deformity. Extremities: No edema or joint effusions. No cyanosis or clubbing. Skin:? Right leg with erythema and swelling now less than original area demarcated, extends outward from area of I&D (R lateral ortiz) to ankle and mid ortiz. Scab anteriorly on R ortiz without erythema or induration. L hallux chronic superficial skin ulceration, no erythema or induration but has a black eschar Neuro:? Alert and orientated x3,? sensation diminished in bilateral lower extremities, no gross deficits noted of cranial nerves. Psych:? Patient has a well-kept appearance, appropriate affect, mental status attitude thought context and judgment are appropriate for age. Objective Labs Result Diagrams: 03/16/22 04:39 03/16/22 04:39 Labs: Laboratory Results - last 24 hr 03/16/22 03/16/22 04:39 04:39 WBC 6.9 RBC 4.03 L Hgb 11.4 L Hct 34.1 L MCV 84.7 MCH 28.3 MCHC 33.4 RDW 14.9 H Plt Count 265 Neut % (Auto) 63.7 Lymph % (Auto) 13.2 L [place] % (Auto) 17.7 H Eos % (Auto) 5.0 H Baso % (Auto) 0.4 Neut # (Auto) 4400 Lymph # (Auto) 900 L [place] # (Auto) 1200 H Eos # (Auto) 300 Baso # (Auto) 0 Sodium 137 Potassium 4.8 Chloride 105 Carbon Dioxide 19 L BUN 22 H Creatinine 1.22 Estimated GFR 60 BUN/Creatinine Ratio 18.0 Glucose 105 Calcium 9.0 Magnesium 2.0 Total Bilirubin 0.5 AST 21 ALT 15 Alkaline Phosphatase 121 Total Protein 7.3 Albumin 3.5 Globulin 3.8 Albumin/Globulin Ratio 0.9 L [facility] Medical History Advanced directives, counseling/discussion Bilateral foot-drop Chronic anticoagulation Coronary artery disease Diabetic foot infection DJD of right shoulder Essential hypertension FH: mitral valve repair Gait instability Herniated nucleus pulposus, L4-5 Hospital discharge follow-up Medicare annual wellness visit, initial Mixed hyperlipidemia Multilevel spinal stenosis Paroxysmal atrial fibrillation Peripheral neuropathy Stage 3a chronic kidney disease (CKD) Systolic CHF, chronic 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 Surgical History H/O left knee surgery Family History Father Tubercular lesion of lung Mother Congestive heart failure Diabetes mellitus Social History household members: spouse Smoking Status: Never smoker alcohol intake: current Discharge Plan Discharge Plan Patient Disposition: Home Provider Discharge Comment: You were admitted for an abscess and cellulitis of the right leg which improved on IV antibiotics. The cultures of the wound did not grow anything. I am sending home on an oral antibiotic to cover both MRSA and common cellulitis bugs. Please take for additional 3 days to complete 6 day course. Discharge orders & Medications Prescriptions: New linezolid 600 mg tablet 600 mg PO BID 3 Days Qty: 6 0RF Rx Instructions: start on evening of 03/16 Continued nitroglycerin 0.4 mg tablet, sublingual 0.4 mg sublingual Q5-15M PRN (Reason: chest pain) furosemide 20 mg tablet 10 mg PO 2XW Rx Instructions: takes Monday and Monday Eliquis 5 mg Tablet 2.5 mg PO BID insulin glargine [Lantus U-100 Insulin] 100 unit/mL solution 15 unit SUBCUT QAM aspirin 81 mg tablet,delayed release (DR/EC) 81 mg PO DAILY Entresto 24-26 mg tablet 1 tab PO BID Label Comments: TAKE 1 TABLET BY MOUTH TWICE DAILY WITH MEALS vitamin B complex Tablet 1 tab PO DAILY magnesium 250 mg Tablet 250 mg PO BID hawthorn 500 mg Capsule 500 mg PO TID docosahexaenoic acid-epa 120-180 mg Capsule 1 cap PO DAILY coenzyme [id number] E 100-100 mg-unit Capsule 1 cap PO DAILY alpha lipoic acid 300 mg Capsule 300 mg PO DAILY cholecalciferol (vitamin D3) 50 mcg (2,000 unit) Capsule 50 mcg PO BID empagliflozin 10 mg Tablet 10 mg PO DAILY ascorbic acid (vitamin C) 500 mg Capsule 500 mg PO DAILY Adults Multivitamin 18 mg iron-400 mcg-25 mcg Tablet 1 tab PO DAILY metoprolol succinate 25 mg tablet extended release 24 hr 37.5 mg PO BID rosuvastatin [Crestor] 20 mg tablet 20 mg PO DAILY amiodarone 100 mg tablet 100 mg PO DAILY Follow up/Referrals: Zaheer Baig MD [Primary Care Provider] - 1 Week Discharge Data Primary Care Provider: Zaheer Baig V Quality VTE Deep Vein Thrombosis/Pulmonary Embolism Present on Admission: No
[2022-03-16 09:40] VITALS: BP 96/44; PULSE 71
--- NOTE | 2022-03-16 11:15 | CM.DPC ---
DCP Discharge Home Per MD, pt's infection has improved and redness has been reduced and seems that IV-Abx were beneficial and pt medically stable to d/c home today on oral abx and outpt follow up. Supervisor Heat Treating met bedside with pt again for additional information and education. Per RN, no concerns noted and pt thankful to d/c home today. Plan: Patient to d/c home via spouse POV today and oral abx and outpt follow up. No further SW needs at this time, pt has lots of local family supports. Juliette Srivastava MSW
--- NOTE | 2022-03-16 13:13 | PC.NURSE ---
Discharge note: Patient discharge teaching done at bedside with spouse and family friend at bedside. Patient states understanding of medication instructions. Wound care and PCP appts have already been made. Patient advisory to call wound care for sooner appt. then one week from today. Patient's is aware and states she will call today. Wound dressing to RLE was changed and wound bed was cleaned w/ NS and dried. Patient left in stable condition, A&O x4, VSS. Escorted via wheelchair to personal vehicle and req. minimal assistance into vehicle.
== END 2022-03-16 13:10 | disposition home or self-care (01) | DRG 603 ==
LOC: ED 15:00 → AC 15:10
PROVIDERS: Admitting Provider Internal Medicine; Emergency Provider Emergency Medicine; PCP Internal Medicine; Referring Provider Emergency Medicine; Visit Provider Internal Medicine
DX: L03.115 Cellulitis of right lower limb (principal); I13.0 Hypertensive heart and chronic kidney disease with heart failure and stage 1 through stage 4 chronic kidney disease, or unspecified chronic kidney disease; I48.20 Chronic atrial fibrillation, unspecified; I50.22 Chronic systolic (congestive) heart failure; N18.30 Chronic kidney disease, stage 3 unspecified; E11.621 Type 2 diabetes mellitus with foot ulcer; L97.521 Non-pressure chronic ulcer of other part of left foot limited to breakdown of skin; I25.10 Atherosclerotic heart disease of native coronary artery without angina pectoris; E78.5 Hyperlipidemia, unspecified; Z79.84 Long term (current) use of oral hypoglycemic drugs; Z95.5 Presence of coronary angioplasty implant and graft; Z79.01 Long term (current) use of anticoagulants; Z95.0 Presence of cardiac pacemaker; Z79.4 Long term (current) use of insulin; Z20.822 Contact with and (suspected) exposure to COVID-19
CPT/HCPCS: 10060; 36415; 71045; 73660; 73701; 80053; 81003; 81015; 82550; 82962; 83036; 83605; 83690; 83735; 83880; 84145; 84484; 85025; 85610; 85651; 85730; 86140; 87040; 87086; 87635; 93005; 93010; 93971; 96365; 96366; 99284; 99285; C9803; J0692; J1815; Q9967

== ENCOUNTER → 2022-03-17 08:38 | Outpatient (CLI) | payer MEDICARE, SELFPAY ==
[2022-03-14 15:27] VITALS: BMI 28.5
== END ==
PROVIDERS: PCP Internal Medicine; Referring Provider Emergency Medicine; Visit Provider Surgery
DX: E11.621 Type 2 diabetes mellitus with foot ulcer (principal); E11.628 Type 2 diabetes mellitus with other skin complications; L97.522 Non-pressure chronic ulcer of other part of left foot with fat layer exposed; L02.415 Cutaneous abscess of right lower limb; L03.115 Cellulitis of right lower limb; E11.42 Type 2 diabetes mellitus with diabetic polyneuropathy; L53.9 Erythematous condition, unspecified
CPT/HCPCS: 10060; 11042; 87070; 87075; 87205; 99213; 99214

== ENCOUNTER → 2022-03-21 11:39 | Outpatient (CLI) | payer MEDICARE, SELFPAY ==
[2022-03-14 15:27] VITALS: BMI 28.5
== END ==
PROVIDERS: PCP Internal Medicine; Referring Provider Internal Medicine; Visit Provider Surgery
DX: E11.621 Type 2 diabetes mellitus with foot ulcer (principal); L97.522 Non-pressure chronic ulcer of other part of left foot with fat layer exposed; L02.415 Cutaneous abscess of right lower limb; E11.40 Type 2 diabetes mellitus with diabetic neuropathy, unspecified
CPT/HCPCS: 97597; 99213

== ENCOUNTER → 2022-03-28 08:57 | Outpatient (CLI) | payer MEDICARE, SELFPAY ==
[2022-03-14 15:27] VITALS: BMI 28.5
== END ==
PROVIDERS: PCP Internal Medicine; Referring Provider Emergency Medicine; Visit Provider Surgery
DX: E11.621 Type 2 diabetes mellitus with foot ulcer (principal); E11.622 Type 2 diabetes mellitus with other skin ulcer; L97.522 Non-pressure chronic ulcer of other part of left foot with fat layer exposed; L03.115 Cellulitis of right lower limb; L97.812 Non-pressure chronic ulcer of other part of right lower leg with fat layer exposed; L08.9 Local infection of the skin and subcutaneous tissue, unspecified; E11.42 Type 2 diabetes mellitus with diabetic polyneuropathy
CPT/HCPCS: 11042; 15275; Q4196

== ENCOUNTER → 2022-04-04 08:43 | Outpatient (CLI) | payer MEDICARE, SELFPAY ==
[2022-03-14 15:27] VITALS: BMI 28.5
== END ==
PROVIDERS: PCP Internal Medicine; Referring Provider Emergency Medicine; Visit Provider Surgery
DX: E11.622 Type 2 diabetes mellitus with other skin ulcer (principal); L97.822 Non-pressure chronic ulcer of other part of left lower leg with fat layer exposed; E11.42 Type 2 diabetes mellitus with diabetic polyneuropathy; L02.415 Cutaneous abscess of right lower limb; E11.628 Type 2 diabetes mellitus with other skin complications
CPT/HCPCS: 11042; 15275; Q4196

== ENCOUNTER → 2022-04-11 10:59 | Outpatient (CLI) | payer MEDICARE, SELFPAY ==
[2022-03-14 15:27] VITALS: BMI 28.5
== END ==
PROVIDERS: PCP Internal Medicine; Referring Provider Emergency Medicine; Visit Provider Surgery
DX: E11.621 Type 2 diabetes mellitus with foot ulcer (principal); L97.522 Non-pressure chronic ulcer of other part of left foot with fat layer exposed; L03.115 Cellulitis of right lower limb; E11.42 Type 2 diabetes mellitus with diabetic polyneuropathy; R60.0 Localized edema; E11.628 Type 2 diabetes mellitus with other skin complications
CPT/HCPCS: 11042; 97597; 99212

== ENCOUNTER → 2022-04-18 12:46 | Outpatient (CLI) | payer MEDICARE, SELFPAY ==
[2022-03-14 15:27] VITALS: BMI 28.5
== END ==
PROVIDERS: PCP Internal Medicine; Referring Provider Emergency Medicine; Visit Provider Surgery
DX: E11.621 Type 2 diabetes mellitus with foot ulcer (principal); L97.522 Non-pressure chronic ulcer of other part of left foot with fat layer exposed; L02.415 Cutaneous abscess of right lower limb; R60.0 Localized edema; E11.40 Type 2 diabetes mellitus with diabetic neuropathy, unspecified; E11.628 Type 2 diabetes mellitus with other skin complications
CPT/HCPCS: 11042; 87070; 87075; 87077; 87147; 87186; 87205; 97597; 97607; 99213

== ENCOUNTER → 2022-04-20 14:04 | Outpatient (CLI) | payer MEDICARE, SELFPAY ==
[2022-03-14 15:27] VITALS: BMI 28.5
== END ==
PROVIDERS: PCP Internal Medicine; Referring Provider Internal Medicine; Visit Provider Surgery
DX: L03.115 Cellulitis of right lower limb (principal); L97.812 Non-pressure chronic ulcer of other part of right lower leg with fat layer exposed; R60.0 Localized edema; L53.9 Erythematous condition, unspecified
CPT/HCPCS: 97607

== ENCOUNTER → 2022-04-26 13:01 | Outpatient (CLI) | payer MEDICARE, SELFPAY ==
[2022-03-14 15:27] VITALS: BMI 28.5
== END ==
PROVIDERS: PCP Internal Medicine; Referring Provider Emergency Medicine; Visit Provider Surgery
DX: E11.621 Type 2 diabetes mellitus with foot ulcer (principal); L03.115 Cellulitis of right lower limb; L97.522 Non-pressure chronic ulcer of other part of left foot with fat layer exposed; L97.812 Non-pressure chronic ulcer of other part of right lower leg with fat layer exposed; R60.0 Localized edema; L53.9 Erythematous condition, unspecified
CPT/HCPCS: 29445

== ENCOUNTER → 2022-05-03 14:21 | Outpatient (CLI) | payer MEDICARE, SELFPAY ==
[2022-03-14 15:27] VITALS: BMI 28.5
== END ==
PROVIDERS: PCP Internal Medicine; Referring Provider Emergency Medicine; Visit Provider Surgery
DX: E11.621 Type 2 diabetes mellitus with foot ulcer (principal); E11.622 Type 2 diabetes mellitus with other skin ulcer; L97.522 Non-pressure chronic ulcer of other part of left foot with fat layer exposed; L02.415 Cutaneous abscess of right lower limb; L97.812 Non-pressure chronic ulcer of other part of right lower leg with fat layer exposed; E11.40 Type 2 diabetes mellitus with diabetic neuropathy, unspecified
CPT/HCPCS: 11042; 97597

== ENCOUNTER → 2022-05-05 12:41 | Outpatient (CLI) | payer MEDICARE, SELFPAY ==
[2022-03-14 15:27] VITALS: BMI 28.5
[2022-05-05 13:28] LABS: COVID19 -Nasal RAPID Negative (Negative)
== END ==
PROVIDERS: PCP Internal Medicine; Referring Provider Internal Medicine; Visit Provider Internal Medicine
DX: Z20.822 Contact with and (suspected) exposure to COVID-19 (principal)
CPT/HCPCS: 87635; C9803

== ENCOUNTER → 2022-05-06 11:35 | Outpatient (CLI) | payer MEDICARE, SELFPAY ==
[2022-03-14 15:27] VITALS: BMI 28.5
--- NOTE | 2022-05-11 08:07 | PM.PFT.1 ---
Pulmonary Function Test Referral & Results Date Patient Seen: 05/06/22 Requesting provider: Timothy Hinton Results: The spirometry demonstrates an FVC of 3.82 L which is 96% of predicted. The FEV1 was measured at 2.83 L which is 100% of predicted. The FEV1/FVC ratio was 74 which is 104% of predicted. Following the administration of bronchodilator there was 13% improvement in FEV1 and a 75% improvement in FEF 25-75%. Lung volumes show an SVC of 4.08 L which is 93% of predicted. The diffusing capacity was measured at 22.19 which is 68% of predicted. No hemoglobin value was provided, so no correction for potential anemia could be made, if appropriate. The maximum voluntary ventilation was normal Interpretation: This study demonstrates normal spirometry although post bronchodilator there is evidence of benefit even to the previously normal numbers as noted above There is a moderate reduction in diffusing capacity suggesting element of disease at the capillary alveolar level Compared to PFTs performed in November 2021, current study shows improvement in diffusing capacity which was previously at 51% of predicted. Spirometry was previously normal as it was on this study as well Clinical correlation suggested
== END ==
PROVIDERS: PCP Internal Medicine; Referring Provider Internal Medicine Cardiovascular Disease; Visit Provider Internal Medicine Cardiovascular Disease
DX: J98.8 Other specified respiratory disorders (principal); Z79.899 Other long term (current) drug therapy
CPT/HCPCS: 94060; 94726; 94729

== ENCOUNTER → 2022-05-09 10:21 | Outpatient (CLI) | payer MEDICARE, SELFPAY ==
[2022-03-14 15:27] VITALS: BMI 28.5
== END ==
PROVIDERS: PCP Internal Medicine; Referring Provider Internal Medicine; Visit Provider Surgery
DX: E11.622 Type 2 diabetes mellitus with other skin ulcer (principal); E11.621 Type 2 diabetes mellitus with foot ulcer; L97.522 Non-pressure chronic ulcer of other part of left foot with fat layer exposed; L97.812 Non-pressure chronic ulcer of other part of right lower leg with fat layer exposed; E11.42 Type 2 diabetes mellitus with diabetic polyneuropathy; L02.415 Cutaneous abscess of right lower limb
CPT/HCPCS: 11042; 97607; 99213

== ENCOUNTER → 2022-05-16 11:01 | Outpatient (CLI) | payer MEDICARE, SELFPAY ==
[2022-03-14 15:27] VITALS: BMI 28.5
== END ==
PROVIDERS: PCP Internal Medicine; Referring Provider Emergency Medicine; Visit Provider Surgery
DX: E11.621 Type 2 diabetes mellitus with foot ulcer (principal); L97.522 Non-pressure chronic ulcer of other part of left foot with fat layer exposed; L02.415 Cutaneous abscess of right lower limb; E11.40 Type 2 diabetes mellitus with diabetic neuropathy, unspecified; R60.0 Localized edema; L53.9 Erythematous condition, unspecified
CPT/HCPCS: 11043; 97597

== ENCOUNTER → 2022-05-23 13:21 | Outpatient (CLI) | payer MEDICARE, SELFPAY ==
[2022-03-14 15:27] VITALS: BMI 28.5
== END ==
PROVIDERS: PCP Internal Medicine; Referring Provider Internal Medicine; Visit Provider Surgery
DX: E11.621 Type 2 diabetes mellitus with foot ulcer (principal); E11.622 Type 2 diabetes mellitus with other skin ulcer; L97.522 Non-pressure chronic ulcer of other part of left foot with fat layer exposed; L97.812 Non-pressure chronic ulcer of other part of right lower leg with fat layer exposed; L03.115 Cellulitis of right lower limb; R60.0 Localized edema; L53.9 Erythematous condition, unspecified; M19.011 Primary osteoarthritis, right shoulder; G89.29 Other chronic pain; M21.371 Foot drop, right foot; M21.372 Foot drop, left foot
CPT/HCPCS: 11042; 29445; 97607; 99214

== ENCOUNTER → 2022-05-26 12:54 | Outpatient (CLI) | payer MEDICARE, SELFPAY ==
[2022-03-14 15:27] VITALS: BMI 28.5
--- NOTE | 2022-06-14 13:28 | DIAB.MNT ---
Initial Diabetes Medical Nutrition Therapy Assessment Name: Praful Sawant Date: 05/26/22 Time: 105-2p Dx: Type II Diabetes Provider: Jovanni Basilio presents today for initial diabetes visit with , Ligia. Completed DSME previously in [facility] 1-[address] Mendes for LE wounds. Has nutrition and insulin dosing questions today. States he is motivated to bring HgA1c down. Takes supplements but unclear which ones. Diet Recall: 830a: coffee with 3g CHO chocolate and 0.5c whole milk x2 per day with cream of wheat and brown sugar and sometimes half banana 12-1p: yogurt with one small orange sn: nothing half protein bar 530-6p: steak with veg, 1/2 stovetop OR homemade soup OR pro, veg, and small potato OR 1-2x per month pizza x 2 small slices Beverages: water, diet coke, pro shake, coffee Anthropometrics: Ht: 5'10 Wt: 210# reported Weight history: intentional wt loss from 220# Physical Activity: limited walking d/t LE wounds, using 9min BID stationary bike Self-Monitoring Blood Glucose: TID checks: FBG (110-160mg/dl), pre lunch (200s H), pre dinner (200-250 H). Hypo symptoms at 70-75mg/dl with symptoms of light headedness, weakness, chest discomfort. Diabetes Medications: Lantus 22-25u HS (taking 10u BID) Lispro 10u TID (rx for 10-20u) Metformin 500mg TID (taking 2000mg) Jardiance 25mg Pertinent Labs: HgA1c 13.8% 03/2022 Past Medical History: (Last Reviewed 05/23/22 @ 11:33 by Jake Alves DO) Advanced directives, counseling/discussion Bilateral foot-drop Chronic anticoagulation Coronary artery disease DJD of right shoulder Essential hypertension FH: mitral valve repair Gait instability Herniated nucleus pulposus, L4-5 Medicare annual wellness visit, initial Mixed hyperlipidemia Multilevel spinal stenosis Paroxysmal atrial fibrillation Peripheral neuropathy Stage 3a chronic kidney disease (CKD) Systolic CHF, chronic 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 Nutrition Rx: Plate Method Nutrition Diagnosis: - Nutrition and food related knowledge deficit r/t limited MNT aeb pt report - Inconsistent protein intake r/t knowledge deficit and increased needs with wound healing aeb diet recall, wounds, and pt report - Physical inactivity r/t LE wounds aeb pt report Intervention: This participant was very receptive. Provided appropriate educational handouts. Discussed the following topics: Completed intake assessment. Discussed barriers to care. HgA1c goals and rationale Importance of self-monitoring, how often, and when to check. Suggested checking at different times to evaluate meals Plate Method Wound nutrition therapy Recommended servings for carbohydrates at meals and snacks Medication management Role of physical activity and following provider guidelines for safety Created SMART goals for patient self-care and success. Goals: Add pro to breakfast and lunch Bring supplement list Take 22u Glargine tomorrow night (10u tonight, none in the am, 22u in pm) Try dividing correctin by 11 or 12 versus 10 Follow-up: K[facility]PER follow-up in 3-4 weeks Viridiana Kingston RDN, PENNIE Certified Diabetes Care and Clinical Registered Nurse P: [phone] Thank you for this referral
== END ==
PROVIDERS: PCP Internal Medicine; Referring Provider Internal Medicine; Visit Provider Internal Medicine
DX: E11.9 Type 2 diabetes mellitus without complications (principal); Z71.3 Dietary counseling and surveillance; Z79.84 Long term (current) use of oral hypoglycemic drugs; Z79.4 Long term (current) use of insulin
CPT/HCPCS: 97802

== ENCOUNTER → 2022-05-30 14:31 | Outpatient (CLI) | payer MEDICARE, SELFPAY ==
[2022-03-14 15:27] VITALS: BMI 28.5
== END ==
PROVIDERS: PCP Internal Medicine; Referring Provider Internal Medicine; Visit Provider Surgery
DX: E11.622 Type 2 diabetes mellitus with other skin ulcer (principal); E11.621 Type 2 diabetes mellitus with foot ulcer; L97.522 Non-pressure chronic ulcer of other part of left foot with fat layer exposed; E11.40 Type 2 diabetes mellitus with diabetic neuropathy, unspecified; L97.812 Non-pressure chronic ulcer of other part of right lower leg with fat layer exposed
CPT/HCPCS: 15271; Q4133

== ENCOUNTER → 2022-06-06 09:35 | Outpatient (CLI) | payer MEDICARE, SELFPAY ==
[2022-03-14 15:27] VITALS: BMI 28.5
== END ==
PROVIDERS: PCP Internal Medicine; Referring Provider Internal Medicine; Visit Provider Surgery
DX: E11.622 Type 2 diabetes mellitus with other skin ulcer (principal); E11.621 Type 2 diabetes mellitus with foot ulcer; E11.42 Type 2 diabetes mellitus with diabetic polyneuropathy; L97.522 Non-pressure chronic ulcer of other part of left foot with fat layer exposed; L97.812 Non-pressure chronic ulcer of other part of right lower leg with fat layer exposed; L84 Corns and callosities; E11.40 Type 2 diabetes mellitus with diabetic neuropathy, unspecified
CPT/HCPCS: 15271; 97597; Q4133

== ENCOUNTER → 2022-06-13 10:31 | Outpatient (CLI) | payer MEDICARE, SELFPAY ==
[2022-03-14 15:27] VITALS: BMI 28.5
== END ==
PROVIDERS: PCP Internal Medicine; Referring Provider Internal Medicine; Visit Provider Surgery
DX: E11.622 Type 2 diabetes mellitus with other skin ulcer (principal); E11.621 Type 2 diabetes mellitus with foot ulcer; L97.522 Non-pressure chronic ulcer of other part of left foot with fat layer exposed; L97.812 Non-pressure chronic ulcer of other part of right lower leg with fat layer exposed; L84 Corns and callosities; R60.0 Localized edema
CPT/HCPCS: 11042; 87070; 87077; 87186; 87205; 99213

== ENCOUNTER → 2022-06-20 13:43 | Outpatient (CLI) | payer MEDICARE, SELFPAY ==
[2022-03-14 15:27] VITALS: BMI 28.5
== END ==
PROVIDERS: PCP Internal Medicine; Referring Provider Internal Medicine; Visit Provider Surgery
DX: E11.621 Type 2 diabetes mellitus with foot ulcer (principal); E11.622 Type 2 diabetes mellitus with other skin ulcer; L97.522 Non-pressure chronic ulcer of other part of left foot with fat layer exposed; L97.812 Non-pressure chronic ulcer of other part of right lower leg with fat layer exposed; E11.40 Type 2 diabetes mellitus with diabetic neuropathy, unspecified; R60.0 Localized edema
CPT/HCPCS: 11042; 97597

== ENCOUNTER → 2022-06-27 13:06 | Outpatient (CLI) | payer MEDICARE, SELFPAY ==
[2022-03-14 15:27] VITALS: BMI 28.5
== END ==
PROVIDERS: PCP Internal Medicine; Referring Provider Internal Medicine; Visit Provider Surgery
DX: E11.622 Type 2 diabetes mellitus with other skin ulcer (principal); E11.621 Type 2 diabetes mellitus with foot ulcer; L97.522 Non-pressure chronic ulcer of other part of left foot with fat layer exposed; L97.812 Non-pressure chronic ulcer of other part of right lower leg with fat layer exposed; E11.40 Type 2 diabetes mellitus with diabetic neuropathy, unspecified; R60.0 Localized edema
CPT/HCPCS: 11042; 15271; Q4133

== ENCOUNTER → 2022-06-29 14:41 | Outpatient (CLI) | payer MEDICARE, SELFPAY ==
[2022-03-14 15:27] VITALS: BMI 28.5
== END ==
PROVIDERS: PCP Internal Medicine; Referring Provider Internal Medicine; Visit Provider Surgery
DX: E11.621 Type 2 diabetes mellitus with foot ulcer (principal); L97.812 Non-pressure chronic ulcer of other part of right lower leg with fat layer exposed; R60.0 Localized edema
CPT/HCPCS: 29581

== ENCOUNTER → 2022-07-04 12:55 | Outpatient (CLI) | payer MEDICARE, SELFPAY ==
[2022-03-14 15:27] VITALS: BMI 28.5
== END ==
PROVIDERS: PCP Internal Medicine; Referring Provider Internal Medicine; Visit Provider Surgery
DX: E11.621 Type 2 diabetes mellitus with foot ulcer (principal); E11.622 Type 2 diabetes mellitus with other skin ulcer; L97.522 Non-pressure chronic ulcer of other part of left foot with fat layer exposed; L97.812 Non-pressure chronic ulcer of other part of right lower leg with fat layer exposed; L84 Corns and callosities
CPT/HCPCS: 15271; 97597; Q4133

== ENCOUNTER → 2022-07-05 15:36 | Outpatient (CLI) | payer MEDICARE, SELFPAY ==
[2022-03-14 15:27] VITALS: BMI 28.5
--- NOTE | 2022-07-14 17:28 | DIAB.FU ---
Follow-up Diabetes Education Assessment Name: Praful Sawant Date: 07/05/22 Time: 238-226p Dx: Type II Diabetes Provider: Jovanni Basilio presents for Dm follow-up with , Ligia. States he is still taking Lantus as a split dose x 10u BID. We have discussed moving this all to HS, reviewed again today. Taking Lispro TID by dividing BG number above 100 by 10. Has added protein to breakfast. Increased pro intake with shake, which should liner machine operator helper in nutrition needs for wound healing. Brought supplement list today. Appears he is taking more supplements than likely needed. He is unsure why he is taking many of these supplements. he is interested in CGM. Physical Activity: 8-9 mins on stationary bike BID. Started walking daily with dog. Self-Monitoring Blood Glucose: Limited results indicate frequent elevations, especially FBG. No recent lows. Date Pre Post Pre Post Pre Post HS 07/02 220 210 201 160 07/03 270 150 130 07/05 150 200 148 100 Diabetes Medications: Lantus 22-25u HS (taking 10u BID) Lispro 10u TID (rx for 10-20u) Metformin 500mg TID (taking 2000mg) Jardiance 25mg Pertinent Labs: HgA1c 13.8% 03/2022 Past Medical History: (Last Updated 07/06/22 @ 11:00 by Zaheer Baig MD) Bilateral foot-drop Chronic anticoagulation Coronary artery disease DJD of right shoulder Do not resuscitate Essential hypertension FH: mitral valve repair Gait instability Herniated nucleus pulposus, L4-5 Mixed hyperlipidemia Multilevel spinal stenosis Paroxysmal atrial fibrillation Peripheral neuropathy Presence of combination internal cardiac defibrillator (ICD) and pacemaker Stage 3a chronic kidney disease (CKD) Systolic CHF, chronic 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 Provided appropriate educational handouts. Discussed the following topics: Recent blood sugar results and trends Medication management: taking Lantus HS instead of BID Supplement review HS snack with CHO and pro Rule of 15 review for lows Review of general nutrition recommendations and current intake Physical activity plan and impact on blood sugars Potential for CGM options Created SMART goals for patient self-care and success. Goals: Add pro to breakfast and lunch- met Bring supplement list- met Take 22u Glargine tomorrow night (10u tonight, none in the am, 22u in pm)- not met Try dividing correction by 11 or 12 versus 10- not met/discont Can take Glargine all together HS Try HS snack paired Follow-up: KYM CASPER follow-up in 3-[address] CGM starter trial. Viridiana Kingston RDN, PENNIE Certified Diabetes Care and Sorting Machine Operator P: [phone] Thank you for this referral
== END ==
PROVIDERS: PCP Internal Medicine
DX: E11.9 Type 2 diabetes mellitus without complications (principal); Z79.4 Long term (current) use of insulin; Z79.84 Long term (current) use of oral hypoglycemic drugs; Z71.3 Dietary counseling and surveillance
CPT/HCPCS: G0108

== ENCOUNTER → 2022-07-06 11:13 | Outpatient (CLI) | payer MEDICARE, SELFPAY ==
[2022-03-14 15:27] VITALS: BMI 28.5
[2022-07-06 12:30] LABS: Hematocrit 35.3 % (41-53); Hemoglobin 11.9 g/dL (13.5-17.5); Mean Corpuscular HGB Conc 33.6 % (30-36); Mean Corpuscular Hemoglobin 29.5 PG (26-34); Platelet Count 202 X10^3/uL (150-400); Red Blood Cell Count 4.01 X10^6/uL (4.5-5.9); Red Cell Distribution Width 15.6 % (11.6-14.8); White Blood Cell Count 6.8 X10^3/uL (4.5-11.0)
[2022-07-06 12:42] LABS: Hemoglobin A1C% w Est Avg Glu 12.3 % (4.0-6.0)
[2022-07-06 13:02] LABS: BUN Creatinine Ratio 21.9 (6-22); Blood Urea Nitrogen 30 mg/dL (9-20); Calcium 9.2 mg/dL (8.4-10.2); Carbon Dioxide 25 mmol/L (22-32); Chloride 103 mmol/L (98-107); Estimated Glomerular Filt Rate 52 mL/min (>60); Glucose 202 mg/dL (80-110); HEMOLYSIS < 15 (0-50); Potassium 4.8 mmol/L (3.4-5.1); Sodium 137 mmol/L (137-145)
== END ==
PROVIDERS: PCP Internal Medicine; Referring Provider Internal Medicine; Visit Provider Internal Medicine
DX: E11.42 Type 2 diabetes mellitus with diabetic polyneuropathy (principal); I10 Essential (primary) hypertension; N18.31 Chronic kidney disease, stage 3a
CPT/HCPCS: 36415; 80048; 83036; 85027

== ENCOUNTER → 2022-07-11 13:39 | Outpatient (CLI) | payer MEDICARE, SELFPAY ==
[2022-03-14 15:27] VITALS: BMI 28.5
== END ==
PROVIDERS: PCP Internal Medicine; Referring Provider Internal Medicine; Visit Provider Surgery
DX: E11.621 Type 2 diabetes mellitus with foot ulcer (principal); E11.622 Type 2 diabetes mellitus with other skin ulcer; L97.522 Non-pressure chronic ulcer of other part of left foot with fat layer exposed; L97.812 Non-pressure chronic ulcer of other part of right lower leg with fat layer exposed; R60.0 Localized edema
CPT/HCPCS: 15271; 97597; 99213; Q4133

== ENCOUNTER → 2022-07-18 12:35 | Outpatient (CLI) | payer MEDICARE, SELFPAY ==
[2022-03-14 15:27] VITALS: BMI 28.5
== END ==
PROVIDERS: PCP Internal Medicine; Referring Provider Internal Medicine; Visit Provider Surgery
DX: E11.622 Type 2 diabetes mellitus with other skin ulcer (principal); L97.522 Non-pressure chronic ulcer of other part of left foot with fat layer exposed; L97.812 Non-pressure chronic ulcer of other part of right lower leg with fat layer exposed; E11.40 Type 2 diabetes mellitus with diabetic neuropathy, unspecified; R60.0 Localized edema
CPT/HCPCS: 15271; 97597; Q4133

== ENCOUNTER → 2022-07-20 09:41 | Outpatient (CLI) | payer MEDICARE, SELFPAY ==
[2022-03-14 15:27] VITALS: BMI 28.5
== END ==
PROVIDERS: PCP Internal Medicine; Referring Provider Emergency Medicine; Visit Provider Surgery
DX: E11.621 Type 2 diabetes mellitus with foot ulcer (principal); E11.622 Type 2 diabetes mellitus with other skin ulcer; L97.522 Non-pressure chronic ulcer of other part of left foot with fat layer exposed; L97.812 Non-pressure chronic ulcer of other part of right lower leg with fat layer exposed
CPT/HCPCS: 29445

== ENCOUNTER → 2022-07-25 13:27 | Outpatient (CLI) | payer MEDICARE, SELFPAY ==
[2022-03-14 15:27] VITALS: BMI 28.5
== END ==
PROVIDERS: PCP Internal Medicine; Referring Provider Internal Medicine; Visit Provider Surgery
DX: E11.622 Type 2 diabetes mellitus with other skin ulcer (principal); L97.812 Non-pressure chronic ulcer of other part of right lower leg with fat layer exposed; E11.40 Type 2 diabetes mellitus with diabetic neuropathy, unspecified; R60.0 Localized edema
CPT/HCPCS: 97597

== ENCOUNTER → 2022-08-02 09:00 | Outpatient (CLI) | payer MEDICARE, SELFPAY ==
[2022-03-14 15:27] VITALS: BMI 28.5
== END ==
PROVIDERS: PCP Internal Medicine; Referring Provider Emergency Medicine; Visit Provider Surgery
DX: L97.812 Non-pressure chronic ulcer of other part of right lower leg with fat layer exposed (principal); E11.621 Type 2 diabetes mellitus with foot ulcer; R60.0 Localized edema
CPT/HCPCS: 29445; 99212

== ENCOUNTER → 2022-08-08 10:52 | Outpatient (CLI) | payer MEDICARE, SELFPAY ==
[2022-03-14 15:27] VITALS: BMI 28.5
== END ==
PROVIDERS: PCP Internal Medicine; Referring Provider Internal Medicine; Visit Provider Surgery
DX: E11.621 Type 2 diabetes mellitus with foot ulcer (principal); L97.512 Non-pressure chronic ulcer of other part of right foot with fat layer exposed; E11.40 Type 2 diabetes mellitus with diabetic neuropathy, unspecified
CPT/HCPCS: 97597; 99213

== ENCOUNTER → 2022-08-10 12:49 | Outpatient (CLI) | payer MEDICARE, SELFPAY ==
[2022-03-14 15:27] VITALS: BMI 28.5
--- NOTE | 2022-08-18 13:15 | DIAB.FU ---
Addendum entered by Viridiana Kingston 08/18/22 14:02: Praful called due to CGM coming off. Will place a G6 next time on the abdomen with extra adhesive. next appt is September 07 but will call and get him in sooner if possible with CGM (G6) shipment arrival. Original Note: Follow-up Diabetes Education Assessment Name: Praful Sawant Date: 08/10/22 Time: 105-145p Dx: Type II Diabetes Praful presents today for follow-up DM visit. He is interested in placing Dexcom starter kit today. Has questions regarding how to use CGM and goals for trends. No recent changes to insulin regimen. States he tried taking Lantus all HS but had some lows at night. Also states these were nights that they ate dinner early and no HS snack. Self-Monitoring Blood Glucose: Cont SMBG at home with elevations. Set CGM trial alerts 70mg/dl for lows and 280mg/dl for highs. Diabetes Medications: Lantus 22-25u HS (taking 10u BID) Lispro 10u TID (rx for 10-20u) Metformin 500mg TID (taking 2000mg) Jardiance 25mg Pertinent Labs: HgA1c 13.8% 03/2022 Past Medical History: (Last Updated 07/06/22 @ 11:00 by Zaheer Baig MD) Bilateral foot-drop Chronic anticoagulation Coronary artery disease DJD of right shoulder Do not resuscitate Essential hypertension FH: mitral valve repair Gait instability Herniated nucleus pulposus, L4-5 Mixed hyperlipidemia Multilevel spinal stenosis Paroxysmal atrial fibrillation Peripheral neuropathy Presence of combination internal cardiac defibrillator (ICD) and pacemaker Stage 3a chronic kidney disease (CKD) Systolic CHF, chronic 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 Provided appropriate educational handouts. Discussed the following topics: Medication management CGM demonstrated placement, pt placed successfully, reviewed use, precautions, alerts, and TIR goals Created SMART goals for patient self-care and success. Goals: Can take Glargine all together HS- met Try HS snack paired - in progress Trial CGM started kit- new Follow-up: KYM CASPER follow-up in 3-4 weeks Viridiana Kingston RDN, PENNIE Certified Diabetes Care and Pacu Nurse P: [phone] Thank you for this referral
== END ==
PROVIDERS: PCP Internal Medicine; Referring Provider Internal Medicine; Visit Provider Internal Medicine
DX: E11.9 Type 2 diabetes mellitus without complications (principal); Z79.84 Long term (current) use of oral hypoglycemic drugs; Z79.4 Long term (current) use of insulin; Z71.3 Dietary counseling and surveillance
CPT/HCPCS: G0108

== ENCOUNTER → 2022-08-15 10:57 | Outpatient (CLI) | payer MEDICARE, SELFPAY ==
[2022-03-14 15:27] VITALS: BMI 28.5
== END ==
PROVIDERS: PCP Internal Medicine; Referring Provider Internal Medicine; Visit Provider Surgery
DX: E11.622 Type 2 diabetes mellitus with other skin ulcer (principal); L97.822 Non-pressure chronic ulcer of other part of left lower leg with fat layer exposed; E11.40 Type 2 diabetes mellitus with diabetic neuropathy, unspecified; R60.0 Localized edema
CPT/HCPCS: 17250; 99213

== ENCOUNTER → 2022-08-22 10:47 | Outpatient (CLI) | payer MEDICARE, SELFPAY ==
[2022-03-14 15:27] VITALS: BMI 28.5
== END ==
PROVIDERS: PCP Internal Medicine; Referring Provider Internal Medicine; Visit Provider Surgery
DX: E11.621 Type 2 diabetes mellitus with foot ulcer (principal); L97.522 Non-pressure chronic ulcer of other part of left foot with fat layer exposed; E11.40 Type 2 diabetes mellitus with diabetic neuropathy, unspecified
CPT/HCPCS: 11042; 99213

== ENCOUNTER → 2022-08-29 10:41 | Outpatient (CLI) | payer MEDICARE, SELFPAY ==
[2022-03-14 15:27] VITALS: BMI 28.5
== END ==
PROVIDERS: PCP Internal Medicine; Referring Provider Internal Medicine; Visit Provider Surgery
DX: L97.522 Non-pressure chronic ulcer of other part of left foot with fat layer exposed (principal); E11.621 Type 2 diabetes mellitus with foot ulcer; E11.40 Type 2 diabetes mellitus with diabetic neuropathy, unspecified
CPT/HCPCS: 11042

== ENCOUNTER → 2022-09-05 10:37 | Outpatient (CLI) | payer MEDICARE, SELFPAY ==
[2022-03-14 15:27] VITALS: BMI 28.5
== END ==
PROVIDERS: PCP Internal Medicine; Referring Provider Emergency Medicine; Visit Provider Surgery
DX: E11.621 Type 2 diabetes mellitus with foot ulcer (principal); L97.522 Non-pressure chronic ulcer of other part of left foot with fat layer exposed; E11.42 Type 2 diabetes mellitus with diabetic polyneuropathy
CPT/HCPCS: 11042; 87070; 87075; 87077; 87147; 87186; 87205; 99213

== ENCOUNTER → 2022-09-07 13:44 | Outpatient (CLI) | payer MEDICARE, SELFPAY ==
[2022-03-14 15:27] VITALS: BMI 28.5
--- NOTE | 2022-09-22 15:59 | DIAB.MNTFU ---
Follow-up Diabetes Medical Nutrition Therapy Assessment Name: Praful Sawant Date: 09/07/22 Time: 205-240p Dx: Type II Diabetes Praful presents with , Ligia, for follow-up. Reports continued efforts in nutrition changes. Dexcom G7 fell off shortly after last visit. Would like to try G6 today. Experiencing elevations, continues to dose mealtime insulin by dividing by 10. Interested in keeping a food journal. This would be helpful in determining I:C ratio. Physical Activity: Not discussed today Self-Monitoring Blood Glucose: BG in the 200s. Review of short time with CGM indicates most elevations are during the day. 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 TIR: 49% very high 24% high 26% in range 1% low 0% very low Diabetes Medications: Lantus 22-25u HS (taking 10u BID) Lispro 10u TID (rx for 10-20u) Metformin 500mg TID (taking 2000mg) Jardiance 25mg Pertinent Labs: HgA1c 13.8% 03/2022 Past Medical History: (Last Reviewed 08/18/22 @ 16:35 by Jake Alves DO) Bilateral foot-drop Chronic anticoagulation Coronary artery disease DJD of right shoulder Do not resuscitate Essential hypertension FH: mitral valve repair Gait instability Herniated nucleus pulposus, L4-5 Mixed hyperlipidemia Multilevel spinal stenosis Paroxysmal atrial fibrillation Peripheral neuropathy Presence of combination internal cardiac defibrillator (ICD) and pacemaker Spinal stenosis Stage 3a chronic kidney disease (CKD) Systolic CHF, chronic 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 Provided appropriate educational handouts. Discussed the following topics: Blood sugar review and trends. Impact of food and insulin dosing on results. Nutrition review Physical activity plan and progress Dexcom G6 education and self placement Created SMART goals for patient self-care and success. Goals: Try HS snack paired - in progress Trial CGM started kit- new Keep food journal with insulin doses- new Try dividing by 8 to increase insulin dose- new Follow-up: KYM CASPER follow-up in 2-3 weeks Viridiana Kingston RDN, PENNIE Certified Diabetes Care and Lime Kiln Operator P: [phone] Thank you for this referral
== END ==
PROVIDERS: PCP Internal Medicine; Referring Provider Internal Medicine; Visit Provider Internal Medicine
DX: E11.9 Type 2 diabetes mellitus without complications (principal); Z79.84 Long term (current) use of oral hypoglycemic drugs; Z79.4 Long term (current) use of insulin; Z71.3 Dietary counseling and surveillance
CPT/HCPCS: 97803

== ENCOUNTER → 2022-09-12 11:26 | Outpatient (CLI) | payer MEDICARE, SELFPAY ==
[2022-03-14 15:27] VITALS: BMI 28.5
== END ==
PROVIDERS: PCP Internal Medicine; Referring Provider Internal Medicine; Visit Provider Surgery
DX: E11.621 Type 2 diabetes mellitus with foot ulcer (principal); L97.522 Non-pressure chronic ulcer of other part of left foot with fat layer exposed; L97.511 Non-pressure chronic ulcer of other part of right foot limited to breakdown of skin; L08.9 Local infection of the skin and subcutaneous tissue, unspecified; A49.02 Methicillin resistant Staphylococcus aureus infection, unspecified site; E11.40 Type 2 diabetes mellitus with diabetic neuropathy, unspecified
CPT/HCPCS: 11042; 99212; 99213

== ENCOUNTER → 2022-09-19 10:58 | Outpatient (CLI) | payer MEDICARE, SELFPAY ==
[2022-03-14 15:27] VITALS: BMI 28.5
== END ==
PROVIDERS: PCP Internal Medicine; Referring Provider Internal Medicine; Visit Provider Surgery
DX: E11.42 Type 2 diabetes mellitus with diabetic polyneuropathy (principal); L97.522 Non-pressure chronic ulcer of other part of left foot with fat layer exposed; E11.621 Type 2 diabetes mellitus with foot ulcer; L97.511 Non-pressure chronic ulcer of other part of right foot limited to breakdown of skin; L84 Corns and callosities
CPT/HCPCS: 11042; 97597; 99212

== ENCOUNTER → 2022-09-23 14:21 | Outpatient (CLI) | payer MEDICARE, SELFPAY ==
[2022-03-14 15:27] VITALS: BMI 28.5
--- NOTE | 2022-10-06 17:02 | DIAB.MNTFU ---
Follow-up Diabetes Medical Nutrition Therapy Assessment Name: Praful Sawant Date: 09/23/22 Time: 245-315p Dx: Type II Diabetes Praful presents for follow-up DM visit with , iLgia. Reports continued hyperglycemia, reflected in CGM reports. Has been having juice with breakfast, which seems to cause significant hyperglycemia. Sometimes sensor just indicating high without a value. Breakfast is mostly carbs, ie hot cereal and juice. Anthropometrics: Ht: 5'10 Wt: 207.6# last EMR wt July Physical Activity: Not discussed Self-Monitoring Blood Glucose: Per CGM data most elevations seem during the day, especially after meals. Currently dividing BG over 100mg/dl by 12. Was dividing by 10 for units of ac insulin last visit and still having hyperglycemia. Had discussed diving by 8 last visit. Plans to get personal CGM. For now will continue finger sticks. RD has coordinated paperwork with provider's office for 14 day 36% very high 28% high 35% in range <1% low <1% very low Avg BG 223mg/dl Diabetes Medications: Lantus 22-25u HS (taking 10u BID) Lispro TID (rx for 10-20u) Metformin 500mg TID (taking 2000mg) Jardiance 25mg Pertinent Labs: HgA1c 13.8% 03/2022 12.3% 06/2022 Past Medical History: (Last Reviewed 08/18/22 @ 16:35 by Jake Alves DO) Bilateral foot-drop Chronic anticoagulation Coronary artery disease DJD of right shoulder Do not resuscitate Essential hypertension FH: mitral valve repair Gait instability Herniated nucleus pulposus, L4-5 Mixed hyperlipidemia Multilevel spinal stenosis Paroxysmal atrial fibrillation Peripheral neuropathy Presence of combination internal cardiac defibrillator (ICD) and pacemaker Spinal stenosis Stage 3a chronic kidney disease (CKD) Systolic CHF, chronic 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 Provided appropriate educational handouts. Discussed the following topics: Blood sugar review and trends. Impact of food intake and adequate insulin coverage on results. Pairing macronutrients and spreading out carbohydrates for better blood glucose management Medication management: dividing by 8u for mealtime coverage to increase insulin units Next steps in personal CGM acquisition Importance of checking BG postprandial Created SMART goals for patient self-care and success. Goals: Trial CGM started kit- met Keep food journal with insulin doses- not met Try dividing by 8 to increase insulin dose- in progress Avoid juice- new Add pro to breakfast- new Check 1-2 hour pc readings- new Follow-up: KYM CASPER follow-up in 2-3 weeks. Praful has utilized all visits provided by Medicare. INGRID/PENNIE has acquired additional referral from provider for up to 5 additional more MNT hours due to changes in medication and treatment regimen. Viridiana Kingston RDN, PENNIE Certified Diabetes Care and Personal Service Workers P: [phone] Thank you for this referral
== END ==
PROVIDERS: PCP Internal Medicine; Referring Provider Internal Medicine; Visit Provider Internal Medicine
DX: E11.65 Type 2 diabetes mellitus with hyperglycemia (principal); Z71.3 Dietary counseling and surveillance; Z79.84 Long term (current) use of oral hypoglycemic drugs; Z79.4 Long term (current) use of insulin
CPT/HCPCS: 97803

== ENCOUNTER → 2022-09-28 10:42 | Outpatient (CLI) | payer MEDICARE, SELFPAY ==
[2022-03-14 15:27] VITALS: BMI 28.5
== END ==
PROVIDERS: PCP Internal Medicine; Referring Provider Emergency Medicine; Visit Provider Surgery
DX: E11.621 Type 2 diabetes mellitus with foot ulcer (principal); L97.522 Non-pressure chronic ulcer of other part of left foot with fat layer exposed; L97.511 Non-pressure chronic ulcer of other part of right foot limited to breakdown of skin; E11.40 Type 2 diabetes mellitus with diabetic neuropathy, unspecified
CPT/HCPCS: 11042; 97597

== ENCOUNTER → 2022-10-03 11:21 | Outpatient (CLI) | payer MEDICARE, SELFPAY ==
[2022-03-14 15:27] VITALS: BMI 28.5
== END ==
PROVIDERS: PCP Internal Medicine; Referring Provider Internal Medicine; Visit Provider Surgery
DX: E11.621 Type 2 diabetes mellitus with foot ulcer (principal); L97.522 Non-pressure chronic ulcer of other part of left foot with fat layer exposed; L97.512 Non-pressure chronic ulcer of other part of right foot with fat layer exposed; E11.42 Type 2 diabetes mellitus with diabetic polyneuropathy
CPT/HCPCS: 11042

== ENCOUNTER → 2022-10-07 15:49 | Outpatient (CLI) | payer MEDICARE, SELFPAY ==
[2022-03-14 15:27] VITALS: BMI 28.5
--- NOTE | 2022-10-07 17:05 | DIAB.MNTFU ---
Follow-up Diabetes Medical Nutrition Therapy Assessment Name: Praful Sawant Date: 10/07/22 Time: 4-445p Dx: Type II Diabetes Provider: Jovanni Basilio presents for follow-up with , Ligia. Has kept food journal and some SMBG since last visit. Elevations pretty consistent in morning and some elevations after meals. Taking mealtime insulin after breakfast, not ac. Cut out juice as discussed last visit. Notices most hyperglycemia at 2-3am, which is pretty consistent with last CGM report (sent to provider). Needs to schedule f/u with Jovanni. Taking Kaiden BID to help with wound healing. Anthropometrics: Ht: 5'10 Wt: 206.8# 07/2022 per EMR Physical Activity: Stationary bike 5 min 4 days per week Self-Monitoring Blood Glucose: Recent SMBG indicates FBG ranging from 190-325mg/dl. Recent postprandial readings in the 180-200mg/dl, improved from last visit. Waiting on CGM process for Dexcom G6. RD/CDCES will continue to coordinate with PCP office and ADS. Diabetes Medications: Lantus 20-24u HS (taking 10-12u BID) Lispro TID (rx for 10-20u) Metformin 500mg TID (taking 2000mg) Jardiance 25mg Pertinent Labs: HgA1c 13.8% 03/2022 12.3% 06/2022 Past Medical History: (Last Reviewed 08/18/22 @ 16:35 by Jake Alves DO) Bilateral foot-drop Chronic anticoagulation Coronary artery disease DJD of right shoulder Do not resuscitate Essential hypertension FH: mitral valve repair Gait instability Herniated nucleus pulposus, L4-5 Mixed hyperlipidemia Multilevel spinal stenosis Paroxysmal atrial fibrillation Peripheral neuropathy Presence of combination internal cardiac defibrillator (ICD) and pacemaker Spinal stenosis Stage 3a chronic kidney disease (CKD) Systolic CHF, chronic 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 Provided appropriate educational handouts. Discussed the following topics: Blood sugar review and trends. Impact of food intake and insulin on results. Medication management: taking mealtime insulin ac CGM process and ADS contact info Protein role in Dm and wound Physical activity plan and progress Created SMART goals for patient self-care and success. Goals: Avoid juice- met Add pro to breakfast- met Check 1-2 hour pc readings- met Take mealtime insulin ac- new Call PCP for f/u appt- new In 1-2 weeks call ADS for CGM process check- new Consider inc HS Lantus by 2-3u q 2-3 days until FBG are <150mg/dl- new Stationary bike 6 days per week for 5 min BID- new Follow-up: KYM CASPER follow-up in March. May benefit from referral to alternative DM ed program since this INGRID/PENNIE will be on leave until Mar. Over the next two weeks, will cont to coordinate facilitation of personal CGM. Viridiana Kingston RDN, PENNIE Certified Diabetes Care and Web Publisher P: [phone] Thank you for this referral
== END ==
PROVIDERS: PCP Internal Medicine; Referring Provider Internal Medicine; Visit Provider Internal Medicine
DX: E11.9 Type 2 diabetes mellitus without complications (principal); Z79.84 Long term (current) use of oral hypoglycemic drugs; Z79.4 Long term (current) use of insulin; Z71.3 Dietary counseling and surveillance
CPT/HCPCS: 97803

== ENCOUNTER → 2022-10-10 11:18 | Outpatient (CLI) | payer MEDICARE, SELFPAY ==
[2022-03-14 15:27] VITALS: BMI 28.5
== END ==
PROVIDERS: PCP Internal Medicine; Referring Provider Internal Medicine; Visit Provider Surgery
DX: E11.621 Type 2 diabetes mellitus with foot ulcer (principal); L97.522 Non-pressure chronic ulcer of other part of left foot with fat layer exposed; L97.512 Non-pressure chronic ulcer of other part of right foot with fat layer exposed; E11.40 Type 2 diabetes mellitus with diabetic neuropathy, unspecified
CPT/HCPCS: 11042; 97597; 99213

== ENCOUNTER → 2022-10-17 10:42 | Outpatient (CLI) | payer MEDICARE, SELFPAY ==
[2022-03-14 15:27] VITALS: BMI 28.5
== END ==
PROVIDERS: PCP Internal Medicine; Referring Provider Emergency Medicine; Visit Provider Surgery
DX: E11.621 Type 2 diabetes mellitus with foot ulcer (principal); L97.522 Non-pressure chronic ulcer of other part of left foot with fat layer exposed; L97.512 Non-pressure chronic ulcer of other part of right foot with fat layer exposed; E11.40 Type 2 diabetes mellitus with diabetic neuropathy, unspecified
CPT/HCPCS: 11042; 87070; 87075; 87077; 87186; 87205; 97597; 99213

== ENCOUNTER → 2022-10-19 15:02 | Outpatient (CLI) | payer MEDICARE, SELFPAY ==
[2022-03-14 15:27] VITALS: BMI 28.5
[2022-10-19 15:47] LABS: Hematocrit 36.2 % (41-53); Hemoglobin 12.2 g/dL (13.5-17.5); Mean Corpuscular HGB Conc 33.8 % (30-36); Mean Corpuscular Hemoglobin 30.5 PG (26-34); Mean Corpuscular Volume 90.3 fL (80-100); Platelet Count 199 X10^3/uL (150-400); Red Cell Distribution Width 14.2 % (11.6-14.8); White Blood Cell Count 6.7 X10^3/uL (4.5-11.0)
[2022-10-19 16:16] LABS: Alanine Aminotransferase 26 IU/L (<50); Albumin 4.4 g/dL (3.5-5.0); Albumin Globulin Ratio 1.5 (1.0-2.8); Alkaline Phosphatase 100 U/L (38-126); Aspartate Aminotransferase 32 IU/L (17-59); BUN Creatinine Ratio 26.6 (6-22); Bilirubin Total 0.4 mg/dL (0.2-1.3); Blood Urea Nitrogen 38 mg/dL (9-20); Calcium 9.7 mg/dL (8.4-10.2); Carbon Dioxide 25 mmol/L (22-32); Chloride 102 mmol/L (98-107); Cholesterol 146 mg/dL (140-199); Estimated Glomerular Filt Rate 49 mL/min (>60); Glucose 164 mg/dL (80-110); HDL Cholesterol 65 mg/dL (40-60); HEMOLYSIS < 15 (0-50); LDL Cholesterol Calculated 53 mg/dL (<100); Potassium 4.2 mmol/L (3.4-5.1); Sodium 138 mmol/L (137-145); Total Protein 7.4 g/dL (6.3-8.2); Triglycerides 141 mg/dL (35-150)
[2022-10-19 16:44] LABS: TSH w/ Reflex to FT4 1.16 uIU/mL (0.47-4.68)
[2022-10-19 16:57] LABS: Creatinine Urine Random 46.6 mg/dL
[2022-10-19 17:02] LABS: Microalbumi Creatinin Ratio Ur 40.7 ug/mg CR (<30); Microalbumin Urine Random 1.9 mg/dL (0-1.6)
[2022-10-20 07:17] LABS: x Labcorp Estim. Avg Glu (eAG) 280 mg/dL (.); x Labcorp Hemoglobin A1c 11.4 % (4.8-5.6)
== END ==
PROVIDERS: PCP Internal Medicine; Referring Provider Internal Medicine; Visit Provider Internal Medicine
DX: E11.42 Type 2 diabetes mellitus with diabetic polyneuropathy (principal); E78.2 Mixed hyperlipidemia; I10 Essential (primary) hypertension; N18.31 Chronic kidney disease, stage 3a
CPT/HCPCS: 36415; 80053; 80061; 82043; 82570; 83036; 84443; 85027

== ENCOUNTER → 2022-10-24 10:35 | Outpatient (CLI) | payer MEDICARE, SELFPAY ==
[2022-03-14 15:27] VITALS: BMI 28.5
== END ==
PROVIDERS: PCP Internal Medicine; Referring Provider Internal Medicine; Visit Provider Surgery
DX: E11.621 Type 2 diabetes mellitus with foot ulcer (principal); L97.522 Non-pressure chronic ulcer of other part of left foot with fat layer exposed; L97.511 Non-pressure chronic ulcer of other part of right foot limited to breakdown of skin; E11.40 Type 2 diabetes mellitus with diabetic neuropathy, unspecified
CPT/HCPCS: 11042; 99213

== ENCOUNTER → 2022-10-26 09:45 | Outpatient (CLI) | payer MEDICARE, SELFPAY ==
[2022-03-14 15:27] VITALS: BMI 28.5
--- NOTE | 2022-11-02 08:58 | PM.PFT.1 ---
Pulmonary Function Test Referral & Results Date Patient Seen: 10/26/22 Results: The spirometry demonstrates an FVC of 4.13 L which is 104% of predicted. The FEV1 was measured at 2.91 L which is 104% of predicted. The FEV1/FVC ratio was 71 which is 99% of predicted. Following the administration of bronchodilator there was 41% improvement in FEF 25-75%. Lung volumes show an SVC of 4.12 L which is 94% of predicted. The diffusing capacity was measured at 18.83 which is 58% of predicted. No hemoglobin value was provided, so no correction for potential anemia could be made, if appropriate. 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
== END ==
PROVIDERS: PCP Internal Medicine; Referring Provider Internal Medicine Cardiovascular Disease; Visit Provider Internal Medicine Cardiovascular Disease
DX: Z79.899 Other long term (current) drug therapy (principal); J98.8 Other specified respiratory disorders
CPT/HCPCS: 94060; 94726; 94729

== ENCOUNTER → 2022-10-31 10:43 | Outpatient (CLI) | payer MEDICARE, SELFPAY ==
[2022-03-14 15:27] VITALS: BMI 28.5
== END ==
PROVIDERS: PCP Internal Medicine; Referring Provider Internal Medicine; Visit Provider Surgery
DX: E11.621 Type 2 diabetes mellitus with foot ulcer (principal); L97.522 Non-pressure chronic ulcer of other part of left foot with fat layer exposed; L08.89 Other specified local infections of the skin and subcutaneous tissue; B95.7 Other staphylococcus as the cause of diseases classified elsewhere; E11.42 Type 2 diabetes mellitus with diabetic polyneuropathy; E11.22 Type 2 diabetes mellitus with diabetic chronic kidney disease; I12.9 Hypertensive chronic kidney disease with stage 1 through stage 4 chronic kidney disease, or unspecified chronic kidney disease; N18.30 Chronic kidney disease, stage 3 unspecified; I25.119 Atherosclerotic heart disease of native coronary artery with unspecified angina pectoris; I25.2 Old myocardial infarction; I48.91 Unspecified atrial fibrillation; Z95.5 Presence of coronary angioplasty implant and graft; Z95.0 Presence of cardiac pacemaker; Z79.01 Long term (current) use of anticoagulants
CPT/HCPCS: 11042

== ENCOUNTER → 2022-11-03 11:21 | Outpatient (CLI) | payer MEDICARE, SELFPAY ==
[2022-03-14 15:27] VITALS: BMI 28.5
== END ==
PROVIDERS: PCP Internal Medicine; Referring Provider Emergency Medicine; Visit Provider Surgery
DX: E11.621 Type 2 diabetes mellitus with foot ulcer (principal); L97.522 Non-pressure chronic ulcer of other part of left foot with fat layer exposed; R20.8 Other disturbances of skin sensation
CPT/HCPCS: 99212

== ENCOUNTER → 2022-11-07 13:13 | Outpatient (CLI) | payer MEDICARE, SELFPAY ==
[2022-03-14 15:27] VITALS: BMI 28.5
== END ==
PROVIDERS: PCP Internal Medicine; Referring Provider Emergency Medicine; Visit Provider Surgery
DX: E11.621 Type 2 diabetes mellitus with foot ulcer (principal); L97.522 Non-pressure chronic ulcer of other part of left foot with fat layer exposed; L97.511 Non-pressure chronic ulcer of other part of right foot limited to breakdown of skin; E11.42 Type 2 diabetes mellitus with diabetic polyneuropathy
CPT/HCPCS: 11042; 99213

== ENCOUNTER → 2022-11-08 11:11 | Outpatient (CLI) | payer MEDICARE, SELFPAY ==
[2022-03-14 15:27] VITALS: BMI 28.5
--- NOTE | 2022-11-08 11:12 | DI.US.S_ITS ---
PROCEDURE: US ARTERIAL DUPLEX LE LT INDICATIONS: DIABETIC. FOOT WOUND. TECHNIQUE: Color and pulse Doppler interrogation was performed of the left lower extremity arterial system, with image documentation. COMPARISON: None. FINDINGS: Common femoral artery: 93 cm/sec, with triphasic flow. Deep femoral artery: 57 cm/sec, with triphasic flow. Proximal superficial femoral artery: 87 cm/sec, with triphasic flow. Mid superficial femoral artery: 87 cm/sec, with triphasic flow. Distal superficial femoral artery: 1 6 cm/sec, with triphasic flow. Popliteal artery: 99 cm/sec, with triphasic flow. Posterior tibial artery: 31 cm/sec, with triphasic flow. Anterior tibial artery/dorsalis pedis: 322 cm/sec, with monophasic flow. Morse-scale imaging description: Moderate diffuse stenosis IMPRESSION: 1. No significant stenosis in the iliac, femoral, or popliteal artery. 2. Focal elevated stenosis in the left anterior tibial artery consistent with 50-69% stenosis. Dictated by: Micah Cano M.D. on 11/08/2022 at 15:39 Approved by: Micah Cano M.D. on 11/08/2022 at 15:44
== END ==
PROVIDERS: PCP Internal Medicine; Referring Provider Surgery; Visit Provider Surgery
DX: E11.621 Type 2 diabetes mellitus with foot ulcer (principal); L97.509 Non-pressure chronic ulcer of other part of unspecified foot with unspecified severity; I70.202 Unspecified atherosclerosis of native arteries of extremities, left leg
CPT/HCPCS: 93926

== ENCOUNTER → 2022-11-11 11:06 | Outpatient (CLI) | payer MEDICARE, SELFPAY ==
[2022-03-14 15:27] VITALS: BMI 28.5
== END ==
PROVIDERS: PCP Internal Medicine; Referring Provider Internal Medicine; Visit Provider Physician Assistant
DX: E11.621 Type 2 diabetes mellitus with foot ulcer (principal); L97.522 Non-pressure chronic ulcer of other part of left foot with fat layer exposed
CPT/HCPCS: 99213

== ENCOUNTER → 2022-11-14 14:31 | Outpatient (CLI) | payer MEDICARE, SELFPAY ==
[2022-03-14 15:27] VITALS: BMI 28.5
== END ==
PROVIDERS: PCP Internal Medicine; Referring Provider Internal Medicine; Visit Provider Surgery
DX: E11.621 Type 2 diabetes mellitus with foot ulcer (principal); L97.522 Non-pressure chronic ulcer of other part of left foot with fat layer exposed; E11.40 Type 2 diabetes mellitus with diabetic neuropathy, unspecified
CPT/HCPCS: 11042

== ENCOUNTER → 2022-11-15 13:49 | Outpatient (CLI) | payer MEDICARE, SELFPAY ==
[2022-03-14 15:27] VITALS: BMI 28.5
--- NOTE | 2022-11-15 13:50 | DI.NM.S_ITS ---
PROCEDURE: NM BONE 3 PHASE RADIOPHARMACEUTICAL: 22.0 mCi Tc-99m MDP IV. INDICATIONS: Eval for osteo Left hallux TECHNIQUE: Multiple bone scintigrams were obtained after intravenous injection of Tc-99m MDP, including flow, blood pool, and delayed images centered to the region of interest. COMPARISON: [facility], CT, CT LE RT W CON, 03/14/2022, 15:02. FINDINGS: A triple scan was obtained, centered to the ankles and feet. Flow and blood pool images demonstrate mildly increased vascular activity the distal aspect of the left 1st toe. Delayed images demonstrate increased activity in the distal left 1st toe. The scintigraphic findings are suspicious for osteomyelitis. Foci of increased periarticular a in ankles and feet bilaterally are most likely secondary to degenerative/arthritic changes IMPRESSION: 1. There is increased flow, blood pool and delayed activity in the distal aspect of the left 1st toe, compatible with osteomyelitis. 2. Degenerative/arthritic changes in ankle and feet. Dictated by: Sara Lozano M.D. on 11/16/2022 at 10:27 Approved by: Sara Lozano M.D. on 11/17/2022 at 9:57
== END ==
PROVIDERS: PCP Internal Medicine; Referring Provider Surgery; Visit Provider Surgery
DX: E11.621 Type 2 diabetes mellitus with foot ulcer (principal); L97.529 Non-pressure chronic ulcer of other part of left foot with unspecified severity
CPT/HCPCS: 78315; A9503

== ENCOUNTER → 2022-11-17 14:11 | Outpatient (CLI) | payer MEDICARE, SELFPAY ==
[2022-03-14 15:27] VITALS: BMI 28.5
== END ==
PROVIDERS: PCP Internal Medicine; Referring Provider Internal Medicine; Visit Provider Surgery
DX: E11.621 Type 2 diabetes mellitus with foot ulcer (principal); L97.522 Non-pressure chronic ulcer of other part of left foot with fat layer exposed; E11.40 Type 2 diabetes mellitus with diabetic neuropathy, unspecified; M86.172 Other acute osteomyelitis, left ankle and foot
CPT/HCPCS: 11042; 87070; 87075; 87077; 87186; 87205; 99213

== ENCOUNTER → 2022-11-21 11:42 | Outpatient (CLI) | payer MEDICARE, SELFPAY ==
[2022-03-14 15:27] VITALS: BMI 28.5
== END ==
PROVIDERS: PCP Internal Medicine; Referring Provider Emergency Medicine; Visit Provider Surgery
DX: E11.621 Type 2 diabetes mellitus with foot ulcer (principal); L97.522 Non-pressure chronic ulcer of other part of left foot with fat layer exposed
CPT/HCPCS: 99213

== ENCOUNTER → 2022-11-28 10:37 | Outpatient (CLI) | payer MEDICARE, SELFPAY ==
[2022-03-14 15:27] VITALS: BMI 28.5
== END ==
PROVIDERS: PCP Internal Medicine; Referring Provider Emergency Medicine; Visit Provider Surgery
DX: E11.621 Type 2 diabetes mellitus with foot ulcer (principal); L97.522 Non-pressure chronic ulcer of other part of left foot with fat layer exposed; E11.42 Type 2 diabetes mellitus with diabetic polyneuropathy; M86.172 Other acute osteomyelitis, left ankle and foot
CPT/HCPCS: 11042; 99212; 99213

== ENCOUNTER → 2022-12-05 11:05 | Outpatient (CLI) | payer MEDICARE, SELFPAY ==
[2022-03-14 15:27] VITALS: BMI 28.5
== END ==
PROVIDERS: PCP Internal Medicine; Referring Provider Emergency Medicine; Visit Provider Surgery
DX: E11.621 Type 2 diabetes mellitus with foot ulcer (principal); L97.522 Non-pressure chronic ulcer of other part of left foot with fat layer exposed
CPT/HCPCS: 15275; Q4196

== ENCOUNTER → 2022-12-12 14:31 | Outpatient (CLI) | payer MEDICARE, SELFPAY ==
[2022-03-14 15:27] VITALS: BMI 28.5
== END ==
PROVIDERS: PCP Internal Medicine; Referring Provider Internal Medicine; Visit Provider Surgery
DX: E11.621 Type 2 diabetes mellitus with foot ulcer (principal); L97.522 Non-pressure chronic ulcer of other part of left foot with fat layer exposed; E11.42 Type 2 diabetes mellitus with diabetic polyneuropathy; M86.172 Other acute osteomyelitis, left ankle and foot
CPT/HCPCS: 15275; Q4196

== ENCOUNTER → 2022-12-21 10:53 | Outpatient (CLI) | payer MEDICARE, SELFPAY ==
[2022-03-14 15:27] VITALS: BMI 28.5
== END ==
PROVIDERS: PCP Internal Medicine; Referring Provider Emergency Medicine; Visit Provider Surgery
DX: E11.621 Type 2 diabetes mellitus with foot ulcer (principal); L97.522 Non-pressure chronic ulcer of other part of left foot with fat layer exposed; L97.511 Non-pressure chronic ulcer of other part of right foot limited to breakdown of skin; M86.172 Other acute osteomyelitis, left ankle and foot; E11.40 Type 2 diabetes mellitus with diabetic neuropathy, unspecified; I42.9 Cardiomyopathy, unspecified; I51.7 Cardiomegaly; Z95.0 Presence of cardiac pacemaker
CPT/HCPCS: 15275; 71046; 99213; Q4196

== ENCOUNTER → 2022-12-21 14:24 | Outpatient (CLI) | payer MEDICARE, SELFPAY ==
[2022-03-14 15:27] VITALS: BMI 28.5
--- NOTE | 2022-12-21 14:27 | DI.RAD.S_ITS ---
PROCEDURE: XR CHEST 2V INDICATIONS: evaluate prior to HBOT TECHNIQUE: 2 views of the chest were acquired. COMPARISON: [facility], , XR CHEST 1V, 03/14/2022, 11:55. FINDINGS: Surgical changes and devices: Pacemaker, sternal wires and valve replacement are noted. Lungs and pleura: Mild appearance of increased pulmonary vascularity. Mediastinum: Mediastinal contours are normal. Heart size is enlarged. Bones and chest wall: No suspicious bony abnormalities. Soft tissues appear unremarkable. IMPRESSION: Mild increased vascularity suggestive of edema. Dictated by: Brenda Muller M.D. on 12/21/2022 at 17:49 Approved by: Brenda Muller M.D. on 12/21/2022 at 17:50
== END ==
PROVIDERS: PCP Internal Medicine; Referring Provider Surgery; Visit Provider Surgery
DX: E11.621 Type 2 diabetes mellitus with foot ulcer (principal); I51.7 Cardiomegaly; Z95.0 Presence of cardiac pacemaker
CPT/HCPCS: 71046

== ENCOUNTER → 2022-12-27 12:36 | Outpatient (CLI) | payer MEDICARE, SELFPAY ==
[2022-03-14 15:27] VITALS: BMI 28.5
--- NOTE | 2022-12-27 | DI.ECHO.S_ITS ---
[facility]---------+ [facility] +---------+ : : [address] : : : : [id number] : : : : Phone: [phone]+ Echocardiogram Report + + :Name: RK ERNANDEZ Study Date: 12/27/2022 Height: 70 in : :[facility] ReadingLocation: Weight: 205 lb : : Gender: Male BSA: 2.1 m2 : :: 1940 Age: 82 yrs BP: 111/71 mmHg: :Reason For Study: S/P MITRAL VALVE REPAIR : :Ordering Physician: BILLY, : :ANTHONY Performed By: Sue Hylton : :Referring: ANTHONY CERVANTES : + + Interpretation Summary The left ventricle is mildly dilated. The ejection fraction is estimated to be 40-45%. Diastolic function could not be accurately assessed due to paced rhythm. The left atrium is moderately dilated. The right ventricle is normal size. Right ventricular systolic function is mildly reduced. There is mild to moderate mitral regurgitation. There is trace aortic regurgitation. There is mild tricuspid regurgitation. Pulmonary artery pressures cannot be estimated because of the lack of a measurable TR jet velocity. Compared to the prior study dated 10/10/2021, left ventricular size has decreased and the ejection fraction has increased. Procedure: A two-dimensional transthoracic echocardiogram with color flow and Doppler was performed. The study quality was technically adequate. Comparison is made with the echocardiogram of 07/03/2021. The heart rate ranged between 75-86 bpm during the study. Left Ventricle: The left ventricle is mildly dilated. There is normal left ventricular wall thickness. The ejection fraction is estimated to be 40-45%. There is moderate global hypokinesis of the left ventricle. Diastolic function could not be accurately assessed due to paced rhythm. Right Ventricle: There is a pacemaker lead in the right ventricle. The right ventricle is normal size. Right ventricular systolic function is mildly reduced. Atria: The left atrium is moderately dilated. Right atrial size is normal. There is no Doppler evidence for an interatrial shunt. Mitral Valve: An annuloplasty ring is noted in the mitral position. There is mild to moderate mitral regurgitation. Aortic Valve: The aortic valve is trileaflet. The aortic valve opens well. There is no aortic valve stenosis. There is trace aortic regurgitation. Tricuspid Valve: The tricuspid valve is normal in structure and function. There is mild tricuspid regurgitation. Pulmonary artery pressures cannot be estimated because of the lack of a measurable TR jet velocity. Pulmonic Valve: The pulmonic valve is not well seen, but is grossly normal. There is mild pulmonic regurgitation. Great Vessels: The aortic root is mildly dilated. The dimensions of the ascending aorta are normal. The IVC is of normal diameter and collapses greater than 50% with a sniff. This suggests a low right atrial pressure of 3 mm Hg. Pericardium/ Pleura There is no pericardial effusion. There is no pleural effusion. MMode/2D Measurements & Calculations LVIDd: 6.3 cm LVOT diam: 2.3 cm LVIDs: 5.5 cm Ao root diam: 4.1 cm FS: 13.5 % asc Aorta Diam: 3.6 cm EPSS: 2.0 cm Ao Arch Diam (Prox Trans): 2.7 cm IVSd: 0.73 cm LVPWd: 0.91 cm LV roy. diameter/BSA (cm/m^2): 3.0 LV sys. diameter/BSA (cm/m^2): 2.6 LA A2 area: 27.2 cm2 RA long axis: 5.6 cm LA A4 area: 19.9 cm2 RA area: 15.4 cm2 LA length (vol): 5.4 cm RA vol: 36.1 ml LA vol: 85.6 ml RA : 17.1 ml/m2 LA vol index: 40.6 ml/m2 IVC diam: 1.7 cm RVD1 (basal): 3.5 cm RVD2 (mid): 2.9 cm Doppler Measurements & Calculations Ao V2 max: 142.8 cm/sec LVOT Max Win: 85.6 cm/sec Ao V2 mean: 110.0 cm/sec LV V1 max P.9 mmHg Ao max P.2 mmHg LV V1 VTI: 17.6 cm Ao mean P.3 mmHg ELLIE(I,D): 2.4 cm2 Ao V2 VTI: 29.5 cm ELLIE(V,D): 2.4 cm2 sev ratio: 0.60 ELLIE indexed to BSA (cm^2/m^2): 1.2 MV E max win: 131.7 cm/sec PA V2 max: 92.8 cm/sec MV A max win: 163.8 cm/sec PA V2 mean: 70.3 cm/sec MV E/A: 0.80 PA mean P.2 mmHg Lat Peak E' Win: 6.9 cm/sec PA pr(Accel): 46.5 mmHg E/E' lat: 19.1 MV dec time: 0.27 sec MVA(VTI): 1.6 cm2 MV V2 mean: 112.5 cm/sec SV(LVOT): 71.7 ml MV mean P.8 mmHg MV V2 VTI: 43.7 cm Reading Physician:04:37 PM
== END ==
PROVIDERS: PCP Internal Medicine; Referring Provider Internal Medicine Cardiovascular Disease; Visit Provider Internal Medicine Cardiovascular Disease
DX: I08.1 Rheumatic disorders of both mitral and tricuspid valves (principal); I77.810 Thoracic aortic ectasia; Z98.890 Other specified postprocedural states
CPT/HCPCS: 93306

== ENCOUNTER → 2022-12-28 10:14 | Outpatient (CLI) | payer MEDICARE, SELFPAY ==
[2022-03-14 15:27] VITALS: BMI 28.5
== END ==
PROVIDERS: PCP Internal Medicine; Referring Provider Emergency Medicine; Visit Provider Surgery
DX: E11.42 Type 2 diabetes mellitus with diabetic polyneuropathy (principal); E11.621 Type 2 diabetes mellitus with foot ulcer; L97.522 Non-pressure chronic ulcer of other part of left foot with fat layer exposed; L97.511 Non-pressure chronic ulcer of other part of right foot limited to breakdown of skin; M86.172 Other acute osteomyelitis, left ankle and foot; E11.40 Type 2 diabetes mellitus with diabetic neuropathy, unspecified; L84 Corns and callosities
CPT/HCPCS: 36415; 80048; 83036; 97597

== ENCOUNTER → 2022-12-28 12:07 | Outpatient (CLI) | payer MEDICARE, SELFPAY ==
[2022-03-14 15:27] VITALS: BMI 28.5
[2022-12-28 15:19] LABS: Hemoglobin A1C% w Est Avg Glu 12.6 % (4.0-6.0)
[2022-12-28 15:33] LABS: BUN Creatinine Ratio 18.1 (6-22); Blood Urea Nitrogen 23 mg/dL (9-20); Calcium 9.6 mg/dL (8.4-10.2); Carbon Dioxide 29 mmol/L (22-32); Chloride 93 mmol/L (98-107); Estimated Glomerular Filt Rate 56 mL/min (>60); Glucose 318 mg/dL (80-110); HEMOLYSIS < 15 (0-50); Potassium 4.5 mmol/L (3.4-5.1); Sodium 132 mmol/L (137-145)
== END ==
PROVIDERS: PCP Internal Medicine; Referring Provider Internal Medicine; Visit Provider Internal Medicine
DX: E11.42 Type 2 diabetes mellitus with diabetic polyneuropathy (principal)
CPT/HCPCS: 36415; 80048; 83036

== ENCOUNTER → 2023-01-04 14:35 | Outpatient (CLI) | payer MEDICARE, SELFPAY ==
[2022-03-14 15:27] VITALS: BMI 28.5
== END ==
PROVIDERS: PCP Internal Medicine; Referring Provider Emergency Medicine; Visit Provider Surgery
DX: E11.621 Type 2 diabetes mellitus with foot ulcer (principal); L97.522 Non-pressure chronic ulcer of other part of left foot with fat layer exposed; E11.40 Type 2 diabetes mellitus with diabetic neuropathy, unspecified; E11.51 Type 2 diabetes mellitus with diabetic peripheral angiopathy without gangrene; M86.172 Other acute osteomyelitis, left ankle and foot
CPT/HCPCS: 99212; 99213

== ENCOUNTER → 2023-01-04 15:36 | Outpatient (CLI) | payer MEDICARE, SELFPAY ==
[2022-03-14 15:27] VITALS: BMI 28.5
[2023-01-04 18:15] LABS: Alanine Aminotransferase 15 IU/L (<50); Albumin Globulin Ratio 1.2 (1.0-2.8); Alkaline Phosphatase 111 U/L (38-126); Aspartate Aminotransferase 20 IU/L (17-59); BUN Creatinine Ratio 16.8 (6-22); Bilirubin Total 0.4 mg/dL (0.2-1.3); Blood Urea Nitrogen 24 mg/dL (9-20); Calcium 9.5 mg/dL (8.4-10.2); Carbon Dioxide 26 mmol/L (22-32); Chloride 93 mmol/L (98-107); Estimated Glomerular Filt Rate 49 mL/min (>60); Globulin 3.4 g/dL (1.7-4.1); Glucose 268 mg/dL (80-110); HEMOLYSIS < 15 (0-50); Potassium 3.7 mmol/L (3.4-5.1); Sodium 129 mmol/L (137-145); Total Protein 7.4 g/dL (6.3-8.2)
[2023-01-04 18:48] LABS: Thyroid Stimulating Hormone 0.756 uIU/mL (0.47-4.68)
== END ==
PROVIDERS: PCP Internal Medicine; Referring Provider Internal Medicine Cardiovascular Disease; Visit Provider Internal Medicine Cardiovascular Disease
DX: Z79.899 Other long term (current) drug therapy (principal)
CPT/HCPCS: 36415; 80053; 84443

== ENCOUNTER → 2023-01-10 13:02 | Outpatient (CLI) | payer MEDICARE, SELFPAY ==
[2022-03-14 15:27] VITALS: BMI 28.5
== END ==
PROVIDERS: PCP Internal Medicine; Referring Provider Emergency Medicine; Visit Provider Surgery
DX: E11.42 Type 2 diabetes mellitus with diabetic polyneuropathy (principal); Z86.31 Personal history of diabetic foot ulcer
CPT/HCPCS: 99213

== ENCOUNTER → 2023-01-16 11:34 | Outpatient (CLI) | payer MEDICARE, SELFPAY ==
[2022-03-14 15:27] VITALS: BMI 28.5
== END ==
PROVIDERS: PCP Internal Medicine; Referring Provider Emergency Medicine; Visit Provider Surgery
DX: E11.40 Type 2 diabetes mellitus with diabetic neuropathy, unspecified (principal); L97.521 Non-pressure chronic ulcer of other part of left foot limited to breakdown of skin; L84 Corns and callosities; I25.10 Atherosclerotic heart disease of native coronary artery without angina pectoris; N18.9 Chronic kidney disease, unspecified; I73.9 Peripheral vascular disease, unspecified
CPT/HCPCS: 99213

== ENCOUNTER → 2023-01-18 12:56 | Outpatient (CLI) | payer MEDICARE, SELFPAY ==
[2022-03-14 15:27] VITALS: BMI 28.5
== END ==
PROVIDERS: PCP Internal Medicine; Referring Provider Emergency Medicine; Visit Provider Surgery
DX: S91.102D Unspecified open wound of left great toe without damage to nail, subsequent encounter (principal)
CPT/HCPCS: 99212

== ENCOUNTER → 2023-01-23 11:00 | Outpatient (CLI) | payer MEDICARE, SELFPAY ==
[2022-03-14 15:27] VITALS: BMI 28.5
== END ==
PROVIDERS: PCP Internal Medicine; Referring Provider Emergency Medicine; Visit Provider Surgery
DX: Z86.31 Personal history of diabetic foot ulcer (principal)
CPT/HCPCS: 99213

== ENCOUNTER → 2023-01-30 10:28 | Outpatient (CLI) | payer MEDICARE, SELFPAY ==
[2022-03-14 15:27] VITALS: BMI 28.5
== END ==
PROVIDERS: PCP Internal Medicine; Referring Provider Emergency Medicine; Visit Provider Surgery
DX: Z86.31 Personal history of diabetic foot ulcer (principal); L84 Corns and callosities
CPT/HCPCS: 99213

== ENCOUNTER → 2023-02-13 10:44 | Outpatient (CLI) | payer MEDICARE, SELFPAY ==
[2022-03-14 15:27] VITALS: BMI 28.5
== END ==
PROVIDERS: PCP Internal Medicine; Referring Provider Emergency Medicine; Visit Provider Surgery
DX: E11.628 Type 2 diabetes mellitus with other skin complications (principal); S40.811A Abrasion of right upper arm, initial encounter
CPT/HCPCS: 11042; 11045; 99212; 99213

== ENCOUNTER → 2023-02-20 09:20 | Outpatient (CLI) | payer MEDICARE, SELFPAY ==
[2022-03-14 15:27] VITALS: BMI 28.5
== END ==
PROVIDERS: PCP Internal Medicine; Referring Provider Emergency Medicine; Visit Provider Surgery
DX: E11.621 Type 2 diabetes mellitus with foot ulcer (principal); L97.522 Non-pressure chronic ulcer of other part of left foot with fat layer exposed; E11.42 Type 2 diabetes mellitus with diabetic polyneuropathy; S40.811A Abrasion of right upper arm, initial encounter
CPT/HCPCS: 11042; 99213

== ENCOUNTER → 2023-02-27 11:10 | Outpatient (CLI) | payer MEDICARE, SELFPAY ==
[2022-03-14 15:27] VITALS: BMI 28.5
== END ==
PROVIDERS: PCP Internal Medicine; Referring Provider Emergency Medicine; Visit Provider Surgery
DX: E11.621 Type 2 diabetes mellitus with foot ulcer (principal); L97.522 Non-pressure chronic ulcer of other part of left foot with fat layer exposed; S41.101A Unspecified open wound of right upper arm, initial encounter; E11.40 Type 2 diabetes mellitus with diabetic neuropathy, unspecified; E11.628 Type 2 diabetes mellitus with other skin complications
CPT/HCPCS: 11042; 87070; 87075; 87147; 87205; 99213

== ENCOUNTER 2023-02-28 07:48 | Inpatient (IN) | payer MEDICARE, SELFPAY ==
[2022-03-14 15:27] VITALS: BMI 28.5
[2023-02-28] VITALS (27 sets, daily range): BP systolic 49–108; BP diastolic 25–57; PULSE 67–81; RESP 10–23; TEMP 36.1; O2SAT 94–100; BMI 27.9
--- NOTE | 2023-02-28 07:52 | DI.RAD.S_ITS ---
PROCEDURE: XR CHEST 1V INDICATIONS: gen weakness TECHNIQUE: One view of the chest was acquired. COMPARISON: [facility], CR, XR CHEST 2V, 12/21/2022, 14:31. [facility], CR, XR CHEST 1V, 03/14/2022, 11:55. FINDINGS: Surgical changes and devices: Median sternotomy wires. Left chest wall pacemaker. Valvuloplasty.. Lungs and pleura: Low lung volumes. Mild linear atelectasis at the bases. No focal pulmonary consolidations.. No pleural effusions or pneumothorax. Mediastinum: Mediastinal contours appear normal. Heart size is normal. Bones and chest wall: No suspicious bony lesions. Overlying soft tissues appear unremarkable. IMPRESSION: No acute cardiopulmonary process. Dictated by: Flo Rankin M.D. on 02/28/2023 at 8:30 Approved by: Flo Rankin M.D. on 02/28/2023 at 8:31
[2023-02-28 08:00] LABS: Add Manual Diff / Slide Review NO; Basophils Absolute Auto 0 /uL (0-100); Basophils Percent Auto 0.3 % (0-2); Eosinophils Absolute Auto 100 /uL (0-450); Eosinophils Percent Auto 1.2 % (2-4); Hematocrit 36.2 % (41-53); Hemoglobin 11.8 g/dL (13.5-17.5); Lymphocytes Absolute Auto 900 /uL (1100-4500); Lymphocytes Percent Auto 15.5 % (25-40); Mean Corpuscular HGB Conc 32.7 % (30-36); Mean Corpuscular Hemoglobin 27.9 PG (26-34); Mean Corpuscular Volume 85.4 fL (80-100); Monocytes Absolute Auto 600 /uL (0-900); Monocytes Percent Auto 10.6 % (3-14); Neutrophils Absolute Auto 4300 /uL (1500-7000); Neutrophils Percent Auto 72.4 % (50-75); Platelet Count 286 X10^3/uL (150-400); Red Blood Cell Count 4.24 X10^6/uL (4.5-5.9); Red Cell Distribution Width 15.7 % (11.6-14.8)
--- NOTE | 2023-02-28 08:02 | ED.GENADULT ---
HPI - General Adult General Chief complaint: Weakness Stated complaint: 2 days weakness Time Seen by Provider: 02/28/23 07:52 Source: EMS Mode of arrival: EMS History of Present Illness HPI narrative: 82-year-old male with history of coronary artery disease, insulin-dependent diabetes with known osteomyelitis of toe presents by EMS from home for generalized weakness for 2 days. 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 He is normally able to get up to use the restroom, but this morning was not able to get the patient up to use the restroom and called 911. Vital signs were remarkable for hypotension with SBP 80s and hyperglycemia (accucheck >500) en route. He was started on IV fluids and transported for further evaluation. Patient reported fatigue on arrival, denied pain. Presents with POLST form that states patient is DNR Related Data Home Medications Medication Instructions Recorded Confirmed apixaban 5 mg tablet (Eliquis) 2.5 mg PO BID 07/02/21 12/28/22 amiodarone 100 mg tablet 100 mg PO DAILY 09/22/21 12/28/22 nitroglycerin 0.4 mg sublingual 0.4 mg sublingual Q5-15M PRN chest 11/26/21 12/28/22 tablet pain metoprolol succinate 25 mg 37.5 mg PO BID 01/31/22 12/28/22 tablet,extended release 24 hr furosemide 20 mg tablet 10 mg PO 2XW 02/23/22 12/28/22 alpha lipoic acid 300 mg capsule 300 mg PO DAILY 03/14/22 12/28/22 ascorbic acid (vitamin C) 500 mg 500 mg PO DAILY 03/14/22 12/28/22 capsule aspirin 81 mg tablet,delayed 81 mg PO DAILY 03/14/22 12/28/22 release cholecalciferol (vitamin D3) 50 50 mcg PO BID 03/14/22 12/28/22 mcg (2,000 unit) capsule coenzyme [id number] E 100 mg-100 1 cap PO DAILY 03/14/22 12/28/22 unit capsule docosahexaenoic acid (dha)-epa 120 1 cap PO DAILY 03/14/22 12/28/22 mg-180 mg capsule hawthorn 500 mg capsule 500 mg PO TID 03/14/22 12/28/22 magnesium 250 mg tablet 250 mg PO BID 03/14/22 12/28/22 multivit with minerals-iron 18 1 tab PO DAILY 03/14/22 12/28/22 mg-folic ac 400 mcg-vit K 25 mcg tablet (Adults Multivitamin) sacubitril 24 mg-valsartan 26 mg 1 tab PO BID 03/14/22 12/28/22 tablet (Entresto) vitamin B complex 1 tab PO DAILY 03/14/22 12/28/22 insulin glargine 100 unit/mL 25 unit SUBCUT QAM 03/23/22 12/28/22 subcutaneous solution (Lantus U-100 Insulin) telmisartan 40 mg tablet 40 mg PO DAILY 05/23/22 12/28/22 rosuvastatin 20 mg tablet 20 mg PO DAILY 07/06/22 12/28/22 doxycycline hyclate 100 mg capsule 100 mg PO BID 12/28/22 12/28/22 Previous Rx's Medication Instructions Recorded blood-glucose transmitter (Dexcom #1 ea 07/06/22 G6 Transmitter device) gabapentin 300 mg capsule 300 mg PO TID #270 caps 10/03/22 blood sugar diagnostic (Accu-Chek #400 ea 10/21/22 Guide test strips) empagliflozin 25 mg tablet 25 mg PO DAILY #90 tabs 11/14/22 (Jardiance) metformin 500 mg tablet,extended 500 mg PO TID #270 tabs 11/14/22 release 24 hr insulin lispro 100 unit/mL See Rx Instructions SUBCUT QAC #15 12/22/22 subcutaneous half-unit pen mL (Humalog Garcia KwikPen (U-100)) pen needle, diabetic 31 gauge x #300 ea 01/11/2309/13 (BD Ultra-Fine Short Pen Needle) Allergies Allergy/AdvReac Type Severity Reaction Status Date / Time Ckefslp-XWY-VkA Reductase AdvReac Intermediate lower body Verified 12/28/22 10:41 Inhibitor muscle pain [[id number] REDUCTASE INHIBITOR] Review of Systems Review of Systems Narrative: Negative except as noted above Patient History Medical History Bilateral foot-drop Chronic anticoagulation Coronary artery disease DJD of right shoulder Do not resuscitate Essential hypertension FH: mitral valve repair Gait instability Herniated nucleus pulposus, L4-5 Mixed hyperlipidemia Multilevel spinal stenosis Paroxysmal atrial fibrillation Peripheral neuropathy Presence of combination internal cardiac defibrillator (ICD) and pacemaker Spinal stenosis Stage 3a chronic kidney disease (CKD) Systolic CHF, chronic 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 Surgical History H/O left knee surgery Family History Father Tubercular lesion of lung Mother Congestive heart failure Diabetes mellitus Social History household members: spouse Smoking Status: Never smoker alcohol intake: current Smoking Status: Never smoker alcohol intake frequency: a few times a month Substance Use Type: does not use Exam Initial Vital Signs Initial Vital Signs: Vital Signs Temperature 96.9 F L 02/28/23 07:49 Pulse Rate 75 02/28/23 07:49 Respiratory Rate 18 02/28/23 07:49 Blood Pressure 102/57 L 02/28/23 07:49 Pulse Oximetry 99 02/28/23 07:49 Oxygen Delivery Method Room Air 02/28/23 07:49 Const: Awake, alert, fatigued, appears chronically unwell, debilitated, frail Eyes: PERRL, EOMI, conjunctiva normal ENT: Atraumatic, dry mucous membranes Cardiac: regular rate, regular rhythm RESP: unlabored, clear bilaterally, no wheezing GI: Atraumatic, soft, nontender MSK: Atraumatic, full range of motion, pulses equal Skin: Warm, Dry, intact, poor turgor Neuro: AO x2, CN II-XII grossly intact, moves all extremities Course Course Course Narrative: Patient presenting for generalized weakness with hypotension and hyperglycemia. VBG with pH 7.221. Patient appears clinically dehydrated. Empiric broad spectrum abx initiated, started on LR. Wound on toe appears well maintained Orders Ordered: ED Orders 02/28/23 07:50 Complete Blood Count AUTO DIFF Stat Comprehensive Metabolic Panel Stat Lactate (Lactic Acid) Stat Procalcitonin Stat Prothrombin Time INR Stat Troponin & CK Cardiac Panel Stat 02/28/23 07:52 XR chest 1V Stat 02/28/23 08:00 VBG [Venous Blood Gas] Stat 02/28/23 08:01 EKG-12 Lead Stat 02/28/23 08:05 Covid-19 + FLU A/B + RSV - PCR Stat 02/28/23 08:20 Blood Culture Stat 02/28/23 09:25 Ictotest Urine Stat Urinalysis and Microscopic Stat 02/28/23 09:47 EKG-12 Lead Routine 02/28/23 10:07 Ketones (Beta-Hydroxybutyrate) Stat 02/28/23 11:44 Basic Metabolic Panel Q4H 02/28/23 11:44 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 to 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 Routine 02/28/23 15:44 Basic Metabolic Panel Q4H 02/28/23 19:44 Basic Metabolic Panel Q4H 02/28/23 23:44 Basic Metabolic Panel Q4H 03/01/23 03:44 Basic Metabolic Panel Q4H 03/01/23 05:00 Basic Metabolic Panel Routine Complete Blood Count AUTO DIFF Routine Magnesium Routine Acetaminophen (Acetaminophen 325 Mg Tablet) 650 mg PO Q6H PRN PRN Reason: Fever/Mild Pain (1-3) INSULIN DRIP PREMIX (Myxredlin Drip Premix) 100 unit in 100 mls @ 8.33 mls/hr IV TITRATE JUAN C; Protocol Last Titration: 02/28/23 10:03 Dose: 0.15 unit/kg/hr, 12.495 mls/hr Documented By: MAYA Co-signed By: LUIS E Admin: 02/28/23 09:08 Dose: 0.1 unit/kg/hr, 8.33 mls/hr Documented By: MAYA Co-signed By: KALEIGH Lactated Ringer's (Lactated Ringers) 1,000 mls @ 100 mls/hr IV PRN PRN PRN Reason: other Naloxone HCl (Naloxone 0.4 Mg/Ml Vial) 0.2 mg IV Q2MIN PRN PRN Reason: Opiate Reversal Ondansetron HCl (Ondansetron 4 Mg/2 Ml Inj) 4 mg IV Q8HR PRN PRN Reason: Nausea And Vomiting Discontinued Medications Fentanyl (Fentanyl 100 Mcg/2 Ml Inj) 50 mcg IV NOW ONE Stop: 02/28/23 09:20 Last Admin: 02/28/23 09:23 Dose: 50 mcg Documented By: MAYA Lactated Ringer's (Lactated Ringers) 1,000 mls @ 1,000 mls/hr IV CONT JUAN C Cefepime HCl 2 gm/ Sodium (Chloride) 100 mls @ 200 mls/hr IV NOW ONE Stop: 02/28/23 07:53 Last Infusion: 02/28/23 09:01 Dose: Infused Documented By: Admin: 02/28/23 08:16 Dose: 200 mls/hr Documented By: MAYA Vancomycin HCl (Vancomycin) 1,000 mg in 200 mls @ 200 mls/hr IV NOW ONE Stop: 02/28/23 08:51 Last Infusion: 02/28/23 10:27 Dose: Infused Documented By: Admin: 02/28/23 09:18 Dose: 200 mls/hr Documented By: MAYA Sodium Chloride (Normal Saline 0.9%) 1,000 mls @ 1,000 mls/hr IV BOLUS ONE Stop: 02/28/23 08:59 Last Infusion: 02/28/23 09:01 Dose: Infused Documented By: Admin: 02/28/23 08:03 Dose: 1,000 mls/hr Documented By: MAYA Lactated Ringer's (Lactated Ringers) 1,000 mls @ 1,000 mls/hr IV BOLUS ONE Stop: 02/28/23 10:15 Last Infusion: 02/28/23 09:58 Dose: Infused Documented By: Admin: 02/28/23 09:17 Dose: 1,000 mls/hr Documented By: MAYA Lactated Ringer's (Lactated Ringers) 1,000 mls @ 1,000 mls/hr IV BOLUS ONE Stop: 02/28/23 10:41 Last Infusion: 02/28/23 10:56 Dose: Infused Documented By: Admin: 02/28/23 09:58 Dose: 1,000 mls/hr Documented By: MAYA NOREPINEPHRINE BITARTRATE/D5W (Levophed) 4 mg in 250 mls @ 31.238 mls/hr IV TITRATE JUAN C; Protocol Last Admin: 02/28/23 11:37 Dose: Not Given Documented By: MAYA Insulin Human Regular (Insulin Regular 100 Unit/Ml 3 Ml Vial) 10 unit IV NOW ONE Stop: 02/28/23 08:24 Last Admin: 02/28/23 09:06 Dose: Not Given Documented By: MAYA Reevaluation(s) Reevaluation #1: Blood pressure soft despite L of IV fluids. Additional IV fluids ordered. Laboratory work is significant for elevated glucose, elevated anion gap, decreased CO2, elevated ketones. This is consistent with DKA. Insulin drip an additional fluids ordered per protocol. With negative protocol, negative white blood cell count antibiotics unlikely to be of additional benefit. Reevaluation #2: Patient's blood pressure continues to however with MAP between 60-65 after 2L IVF. 3rd liter started. Patient's daughter in law on way from [place], plan right now is to have pressors on standby so that they can make it into town to see patient. PICC consult placed Reevaluation #3: Dr. Dos Santos called back - requested Palliative with no pressors, but continue insulin and fluids. Patient's son is on the way. Patient admitted as ICU patient Vital Signs Vital signs: Vital Signs - 8 hr 02/28/23 07:49 02/28/23 08:01 02/28/23 08:15 Temperature 96.9 F L Pulse Rate 75 73 Respiratory Rate 18 16 Blood Pressure 102/57 L 89/52 L Pulse Oximetry 99 99 Oxygen Delivery Method Room Air 02/28/23 08:15 02/28/23 08:30 02/28/23 08:30 Temperature Pulse Rate 72 70 Respiratory Rate 14 13 Blood Pressure 98/56 L Pulse Oximetry 100 99 Oxygen Delivery Method 02/28/23 08:45 02/28/23 08:45 02/28/23 09:00 Temperature Pulse Rate 72 Respiratory Rate 15 Blood Pressure 90/57 L 86/50 L Pulse Oximetry 100 Oxygen Delivery Method 02/28/23 09:00 02/28/23 09:15 02/28/23 09:15 Temperature Pulse Rate 74 78 Respiratory Rate 16 23 Blood Pressure 107/55 L Pulse Oximetry 96 97 Oxygen Delivery Method 02/28/23 09:30 02/28/23 09:30 02/28/23 09:32 Temperature Pulse Rate 69 67 Respiratory Rate 10 L 12 Blood Pressure 80/48 L Pulse Oximetry 96 97 Oxygen Delivery Method 02/28/23 09:32 02/28/23 09:45 02/28/23 09:45 Temperature Pulse Rate 68 Respiratory Rate 12 Blood Pressure 83/49 L 90/53 L Pulse Oximetry 98 Oxygen Delivery Method 02/28/23 10:00 02/28/23 10:00 02/28/23 10:15 Temperature Pulse Rate 69 Respiratory Rate 13 Blood Pressure 98/55 L 108/56 L Pulse Oximetry 98 Oxygen Delivery Method Room Air 02/28/23 10:15 02/28/23 10:30 02/28/23 10:30 Temperature Pulse Rate 69 70 Respiratory Rate 11 L 22 Blood Pressure 102/57 L Pulse Oximetry 98 98 Oxygen Delivery Method 02/28/23 10:45 02/28/23 10:45 02/28/23 11:00 Temperature Pulse Rate 74 Respiratory Rate 14 Blood Pressure 96/52 L 83/45 L Pulse Oximetry 97 Oxygen Delivery Method 02/28/23 11:00 02/28/23 11:02 02/28/23 11:02 Temperature Pulse Rate 72 73 Respiratory Rate 11 L 16 Blood Pressure 87/53 L Pulse Oximetry 98 99 Oxygen Delivery Method 02/28/23 11:15 02/28/23 11:15 Temperature Pulse Rate 74 Respiratory Rate 15 Blood Pressure 90/51 L Pulse Oximetry 98 Oxygen Delivery Method Medical Decision Making Lab Data 02/28/23 07:50 02/28/23 07:50 Labs: Lab Results 02/28/23 02/28/23 02/28/23 Range/Units 07:50 08:00 08:05 WBC 6.0 (4.5-11.0) X10^3/uL RBC 4.24 L (4.5-5.9) X10^6/uL Hgb 11.8 L (13.5-17.5) g/dL Hct 36.2 L (41-53) % MCV 85.4 (80-100) fL MCH 27.9 (26-34) PG MCHC 32.7 (30-36) % RDW 15.7 H (11.6-14.8) % Plt Count 286 (150-400) X10^3/uL Neut % (Auto) 72.4 (50-75) % Lymph % (Auto) 15.5 L (25-40) % [place] % (Auto) 10.6 (3-14) % Eos % (Auto) 1.2 L (2-4) % Baso % (Auto) 0.3 (0-2) % Neut # (Auto) 4300 (1302-8141) /uL Lymph # (Auto) 900 L (4335-3305) /uL [place] # (Auto) 600 (0-900) /uL Eos # (Auto) 100 (0-450) /uL Baso # (Auto) 0 (0-100) /uL PT 11.8 (10.1-12.7) SECONDS INR 1.0 (0.9-1.3) VBG pH 7.22 L (7.33-7.43) VBG pCO2 34.2 L (45-50) mmHg VBG pO2 28 L (35-45) mmHg VBG HCO3 14 L (24-28) mmol/L VBG Total CO2 15 L (24-29) mmol/L VBG O2 Saturation 43 L (70-75) % VBG Base Excess -14.0 L (0-4) mmol/L FiO2 100 Sodium 133 L (137-145) mmol/L Potassium 5.0 (3.4-5.1) mmol/L Chloride 100 (98-107) mmol/L Carbon Dioxide 12 L (22-32) mmol/L BUN 32 H (9-20) mg/dL Creatinine 1.68 H (0.66-1.25) mg/dL Estimated GFR 40 L (>60) mL/min BUN/Creatinine Ratio 19.0 (6-22) Glucose 540 H* (80-110) mg/dL Lactate 1.2 (0.7-2.1) mmol/L Calcium 10.1 (8.4-10.2) mg/dL Total Bilirubin 0.4 (0.2-1.3) mg/dL AST 16 L (17-59) IU/L ALT 11 (<50) IU/L Alkaline Phosphatase 157 H (38-126) U/L Total Creatine Kinase 58 (55-170) U/L Troponin I 0.020 (0.01-0.034) ng/mL Total Protein 7.1 (6.3-8.2) g/dL Albumin 4.0 (3.5-5.0) g/dL Globulin 3.1 (1.7-4.1) g/dL Albumin/Globulin Ratio 1.3 (1.0-2.8) Procalcitonin 0.11 (<0.5) ng/mL Urine Color Urine Appearance Urine pH (4.5-8.0) Ur Specific [place] (1.000-1.035) Urine Protein (Negative) Urine Glucose (UA) (Negative) g/dL Urine Ketones (NEGATIVE) Urine Occult Blood (Negative) Urine Nitrate (Negative) Urine Bilirubin (NEGATIVE) Ur Bilirubin Confirm (Negative) Urine Urobilinogen (0.2) E.U./dL Ur Leukocyte Esterase (NEGATIVE) Urine RBC (0-5/HPF) Urine WBC (0-5/HPF) Ur Squamous Epith Cells (0-5/HPF) Urine Bacteria (None) Ur Culture Indicated? Ketones (<0.27) mmol/L SARS-CoV-2 (PCR) Positive H (Negative) Influenza A (RT-PCR) Flu a negative (NEGATIVE) Influenza B (RT-PCR) Flu b negative (NEGATIVE) RSV (PCR) Negative (Negative) 02/28/23 02/28/23 Range/Units 09:25 10:07 WBC (4.5-11.0) X10^3/uL RBC (4.5-5.9) X10^6/uL Hgb (13.5-17.5) g/dL Hct (41-53) % MCV (80-100) fL MCH (26-34) PG MCHC (30-36) % RDW (11.6-14.8) % Plt Count (150-400) X10^3/uL Neut % (Auto) (50-75) % Lymph % (Auto) (25-40) % [place] % (Auto) (3-14) % Eos % (Auto) (2-4) % Baso % (Auto) (0-2) % Neut # (Auto) (5925-5901) /uL Lymph # (Auto) (6330-3657) /uL [place] # (Auto) (0-900) /uL Eos # (Auto) (0-450) /uL Baso # (Auto) (0-100) /uL PT (10.1-12.7) SECONDS INR (0.9-1.3) VBG pH (7.33-7.43) VBG pCO2 (45-50) mmHg VBG pO2 (35-45) mmHg VBG HCO3 (24-28) mmol/L VBG Total CO2 (24-29) mmol/L VBG O2 Saturation (70-75) % VBG Base Excess (0-4) mmol/L FiO2 Sodium (137-145) mmol/L Potassium (3.4-5.1) mmol/L Chloride (98-107) mmol/L Carbon Dioxide (22-32) mmol/L BUN (9-20) mg/dL Creatinine (0.66-1.25) mg/dL Estimated GFR (>60) mL/min BUN/Creatinine Ratio (6-22) Glucose (80-110) mg/dL Lactate (0.7-2.1) mmol/L Calcium (8.4-10.2) mg/dL Total Bilirubin (0.2-1.3) mg/dL AST (17-59) IU/L ALT (<50) IU/L Alkaline Phosphatase (38-126) U/L Total Creatine Kinase (55-170) U/L Troponin I (0.01-0.034) ng/mL Total Protein (6.3-8.2) g/dL Albumin (3.5-5.0) g/dL Globulin (1.7-4.1) g/dL Albumin/Globulin Ratio (1.0-2.8) Procalcitonin (<0.5) ng/mL Urine Color Yellow Urine Appearance Clear Urine pH 5.0 (4.5-8.0) Ur Specific [place] 1.010 (1.000-1.035) Urine Protein Trace H (Negative) Urine Glucose (UA) 3+ H (Negative) g/dL Urine Ketones 3+ H (NEGATIVE) Urine Occult Blood Trace-intact (Negative) Urine Nitrate Negative (Negative) Urine Bilirubin 1+ H (NEGATIVE) Ur Bilirubin Confirm Negative (Negative) Urine Urobilinogen 0.2 (0.2) E.U./dL Ur Leukocyte Esterase Negative (NEGATIVE) Urine RBC None seen (0-5/HPF) Urine WBC None seen (0-5/HPF) Ur Squamous Epith Cells 1-5 /hpf (0-5/HPF) Urine Bacteria None seen (None) Ur Culture Indicated? Cult not indicated Ketones 8.70 H (<0.27) mmol/L SARS-CoV-2 (PCR) (Negative) Influenza A (RT-PCR) (NEGATIVE) Influenza B (RT-PCR) (NEGATIVE) RSV (PCR) (Negative) Point of Care Testing Glucose POC 383 Point of care testing: Point of Care Testing Glucose POC 383 ECG Data Interpretation: Atrial sensed ventricular paced rhythm, PVC present. Rate 70 beats per minute. No STEMI Critical Care Time Critical Care Time Critical Care Time: Yes Total Critical Care Time: 48 Attestation: DKA, dehydration, recurrent hypotension, goals of care discussion Discharge Plan Departure Patient Disposition: Admitted As Inpatient Clinical Impression: Dehydration, COVID-19, Generalized weakness, DNR (do not resuscitate) DKA (diabetic ketoacidosis) Qualifiers: Diabetes mellitus type: type 2 Diabetes mellitus complication detail: without coma Qualified Code(s): E11.10 - Type 2 diabetes mellitus with ketoacidosis without coma Admit Date/Time: 02/28/23 11:25 Admit Provider: Taco Amor
[2023-02-28] MEDS: SODIUM CHLORIDE 0.9% 1,000 ML 1000 ML IV (08:03)
[2023-02-28 08:07] LABS: Prothrombin Time 11.8 SECONDS (10.1-12.7)
[2023-02-28 08:11] LABS: Lactate (Lactic Acid) 1.2 mmol/L (0.7-2.1)
[2023-02-28 08:12] LABS: Alanine Aminotransferase 11 IU/L (<50); Albumin Globulin Ratio 1.3 (1.0-2.8); Alkaline Phosphatase 157 U/L (38-126); Aspartate Aminotransferase 16 IU/L (17-59); Bilirubin Total 0.4 mg/dL (0.2-1.3); Blood Urea Nitrogen 32 mg/dL (9-20); Calcium 10.1 mg/dL (8.4-10.2); Carbon Dioxide 12 mmol/L (22-32); Chloride 100 mmol/L (98-107); Creatine Kinase 58 U/L (55-170); Estimated Glomerular Filt Rate 40 mL/min (>60); Globulin 3.1 g/dL (1.7-4.1); HEMOLYSIS < 15 (0-50); Sodium 133 mmol/L (137-145); Total Protein 7.1 g/dL (6.3-8.2)
[2023-02-28 08:14] LABS: Glucose 540 mg/dL (80-110)
[2023-02-28] MEDS: CEFEPIME 2 GM in SODIUM CHLORIDE 0.9% 100 ML IV (08:16)
[2023-02-28 08:29] LABS: Procalcitonin 0.11 ng/mL (<0.5)
[2023-02-28 08:47] LABS: HCO3 VBG 14 mmol/L (24-28); PCO2 VBG 34.2 mmHg (45-50); PO2 VBG 28 mmHg (35-45); Total CO2 VBG 15 mmol/L (24-29); pH VBG 7.22 (7.33-7.43)
[2023-02-28 08:48] LABS: Oxygen Saturation VBG 43 % (70-75)
[2023-02-28 08:51] LABS: Fractionated Inspired Oxygen 100
[2023-02-28] MEDS: INSULIN DRIP PREMIX 100 UNIT/100 ML PLAST..BAG 8.33 UNIT IV (09:08)
[2023-02-28] MEDS: LACTATED RINGERS 1,000 ML 1000 ML IV ×2 (09:17→09:58)
[2023-02-28] MEDS: VANCOMYCIN 1,000 MG/200 ML PIGGYBACK 200 MG IV (09:18)
[2023-02-28] MEDS: fentaNYL 100 MCG/2 ML INJ 50 MCG IV (09:23)
--- NOTE | 2023-02-28 09:32 | PC.NURSE ---
UA/ micro ordered, urine not dipped in ED, sent to lab
[2023-02-28 09:46] LABS: Appearance Urine UA CLEAR; Bilirubin Urine UA 1+ (NEGATIVE); Color Urine UA YELLOW; Glucose Urine UA 3+ g/dL (Negative); Ketones Urine UA 3+ (NEGATIVE); Leukocyte Esterase Urine UA NEGATIVE (NEGATIVE); Nitrite Urine UA NEGATIVE (Negative); Occult Blood Urine UA TRACE-INTACT (Negative); Protein Urine UA TRACE (Negative); Urobilinogen Urine UA 0.2 E.U./dL (0.2)
[2023-02-28 09:49] LABS: Ictotest Urine Negative (Negative)
[2023-02-28 09:51] LABS: Bacteria Urine None Seen; Culture Indicated Urine Cult Not Indicated; RBC Urine None Seen (0-5/HPF); Squamous Epithelial Cell Urine 1-5 /HPF (0-5/HPF); WBC Urine None Seen (0-5/HPF)
--- NOTE | 2023-02-28 10:10 | PC.NURSE ---
Late entry, Dr. Bhatia gave verbal order to not give 10unit regular insulin bolus, and to begin insulin gtt instead. Insulin gtt started at 0909 according to DKA policy.
[2023-02-28 10:13] LABS: Influenza A - CEPHEID Flu A NEGATIVE (NEGATIVE); Influenza B - CEPHEID Flu B NEGATIVE (NEGATIVE); Respiratory Syncytial Virus Negative (Negative)
[2023-02-28 10:14] LABS: COVID-19 CEPHEID 4-PLEX PCR POSITIVE (Negative)
--- NOTE | 2023-02-28 11:01 | PC.NURSE ---
glucose 383 at 1100, no change to unsulin gtt per protocol, rate the same. Will check glucose at 1200
--- NOTE | 2023-02-28 11:12 | PC.NURSE ---
DI nurse at bedside obtaining consent for PICC line. Hospitalist in room talking with pt and family
--- NOTE | 2023-02-28 11:13 | PC.NURSE ---
Per HARRY, holding off on pressor support. Pt's BP currently, mid 80s systolic
--- NOTE | 2023-02-28 11:43 | DI.RAD.S_ITS ---
PROCEDURE: XR CHEST FOR PICC 1V INDICATIONS: line placement COMPARISON: [facility], CR, XR CHEST 1V, 02/28/2023, 8:00. FINDINGS: Catheter was placed by the intravenous therapy team from the left side. Fluoroscopic spot film demonstrates the tip of catheter projecting to the area of mid left subclavian vein. IMPRESSION: Tip of catheter projects to the area of mid left subclavian consistent with midline catheter placement. Dictated by: Dian Kraft M.D. on 02/28/2023 at 12:12 Approved by: Dian Kraft M.D. on 02/28/2023 at 12:18
[2023-02-28] MEDS: DEXTROSE 5%-0.45% NS 1,000 ML 124 ML IV (12:12)
[2023-02-28 12:15] LABS: BUN Creatinine Ratio 20.8 (6-22); Blood Urea Nitrogen 30 mg/dL (9-20); Calcium 9.6 mg/dL (8.4-10.2); Carbon Dioxide 15 mmol/L (22-32); Chloride 106 mmol/L (98-107); Estimated Glomerular Filt Rate 49 mL/min (>60); Glucose 279 mg/dL (80-110); HEMOLYSIS < 15 (0-50); Potassium 3.5 mmol/L (3.4-5.1); Sodium 136 mmol/L (137-145)
[2023-02-28] MEDS: POTASSIUM CHLORIDE IN WATER 10 MEQ/100 ML PIGGYBACK 100 MEQ IV (12:39)
--- NOTE | 2023-02-28 13:18 | PC.NURSE ---
Pt w/ agonal respirations but easy work of breathing. Appears relaxed. Family at bedside. FLACC pain score 0/10. Family given support.
--- NOTE | 2023-02-28 13:19 | PC.NURSE ---
At 1300 pt's POA asked for all medications to be stopped, and for pacemaker to be turned off. Dr. Amor updated, Magnet placed over pacemaker and pt switched to comfort measures. Pt appears comfortable and not in any distress.
--- NOTE | 2023-02-28 15:37 | PM.HP.1 ---
History of Present Illness History of Present Illness Date Patient Seen: 02/28/23 Time Patient Seen: 12:00 Chief complaint: 2 days weakness Narrative: Mr. Sawant is an 82M with PMH type 2 DM on insulin, CHF, CKD, afib, s/p aicd/ppm who presents to the hospital with weakness. He apparently has been having a progressive decline and recently been sleeping for much of the day. He was not strong enough to get up on his own earlier today. He had no fevers/chills. No nausea, vomiting, diarrhea. No dysuria. No cough. EMS was called because he was weak. They noted he had blood sugars >500s, and was hypotensive with systolic blood pressure in the 80s. In the ED workup was done, vitals noted to be afebrile, heart rate 70s, blood pressure 80s systolic. Labs reviewed by me notable for WBC 6.0, hgb 11.8. Na 133, co2 12, creatinine 1.68. Glucose 540. VBG pH 7.22, bicarb 14. Procal 0.11. COVID positive. UA with no bacteria, leuk esterase. Ketones 8.7. Chest xray with no acute process. He was ordered for multiple liters of IV fluid boluses and continue to remain hypotensive. He was started on insulin gtt and DKA protocol for DKA. Discussions were had by family who stated he was dnr/dni and pressors were not within goals of care. Even after multiple boluses of fluid he dropped his blood pressure to systolic below 70s. At this point further discussion with family made to decision focus on comfort care. 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 Surgical History H/O left knee surgery Family History Father Tubercular lesion of lung Mother Congestive heart failure Diabetes mellitus Social History household members: spouse Smoking Status: Never smoker alcohol intake: current Meds Home Medications and Allergies Home Medications Medication Instructions Recorded Confirmed Type apixaban 5 mg tablet (Eliquis) 2.5 mg PO BID 07/02/21 02/28/23 History amiodarone 100 mg tablet 50 mg PO DAILY 09/22/21 02/28/23 History nitroglycerin 0.4 mg sublingual 0.4 mg sublingual Q5-15M PRN chest 11/26/21 02/28/23 History tablet pain metoprolol succinate 25 mg 37.5 mg PO BID 01/31/22 02/28/23 History tablet,extended release 24 hr furosemide 20 mg tablet 10 mg PO 2XW 02/23/22 02/28/23 History alpha lipoic acid 300 mg capsule 300 mg PO DAILY 03/14/22 02/28/23 History ascorbic acid (vitamin C) 500 mg 500 mg PO DAILY 03/14/22 02/28/23 History capsule aspirin 81 mg tablet,delayed 81 mg PO DAILY 03/14/22 02/28/23 History release cholecalciferol (vitamin D3) 50 50 mcg PO BID 03/14/22 02/28/23 History mcg (2,000 unit) capsule coenzyme [id number] 100 mg-100 1 cap PO DAILY 03/14/22 02/28/23 History unit capsule docosahexaenoic acid (dha)-epa 120 1 cap PO DAILY 03/14/22 02/28/23 History mg-180 mg capsule magnesium 250 mg tablet 250 mg PO BID 03/14/22 02/28/23 History multivit with minerals-iron 18 1 tab PO DAILY 03/14/22 02/28/23 History mg-folic ac 400 mcg-vit K 25 mcg tablet (Adults Multivitamin) sacubitril 24 mg-valsartan 26 mg 1 tab PO BID 03/14/22 02/28/23 History tablet (Entresto) vitamin B complex 1 tab PO DAILY 03/14/22 02/28/23 History insulin glargine 100 unit/mL 14 unit SUBCUT QAM 03/23/22 02/28/23 History subcutaneous solution (Lantus U-100 Insulin) blood-glucose transmitter (Dexcom #1 ea 07/06/22 02/28/23 Rx G6 Transmitter device) rosuvastatin 20 mg tablet 20 mg PO DAILY 07/06/22 02/28/23 History blood sugar diagnostic (Accu-Chek #400 ea 10/21/22 02/28/23 Rx Guide test strips) pen needle, diabetic 31 gauge x #300 ea 01/11/23 02/28/23 Rx 5/16 (BD Ultra-Fine Short Pen Needle) empagliflozin 25 mg tablet 10 mg PO DAILY 02/28/23 02/28/23 History (Jardiance) Allergies Allergy/AdvReac Type Severity Reaction Status Date / Time [id number] Reductase AdvReac Intermediate lower body Verified 12/28/22 10:41 Inhibitor muscle pain [[id number] REDUCTASE INHIBITOR] Review of Systems Review of Systems Narrative: Unable to perform full review of systems due to encephalopathy from acute illness Exam Vital Signs (past 8 hours): - 02/28/23 07:49 02/28/23 08:01 02/28/23 08:15 Temperature 96.9 F L Pulse Rate 75 73 Respiratory Rate 18 16 Blood Pressure 102/57 L 89/52 L Pulse Oximetry 99 99 Oxygen Delivery Method Room Air 02/28/23 08:15 02/28/23 08:30 02/28/23 08:30 Temperature Pulse Rate 72 70 Respiratory Rate 14 13 Blood Pressure 98/56 L Pulse Oximetry 100 99 Oxygen Delivery Method 02/28/23 08:45 02/28/23 08:45 02/28/23 09:00 Temperature Pulse Rate 72 Respiratory Rate 15 Blood Pressure 90/57 L 86/50 L Pulse Oximetry 100 Oxygen Delivery Method 02/28/23 09:00 02/28/23 09:15 02/28/23 09:15 Temperature Pulse Rate 74 78 Respiratory Rate 16 23 Blood Pressure 107/55 L Pulse Oximetry 96 97 Oxygen Delivery Method 02/28/23 09:30 02/28/23 09:30 02/28/23 09:32 Temperature Pulse Rate 69 67 Respiratory Rate 10 L 12 Blood Pressure 80/48 L Pulse Oximetry 96 97 Oxygen Delivery Method 02/28/23 09:32 02/28/23 09:45 02/28/23 09:45 Temperature Pulse Rate 68 Respiratory Rate 12 Blood Pressure 83/49 L 90/53 L Pulse Oximetry 98 Oxygen Delivery Method 02/28/23 10:00 02/28/23 10:00 02/28/23 10:15 Temperature Pulse Rate 69 Respiratory Rate 13 Blood Pressure 98/55 L 108/56 L Pulse Oximetry 98 Oxygen Delivery Method Room Air 02/28/23 10:15 02/28/23 10:30 02/28/23 10:30 Temperature Pulse Rate 69 70 Respiratory Rate 11 L 22 Blood Pressure 102/57 L Pulse Oximetry 98 98 Oxygen Delivery Method 02/28/23 10:45 02/28/23 10:45 02/28/23 11:00 Temperature Pulse Rate 74 Respiratory Rate 14 Blood Pressure 96/52 L 83/45 L Pulse Oximetry 97 Oxygen Delivery Method 02/28/23 11:00 02/28/23 11:02 02/28/23 11:02 Temperature Pulse Rate 72 73 Respiratory Rate 11 L 16 Blood Pressure 87/53 L Pulse Oximetry 98 99 Oxygen Delivery Method 02/28/23 11:15 02/28/23 11:15 02/28/23 11:30 Temperature Pulse Rate 74 74 Respiratory Rate 15 12 Blood Pressure 90/51 L Pulse Oximetry 98 96 Oxygen Delivery Method 02/28/23 11:45 02/28/23 11:59 02/28/23 11:59 Temperature Pulse Rate 76 74 Respiratory Rate 15 13 Blood Pressure 88/48 L Pulse Oximetry 94 99 Oxygen Delivery Method 02/28/23 12:00 02/28/23 12:15 02/28/23 12:30 Temperature Pulse Rate 74 74 81 Respiratory Rate 15 14 22 Blood Pressure Pulse Oximetry 98 95 94 Oxygen Delivery Method Room Air 02/28/23 12:45 02/28/23 12:52 02/28/23 12:52 Temperature Pulse Rate 78 78 Respiratory Rate 23 20 Blood Pressure 51/35 L Pulse Oximetry 95 96 Oxygen Delivery Method 02/28/23 12:54 02/28/23 12:54 02/28/23 13:00 Temperature Pulse Rate 77 Respiratory Rate 20 Blood Pressure 56/32 L 49/25 L Pulse Oximetry 98 Oxygen Delivery Method 02/28/23 13:00 Temperature Pulse Rate 77 Respiratory Rate 13 Blood Pressure Pulse Oximetry 96 Oxygen Delivery Method Room Air Oxygen Delivery Method Room Air Narrative Exam Narrative: GEN: obtunded, ill appearing CV: regular rate and rhythm PULM: clear bilaterally ABD: soft, nontender, nondistended NEURO: not alert, Objective Labs 02/28/23 07:50 02/28/23 11:55 Labs: Laboratory Results - last 24 hr 02/28/23 02/28/23 02/28/23 07:50 08:00 08:05 WBC 6.0 RBC 4.24 L Hgb 11.8 L Hct 36.2 L MCV 85.4 MCH 27.9 MCHC 32.7 RDW 15.7 H Plt Count 286 Neut % (Auto) 72.4 Lymph % (Auto) 15.5 L [place] % (Auto) 10.6 Eos % (Auto) 1.2 L Baso % (Auto) 0.3 Neut # (Auto) 4300 Lymph # (Auto) 900 L [place] # (Auto) 600 Eos # (Auto) 100 Baso # (Auto) 0 PT 11.8 INR 1.0 VBG pH 7.22 L VBG pCO2 34.2 L VBG pO2 28 L VBG HCO3 14 L VBG Total CO2 15 L VBG O2 Saturation 43 L VBG Base Excess -14.0 L FiO2 100 Sodium 133 L Potassium 5.0 Chloride 100 Carbon Dioxide 12 L BUN 32 H Creatinine 1.68 H Estimated GFR 40 L BUN/Creatinine Ratio 19.0 Glucose 540 H* Lactate 1.2 Calcium 10.1 Total Bilirubin 0.4 AST 16 L ALT 11 Alkaline Phosphatase 157 H Total Creatine Kinase 58 Troponin I 0.020 Total Protein 7.1 Albumin 4.0 Globulin 3.1 Albumin/Globulin Ratio 1.3 Procalcitonin 0.11 Urine Color Urine Appearance Urine pH Ur Specific [place] Urine Protein Urine Glucose (UA) Urine Ketones Urine Occult Blood Urine Nitrate Urine Bilirubin Ur Bilirubin Confirm Urine Urobilinogen Ur Leukocyte Esterase Urine RBC Urine WBC Ur Squamous Epith Cells Urine Bacteria Ur Culture Indicated? Ketones SARS-CoV-2 (PCR) Positive H Influenza A (RT-PCR) Flu a negative Influenza B (RT-PCR) Flu b negative RSV (PCR) Negative 02/28/23 02/28/23 02/28/23 09:25 10:07 11:55 WBC RBC Hgb Hct MCV MCH MCHC RDW Plt Count Neut % (Auto) Lymph % (Auto) [place] % (Auto) Eos % (Auto) Baso % (Auto) Neut # (Auto) Lymph # (Auto) [place] # (Auto) Eos # (Auto) Baso # (Auto) PT INR VBG pH VBG pCO2 VBG pO2 VBG HCO3 VBG Total CO2 VBG O2 Saturation VBG Base Excess FiO2 Sodium 136 L Potassium 3.5 D Chloride 106 Carbon Dioxide 15 L BUN 30 H Creatinine 1.44 H Estimated GFR 49 L BUN/Creatinine Ratio 20.8 Glucose 279 H D Lactate Calcium 9.6 Total Bilirubin AST ALT Alkaline Phosphatase Total Creatine Kinase Troponin I Total Protein Albumin Globulin Albumin/Globulin Ratio Procalcitonin Urine Color Yellow Urine Appearance Clear Urine pH 5.0 Ur Specific [place] 1.010 Urine Protein Trace H Urine Glucose (UA) 3+ H Urine Ketones 3+ H Urine Occult Blood Trace-intact Urine Nitrate Negative Urine Bilirubin 1+ H Ur Bilirubin Confirm Negative Urine Urobilinogen 0.2 Ur Leukocyte Esterase Negative Urine RBC None seen Urine WBC None seen Ur Squamous Epith Cells 1-5 /hpf Urine Bacteria None seen Ur Culture Indicated? Cult not indicated Ketones 8.70 H SARS-CoV-2 (PCR) Influenza A (RT-PCR) Influenza B (RT-PCR) RSV (PCR) Assessment & Plan Assessment & Plan narrative: 1. Acute shock and DKA probable secondary to COVID -suspect acute viral illness has led to poor intake and erratic blood glucose -after initial resuscitation did not improve hemodynamics and he continued to worsen, family agreed that comfort focused care is the goals of care -placed comfort order set with morphine and ativan to be given for pain and agitation respectively 2. Type 2 DM on insulin with DKA -stopped insulin gtt 3. s/p aicd, ppm -magnet placed Chronic issues 3. CKD 4. CHF 5. Atrial fibrillation -no active treatment indicated given above stated goals of care CODE: DNR/DNI Proxy: Justin Chavez I have obtained history from patient's family and medical records. I have discussed plan of care with ED physician and bedside nurse. I have reviewed labs, imaging. Quality [facility] - Meds 'Current medications' to include all prescriptions, [id number] products, herbals, cannabis/cannabidiol products, and vitamin/mineral/dietary (nutritional) supplements. I have utilized all available resources to obtain, update, or review the patient?s current medications. [If Yes, STOP here]: Yes
--- NOTE | 2023-02-28 15:59 | PC.NURSE ---
Admit Note Patient arrived to room 204 at 1520. Assisted into bed via slider board. Awake and able to answer questions. Denies pain and denies feeling short of breath, states he is comfortable. Family in room. Call light within reach, family and pt instructed to call with any needs. No vitals taken on admit due to family/pt wishes, pt comfort care.
--- NOTE | 2023-02-28 17:05 | PC.NURSE ---
Patient is lying supine in bed and sleeping. All of his family and daughter n law are in the room and visiting with Praful. He is comfortable at this time.
[2023-02-28] MEDS: MORPHINE 2 MG/ML INJ 4 MG IV (17:52)
[2023-02-28] MEDS: MORPHINE 50 MG in DEXTROSE 5 % IN WATER 45 ML IV (18:35)
[2023-03-01] MEDS: MORPHINE 50 MG in DEXTROSE 5 % IN WATER 45 ML IV (03:09)
--- NOTE | 2023-03-01 10:14 | PC.NURSE ---
Day shift: Family request morphine drip increased to 10mg/hr. Dr Amor aware and Pharmacist Teresa also. Family remains at bedside. Drip increased at approx 1015 to 10mg/hr.
--- NOTE | 2023-03-01 10:55 | PC.NURSE ---
Day shift: Pt tolerating morphine drip 10mg/hr.
[2023-03-01] MEDS: MORPHINE 50 MG in DEXTROSE 5 % IN WATER 45 ML 10 MG IV (11:48)
[2023-03-01] MEDS: MORPHINE 2 MG/ML INJ 4 MG IV ×2 (12:03→14:23)
--- NOTE | 2023-03-01 12:43 | PC.NURSE ---
Day shift: IV morphine drip increased to 20mg/hr. Pt's breathing more agonal at this time. Dose increased per family request. This com writer talked to Teresa in pharmacy about this rate increase.
--- NOTE | 2023-03-01 14:27 | CM.DANOTE ---
Initial DCP Assessment Note Reviewed EMR and team rounds for pt's medical status and anticipated d/c and support needs. Pt was admitted after he presented to the ED on 02/28/23 after experiencing 2-days of progressive weakness, sleeping 20+hours per day, minimal appetite. He was found to have Covid-19, dehydration, and in DKA (he's a type-2 diabetic). Family expressing wanting comfort-focused care only as their goals of care. Palliative measures in place for pt's comfort and symptom management. Per team rounds, pt appears to be end of life, presenting s/s of impending dying. ON SITE SOIL EVALUATOR attemped to call pt's to offer support, left message on her VM. DCP to follow and offer family support as needed. Payor: Medicare PCP: Dr. 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 Yes: POLST Advance Directives on File No History Provided By Medical Record Has Patient been admitted in last 30 No days? Prior Living Arrangements House Household Members spouse Type of transporation used prior to Relies on Others admit Independent with ADL's Yes Is patient alert and oriented? No: Pt is on palliative, end of life focused measures. Caregiver for Another No Comment N/A Comment Pt will most likely pass away inpt, he is demonstrating s/s of impending dying. Barriers to Discharge No Discharge Plan Home Transportation Arrangement spouse plans to provide transport home Referrals Initiated None needed Additional Comment pending cultures and likely oral abx at d/c Whiteboard Updated in Patient Room with No name and ext. # of Typing Element Machine Operator Comment No, due to Covid-19. Review Status In Process Please Provide Date Initial DC 03/01/23 Assessment Was Performed
[2023-03-01] MEDS: LORazepam 2 MG/ML INJ 1 MG IV ×2 (14:36→15:38)
[2023-03-01] MEDS: MORPHINE 100 MG in DEXTROSE 5 % IN WATER 90 ML 25 MG IV (15:19)
--- NOTE | 2023-03-01 15:43 | PM.PN.1 ---
Subjective Subjective Date Patient Seen: 03/01/23 Time Patient Seen: 08:00 Interval history: He appeared uncomfortable this morning. Morphine was increased and he is now resting calmly. Exam Vital Signs (past 8 hours): - 03/01/23 08:12 Oxygen Delivery Method Room Air Oxygen Delivery Method Room Air Narrative Exam Narrative: GEN: obtunded, calm Objective Labs 02/28/23 07:50 02/28/23 11:55 PFSH Medical History Bilateral foot-drop Chronic anticoagulation Coronary artery disease DJD of right shoulder Do not resuscitate Essential hypertension FH: mitral valve repair Gait instability Herniated nucleus pulposus, L4-5 Mixed hyperlipidemia Multilevel spinal stenosis Paroxysmal atrial fibrillation Peripheral neuropathy Presence of combination internal cardiac defibrillator (ICD) and pacemaker Spinal stenosis Stage 3a chronic kidney disease (CKD) Systolic CHF, chronic 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 Acute shock and DKA probable secondary to COVID -suspect acute viral illness has led to poor intake and erratic blood glucose -after initial resuscitation did not improve hemodynamics and he continued to worsen, family agreed that comfort focused care is the goals of care -placed comfort order set with morphine and ativan to be given for pain and agitation respectively 2. Type 2 DM on insulin with DKA -stopped insulin gtt 3. s/p aicd, ppm -magnet placed Chronic issues 3. CKD 4. CHF 5. Atrial fibrillation -Family has agreed that patient's goals of care are comfort. He is actively dying and his pain and anxiety are being managed with morphine and ativan titrated to symptom control.
--- NOTE | 2023-03-01 16:19 | PC.NURSE ---
Day shift: TOD 1607. Family at bedside for passing. Dr Amor made aware. Ashley Alan RN made aware.
--- NOTE | 2023-03-01 16:19 | PM.DDS.1 ---
Discharge Summary History of Illness Narrative: Mr. Sawant is an 82M with PMH type 2 DM on insulin, CHF, CKD, afib, s/p aicd/ppm who presents to the hospital with weakness. He apparently has been having a progressive decline and recently been sleeping for much of the day. He was not strong enough to get up on his own earlier today. He had no fevers/chills. No nausea, vomiting, diarrhea. No dysuria. No cough. EMS was called because he was weak. They noted he had blood sugars >500s, and was hypotensive with systolic blood pressure in the 80s. In the ED workup was done, vitals noted to be afebrile, heart rate 70s, blood pressure 80s systolic. Labs reviewed by me notable for WBC 6.0, hgb 11.8. Na 133, co2 12, creatinine 1.68. Glucose 540. VBG pH 7.22, bicarb 14. Procal 0.11. COVID positive. UA with no bacteria, leuk esterase. Ketones 8.7. Chest xray with no acute process. He was ordered for multiple liters of IV fluid boluses and continue to remain hypotensive. He was started on insulin gtt and DKA protocol for DKA. Discussions were had by family who stated he was dnr/dni and pressors were not within goals of care. Even after multiple boluses of fluid he dropped his blood pressure to systolic below 70s. At this point further discussion with family made to decision focus on comfort care. Hospital Course Date of Admission: 02/28/23 11:25 Primary care provider: Zaheer Baig MD Discharge provider: Dr. Amor Discharge Diagnosis: 1. Acute shock and DKA probable secondary to COVID 2. Type 2 DM on insulin with DKA 3. s/p aicd, ppm 4. CKD 5. CHF 6. Atrial fibrillation Hospital Course: Mr. Sawant was admitted with DKA and shock, and was COVID positive. Initially resuscitation was attempted with fluids, antibiotics and insulin. He worsened and family were in agreement that he would be comfort care. He and at 16:07 with family at bedside. Objective Labs 02/28/23 07:50 02/28/23 11:55
--- NOTE | 2023-03-01 17:10 | PC.NURSE ---
Day shift: Left room to home at approx 1700.
--- NOTE | 2023-03-02 07:51 | CM.DPC ---
DCP Per MD and RN, pt with family bedside yesterday 03/01/23 after SW shift around 1607 and home was contacted and collected the body. ANTONELLA Barakat
== END 2023-03-01 17:10 | disposition expired | DRG 177 ==
LOC: ED 10:39 → AC 11:25
PROVIDERS: Admitting Provider Internal Medicine; Emergency Provider Emergency Medicine; PCP Internal Medicine; Referring Provider Emergency Medicine; Visit Provider Internal Medicine
DX: U07.1 COVID-19 (principal); E11.10 Type 2 diabetes mellitus with ketoacidosis without coma; R57.9 Shock, unspecified; I50.9 Heart failure, unspecified; I48.91 Unspecified atrial fibrillation; I11.0 Hypertensive heart disease with heart failure; Z95.810 Presence of automatic (implantable) cardiac defibrillator; Z51.5 Encounter for palliative care; Z66 Do not resuscitate; Z79.4 Long term (current) use of insulin
CPT/HCPCS: 0241U; 11042; 36569; 71045; 80048; 80053; 81001; 82009; 82550; 82805; 82962; 83605; 84145; 84484; 85025; 85610; 87040; 87070; 87077; 87147; 87205; 93005; 96365; 96366; 96367; 96368; 99284; 99291; J0692; J2060; J2270; J3010